=== PATIENT | female | born 1990 | race Caucasian/White ===

== ENCOUNTER 2023-08-31 17:19 | Emergency (ER) | payer BC, SELFPAY ==
[2023-08-31 17:23] VITALS: BP 130/83; PULSE 83; RESP 18; TEMP 36.2; O2SAT 99
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
[2023-08-31 18:40] VITALS: BMI 31.8
--- NOTE | 2023-08-31 18:40 | RAD_ITS ---
EXAM: XR LEFT KNEE COMPLETE, 4 OR MORE VIEWS CLINICAL INDICATION: Injury/Pain TECHNIQUE: Four or more views of the left knee. COMPARISON: No relevant prior studies available. FINDINGS: BONES/JOINTS: Unremarkable. No acute fracture. No subluxation. Normal alignment. Preservation of the joint space. No sclerotic or destructive changes observed. SOFT TISSUES: Unremarkable. No soft tissue swelling or gas. No radiopaque foreign body. RAD/Knee 4 or More Views IMPRESSION: Negative knee x-rays. Electronically Signed: Kalin Mcelroy MD at 19:46 EDT ,
--- NOTE | 2023-08-31 18:40 | RAD_ITS ---
EXAM: XR RIGHT KNEE COMPLETE, 4 OR MORE VIEWS CLINICAL INDICATION: Injury/Pain TECHNIQUE: Four or more views of the right knee. COMPARISON: No relevant prior studies available. FINDINGS: BONES/JOINTS: Unremarkable. No acute fracture. No subluxation. Normal alignment. Preservation of the joint space. No sclerotic or destructive changes observed. SOFT TISSUES: Unremarkable. No soft tissue swelling or gas. No radiopaque foreign body. RAD/Knee 4 or More Views IMPRESSION: Negative right knee x-rays. Electronically Signed: Kalin Mcelroy MD at 19:46 EDT ,
[2023-08-31 20:28] VITALS: BP 130/61; PULSE 78; RESP 16; TEMP 36.8; O2SAT 99
== END 2023-08-31 20:28 | disposition home or self-care (01) ==
PROVIDERS: Emergency Provider Emergency Medicine; PCP Family Medicine; Visit Provider Emergency Medicine
DX: S80.01XA Contusion of right knee, initial encounter (principal); S09.90XA Unspecified injury of head, initial encounter; Y92.410 Unspecified street and highway as the place of occurrence of the external cause; S80.02XA Contusion of left knee, initial encounter; V49.40XA Driver injured in collision with unspecified motor vehicles in traffic accident, initial encounter; S16.1XXA Strain of muscle, fascia and tendon at neck level, initial encounter; E06.3 Autoimmune thyroiditis; Z79.899 Other long term (current) drug therapy; Z90.49 Acquired absence of other specified parts of digestive tract
CPT/HCPCS: 73564; 99282

== ENCOUNTER 2024-09-20 17:10 | Outpatient (CLI) | payer BC, SELFPAY ==
[2024-09-20] VITALS (71 sets, daily range): BP systolic 127–139; BP diastolic 59–73; PULSE 88–104; RESP 14–16; TEMP 36.1–37; O2SAT 82–100; BMI 32.0
[2024-09-20] MEDS: Lactated Ringers 1,000 ML 999 ML IV (17:45)
[2024-09-20 17:57] LABS: Absolute Lymphocyte Count 1.91 X10^3/uL (0.83-4.51); Absolute Neutrophil Count 11.2 X10^3/uL (2.0-7.7); Basophil# 0.04 X10^3/uL; Basophil% 0.3 % (0-1); Eosinophil# 0.13 X10^3/uL; Eosinophils% 0.9 % (0-5); Hematocrit 36.2 % (37-47); Hemoglobin 11.9 g/dL (12.0-15.0); Lymphocyte # 1.91 X10^3/ul (0.83-4.51); Lymphocyte % 13.4 % (19-41); Mean Corp Hgb Conc 32.9 g/dL (32-36); Mean Corpuscular Hgb 31.9 pg (27.0-32.0); Mean Corpuscular Volume 97.1 fL (81-99); Mean Platelet Vol. 10.5 fl (6.2-12.0); Monocyte# 0.83 X10^3/uL; Monocyte% 5.8 % (0-10); NRBC Flagged by Analyzer 0 % (0-5); Neutrophil # 11.16 X10^3/uL (2.7-7.7); Neutrophil % 78.5 % (47-70); Platelet Count 299 K/mm3 (150-450); RBC Distribution Width CV 12.6 % (11.6-14.6); RBC Distribution Width SD 44.7 fl (35.1-43.9); Red Blood Count 3.73 M/mm3 (4.2-5.4); White Blood Count 14.2 K/mm3 (4.4-11.0)
[2024-09-20] MEDS: Betamethasone/Betamethasone 30 MG/5 ML Vial 12 MG IM (18:01)
[2024-09-20 18:12] LABS: International Normalized Ratio 0.9; Prothrombin Time (Protime)PT. 12.8 SECONDS (11.7-14.9)
[2024-09-20 18:13] LABS: Partial Thromboplast Time 25.7 Seconds (24.1-36.2)
[2024-09-20 18:14] LABS: Fibrinogen 544 mg/dl (203-444)
[2024-09-20] MEDS: Magnesium Sulfate 4gm/100mL 4 GM/100 ML IV.SOLN. IV (18:49)
--- NOTE | 2024-09-20 18:58 | OB.TRI.NOTE ---
HPI - General General Date of Admission: 09/20/24 Date of Service: 09/20/24 Chief Complaint: vaginal bleeding HPI Narrative KING HESTER, is a 34 F @ 23 6/7 weeks by 8 week US presents c/o bright red blood upon standing this evening. Some lower abdominal/low back tightening but didn't notice it being more than she has had the last few weeks. Denies trauma, intercourse, drug use or HTN. NO bleeding earlier in the . complicated to date by n/v and takes zofran and phenergan x 1 a day. 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 hx- denies tob/etoh/other substance use Maternal Data Information Final GASPER: [birth year] Gestational age: 23 6/7 PFSH PFSH Medical History Polycystic ovarian syndrome Eczema Hx of Pham thyroiditis Hay fever Home Medications ?Medication ?Instructions ?Recorded ?Last Taken ?Type cetirizine 10 mg capsule (Zyrtec) 10 mg PO DAILY PRN allergies 04/04/21 Unknown History levothyroxine 13 mcg capsule 13 mcg PO DAILY 04/04/21 Unknown History ondansetron HCl 4 mg tablet 4 mg PO 4X/DAY 09/20/24 Unknown History vit no.95-ferrous 1 tab PO DAILY 09/20/24 Unknown History fumarate 28 mg-folic acid 800 mcg tablet () promethazine 12.5 mg tablet 25 mg PO QHS 09/20/24 Unknown History Allergy/AdvReac Type Severity Reaction Status Date / Time amoxicillin Allergy Severe Hives Verified 09/20/24 17:55 tree nut (tree nuts) Allergy Intermediate Other Verified 09/20/24 17:55 latex Allergy Unknown unknown Verified 09/20/24 17:55 Penicillins Allergy Unknown unknown Verified 09/20/24 17:55 ethanolamine Allergy Anaphylaxis Verified 09/20/24 17:55 Family History Other Asthma Breast cancer Surgical History Hx of cholecystectomy Hx of appendectomy Social History Smoking Status: Never smoker ROS Constitutional Constitutional: Denies fatigue, fever(s) or malaise Eyes Eyes: Denies change in vision ENT HEENT: Denies dizziness or headache(s) Cardiovascular Cardiovascular: Denies chest pain, dyspnea or lightheadedness Respiratory/Chest Respiratory/Chest: Denies cough or dyspnea Gastrointestinal Gastrointestinal: Denies change in bowel habits Genitourinary Genitourinary: Denies burning urination or genital lesions Integumentary Integumentary: Denies rash Neurologic Neurologic: Denies confusion, dizziness, headache(s), numbness or weakness Physical Exam Narrative Verbal consent for sensitive exam, nursing present in the room for this. Brief transabdominal ultrasound was done. Grossly normal fluid. Posterior placenta. Lower uterine segment appears very thin. Active vertex fetus. Sterile speculum exam is done, small amount dark red blood in the vault. No active bright red bleeding, appears to be a clot at the os. Cervix does appear to be soft and approximately 2 cm. Gentle palpation of the cervix was then performed and on light exam feels to be approximately 2 cm 80% effaced but this was done very gingerly as I did not want to disrupt the clot at the os. Const alert and no apparent distress General Appearance: cooperative HEENT normocephalic Resp normal respiratory effort Cardio regular rate GI soft to palpation GI Narrative: gravid, nontender, appropriate for gestational age Extremity no calf tenderness General Extremity: edema Skin no wounds Rashes: No rashes noted Psych activity/motor behavior normal Assessment & Plan (1) Supervision of high risk in second trimester: (2) 23 weeks gestation of : (3) labor in second trimester: QUALIFIERS: labor delivery status: without delivery Qualified Code(s): O60.02 - labor without delivery, second trimester (4) Vaginal bleeding during , antepartum: PLAN: No evidence of abruption on exam or laboratory studies. (5) Advanced maternal age during in second trimester: PLAN: Response and alternatives to betamethasone, and magnesium prophylaxis were discussed with the patient and her family, and consent was obtained. PLAN: Plan Brief ultrasound confirms vertex. Response and alternatives to transport to [facility] perin[facility]ology and neonatology specialty availability were reviewed with the patient, her questions were answered to her satisfaction and she agrees to proceed with transport. Dr. Hitchcock accepts patient at [facility]. Neonatolgy there aware and in agreement w/ accepting transport.
[2024-09-20] MEDS: Magnesium Sulfate 20 GM/500 ML BAG IV (19:10)
--- NOTE | 2024-09-20 22:31 | NURSING ---
pt leaving hospital with [facility], magnesium sulfate 2 GM/hr at 50 mLs/hr continued to be administered as pt leaves.
== END 2024-09-20 22:30 | disposition short-term general hospital (02) ==
LOC: WPOUT 17:14 → WP 17:14
PROVIDERS: PCP Family Medicine; Visit Provider Obstetrics & Gynecology
DX: O46.92 Antepartum hemorrhage, unspecified, second trimester (principal); Z90.49 Acquired absence of other specified parts of digestive tract; Z3A.23 23 weeks gestation of pregnancy
CPT/HCPCS: 96365; 96366; 96361; 36415; 59025; 59050; 76815; 85025; 85384; 85610; 85730; 86850; 86900; 86901; 96372; 99221; G0378; J0702

== ENCOUNTER 2024-11-29 13:29 | Outpatient (CLI) | payer BC, MEDICAID, SELFPAY ==
[2024-11-29] VITALS (16 sets, daily range): PULSE 65–82; RESP 13; TEMP 36.6; O2SAT 92–98; BMI 30.6
--- OUTSIDE RECORDS SUMMARY | 2024-11-29 13:44 | XMS RPT_ITS | CCD ---
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 Information Provided to Patient: Diet Instructions Resume your pre-hospital diet Specific Concerns for Follow-up Post Discharge: Routine care Discharge Medications: Medication List CONTINUE taking these medications aspirin, enteric coated 81 mg EC tablet Commonly known as: ECOTRIN LOW STRENGTH Take 1 tablet by mouth once daily. folic acid 1 mg tablet TAKE 1 TABLET BY MOUTH EVERY DAY levothyroxine 50 mcg tablet Commonly known as: SYNTHROID ondansetron orally disintegrating 4 mg disintegrating tablet Commonly known as: ZOFRAN ODT Take 1 tablet by mouth every 6 hours as needed for nausea/vomiting. PO promethazine 25 mg tablet Commonly known as: PHENERGAN Take 1 tablet by mouth every 6 hours. ZyrTEC 10 mg tablet Generic drug: cetirizine ALLERGIES Allergen Reactions Amoxicillin Mental Status Change Latex, Natural Rubb* Rash Montelukast Unknown Penicillin Hives Penicillins Hives, Other: See Comments Mouth sores, mental changes Future Appointments: Follow Up Appointments Follow-Up Appointment Appointments for Next 60 Days Date Time Provider Location Dept Phone 11/16/2024 9:40 AM NATASHA SEGURA [phone] With: Provider When: In: Patient/Parents to call for appointment?: Yes Plan of care discussed with: Provider, RN, Patient. Final Diagnosis: vaginal bleeding in third trimester of Active Hospital Problems Diagnosis POA Vaginal bleeding during (HCC) Yes 30 weeks gestation of (HCC) Unknown Vaginal bleeding in , third trimester (HCC) Unknown Prematurity (HCC) Yes Resolved Hospital Problems No resolved problems to display. SIGNATURE: Yakelin Ventura DO DATE: November 12, 2024 TIME: 9:20 AM Normal [facility] NUTRITIONon 11-11-2024 NUTRITION HNO ID: [id number] Author: REGGIE DELONG DTR Service: Nutrition Therapy Author Type: Manager Of Change Type: Nutrition Filed: 11/11/2024 12:35 Note Text: NUTRITION THERAPY GLASS LINED TANK REPAIRER NOTE SERVICE DATE: 11/11/2024 SERVICE TIME: Start Time: 937 Visit Type: Length of Stay Patient consumes smaller meals and snacks. Reported weight loss with early . Plan of Care: Follow-Up: Tech Reassessment Nursing Admission Assessment Malnutrition Score: Nutrition Intake: Diet Orders (From admission, onward) Start Ordered 11/03/241744 DIET REGULAR START NOW 11/03/24 1741 Average intake over: Unable to determine Appetite: Good (Po intake 100% ans consumes snacks) Anthropometrics: Body mass index is 31.48 kg/m?. Usual Weight: 81.6 kg (180 lb) (pre- weight) Weight Change: (unable to determine) MNT Billing: $ Routine Care : 1 unit Time Spent (mins): 10 SIGNATURE: Reggie Delong DTR PATIENT NAME: Kathy Hester DATE: November 11, 2024 TIME: 12:34 PM Normal [facility] CASE MGT INIT Home 2024 CASE MGT INIT KAYLEY HNO ID: [id number] Author: LISA FAIRCHILD LSW Service: Social Work Author Type: Knife Cutter Type: Care Mgt Initial Assessment Filed: 11/09/2024 13:23 Note Text: SOCIAL WORK INITIAL ASSESSMENT SERVICE DATE: 11/09/2024 SERVICE TIME: 12:20 PM : 1990 Delivery Mode: Did not yet deliver. Weight: N/A Gestational Age: 31w0d Date Night Caregiver: Did not assess. MOTHER Name: Kathy Hester Age: 36 Marital Status: Father's Name: Did not disclose, Involved: Yes, Phone: Did not disclose MOTHER'S MEDICAL HISTORY Care: Yes, Patient states she has been in the hospital on three separate occasions due to bleeding. No other issues or concerns with care. Control Discussed: Encouraged patient to discuss with Provider. MENTAL HEALTH/SUBSTANCE ABUSE HISTORY Discussed Depression and Patient disclosed feeling PPD symptoms after delivery of daughter (age 8). States herself and several supports would be able to identify if she was feeling symptoms again. States utilized counseling, her support system, and with time PPD decreased. Was aware of multiple interventions to aid with PPD. Encouraged to reach out to Provider, if symptoms arise. LIVING SITUATION Home: Lives with Family Consisting of and daughter in the home. Denied any safety, transportation, or financial concerns at this time. Social Supports: Family Support, Uses the Following Community Resources: WIC and Medicaid. Patient was able to identify her parents, her sister, her , and his family are all supports. Her parents and sister live very close to her and are able to with child caregiver private home and emotional support. States they have also aided with baby supplies. Patient states she has all the baby supplies she needs. Plans to go to community baby shower in [place] to aid with more baby supplies. Requested resource for additional diapers and wipes. Denied needing any additional resources regarding this. Insurance/Community Resources Currently in Place: Parents notified to add baby to insurance within 30 days., Medicaid, WIC (Women, Infants AND Children), and Patient states her and her were not eligible for SNAP Benefits due to be over the financial qualifications. States she plans to reapply once is born. 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 Denied needing additional financial resources. Nursing Home Social Worker Arrangements: No additional Nursing Home Social Worker needed. Patient states her family can also aid with child caregiver private home, if needed. PLAN/REFERRALS/INFORMATI ON PROVIDED: Parking resources given Parent resources (NICU) Post- depression/anxiety education and literature given Prepared for Baby at Home Leander Styles resources reviewed and given Transportation: Medicaid Medical Transportation Social work intervention and support provided and continue to monitor while patient is in hospital. Will provide additional referrals resources and links as indicated at discharge. Diaper Weinstein Certificate question answered SW consulted due to Adjustment to Condition. Consult states Patient has some questions regarding Medicaid. SW met with Patient at bedside at 12:20 PM and completed assessment by 12:46 PM. Patient was cooperative, compliant, calm, and engaged during conversation. Completed assessment with SW. Patient asked how to set up Medicaid to cover after delivery. SW provided answer and discussed Medicaid Kitchen Bath Designer after delivery that can also aid. Patient asked questions regarding certificate and SW provided answer. SW referred to nurse after delivery who aid with certificates after delivery. Patient asked for Parking resources and SW provided several interventions to aid with parking. Patient discussed resources available if Infant is admitted to the NICUand SW provided answers. Patient also requested diaper and wipe resources. Patient denied any other concerns or questions. SW agreed to return with resource at a later time. SW returned at 1:02 PM to provide Diaper Bank near home. Social Work to remain available as needed. This worker's name and phone number given and resources given as needed. SW will no longer follow but can be consulted in the future. SIGNATURE: JOSE Wilcox PATIENT NAME: Kathy Hester DATE: November 09, 2024 TIME: 12:20 PM Normal [facility] NURSING PROGon 11-05-2024 NURSING PROG HNO ID: [id number] Author: CONCETTA GATES RN Service: Nursing Author Type: Registered Nurse Type: Nursing Progress Note Filed: 11/05/2024 21:22 Note Text: RN called to bedside because pt is complaining of new abdominal pain rating it a 6/10 and stating that she has passed a small clot. Peripad was left in bathroom with a small pea sized brown clot. Thayne applied to assess for contractions and heart tones obtained. Pt given 1000mg of tylenol. Dr. Hernandez and Dr. Auguste updated. Will discontinue toco in 20minutes if toco is quiet. Pt agreeable with this plan. Normal [facility] CBC panel Auto (Bld)on 11-03 Erythrocyte distribution width (RBC) [Ratio] 13.1 % Normal 11.5-15.0 [facility] Comment on above: Order Comment: Speci men Type: SWAB Ordering Facility: [facility] Address: [address] [place] [address] Performed By: #### B VAMP, CVTV #### [facility] CLIA [id number] [address] [place] [address] [place] Hematocrit (Bld) [Volume fraction] 36.4 % Normal 36.0-46.0 [facility] Comment on above: Order Comment: Speci men Type: SWAB Ordering Facility: [facility] Address: [address] [place] [address] Performed By: #### B VAMP, CVTV #### [facility] CLIA [id number] [address] [place] [address] [place] Hemoglobin (Bld) [Mass/Vol] 12.0 g/dL Normal 11.5-15.5 [facility] Comment on above: Order Comment: Speci men Type: SWAB Ordering Facility: [facility] Address: [address] [place] [address] Performed By: #### B VAMP, CVTV #### [facility] CLIA [id number] [address] [place] [address] [place] MCH (RBC) [Entitic mass] 31.4 pg Normal 26.0-34.0 [facility] Comment on above: Order Comment: Speci men Type: SWAB Ordering Facility: [facility] Address: [address] [place] [address] Performed By: #### B VAMP, CVTV #### [facility] CLIA [id number] [address] [place] [address] [place] MCHC (RBC) [Mass/Vol] 33.0 g/dL Normal 30.5-36.0 [facility] Comment on above: Order Comment: Speci men Type: SWAB Ordering Facility: [facility] Address: [address] [place] [address] Performed By: #### B VAMP, CVTV #### [facility] CLIA [id number] [address] [place] [address] [place] MCV (RBC) [Entitic vol] 95.3 fL Normal 80.0-100.0 [facility] Comment on above: Order Comment: Speci men Type: SWAB Ordering Facility: [facility] Address: [address] [place] [address] Performed By: #### B VAMP, CVTV #### [facility] CLIA [id number] [address] [place] [address] [place] Nucleated RBC (Bld) [#/Vol] 10*3/uL Normal <0.01 [facility] Comment on above: Order Comment: Speci men Type: SWAB Ordering Facility: [facility] Address: [address] [place] [address] Performed By: #### B VAMP, CVTV #### [facility] CLIA [id number] [address] [place] [address] [place] Platelet mean volume (Bld) [Entitic vol] 10.5 fL Normal 9.0-12.7 [facility] Comment on above: Order Comment: Speci men Type: SWAB Ordering Facility: [facility] Address: [address] [place] [address] Performed By: #### B VAMP, CVTV #### [facility] CLIA [id number] [address] [place] [address] [place] Platelets (Bld) [#/Vol] 258 10*3/uL Normal 150-400 [facility] Comment on above: Order Comment: Speci men Type: SWAB Ordering Facility: [facility] Address: [address] [place] [address] Performed By: #### B VAMP, CVTV #### [facility] CLIA [id number] [address] [place] [address] [place] RBC (Bld) [#/Vol] 3.82 10*6/uL Low 3.90-5.20 [facility] Comment on above: Order Comment: Speci men Type: SWAB Ordering Facility: [facility] Address: [address] [place] [address] Performed By: #### B VAMP, CVTV #### [facility] CLIA [id number] [address] [place] [address] [place] WBC (Bld) [#/Vol] 12.19 10*3/uL High 3.70-11.00 [facility] Comment on above: Order Comment: Speci men Type: SWAB Ordering Facility: [facility] Address: [address] [place] [address] Performed By: #### B VAMP, CVTV #### [facility] CLIA [id number] [address] [place] [address] OF [place] Benny 11-03-2024 NIMA Telephone (DEBBIEGYJosé LuisM) -------- KATHY HESTER ([id number]) 1990 F Date Time Provider Department 11/03/24 PRIYA WORKMAN During your visit today, we recorded the following information about you: Natasha Chandler RN 11/03/2024 2:16 PM Signed 30w1d Patient called the office stating that she began bleeding and passing large blood clots. Unable to describe how large. States that she called for a squad and hoping that they will take her to [place]. Patient wanted to let our office know. She is home with her , mother, and child. Did not attempt to ask further questions regarding her bleeding as patient was crying on the phone and the squad was on it's way. SAYDA Guan Karmon, MD 11/03/2024 4:12 PM Signed Noted Priya Workman MD Allergies As of Date: 11/03/2024 Noted Allergy Reaction AMOXICILLIN 09/17/2015 1 - Mental Status Change LATEX, NATURAL RUBBER 10/20/2015 2 - Rash MONTELUKAST 01/14/2022 16 - Unknown PENICILLIN 10/20/2015 4 - Hives PENICILLINS 08/04/2015 4 - Hives 14 - Other: See Comments Comments: Mouth sores, mental changes Date Reviewed: 11/03/2024 Reviewed by: Joann Marie RN - Fully Assessed Reason for Visit: OB Bleeding - Pt Called Squad [Other] Prescriptions as of 11/03/2024 - ondansetron orally disintegrating (ZOFRAN ODT) 4 mg disintegrating tablet Take 1 tablet by mouth every 6 hours as needed for nausea/vomiting. - cetirizine (ZYRTEC) 10 mg tablet Take 10 mg by mouth once daily. - promethazine (PHENERGAN) 25 mg tablet Take 1 tablet by mouth every 6 hours. - PNV no.95/ferrous fum/folic ac ( ORAL) Take by mouth. - folic acid 1 mg tablet TAKE 1 TABLET BY MOUTH EVERY DAY - aspirin, enteric coated (ECOTRIN LOW STRENGTH) 81 mg EC tablet Take 1 tablet by mouth once daily. - levothyroxine (SYNTHROID) 50 mcg tablet Take 50 mcg by mouth daily before breakfast. 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 Fibrinogen PPP-mCncon 2024 Fibrinogen Coag (PPP) [Mass/Vol] 565 mg/dL High 200-400 [facility] Comment on above: Order Comment: Speci men Type: SWAB Ordering Facility: [facility] Address: [address] [place] [address] Performed By: #### MEKA SINGH #### [facility] CLIA [id number] [address] [place] [address] [place] [address] [place] HISTORY PHYSICALon HISTORY PHYSICAL HNO ID: [id number] Author: MARIANA BURKS MD Service: Maternal Medicine Author Type: Resident Type: H&P Filed: 11/04/2024 12:18 Note Text: -------- Attestation signed by Mariana Burks MD at 11/04/2024 12:18 PM Attending Note I evaluated the patient and personally participated in the doe components. I agree with the resident's findings and plan as documented and have discussed the case and management of the patient's care with the resident. Signature: Dr. Mariana Burks MD Date: November 04, 2024 Time: 12:18 PM -------- OBSTETRICS HISTORY AND PHYSICAL SERVICE DATE: November 03, 2024 SERVICE TIME: 4:31 PM Subjective Patient's stated reason for arrival: bright red bleeding CHIEF COMPLAINT: Vaginal bleeding HISTORY OF THE PRESENT ILLNESS: The patient is a 34 year old female, , who is at 30w1d with an GASPER of 01/11/2025, by Ultrasound dating method. Patient presented to the OB ED complaining of increased vaginal bleeding since this morning. She had one episode of bright red blood this morning with nickel-sized clots. She is very concerned she is making further cervical change. She endorses back pain but no contractions. Good movement. Denies leaking of fluid. Denies headache, visual changes, RUQ pain, chest pain, shortness of breath, worsening edema, fevers, chills, nausea, vomiting. Of note, patient was admitted to Maternal Medicine service from 10/19 to 10/26 for threatened labor. Her SVE of 3/60/-3 remained unchanged during that admission. She received a course of rescue steroids (10/19-). HISTORY REVIEW PAST MEDICAL HISTORY Diagnosis Date Gallstones Pham's disease Symptomatic cholelithiasis 12/04/2015 UTI (urinary tract infection) PAST SURGICAL HISTORY Procedure Laterality Date APPENDECTOMY HX 6 yo CHOLECYSTECTOMY HX 12/12/2015 FAMILY HISTORY Problem Relation Age of Onset Breast Cancer Mother Left Mastectomy other (thyroid issues) Mother Stroke Father TIA Asthma Father Asthma Sister other (Endometriosis) Sister Breast Cancer Maternal Grandmother Macular Degen Maternal Grandfather Diabetes Paternal Grandmother Type 2 Heart disease Paternal Grandfather Dementia Paternal Grandfather Heart Attack Paternal Uncle Social History Tobacco Use Smoking status: Never Smokeless tobacco: Never Vaping Use Vaping status: Never Used Substance Use Topics Alcohol use: No Drug use: No Obstetric History T1 L1 SAB0 IAB0 Ectopic0 Multiple0 Live Births1 Name of Baby 1: BG KATHY HESTER Date: 05/07/16 GA: 40w2d Type: Vaginal, Spontaneous Apgar1: 9 Apgar5: 9 Living: Living Name of Baby 2: Not recorded Date: Not recorded GA: Not recorded Type: Not recorded Apgar1: Not recorded Apgar5: Not recorded Living: Not recorded ALLERGIES Allergen Reactions Amoxicillin Mental Status Change Latex, Natural Rubb* Rash Montelukast Unknown Penicillin Hives Penicillins Hives, Other: See Comments Mouth sores, mental changes Prior to Admission Medications Prescriptions Last Dose Informant Patient Reported? Taking? PNV no.95/ferrous fum/folic ac ( ORAL) Yes Yes Sig: Take by mouth. aspirin, enteric coated (ECOTRIN LOW STRENGTH) 81 mg EC tablet No No Sig: Take 1 tablet by mouth once daily. cetirizine (ZYRTEC) 10 mg tablet Yes Yes Sig: Take 10 mg by mouth once daily. folic acid 1 mg tablet No No Sig: TAKE 1 TABLET BY MOUTH EVERY DAY levothyroxine (SYNTHROID) 50 mcg tablet Yes Yes Sig: Take 50 mcg by mouth daily before breakfast. ondansetron orally disintegrating (ZOFRAN ODT) 4 mg disintegrating tablet No Yes Sig: Take 1 tablet by mouth every 6 hours as needed for nausea/vomiting. promethazine (PHENERGAN) 25 mg tablet No No Sig: Take 1 tablet by mouth every 6 hours. Facility-Administered Medications: None REVIEW OF SYSTEMS: The remainder of the review of systems is negative. Objective LAST VITALS: Pulse BP Resp O2 Sat Temp Pain 83 129/56 16 96 % 36.2 ?C (97.2 ?F) 3 HT/WT/BMI: Height Weight BMI 170.2 cm (5' 7) 91.2 kg (201 lb) 31.48 SENSITIVE EXAMINATION CONSENT: Participation of a fellow, resident, medical student, or advanced practice provider student in performing the sensitive examination was discussed with the patient or authorized sales representative. The patient or authorized sales representative has agreed to proceed with the sensitive examination. PHYSICAL EXAM: General: WD, WN, comfortable HEENT: NC/AT, sclera white, pupils equal Lungs: normal respiratory effort Heart: RR, S1, S2 Abdomen: soft, nontender, gravid Uterus: soft, NT Extremities: tr edema St Spec Exam: External genitalia normal, well-estrogenized vaginal epithelium is normal discharge present, no lesions noted on vulva, vagi (more content not included)... Normal [facility] TYPE + SCREEN PRENATALon ABO O Normal [facility] Comment on above: Order Comment: Speci men Type: BLOOD SPECIMENOrdering Facility: [facility] Address: [address] [place] [address] Performed By: #### T SPN ####[facility] BLOOD BANKIA [id number] [place] [address] [place] Rh Nom (Bld) Positive Normal [facility] Comment on above: Order Comment: Speci men Type: BLOOD SPECIMENOrdering Facility: [facility] Address: [address] [place] [address] Performed By: #### T SPN ####[facility] B[facility] BANKIA [id number] [address] STATES OF [facility] TYPE AND SCREEN EXPIRATION 11/06/2024 23:59 Normal [facility] Comment on above: Order Comment: Speci men Type: BLOOD SPECIMENOrdering Facility: [facility] Address: [address] [place] [address] Performed By: #### T SPN ####[facility] BLOOD BANKCLIA [id number] [address] [place] CBC W Auto Differential pane l (Bld)on 10-30-2024 Basophils (Bld) [#/Vol] 0.03 10*3/uL Normal <0.11 [facility] Comment on above: Order Comment: Speci men Type: BLOOD SPECIMENOrdering Facility: [facility] Address: [address] [place] [address] Performed By: #### 5 7021-8 ####[facility] LATANYAWNCLIA [id number] [place] [address] [place] Basophils/100 WBC (Bld) 0.2 % Normal [facility] Comment on above: Order Comment: Speci men Type: BLOOD SPECIMENOrdering Facility: [facility] Address: [address] [place] [address] Performed By: #### 5 7021-8 ####[facility]ITALWNCLIA [id number] [place] [address] [place] Differential cell count method Nom (Bld) Auto Normal [facility] Comment on above: Order Comment: Speci men Type: BLOOD SPECIMENOrdering Facility: [facility] Address: [address] [place] [address] Performed By: #### 5 7021-8 ####[facility] H[facility]ITALWVTLIA [id number] [place] [address] [place] Eosinophils (Bld) [#/Vol] 0.12 10*3/uL Normal <0.46 [facility] Comment on above: Order Comment: Speci men Type: BLOOD SPECIMENOrdering Facility: [facility] Address: [address] [place] [address] Performed By: #### 5 7021-8 ####[facility] MILLWNCLIA [id number] [place] [address] [place] Eosinophils/100 WBC (Bld) 0.9 % Normal [facility] Comment on above: Order Comment: Speci men Type: BLOOD SPECIMENOrdering Facility: [facility] Address: [address] [place] [address] Performed By: #### 5 7021-8 ####[facility] NASSAUTAYLERLIA [id number] [place] [address] [place] Erythrocyte distribution width (RBC) [Ratio] 12.9 % Normal 11.5-15.0 [facility] Comment on above: Order Comment: Speci men Type: BLOOD SPECIMENOrdering Facility: [facility] Address: [address] [place] [address] Performed By: #### 5 7021-8 ####[facility] CAMPUSJANETA [id number] [place] [address] [place] Hematocrit (Bld) [Volume fraction] 37.3 % Normal 36.0-46.0 [facility] Comment on above: Order Comment: Speci men Type: BLOOD SPECIMENOrdering Facility: [facility] Address: [address] [place] [address] Performed By: #### 5 7021-8 ####[facility] BEACHA [id number] [place] [address] [place] Hemoglobin (Bld) [Mass/Vol] 12.5 g/dL Normal 11.5-15.5 [facility] [facility] Comment on above: Order Comment: Speci men Type: BLOOD SPECIMENOrdering Facility: [facility] Address: [address] [place] [address] Performed By: #### 5 7021-8 ####[facility] CAMPUSLIA [id number] [place] [address] [place] Immature granulocytes (Bld) [#/Vol] 0.07 10*3/uL Normal <0.10 [facility] Comment on above: Order Comment: Speci men Type: BLOOD SPECIMENOrdering Facility: [facility] Address: [address] [place] [address] Performed By: #### 5 7021-8 ####[facility] CAMPUSLI [id number] [place] [address] [place] Immature granulocytes/100 WBC (Bld) 0.5 % Normal [facility] Comment on above: Order Comment: Speci men Type: BLOOD SPECIMENOrdering Facility: [facility] Address: [address] [place] [address] Performed By: #### 5 7021-8 ####[facility] NASSAUNCA [id number] [place] [address] [place] Lymphocytes (Bld) [#/Vol] 1.82 10*3/uL Normal 1.00-4.00 [facility] Comment on above: Order Comment: Speci men Type: BLOOD SPECIMENOrdering Facility: [facility] Address: [address] [place] [address] Performed By: #### 5 7021-8 ####[facility] [id number] [place] [address] [place] Lymphocytes/100 WBC (Bld) 13.7 % Normal [facility] Comment on above: Order Comment: Speci men Type: BLOOD SPECIMENOrdering Facility: [facility] Address: [address] [place] [address] Performed By: #### 5 7021-8 ####[facility] NASSAUNCLI [id number] [place] [address] [place] MCH (RBC) [Entitic mass] 31.8 pg Normal 26.0-34.0 [facility] Comment on above: Order Comment: Speci men Type: BLOOD SPECIMENOrdering Facility: [facility] Address: [address] [place] [address] Performed By: #### 5 7021-8 ####[facility]SAUNCTOOELE [facility] [id number] [place] [address] [place] MCHC (RBC) [Mass/Vol] 33.5 g/dL Normal 30.5-36.0 [facility] Comment on above: Order Comment: Speci men Type: BLOOD SPECIMENOrdering Facility: [facility] Address: [address] [place] [address] Performed By: #### 5 7021-8 ####[facility] LATANYAJosé LuisNCSIMON [id number] [place] [address] [place] MCV (RBC) [Entitic vol] 94.9 fL Normal 80.0-100.0 [facility] Comment on above: Order Comment: Speci men Type: BLOOD SPECIMENOrdering Facility: [facility] Address: [address] [place] [address] Performed By: #### 5 7021-8 ####[facility] NASSAUNCSyed [id number] [place] [address] [place] Monocytes (Bld) [#/Vol] 0.73 10*3/uL Normal <0.87 [facility] Comment on above: Order Comment: Speci men Type: BLOOD SPECIMENOrdering Facility: [facility] Address: [address] [place] [address] Performed By: #### 5 7021-8 ####[facility] CAMPUSLIA [id number] [place] [address] [place] Monocytes/100 WBC (Bld) 5.5 % Normal [facility] Comment on above: Order Comment: Speci men Type: BLOOD SPECIMENOrdering Facility: [facility] Address: [address] [place] [address] Performed By: #### 5 7021-8 ####[facility] NASSAUNCLIA [id number] [place] [address] [place] Neutrophils (Bld) [#/Vol] 10.48 10*3/uL High 1.45-7.50 [facility] Comment on above: Order Comment: Speci men Type: BLOOD SPECIMENOrdering Facility: [facility] Address: [address] [place] [address] Performed By: #### 5 7021-8 ####[facility] HOSPITALWNCLIA [id number] [place] [address] [place] Neutrophils/100 WBC (Bld) 79.2 % Normal [facility] Comment on above: Order Comment: Speci men Type: BLOOD SPECIMENOrdering Facility: [facility] Address: [address] [place] [address] Performed By: #### 5 7021-8 ####[facility] CAMPUSLIA [id number] [place] [address] [place] Nucleated RBC (Bld) [#/Vol] 10*3/uL Normal <0.01 [facility] Comment on above: Order Comment: Speci men Type: BLOOD SPECIMENOrdering Facility: [facility] Address: [address] [place] [address] Performed By: #### 5 7021-8 ####[facility] [id number] [place] [address] [place] Nucleated RBC/100 WBC (Bld) [Ratio] 0.0 /[address] [facility] Comment on above: Order Comment: Speci men Type: BLOOD SPECIMENOrdering Facility: [facility] Address: [address] [place] [address] Performed By: #### 5 7021-8 ####[facility] CAMPUSLIA [id number] [place] [address] [place] Platelet mean volume (Bld) [Entitic vol] 10.3 fL Normal 9.0-12.7 [facility] Comment on above: Order Comment: Speci men Type: BLOOD SPECIMENOrdering Facility: [facility] Address: [address] [place] [address] Performed By: #### 5 7021-8 ####[facility] NASSAUNCLI [id number] [place] [address] [place] Platelets (Bld) [#/Vol] 294 10*3/uL Normal 150-400 [facility] Comment on above: Order Comment: Speci men Type: BLOOD SPECIMENOrdering Facility: [facility] Address: [address] [place] [address] Performed By: #### 5 7021-8 ####[facility] NASSAUNCA [id number] [place] [address] [place] RBC (Bld) [#/Vol] 3.93 10*6/uL Normal 3.90-5.20 [facility] Comment on above: Order Comment: Speci men Type: BLOOD SPECIMENOrdering Facility: [facility] Address: [address] [place] [address] Performed By: #### 5 7021-8 ####[facility] [id number] [place] [address] [place] WBC (Bld) [#/Vol] 13.25 10*3/uL High 3.70-11.00 [facility] Comment on above: Order Comment: Speci men Type: BLOOD SPECIMENOrdering Facility: [facility] Address: [address] [place] [address] Performed By: #### 5 7021-8 ####[facility] [id number] [place] [address] [place] GESTATIONAL GLUCOSE SCREEN, 1-HOUR, 50 GRAM, NON-FASTINGon 10-30-2024 Glucose [Mass/Vol] 95 mg/dL Normal 74-134 [facility] Comment on above: Order Comment: Speci men Type: BLOOD SPECIMENOrdering Facility: [facility] Address: [address] [place] [address] Result Comment: [facility] Congress of Obstetricians and Gynecologists (Kristofer/Augie) guidelines state a gestational diabetes mellitus positive screen is made, in women not previously diagnosed with overt diabetes, when the 1 hr plasma glucose level is equal to or above 140 mg/dL. The [facility] Purchase Price Analyst and [facility] recommends a 135 mg/dL cutoff. Performed By: #### G LTGST ####[facility] [id number] [place] [address] [place] Reagin and Treponema pallidu m IgG and IgM [Interp]on 10-30-2024 T. pallidum IgG+IgM IA Ql (S) Non-Reactive Normal Nonreactive [facility] Comment on above: Order Comment: Speci men Type: BLOOD SPECIMEN [facility] Address: [address] [place] [address] Performed By: #### T SPN #### [facility] [place] [id number] [address] [place] [address] [place] Reagin+T pallidum IgG+IgM Se rPl-Impon 10-30-2024 Reagin and Treponema pallidum IgG and IgM [Interp] Cannot exclude recent Treponemal infection if specimen collected within 7-10 days after appearance of suspect lesions or 2-3 weeks after an exposure. Clinical correlation is required. Normal [facility] Comment on above: Order Comment: Cecily dc Type: BLOOD SPECIMEN [facility] Address: [address] [place] [address] Performed By: #### T SPN #### [facility] CLIA [id number] [address] [place] [address] [place] CNPNon 10-28-2024 CNPN Telephone (OBGYWM) -------- KATHY HESTER ([id number]) 1990 F Date Time Provider Department 10/28/24 PAMELLA CROWDER During your visit today, we recorded the following information about you: Kaelyn SpanglerKHANH 10/28/2024 3:13 PM Signed Ob patient is 29w2d called stating that she began to have pinkish spotting today that she noticed when using the restroom and then noticed the pinkish colored blood on pad. Patient is c/o lower back discomfort that started this morning. Denies cramping. No c/o contractions. Patient was admitted to [facility] from 10/21 to 10/26 for pre-term labor. Was 3cm when admitted. Discussed with Jesus Crowder and patient instructed to go to [facility] for evaluation. Allergies As of Date: 10/28/2024 Noted Allergy Reaction AMOXICILLIN 09/17/2015 1 - Mental Status Change LATEX, NATURAL RUBBER 10/20/2015 2 - Rash MONTELUKAST 01/14/2022 16 - Unknown PENICILLIN 10/20/2015 4 - Hives PENICILLINS 08/04/2015 4 - Hives 14 - Other: See Comments Comments: Mouth sores, mental changes Date Reviewed: 10/28/2024 Reviewed by: Barb [facility], SAYDA - Fully Assessed Reason for Visit: Care [86] Prescriptions as of 11/04/2024 - ondansetron orally disintegrating (ZOFRAN ODT) 4 mg disintegrating tablet Take 1 tablet by mouth every 6 hours as needed for nausea/vomiting. - cetirizine (ZYRTEC) 10 mg tablet Take 10 mg by mouth once daily. - promethazine (PHENERGAN) 25 mg tablet Take 1 tablet by mouth every 6 hours. - PNV no.95/ferrous fum/folic ac ( ORAL) Take by mouth. - folic acid 1 mg tablet TAKE 1 TABLET BY MOUTH EVERY DAY - aspirin, enteric coated (ECOTRIN LOW STRENGTH) 81 mg EC tablet Take 1 tablet by mouth once daily. - levothyroxine (SYNTHROID) 50 mcg tablet Take 50 mcg by mouth daily before breakfast. Facility-Administered Medications as of 11/04/2024 - levothyroxine 50 mcg tab(s) (SYNTHROID) - acetaminophen 1,000 mg tab(s) (TYLENOL) - sodium citrate-citric acid 500-334 mg/5 mL 30 mL oral liquid (BICITRA) - metoclopramide HCl 10 mg injection (REGLAN) - NaCl 0.9% iv flush bag - ondansetron (PF) 4 mg injection (ZOFRAN) - promethazine 25 mg tab(s) (PHENERGAN) - ceFAZolin iv piggyback 2 g in D5W (iso-osmotic) 100 mL (ANCEF) - azithromycin 500 mg in D5W 250 mL Vial-Bag (ZITHROMAX) Problem List As Of Date 10/28/2024 Noted Resolved UTI (urinary tract infection) [N39.0] 10/20/2015 12/06/2015 Normal IUP (intrauterine ) on *12/04/2015 05/08/2016 Symptomatic cholelithiasis [K80.20] 12/04/2015 07/31/2024 Premature labor after 22 weeks and before 37 we*03/25/2016 05/08/2016 False labor after 37 weeks of gestation without*04/17/2016 05/08/2016 Term [Z34.90] 05/06/2016 05/08/2016 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] 06/01/2024 Supervision of high-risk of elderly m*06/01/2024 Nausea and vomiting in (HCC) [O21.9] 06/01/2024 Threatened labor (HCC) [O47.00] 09/21/2024 Threatened labor, antepartum (HCC) [O47*09/21/2024 Prematurity (HCC) [P07.30] 09/21/2024 Penicillin allergy [Z88.0] 09/21/2024 Vaginal bleeding during (HCC) [O46.90]09/21/2024 28 weeks gestation of (HCC) [Z3A.28] 10/19/2024 Threatened labor, third trimester (HCC)*10/19/2024 29 weeks gestation of (HCC) [Z3A.29] 10/28/2024 Encounter Status:Closed by KAELYN SPANGLER on 11/04/24 [facility] CNDSon 10-26-2024 CNDS HNO ID: [id number] Author: MARIANA BURKS MD Service: Obstetrics Author Type: Resident Type: Discharge Summary Filed: 10/26/2024 10:18 Note Text: -------- Attestation signed by Mariana Burks MD at 10/26/2024 10:18 AM Attending Note I evaluated the patient and personally participated in the doe components. I agree with the resident's findings and plan as documented and have discussed the case and management of the patient's care with the resident. I have performed the hvdy-bc-odml and relevant discharge services for a total of < 30 minutes. Signature: Dr. Mariana Burks MD Date: October 26, 2024 Time: 10:18 AM -------- DISCHARGE NOTE SERVICE DATE: 10/26/2024 SERVICE TIME: 10:09 AM ADMISSION DATE: 10/19/2024 DISCHARGE DISPOSITION: Home with Self Care Ms. Pak is a 34 year old at 29w0d who was admitted on 10/19 for threatened labor and vaginal bleeding. Patient was admitted 09/20-09/21 for threatened labor. She had vaginal bleeding at that time and was 0.5 cm dilated. She completed a course of corticosteroids at the time () and was discharged home in stable condition. On this current admission, she received a course of rescue steroids (10/19-) and her was SVE remained stable from her admission SVE of 3/60/-3. She did not have any regular contractions. NICU was consulted. tracing remained appropriate for gestational age. She was stable for discharged on 10/26/2024. She will need her 1 hour GCT this week with her outpatient provider. DIET: Regular ACTIVITY AFTER DISCHARGE: Resume pre-hospital activity FOLLOW UP CARE REQUIRED: Routine 1 hour GCT with outpatient provider DISCHARGE MEDICATIONS: Medication List CONTINUE taking these medications aspirin, enteric coated 81 mg EC tablet Commonly known as: ECOTRIN LOW STRENGTH Take 1 tablet by mouth once daily. folic acid 1 mg tablet TAKE 1 TABLET BY MOUTH EVERY DAY levothyroxine 50 mcg tablet Commonly known as: SYNTHROID ondansetron orally disintegrating 4 mg disintegrating tablet Commonly known as: ZOFRAN ODT Take 1 tablet by mouth every 6 hours as needed for nausea/vomiting. ORAL promethazine 25 mg tablet Commonly known as: PHENERGAN Take 1 tablet by mouth every 6 hours. ZyrTEC 10 mg tablet Generic drug: cetirizine FINAL DIAGNOSIS: Active Hospital Problems Diagnosis POA Threatened labor, third trimester (HCC) Yes 28 weeks gestation of (HCC) Yes Penicillin allergy Yes Prematurity (HCC) Yes Pham's disease Yes Resolved Hospital Problems No resolved problems to display. SIGNATURE: Desmond Hughes DO PATIENT NAME: Kathy Hester DATE: October 26, 2024 TIME: 10:08 AM [facility] NURSING PROGon 10-21-2024 NURSING PROG HNO ID: [id number] Author: MELVIN ANDERSON RN Service: ? Author Type: Registered Nurse Type: Nursing Progress Note Filed: 10/21/2024 19:53 Note Text: Other: 1930: Called into patient's room for complaints of facial flushing according to patient's family Vital signs stable, no complaints of pain or feelings of shortness of breath. Patient has no complaints regarding feeling itchy or showing signs of hives etc. Resident notified, this RN continues to encourage rest and hydration at this time. 1950: Called into patient's room, patient reports that she passed a blood clot while urinating. Dime sized clot seen in the toilet. Normal [facility] NURSING PROG HNO ID: [id number] Author: YAKELIN OSUNA, SAYDA Service: Nursing Author Type: Registered Nurse Type: Nursing Progress Note Filed: 10/21/2024 06:36 Note Text: Other: Called into the patient's room, patient reports that she passed a blood clot while urinating. Quarter sized clot seen in the toilet. Normal [facility] CASE MANAGEMon 10-20-2024 CASE MANAGEM HNO ID: [id number] Author: LISA FAIRCHILD LSW Service: Social Work Author Type: Knife Cutter Type: Care Mgt Progress Note Filed: 10/20/2024 08:21 Note Text: CARE MANAGEMENT PROGRESS NOTE SERVICE DATE: 10/20/2024 SERVICE TIME: 7:35 AM LOS: 1 day SW consulted due to Adjustment to Condition. Small Kick Press Operator Nurse had put in the consult with no other details. Discussed with Day Shift Nurse who states reason for consult was due Patient having Medicaid. Small Kick Press Operator Nurse wanted to make sure she did not need any other resources. Day Shift Nurse had no concerns. Due to this SW will not discuss consult with Patient. SW will no longer follow but can be consulted at a later time. SIGNATURE: JOSE Wilcox PATIENT NAME: Kathy Hester DATE: October 20, 2024 TIME: 7:35 AM Normal [facility] Examination level ultrasound on 10-20-2024 [facility] Radiology Study observation (narrative) [facility] NURSING PROGon 10-20-2024 NURSING PROG HNO ID: [id number] Author: YAKELIN OSUNA RN Service: Nursing Author Type: Registered Nurse Type: Nursing Progress Note Filed: 10/20/2024 10:18 Note Text: Patient reporting increased abdominal and back pain with tightness, monitors placed and abdomen palpated. Resident notified Normal [facility] CBC W Auto Differential pane l (Bld)on 10-19-2024 Basophils (Bld) [#/Vol] 0.03 10*3/uL Normal <0.11 [facility] Comment on above: Order Comment: Speci men Type: BLOOD SPECIMENOrdering Facility: [facility] Address: [address] [place] [address] Performed By: #### 5 7021-8 ####[facility] LABORATORYCLIA [id number] [place] [address] [place] Basophils/100 WBC (Bld) 0.2 % Normal [facility] Comment on above: Order Comment: Speci men Type: BLOOD SPECIMENOrdering Facility: [facility] Address: [address] [place] [address] Performed By: #### 5 7021-8 ####[facility]ORATORYCLIA [id number] [address] Differential cell count method Nom (Bld) Auto Normal [facility] Comment on above: Order Comment: Speci men Type: BLOOD SPECIMENOrdering Facility: [facility] Address: [address] [place] [address] Performed By: #### 5 7021-8 ####[facility] LABORATORYCLIA [id number] [address] [place] Eosinophils (Bld) [#/Vol] 0.10 10*3/uL Normal <0.46 [facility] Comment on above: Order Comment: Speci men Type: BLOOD SPECIMENOrdering Facility: [facility] Address: [address] [place] [address] Performed By: #### 5 7021-8 ####[facility]ORATORYCLIA [id number] [address] Eosinophils/100 WBC (Bld) 0.6 % Normal [facility] Comment on above: Order Comment: Speci men Type: BLOOD SPECIMENOrdering Facility: [facility] Address: [address] [place] [address] Performed By: #### 5 7021-8 ####[facility]ORATORYCLIA [id number] [address] Erythrocyte distribution width (RBC) [Ratio] 12.5 % Normal 11.5-15.0 [facility] Comment on above: Order Comment: Speci men Type: BLOOD SPECIMENOrdering Facility: [facility] Address: [address] [place] [address] Performed By: #### 5 7021-8 ####[facility]ORATORYCLIA [id number] [address] Hematocrit (Bld) [Volume fraction] 38.5 % Normal 36.0-46.0 [facility] Comment on above: Order Comment: Speci men Type: BLOOD SPECIMENOrdering Facility: [facility] Address: [address] [place] [address] Performed By: #### 5 7021-8 ####[facility] LABORATORYCLIA [id number] [address] [place] Hemoglobin (Bld) [Mass/Vol] 12.8 g/dL Normal 11.5-15.5 [facility] Comment on above: Order Comment: Speci men Type: BLOOD SPECIMENOrdering Facility: [facility] Address: [address] [place] [address] Performed By: #### 5 7021-8 ####[facility]ATORYCLIA [id number] [address] [place] Immature granulocytes (Bld) [#/Vol] 0.15 10*3/uL High <0.10 [facility] Comment on above: Order Comment: Speci men Type: BLOOD SPECIMENOrdering Facility: [facility] Address: [address] [place] [address] Performed By: #### 5 7021-8 ####[facility]ATORYCLIA [id number] [address] [place] Immature granulocytes/100 WBC (Bld) 1.0 % Normal [facility] Comment on above: Order Comment: Speci men Type: BLOOD SPECIMENOrdering Facility: [facility] Address: [address] [place] [address] Performed By: #### 5 7021-8 ####[facility] LABORATORYCLIA [id number] [place] [address] [place] Lymphocytes (Bld) [#/Vol] 1.67 10*3/uL Normal 1.00-4.00 [facility] Comment on above: Order Comment: Speci men Type: BLOOD SPECIMENOrdering Facility: [facility] Address: [address] [place] [address] Performed By: #### 5 7021-8 ####[facility]ORATORYCLIA [id number] [address] [place] Lymphocytes/100 WBC (Bld) 10.7 % Normal [facility] Comment on above: Order Comment: Speci men Type: BLOOD SPECIMENOrdering Facility: [facility] Address: [address] [place] [address] Performed By: #### 5 7021-8 ####[facility]ORATORYCLIA [id number] [address] MCH (RBC) [Entitic mass] 32.0 pg Normal 26.0-34.0 [facility] Comment on above: Order Comment: Speci men Type: BLOOD SPECIMENOrdering Facility: [facility] Address: [address] [place] [address] Performed By: #### 5 7021-8 ####[facility]ATORYCLIA [id number] [address] MCHC (RBC) [Mass/Vol] 33.2 g/dL Normal 30.5-36.0 [facility] Comment on above: Order Comment: Speci men Type: BLOOD SPECIMENOrdering Facility: [facility] Address: [address] [place] [address] Performed By: #### 5 7021-8 ####[facility]ORATORYCLIA [id number] [address] MCV (RBC) [Entitic vol] 96.3 fL Normal 80.0-100.0 [facility] Comment on above: Order Comment: Speci men Type: BLOOD SPECIMENOrdering Facility: [facility] Address: [address] [place] [address] Performed By: #### 5 7021-8 ####[facility]ATORYCLIA [id number] [address] Monocytes (Bld) [#/Vol] 0.84 10*3/uL Normal <0.87 [facility] Comment on above: Order Comment: Speci men Type: BLOOD SPECIMENOrdering Facility: [facility] Address: [address] [place] [address] Performed By: #### 5 7021-8 ####[facility]ATORYCLIA [id number] [place] [address] [place] Monocytes/100 WBC (Bld) 5.4 % Normal [facility] Comment on above: Order Comment: Speci men Type: BLOOD SPECIMENOrdering Facility: [facility] Address: [address] [place] [address] Performed By: #### 5 7021-8 ####[facility]ORATORYCLIA [id number] [place] [address] [place] Neutrophils (Bld) [#/Vol] 12.88 10*3/uL High 1.45-7.50 [facility] Comment on above: Order Comment: Speci men Type: BLOOD SPECIMENOrdering Facility: [facility] Address: [address] [place] [address] Performed By: #### 5 7021-8 ####[facility]ORATORYCLIA [id number] [place] [address] [place] Neutrophils/100 WBC (Bld) 82.1 % Normal [facility] Comment on above: Order Comment: Speci men Type: BLOOD SPECIMENOrdering Facility: [facility] Address: [address] [place] [address] Performed By: #### 5 7021-8 ####[facility]ATORYCLIA [id number] [place] [address] [place] Nucleated RBC (Bld) [#/Vol] 10*3/uL Normal <0.01 [facility] Comment on above: Order Comment: Speci men Type: BLOOD SPECIMENOrdering Facility: [facility] Address: [address] [place] [address] Performed By: #### 5 7021-8 ####[facility]ORATORYCLIA [id number] [place] [address] [place] Nucleated RBC/100 WBC (Bld) [Ratio] 0.0 /100 WBC Normal [facility] Comment on above: Order Comment: Speci men Type: BLOOD SPECIMENOrdering Facility: [facility] Address: [address] [place] [address] Performed By: #### 5 7021-8 ####[facility]ORATORYCLIA [id number] [place] [address] [place] Platelet mean volume (Bld) [Entitic vol] 10.5 fL Normal 9.0-12.7 [facility] Comment on above: Order Comment: Speci men Type: BLOOD SPECIMENOrdering Facility: [facility] Address: [address] [place] [address] Performed By: #### 5 7021-8 ####[facility]ORYCLIA [id number] [place] [address] [place] Platelets (Bld) [#/Vol] 295 10*3/uL Normal 150-400 [facility] Comment on above: Order Comment: Speci men Type: BLOOD SPECIMENOrdering Facility: [facility] Address: [address] [place] [address] Performed By: #### 5 7021-8 ####[facility]ORATORYCLIA [id number] [address] [place] RBC (Bld) [#/Vol] 4.00 10*6/uL Normal 3.90-5.20 [facility] Comment on above: Order Comment: Speci men Type: BLOOD SPECIMENOrdering Facility: [facility] Address: [address] [place] [address] Performed By: #### 5 7021-8 ####[facility]ORYCLIA [id number] [place] [address] [place] WBC (Bld) [#/Vol] 15.67 10*3/uL High 3.70-11.00 [facility] Comment on above: Order Comment: Speci men Type: BLOOD SPECIMENOrdering Facility: [facility] Address: [address] [place] [address] Performed By: #### 5 7021-8 ####[facility]ORATORYCLIA [id number] [address] [place] CONSULTon 10-19-2024 CONSULT HNO ID: [id number] Author: CHRISTOS BHATT MD Service: Neonatology Author Type: Physician Type: Consults Filed: 10/19/2024 20:35 Note Text: NEONATOLOGY CONSULT SERVICE DATE: 10/19/2024 Admission Date: 10/19/2024 SERVICE TIME: 8 pm Date of : 1990 Age: [age] year old Sex: female Primary Care Physician: Ephraim Boyd DO Consulting Road Roller Operator Hot Mix: Christos Bhatt MD Subjective Consultation for this evaluation was requested by Dr. Hinson. Reason for consultation: labor Recommendations will be communicated back to the requesting physician by way of shared medical record or letter. Objective MATERNAL HISTORY: Mother is a 34 year old female, , who is at 28w0d with an GASPER of 01/11/2025, by Ultrasound dating method. LMP: Patient's last menstrual period was 03/25/2024 (exact date). Maternal Hospital Problems: ACTIVE PROBLEM LIST Pham's Disease Supervision of High-Risk of Elderly Multigravida (>= 35 Years Old At Time of Delivery) (Hcc) Nausea and Vomiting in (Hcc) Threatened Labor (Hcc) Threatened Labor, Antepartum (Hcc) Prematurity (Hcc) Penicillin Allergy 28 Weeks Gestation of (Hcc) Threatened Labor, Third Trimester (Hcc) Maternal Meds: No current facility-administered medications on file prior to encounter. Current Outpatient Medications on File Prior to Encounter Medication Sig cetirizine (ZYRTEC) 10 mg tablet Take 10 mg by mouth once daily. PNV no.95/ferrous fum/folic ac ( ORAL) Take by mouth. levothyroxine (SYNTHROID) 50 mcg tablet Take 50 mcg by mouth daily before breakfast. promethazine (PHENERGAN) 25 mg tablet Take 1 tablet by mouth every 6 hours. folic acid 1 mg tablet TAKE 1 TABLET BY MOUTH EVERY DAY aspirin, enteric coated (ECOTRIN LOW STRENGTH) 81 mg EC tablet Take 1 tablet by mouth once daily. Current Facility-Administered Medications Medication Dose Route Frequency acetaminophen 1,000 mg tab(s) (TYLENOL) 1,000 mg ORAL Pre-Op PRN sodium citrate-citric acid 500-334 mg/5 mL 30 mL oral liquid (BICITRA) 30 mL ORAL Pre-Op PRN metoclopramide HCl 10 mg injection (REGLAN) 10 mg INTRAVENOUS Pre-Op PRN betamethasone acetate-betamethasone sodium phosphate 12 mg injection (CELESTONE) 12 mg INTRAMUSCULAR q 24 HR calcium carbonate 1,000 mg chewable tab(s) (TUMS) 1,000 mg ORAL TID PRN docusate sodium 100 mg cap(s) (COLACE) 100 mg ORAL BID PRN [START ON 10/20/2024] vitamin with folic acid 1 mg 1 tablet 1 tablet ORAL DAILY ondansetron (PF) 4 mg injection (ZOFRAN) 4 mg INTRAVENOUS q 6 H PRN metoclopramide HCl 10 mg tab(s) (REGLAN) 10 mg ORAL q 6 H PRN Or metoclopramide HCl 10 mg injection (REGLAN) 10 mg INTRAVENOUS q 6 H PRN acetaminophen 1,000 mg tab(s) (TYLENOL) 1,000 mg ORAL q 6 H PRN ceFAZolin iv piggyback 2 g in D5W (iso-osmotic) 100 mL (ANCEF) 2 g INTRAVENOUS ONCE [START ON 10/20/2024] ceFAZolin iv piggyback 1 g in D5W (iso-osmotic) 50 mL (ANCEF) 1 g INTRAVENOUS q 8 HR azithromycin 500 mg in D5W 250 mL Vial-Bag (ZITHROMAX) 500 mg INTRAVENOUS Pre-Op PRN magnesium sulfate 6 g bolus from bag 6 g INTRAVENOUS ONCE magnesium sulfate 20 gram/500mL iv 2 g/hr INTRAVENOUS CONTINUOUS calcium gluconate 1 g injection 1 g INTRAVENOUS PRN [START ON 10/20/2024] levothyroxine 50 mcg tab(s) (SYNTHROID) 50 mcg ORAL DAILY (6 AM) complications: labor The following was discussed with mother and grandparent GENERAL: Neonatology presence and role at delivery: Yes Possible need for resuscitation: Yes DNR status: Discussed with patient/family No Need for admission to NICU: Yes Offered tour of NICU: No Discharge criteria: Yes Survival odds/morbidity AND mortality: Yes RESPIRATORY Risk of RDS/breathing problems: Yes Possible need for respiratory support: Yes CARDIOVASCULAR Discussed Hypotension, potential medical treatment: Yes Other (e.g. congenital heart disease): Yes NEUROLOGIC Risk of IVH/Neuro developmental delays: Yes Discussed need for evaluation by Applications Trainer for ROP: Yes Discussed risk for hearing deficit: Yes FEN Mother?s Preference: Breast: Yes. Benefits of breast milk: Yes Bottle: No Need for supplemental nutrition and/or IVFs: Yes INFECTION Risk factors for infection- congenital and nosocomial: Yes Need to start antibiotics: Yes HEME Possible need for blood transfusion: Yes. Verbal consent obtained: No ACCESS Possible need for UAC/UVC/PICC: Yes. Verbal consent obtained: No MISC. Name if Date Night Caregiver, if known: Unknown, please contact patient's primary care physician Possible need for transfer to outside hospital: No Possible need for subspecialty evaluation: No Additional discussion: N/A Impression/Recommendatio ns Assessment: A 34 year old female, , who is at 28w0d with an GASPER of 01/11/2025, by Ultrasound dating method She was admitted with premature labor Plan: NICU wolfgang (more content not included)... Normal [facility] ED Triage Noteon 10-19-2024 ED Triage Note HNO ID: [id number] Author: JOEL POLANCO APRN.CNP Service: Emergency Medicine Author Type: Nurse Practitioner Type: ED Triage Notes Filed: 10/19/2024 17:52 Note Text: ED TRIAGE PROVIDER NOTE Patient Name: Kathy Hester Service Date: 10/19/24 BRIEF HPI: This is a 34 year old female who presents to the ED with: Urge to urinate on herself had some vaginal bleeding earlier this morning some back pain no active cramping no upon visualization. Patient does arrive at 144 over 6628 weeks seen at [facility]. Patient escorted via wheelchair to OB triage. BRIEF EXAM: Awake and Alert Non labored breathing No focal neurological deficits INITIAL WORKUP AND DECISION MAKING: Orders Placed This Encounter No orders of the defined types were placed in this encounter. SIGNATURE: Joel Polanco APRN.REGULATORY AFFAIRS CONSULTANT Normal [facility] Fibrinogen PPP-mCncon 2024 Fibrinogen Coag (PPP) [Mass/Vol] 614 mg/dL High 200-400 [facility] Comment on above: Order Comment: Speci men Type: SWAB [facility] Address: [address] [place] [address] Performed By: #### B VAMP, CVTV #### [facility] CLIA [id number] [address] [place] [address] [place] [address] [place] HISTORY PHYSICALon HISTORY PHYSICAL HNO ID: [id number] Author: PHIL MIRANDA MD Service: Obstetrics Author Type: Resident Type: H&P Filed: 10/20/2024 09:06 Note Text: -------- Attestation signed by Phil Miranda MD at 10/20/2024 9:06 AM Attending Note I evaluated the patient and personally participated in the doe components. I agree with the resident's findings and plan as documented and have discussed the case and management of the patient's care with the resident. 34-year-old -0-0-1 at 28 weeks 0 days who presents with threatened labor. She reports contractions occurring intermittently. In addition, she experienced vaginal bleeding that was light. No clots noted. No abdominal pain. She was previously admitted on 09/20 - 09/21 for threatened labor at which time she was 0.5 cm dilated. She did receive a course of corticosteroids and was discharged to home. During this admission, her contractions have subsided. She did receive 12 hours of magnesium for neuroprotection which ended this morning. Rescue course of betamethasone was also initiated yesterday. This morning, she is asymptomatic for vaginal bleeding or contractions. growth was normal at 24 weeks. Fetus is currently vertex. Recommend NICU consult. Recommend growth scan sometime this week. Recommend continued inpatient admission secondary to advanced dilation at 28 weeks. Plan of care discussed with: Provider, RN, Patient Signature: Phil Miranda MD Date: October 20, 2024 Time: 9:01 AM -------- OBSTETRICS HISTORY AND PHYSICAL SERVICE DATE: October 19, 2024 SERVICE TIME: 10:43 PM Subjective Patient's stated reason for arrival: vaginal bleeding CHIEF COMPLAINT: Vaginal bleeding HISTORY OF THE PRESENT ILLNESS: The patient is a 34 year old female, , who is at 28w0d with an GASPER of 01/11/2025, by Ultrasound dating method. Patient is here for evaluation of vaginal bleeding and low back pain. Patient reports onset of heavy vaginal bleeding at 1700 today. She felt like she urinated on herself when she went to the bathroom, she noted that she had blood through her underwear on her pants. Denies clots. She has saturated 1 pad 50% upon arrival to the OB ED. She additionally reports intermittent low back pain and abdominal tightening. No other obstetric concerns at this time. Of note, patient was admitted 09/20-09/21 for threatened labor. She had vaginal bleeding at that time and was 0.5 cm dilated. She completed a course of ANCS and was discharged home in stable condition. Her growth ultrasound at that time (24w0d) showed EFW 44th% Good movement. Denies contractions, leaking of fluid. POST DELIVERY CONTRACEPTION: Discussed post-delivery contraception options. Patient received information about post-delivery contraception options. Patient does not desire post-delivery contraception. HISTORY REVIEW PAST MEDICAL HISTORY Diagnosis Date Gallstones Pham's disease Normal IUP (intrauterine ) on ultrasound (HCC) 12/04/2015 Symptomatic cholelithiasis 12/04/2015 UTI (urinary tract infection) PAST SURGICAL HISTORY Procedure Laterality Date APPENDECTOMY HX 6 yo CHOLECYSTECTOMY HX 12/12/2015 FAMILY HISTORY Problem Relation Age of Onset Breast Cancer Mother Left Mastectomy other (thyroid issues) Mother Stroke Father TIA Asthma Father Asthma Sister other (Endometriosis) Sister Breast Cancer Maternal Grandmother Macular Degen Maternal Grandfather Diabetes Paternal Grandmother Type 2 Heart disease Paternal Grandfather Dementia Paternal Grandfather Heart Attack Paternal Uncle Social History Tobacco Use Smoking status: Never Smokeless tobacco: Never Vaping Use Vaping status: Never Used Substance Use Topics Alcohol use: No Drug use: No Obstetric History T1 L1 SAB0 IAB0 Ectopic0 Multiple0 Live Births1 Name of Baby 1: BG KATHY HESTER Date: 05/07/16 GA: 40w2d Type: Vaginal, Spontaneous Apgar1: 9 Apgar5: 9 Living: Living Name of Baby 2: Not recorded Date: Not recorded GA: Not recorded Type: Not recorded Apgar1: Not recorded Apgar5: Not recorded Living: Not recorded ALLERGIES Allergen Reactions Amoxicillin Mental Status Change Latex, Natural Rubb* Rash Montelukast Unknown Penicillin Hives Penicillins Hives, Other: See Comments Mouth sores, mental changes Prior to Admission Medications Prescriptions Last Dose Informant Patient Reported? Taking? PNV no.95/ferrous fum/folic ac ( ORAL) 10/18/2024 Yes Yes Sig: Take by mouth. aspirin, enteric coated (ECOTRIN LOW STRENGTH) 81 mg EC tablet Unknown No No Sig: Take 1 tablet by mouth once daily. cetirizine (ZYRTEC) 10 mg tablet 10/19/2024 Yes Yes Sig: Take 10 mg by mouth once daily. folic acid 1 mg table (more content not included)... Normal [facility] PT panel Coag (PPP)on 2024 INR Coag (PPP) [Relative time] 0.9 {INR} Normal 0.9-1.3 [facility] Comment on above: Order Comment: Speci men Type: SWAB [facility]: [facility] Address: [address] [place] [address], [place] [address] Result Comment: Kelli min K Antagonist (VKA) Therapeutic Range: INR 2 to 3 (Target INR of 2.5) Note: For patients treated with VKA drugs, such as warfarin, the [place] [employer] 2012 Guideline recommends a therapeutic INR range of 2 to 3 (target INR of 2.5). This recommendation includes high-risk patients with antiphospholipid syndrome with previous arterial or venous thromboembolism, current-generation mechanical or bioprosthetic aortic heart valve replacement. Note: Patients with mechanical aortic valve replacement and additional risk factors for thromboembolic events (atrial fibrillation, previous thromboembolism, LV dysfunction, hypercoagulable conditions) or an older generation mechanical AVR (i.e., ball in-Cage) or any mechanical MVR should have a INR therapeutic range of 2.5 to 3.5 (target INR of 3). Trinity GH, et al. Chest 2012, 141:7S-47S Sharon RA, et al. [facility] 2017, 70: 252-289 Performed By: #### B VAMP, CVTV #### [facility] CLIA [id number] [address] [place] [address] [place] PT Coag (PPP) [Time] 10.3 s Normal 9.7-13.0 [facility] Comment on above: Order Comment: Speci men Type: SWAB [facility] Address: [address] [place] [address] Performed By: #### B VAMP, CVTV #### [facility] CLIA [id number] [address] [place] [address] [place] Reagin and Treponema pallidu m IgG and IgM [Interp]on 10-19-2024 T. pallidum IgG+IgM IA Ql (S) Non-Reactive Normal Nonreactive [facility] Comment on above: Order Comment: Speci men Type: BLOOD SPECIMEN [facility] Address: [address] [place] [address] Performed By: #### 3 016-3, 3024-7, 80626-8 #### [facility] CLIA [id number] [address] [place] [address] [place] Reagin+T pallidum IgG+IgM Se rPl-Impon 10-19-2024 Reagin and Treponema pallidum IgG and IgM [Interp] Cannot exclude recent Treponemal infection if specimen collected within 7-10 days after appearance of suspect lesions or 2-3 weeks after an exposure. Clinical correlation is required. Normal [facility] Comment on above: Order Comment: Speci men Type: BLOOD SPECIMEN [facility] Address: [address] [place] [address] Performed By: #### 3 016-3, 3024-7, 18254-7 #### [facility] CLIA [id number] [address] [place] [address] [place] T4 Free SerPl-mCncon 025 Free T4 [Mass/Vol] 0.9 ng/dL Normal 0.9-1.7 [facility] Comment on above: Order Comment: Speci vanda Type: BLOOD SPECIMEN [facility]: [facility] Address: [address] [place] [address] Performed By: #### 3 016-3, 3024-7, 10722-8 #### [facility] CLIA [id number] [address] [place] [address] [place] TSH SerPl-aCncon 10-19-2024 TSH Qn 2.120 m[IU]/L Normal 0.270-4.200 [facility] Comment on above: Order Comment: Cecily dc Type: BLOOD SPECIMEN [facility]: [facility] Address: [address] [place] [address] Result Comment: If t he patient is , TSH reference range varies by gestational period: First Trimester (weeks 9-12): 0.180-2.990 mIU/L Second Trimester: 0.110-3.980 mIU/L Third Trimester: 0.480-4.710 mIU/L Jeremiah Sheldon et al. A Practical Approach for the Verifications and Determination of Site- and Trimester-Specific Reference Intervals for Thyroid Function tests in . Thyroid, 2019:29:3:412-420. Jared Henson, et al. 2017 Guidelines of the [place] [employer] for the Diagnosis and Management of Thyroid Disease during and the . Thyroid, 2017:27:3:315-389. Performed By: #### 3 016-3, 3024-7, 73709-2 #### [facility] CLIA [id number] [address] [place] [address] [place] TYPE + SCREEN PRENATALon ABO O Normal [facility] Comment on above: Order Comment: Cecily dc Type: BLOOD SPECIMENOrdering Facility: [facility] Address: [address] [place] [address] Performed By: #### T SPN ####[facility] [id number] [place] [id number] [place] Rh Nom (Bld) Positive Normal [facility] Comment on above: Order Comment: Speci men Type: BLOOD SPECIMENOrdering Facility: [facility] Address: [address] [place] [address] Performed By: #### T SPN ####[facility]CLIA [id number] [address] OF [facility] TYPE AND SCREEN EXPIRATION 10/22/2024 23:59 Normal [facility] Comment on above: Order Comment: Speci men Type: BLOOD SPECIMENOrdering Facility: [facility] Address: [address] [place] [address] Performed By: #### T SPN ####[facility]ANKIA [id number] [address] aPTT PPPon 10-19-2024 aPTT Coag (PPP) [Time] 27.9 s Normal 23.0-32.4 [facility] Comment on above: Order Comment: Speci men Type: SWAB [facility] Address: [address] [place] [address] Performed By: #### B VAMP, CVTV #### [facility] CLIA [id number] [address] [place], [place] [address] CNPNon 09-30-2024 CNPN Telephone (OBGYWM) -------- KATHY HESTER ([id number]) 1990 F Date Time Provider Department 09/30/24 NATASHA SEGURA During your visit today, we recorded the following information about you: Natasha Chandler RN 09/30/2024 1:06 PM Signed Received breast pump RX from [employer]. To to sign. SAYDA Guan Lindsey, RN 10/01/2024 8:08 AM Signed Order signed and faxed. Sarah Orlando RN Allergies As of Date: 09/30/2024 Noted Allergy Reaction AMOXICILLIN 09/17/2015 1 - Mental Status Change LATEX, NATURAL RUBBER 10/20/2015 2 - Rash MONTELUKAST 01/14/2022 16 - Unknown PENICILLIN 10/20/2015 4 - Hives PENICILLINS 08/04/2015 4 - Hives 14 - Other: See Comments Comments: Mouth sores, mental changes Date Reviewed: 09/25/2024 Reviewed by: Natasha Segura MD - Fully Assessed Reason for Visit: Breast Pump [Other] Prescriptions as of 10/01/2024 - ondansetron orally disintegrating (ZOFRAN ODT) 4 mg disintegrating tablet Take 1 tablet by mouth every 6 hours as needed for nausea/vomiting. - cetirizine (ZYRTEC) 10 mg tablet Take 10 mg by mouth once daily. - promethazine (PHENERGAN) 25 mg tablet Take 1 tablet by mouth every 6 hours. - PNV no.95/ferrous fum/folic ac ( ORAL) Take by mouth. - folic acid 1 mg tablet TAKE 1 TABLET BY MOUTH EVERY DAY - aspirin, enteric coated (ECOTRIN LOW STRENGTH) 81 mg EC tablet Take 1 tablet by mouth once daily. - levothyroxine 150 mcg cap Take 150 mcg by mouth daily before breakfast. Problem List As Of Date 09/30/2024 Noted Resolved UTI (urinary tract infection) [N39.0] 10/20/2015 12/06/2015 Normal IUP (intrauterine ) on *12/04/2015 05/08/2016 Symptomatic cholelithiasis [K80.20] 12/04/2015 07/31/2024 Premature labor after 22 weeks and before 37 we*03/25/2016 05/08/2016 False labor after 37 weeks of gestation without*04/17/2016 05/08/2016 Term [Z34.90] 05/06/2016 05/08/2016 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] 06/01/2024 Supervision of high-risk of elderly m*06/01/2024 Nausea and vomiting in (HCC) [O21.9] 06/01/2024 Threatened labor (HCC) [O47.00] 09/21/2024 Threatened labor, antepartum (HCC) [O47*09/21/2024 Prematurity (HCC) [P07.30] 09/21/2024 Penicillin allergy [Z88.0] 09/21/2024 Vaginal bleeding during (HCC) [O46.90]09/21/2024 Encounter Status:Closed by SARAH ORLANDO on [facility]01/24 [facility] HNO ID: [id number] Author: MARIANA BURKS MD Service: Obstetrics Author Type: Resident Type: Discharge Summary Filed: 09/22/2024 10:29 Note Text: -------- Attestation signed by Mariana Burks MD at 09/22/2024 10:29 AM Attending Note I evaluated the patient and personally participated in the doe components. I agree with the resident's findings and plan as documented and have discussed the case and management of the patient's care with the resident. I have performed the [id number]-[id number] and relevant discharge services for a total of < 30 minutes. Signature: Dr. Mariana Burks MD Date: September 22, 2024 Time: 10:29 AM -------- DISCHARGE SUMMARY OBSTETRICS PATIENT NAME: Kathy Hester ADMISSION DATE: 09/20/2024 DISCHARGE DATE: 09/22/2024 Attending Physician: Saida Hitchcock MD Code Status: Full Code Treatment Team: Attending Provider: Saida Hitchcock MD Maternal Obstetric Provider: Jurgen Richmond Reason for Hospitalization: Intrauterine . Principal Problem: Threatened labor, antepartum (HCC) (POA: Yes) Active Problems: Pham's disease (POA: Yes) Supervision of high-risk of elderly multigravida (>= 35 years old at time of delivery) (HCC) (POA: Yes) Nausea and vomiting in (HCC) (POA: Yes) Threatened labor (HCC) (POA: Unknown) Prematurity (HCC) (POA: Unknown) Penicillin allergy (POA: Unknown) Vaginal bleeding during (HCC) (POA: Unknown) Resolved Problems: * No resolved hospital problems. * PROCEDURES/SURGERY DURING HOSPITALIZATION (if applicable) Hospital Course: 34 year old EGA:24w0d presenting for possible labor and vaginal bleeding was stated to be dilated on speculum exam and received a magnesium 6g bolus and betamethasone at an outside hospital. [facility].5 [facility] on digital exam, completed her steroid course, Magnesium was turned off due to low threshold for delivery. Also had passed one clot vaginally but this resolved after transfer. She was discharged to home on 09/22 with return precautions and close follow up with her OB.. Consulting Teams During Hospitalization: None Patient Condition @ Discharge: Good Discharge Disposition: Home/Self Care Information Provided to Patient: Diet Instructions Resume your pre-hospital diet Specific Concerns for Follow-up Post Discharge: Routine care and labor precautions Delivery Plan/Recommendations: per obstetric indications Discharge Medications: Medication List CONTINUE taking these medications aspirin, enteric coated 81 mg EC tablet Commonly known as: ECOTRIN LOW STRENGTH Take 1 tablet by mouth once daily. folic acid 1 mg tablet TAKE 1 TABLET BY MOUTH EVERY DAY levothyroxine 150 mcg Cap ondansetron orally disintegrating 4 mg disintegrating tablet Commonly known as: ZOFRAN ODT Take 1 tablet by mouth every 6 hours as needed for nausea/vomiting. ORAL promethazine 25 mg tablet Commonly known as: PHENERGAN Take 1 tablet by mouth every 6 hours. ZyrTEC 10 mg tablet Generic drug: cetirizine ALLERGIES Allergen Reactions Amoxicillin Mental Status Change Latex, Natural Rubb* Rash Montelukast Unknown Penicillin Hives Penicillins Hives, Other: See Comments Mouth sores, mental changes Future Appointments: Follow Up Appointments Follow-Up Appointment Appointments for Next 60 Days Date Time Provider Location Dept Phone 09/25/2024 1:30 PM NATASHA SEGURA [phone] With: Provider When: In: Patient/Parents to call for appointment?: Scheduled Plan of care discussed with: Provider, RN, Patient. Final Diagnosis: threatened labor Active Hospital Problems Diagnosis POA Threatened labor, antepartum (HCC) Yes Threatened labor (HCC) Unknown Prematurity (HCC) Unknown Penicillin allergy Unknown Vaginal bleeding during (HCC) Unknown Supervision of high-risk of elderly multigravida (>= 35 years old at time of delivery) (HCC) Yes Pham's disease Yes Nausea and vomiting in (HCC) Yes Resolved Hospital Problems No resolved problems to display. SIGNATURE: Ernestine Dover, DATE: September 22, 2024 TIME: 8:33 AM Normal [facility] BACTERIAL VAGINOSIS NAATon 0 09-21-2024 Lactobacillus crispatus+gasseri+ashely enii + Gardnerella vaginalis + Atopobium vaginae rRNA KATHERIN+probe Ql (Vag fld) Not detected Normal Not detected [facility] Comment on above: Order Comment: Speci men Type: SWAB Ordering Facility: [facility] Address: [address] [place] [address] Performed By: #### MEKA SINGH #### [facility] CLIA [id number] [address] [place] [address] [place] C. trachomatis+N. gonorrhoea e DNA KATHERIN+probe Ql (Unsp spec)on 09-21-2024 C. trachomatis rRNA KATHERIN+probe Ql (Unsp spec) Not detected Normal Not detected [facility] Comment on above: Order Comment: Speci men Type: SWAB Ordering Facility: [facility] Address: [address] [place] [address] Performed By: #### 3 6902-5 #### [facility] CLIA [id number] [address] [place] [address] [place] N. gonorrhoeae rRNA KATHERIN+probe Ql (Unsp spec) Not detected Normal Not detected [facility] Comment on above: Order Comment: Speci men Type: SWAB Ordering Facility: [facility] Address: [address] [place] [address] Performed By: #### 3 6902-5 #### [facility] CLIA [id number] [address] [place] DEBBIE/TRICHOMONAS NAATon 0 09-21-2024 C. glabrata RNA KATHERIN+probe Ql (Vag fld) Not detected Normal Not detected [facility] Comment on above: Order Comment: Speci men Type: SWAB Ordering Facility: [facility] Address: [address] [place] [address] Performed By: #### B VAMP, CVTV #### [facility] CLIA [id number] [address] [place] [address] [place] Debbie sp DNA KATHERIN+probe Ql (Vag fld) Not detected Normal Not detected [facility] Comment on above: Order Comment: Speci men Type: SWAB Ordering Facility: [facility] Address: [address] [place] [address] Result Comment: The Debbie species group target includes C. albicans, C. tropicalis, C. parapsilosis, and C. dubliniensis. Performed By: #### Mitch VAMP, CVTV #### [facility] CLIA [id number] [address] [place] [address] [place] T. vaginalis DNA KATHERIN+probe Ql (Unsp spec) Not detected Normal Not detected [facility] Comment on above: Order Comment: Speci men Type: SWAB Ordering Facility: [facility] Address: [address] [place] [address] Performed By: #### B VAMP, CVTV #### [facility] CLIA [id number] [address] [place] [address] [place] CBC W Auto Differential pane l (Bld)on 09-21-2024 Basophils (Bld) [#/Vol] 0.03 10*3/uL Normal <0.11 [facility] Comment on above: Order Comment: Speci men Type: BLOOD SPECIMEN Ordering Facility: [facility] Address: [address] [place] [address] Performed By: #### 5 7021-8 #### [facility] CLIA [id number] [address] Basophils/100 WBC (Bld) 0.2 % Normal [facility] Comment on above: Order Comment: Speci men Type: BLOOD SPECIMEN Ordering Facility: [facility] Address: [address] [place] [address] Performed By: #### 5 7021-8 #### [facility] CLIA [id number] [address] [place] Differential cell count method Nom (Bld) Auto Normal [facility] Comment on above: Order Comment: Speci men Type: BLOOD SPECIMEN Ordering Facility: [facility] Address: [address] [place] [address] Performed By: #### 5 7021-8 #### [facility] CLIA [id number] [address] [place] Eosinophils (Bld) [#/Vol] 10*3/uL Normal <0.46 [facility] Comment on above: Order Comment: Speci men Type: BLOOD SPECIMEN Ordering Facility: [facility] Address: [address] [place] [address] Performed By: #### 5 7021-8 #### [facility] CLIA [id number] [address] [place] Eosinophils/100 WBC (Bld) 0.1 % Normal [facility] Comment on above: Order Comment: Speci men Type: BLOOD SPECIMEN Ordering Facility: [facility] Address: [address] [place] [address] Performed By: #### 5 7021-8 #### [facility] CLIA [id number] [address] [place] Erythrocyte distribution width (RBC) [Ratio] 12.9 % Normal 11.5-15.0 [facility] Comment on above: Order Comment: Speci men Type: BLOOD SPECIMEN Ordering Facility: [facility] Address: [address] [place] [address] Performed By: #### 5 7021-8 #### [facility] CLIA [id number] [address] [place] Hematocrit (Bld) [Volume fraction] 38.3 % Normal 36.0-46.0 [facility] Comment on above: Order Comment: Speci men Type: BLOOD SPECIMEN Ordering Facility: [facility] Address: [address] [place] [address] Performed By: #### 5 7021-8 #### [facility] CLIA [id number] [address] [place] Hemoglobin (Bld) [Mass/Vol] 12.5 g/dL Normal 11.5-15.5 [facility] Comment on above: Order Comment: Speci men Type: BLOOD SPECIMEN Ordering Facility: [facility] Address: [address] [place] [address] Performed By: #### 5 7021-8 #### [facility] CLIA [id number] [address] [place] Immature granulocytes (Bld) [#/Vol] 0.21 10*3/uL High <0.10 [facility] Comment on above: Order Comment: Speci men Type: BLOOD SPECIMEN Ordering Facility: [facility] Address: [address] [place] [address] Performed By: #### 5 7021-8 #### [facility] CLIA [id number] [address] [place] Immature granulocytes/100 WBC (Bld) 1.2 % Normal [facility] Comment on above: Order Comment: Speci men Type: BLOOD SPECIMEN Ordering Facility: [facility] Address: [address] [place] [address] Performed By: #### 5 7021-8 #### [facility] CLIA [id number] [address] [place] [address] [place] Lymphocytes (Bld) [#/Vol] 1.06 10*3/uL Normal 1.00-4.00 [facility] Comment on above: Order Comment: Speci men Type: BLOOD SPECIMEN Ordering Facility: [facility] Address: [address] [place] [address] Performed By: #### 5 7021-8 #### [facility] CLIA [id number] [address] Lymphocytes/100 WBC (Bld) 6.0 % Normal [facility] Comment on above: Order Comment: Speci men Type: BLOOD SPECIMEN Ordering Facility: [facility] Address: [address] [place] [address] Performed By: #### 5 7021-8 #### [facility] CLIA [id number] [address] MCH (RBC) [Entitic mass] 32.1 pg Normal 26.0-34.0 [facility] Comment on above: Order Comment: Speci men Type: BLOOD SPECIMEN Ordering Facility: [facility] Address: [address] [place] [address] Performed By: #### 5 7021-8 #### [facility] CLIA [id number] [address] MCHC (RBC) [Mass/Vol] 32.6 g/dL Normal 30.5-36.0 [facility] Comment on above: Order Comment: Speci men Type: BLOOD SPECIMEN Ordering Facility: [facility] Address: [address] [place] [address] Performed By: #### 5 7021-8 #### [facility] CLIA [id number] [address] STATES [facility] MCV (RBC) [Entitic vol] 98.2 fL Normal 80.0-100.0 [facility] Comment on above: Order Comment: Speci men Type: BLOOD SPECIMEN Ordering Facility: [facility] Address: [address] [place] [address] Performed By: #### 5 7021-8 #### [facility] CLIA [id number] [address] [place] Monocytes (Bld) [#/Vol] 0.16 10*3/uL Normal <0.87 [facility] Comment on above: Order Comment: Speci men Type: BLOOD SPECIMEN Ordering Facility: [facility] Address: [address] [place] [address] Performed By: #### 5 7021-8 #### [facility] CLIA [id number] [address] [place] Monocytes/100 WBC (Bld) 0.9 % Normal [facility] Comment on above: Order Comment: Speci men Type: BLOOD SPECIMEN Ordering Facility: [facility] Address: [facility] [place] [address] Performed By: #### 5 7021-8 #### [facility] CLIA [id number] [address] [place] Neutrophils (Bld) [#/Vol] 16.14 10*3/uL High 1.45-7.50 [facility] Comment on above: Order Comment: Speci men Type: BLOOD SPECIMEN Ordering Facility: [facility] Address: [address] [place] [address] Performed By: #### 5 7021-8 #### [facility] CLIA [id number] [address] Neutrophils/100 WBC (Bld) 91.6 % Normal [facility] Comment on above: Order Comment: Speci men Type: BLOOD SPECIMEN Ordering Facility: [facility] Address: [address] [place] [address] Performed By: #### 5 7021-8 #### [facility] CLIA [id number] [address] [place] Nucleated RBC (Bld) [#/Vol] 10*3/uL Normal <0.01 [facility] Comment on above: Order Comment: Speci men Type: BLOOD SPECIMEN Ordering Facility: [facility] Address: [address] [place] [address] Performed By: #### 5 7021-8 #### [facility] CLIA [id number] [address] [place] Nucleated RBC/100 WBC (Bld) [Ratio] 0.0 /100 WBC Normal [facility] Comment on above: Order Comment: Speci men Type: BLOOD SPECIMEN Ordering Facility: [facility] Address: [address] [place] [address] Performed By: #### 5 7021-8 #### [facility] CLIA [id number] [address] [place] Platelet mean volume (Bld) [Entitic vol] 10.8 fL Normal 9.0-12.7 [facility] Comment on above: Order Comment: Speci men Type: BLOOD SPECIMEN Ordering Facility: [facility] Address: [address] [place] [address] Performed By: #### 5 7021-8 #### [facility] CLIA [id number] [address] [place] Platelets (Bld) [#/Vol] 326 10*3/uL Normal 150-400 [facility] Comment on above: Order Comment: Speci men Type: BLOOD SPECIMEN Ordering Facility: [facility] Address: [address] [place] [address] Performed By: #### 5 7021-8 #### [facility] CLIA [id number] [address] [place] RBC (Bld) [#/Vol] 3.90 10*6/uL Normal 3.90-5.20 [facility] Comment on above: Order Comment: Speci men Type: BLOOD SPECIMEN Ordering Facility: [facility] Address: [address] [place] [address] Performed By: #### 5 7021-8 #### [facility] CLIA [id number] [address] [place] WBC (Bld) [#/Vol] 17.61 10*3/uL High 3.70-11.00 [facility] Comment on above: Order Comment: Speci men Type: BLOOD SPECIMEN Ordering Facility: [facility] Address: [address] [place] [id number] Performed By: #### 5 7021-8 #### [facility] CLIA [id number] [address] Examination level ultrasound on 09-21-2024 [facility] Radiology Study observation (narrative) [facility] Fibrinogen PPP-mCncon 2024 Fibrinogen Coag (PPP) [Mass/Vol] 634 mg/dL High 200-400 [facility] Comment on above: Order Comment: Speci men Type: BLOOD SPECIMEN Ordering Facility: [facility] Address: [address] [place] [address] Performed By: #### 3 255-7 #### [facility] CLIA [id number] [address] [place] [address] Gp B Strep Vag Ql Culton S. agalactiae Org specific cx Ql (Vag fld) Positive for Group B Streptococcus by PCR. Unable to recover viable organism for susceptibility testing. Abnormal [facility] Comment on above: Performed By: #### 5 84-3, GBPCR ####[facility] [id number] [address] HISTORY PHYSICALon HISTORY PHYSICAL HNO ID: [id number] Author: MARIANA BURKS MD Service: Obstetrics Author Type: Physician Type: H&P Filed: 09/21/2024 09:11 Note Text: OBSTETRICS HISTORY AND PHYSICAL SERVICE DATE: September 21, 2024 SERVICE TIME: 1:21 AM Subjective Patient's stated reason for arrival: vaginal bleeding CHIEF COMPLAINT: possible threatened labor HISTORY OF THE PRESENT ILLNESS: The patient is a 34 year old female, , who is at 24w0d with an GASPER of 01/11/2025, by Ultrasound dating method. Patient is here after an episode of vaginal bleeding. She noted blood on her underwear when going to the bathroom and passed one small clot earlier today. She went to the ED at [place] and had a speculum exam performed where she was told she was 1-2cm. Magnesium bolus and betamethasone started. Patient has otherwise had no vaginal bleeding in , no other complications in . No gushes of fluid like her water broke, no contractions. She has chronic low back pain at her tailbone that is position-dependent, it does not come and go and does not feel like contractions. She has normal movement. Patient denies history of alcohol, tobacco, or drug use. Patient denies history of MRSA, HIV, HSV, Hep B or Hep C. She has a mild headache currently. POST DELIVERY CONTRACEPTION: Discussed post-delivery contraception options. Patient received written information about post-delivery contraception options. Patient desires permanent sterilization. HISTORY REVIEW PAST MEDICAL HISTORY Diagnosis Date Gallstones Pham's disease Normal IUP (intrauterine ) on ultrasound ([facility]) 12/04/2015 Symptomatic cholelithiasis 12/04/2015 UTI (urinary tract infection) PAST SURGICAL HISTORY Procedure Laterality Date APPENDECTOMY HX 6 yo CHOLECYSTECTOMY HX 12/12/2015 FAMILY HISTORY Problem Relation Age of Onset Breast Cancer Mother Left Mastectomy other (thyroid issues) Mother Stroke Father TIA Asthma Father Asthma Sister other (Endometriosis) Sister Breast Cancer Maternal Grandmother Macular Degen Maternal Grandfather Diabetes Paternal Grandmother Type 2 Heart disease Paternal Grandfather Dementia Paternal Grandfather Heart Attack Paternal Uncle Social History Tobacco Use Smoking status: Never Smokeless tobacco: Never Vaping Use Vaping status: Never Used Substance Use Topics Alcohol use: No Drug use: No Obstetric History T1 L1 SAB0 IAB0 Ectopic0 Multiple0 Live Births1 Name of Baby 1: BG KATHY HESTER Date: 05/07/16 GA: 40w2d Type: Vaginal, Spontaneous Apgar1: 9 Apgar5: 9 Living: Living Name of Baby 2: Not recorded Date: Not recorded GA: Not recorded Type: Not recorded Apgar1: Not recorded Apgar5: Not recorded Living: Not recorded Active Non-Hospital Problems Diagnosis Date Noted Nausea and vomiting in ([facility]) 06/01/2024 Overview Note: 06/12/24- N/V improved since starting Phenergan PO. Able to eat and drink. Sussy Landin APRN.[employer] Allergen Reactions Amoxicillin Mental Status Change Eggs [Egg] GI Upset Latex, Natural Rubb* Rash Montelukast Unknown Penicillin Hives Penicillins Hives, Other: See Comments Mouth sores, mental changes Prior to Admission Medications Prescriptions Last Dose Informant Patient Reported? Taking? PNV no.95/ferrous fum/folic ac ( ORAL) 09/19/2024 Yes Yes Sig: Take by mouth. aspirin, enteric coated (ECOTRIN LOW STRENGTH) 81 mg EC tablet No No Sig: Take 1 tablet by mouth once daily. cetirizine (ZYRTEC) 10 mg tablet 09/19/2024 Yes Yes Sig: Take 10 mg by mouth once daily. folic acid 1 mg tablet No No Sig: TAKE 1 TABLET BY MOUTH EVERY DAY levothyroxine 150 mcg cap 09/19/2024 Yes Yes Sig: Take 150 mcg by mouth daily before breakfast. ondansetron orally disintegrating (ZOFRAN ODT) 4 mg disintegrating tablet 09/19/2024 No Yes Sig: Take 1 tablet by mouth every 6 hours as needed for nausea/vomiting. promethazine (PHENERGAN) 25 mg tablet 09/19/2024 No Yes Sig: Take 1 tablet by mouth every 6 hours. Facility-Administered Medications: None REVIEW OF SYSTEMS: GENERAL: No weight loss, malaise, chills, or fevers RESPIRATORY: Negative for cough, dyspnea or shortness of breath CARDIOVASCULAR: Negative for chest pain or palpitations GI: Positive for nausea, Negative for vomiting, or diarrhea : No dysuria, frequency or incontinence CAFETERIA MANAGER: Negative for abnormal vaginal discharge Objective LAST VITALS: Pulse BP Resp O2 Sat Temp Pain 98 137/65 18 95 % 36.3 ?C (97.3 ?F) 0 HT/WT/BMI: Height Weight BMI 170.2 cm (5' 7) 92.5 kg (204 lb) 31.95 SENSITIVE EXAMINATION CONSENT: Participation of a fellow, resident, medical student, or advanced practice provider student in performing the sensitive examination was discussed with the patient or authorized sales representative. The patient or authorized sales representative has agreed to proceed with the sensit (more content not included)... Normal [facility] ROUTINE, GROUP B ST REPTOCOCCUS BY PCRon 09-21-2024 ROUTINE, GROUP B STREPTOCOCCUS BY PCR Detected Abnormal [facility] Comment on above: Performed By: #### 5 84-3, GBPCR ####[facility] [id number] [place] [address] [place] Reagin and Treponema pallidu m IgG and IgM [Interp]on 09-21-2024 T. pallidum IgG+IgM IA Ql (S) Non-Reactive Normal Nonreactive [facility] Comment on above: Order Comment: Speci men Type: SWAB Ordering Facility: [facility] Address: [address] [place] [address] Performed By: #### B VAMP, CVTV #### [facility] CLIA [id number] [address] [place] [address] [place] Reagin+T pallidum IgG+IgM Se rPl-Impon 09-21-2024 Reagin and Treponema pallidum IgG and IgM [Interp] Cannot exclude recent Treponemal infection if specimen collected within 7-10 days after appearance of suspect lesions or 2-3 weeks after an exposure. Clinical correlation is required. Normal [facility] Comment on above: Order Comment: Speci men Type: SWAB Ordering Facility: [facility] Address: [address] [place] [address] Performed By: #### B VAMP, CVTV #### [facility] CLIA [id number] [address] [place] [address] [place] TYPE + SCREEN PRENATALon ABO O Normal [facility] Comment on above: Order Comment: Speci men Type: BLOOD SPECIMENOrdering Facility: [facility] Address: [address] [place] [address] Performed By: #### T SPN ####[facility] [id number] [place] [address] [place] Rh Nom (Bld) Positive Normal [facility] Comment on above: Order Comment: Speci men Type: BLOOD SPECIMENOrdering Facility: [facility] Address: [address] [place] [address] Performed By: #### T SPN ####[facility] [id number] [place] [address] [place] TYPE AND SCREEN EXPIRATION 09/24/2024 23:59 Normal [facility] Comment on above: Order Comment: Speci men Type: BLOOD SPECIMENOrdering Facility: [facility] Address: [address] [place] [address] Performed By: #### T SPN ####[facility] [id number] [place] [address] [place] Absolute lymphocyte countOrd ered By: Ernestine Gomez on 09-20-2024 Lymphocytes Auto (Unsp spec) [#/Vol] 1.91 10*3/uL 0.83-4.51 [facility] Absolute neutrophil countOrd ered By: Ernestine Gomez on 09-20-2024 Neutrophils (Bld) [#/Vol] 11.2 10*3/uL High 2.0-7.7 [facility] Activated partial thrombopla stin time (aPTT) in platelet poor plasma by coagulation aOrdered By: Ernestine Gomez on 09-20-2024 aPTT Coag (PPP) [Time] 25.7 s 24.1-36.2 [facility] Automated lymphocyte count a s percentage of total leukocytesOrdered By: Ernestine Gomez on 09-20-2024 Lymphocytes/100 WBC Auto (Unsp spec) 13.4 % Low 19-41 [facility] Basophil percentageOrdered B y: Ernestine Gomez on 09-20-2024 Basophils/100 WBC (Bld) 0.3 % 0-1 [facility] CBC W/Diff, Automatedon 09-10 Absolute Lymph 1.91 X10 3/uL Normal 0.83-4.51 [facility] Comment on above: Performed By: #### L 300.4310, L300.4700, L300.3900, L100.0100 #### [facility] [address] [place], [place], [id number] Absolute Neut 11.2 X10 3/uL High 2.0-7.7 [facility] Comment on above: Performed By: #### L 300.4310, L300.4700, L300.3900, L100.0100 #### [facility] [address] [place], [address] Basophils/100 WBC (Bld) 0.3 % Normal 0-1 [facility] Comment on above: Performed By: #### L 300.4310, L300.4700, L300.3900, L100.0100 #### [facility] [address] [place], [address] Eosinophils/100 WBC (Bld) 0.9 % Normal 0-5 [facility] Comment on above: Performed By: #### L 300.4310, L300.4700, L300.3900, L100.0100 #### [facility] [address] [place], [address] Erythrocyte distribution width (RBC) [Ratio] 12.6 % Normal 11.6-14.6 [facility] Comment on above: Performed By: #### L 300.4310, L300.4700, L300.3900, L100.0100 #### [facility] [address] [place], [address] Hematocrit (Bld) [Volume fraction] 36.2 % Low 37-47 [facility] Comment on above: Performed By: #### L 300.4310, L300.4700, L300.3900, L100.0100 #### [facility] [address] [place], [address] Hemoglobin (Bld) [Mass/Vol] 11.9 g/dL Low 12.0-15.0 [facility] Comment on above: Performed By: #### L 300.4310, L300.4700, L300.3900, L100.0100 #### [facility] [address] [place], [address] IG% 1.100 High 0.0-0.9 [facility] Comment on above: Result Comment: IG% - Immature Granulocytes (promyelocytes, myelocytes and metamyelocytes) > 1% indicates that a LEFT SHIFT is Present. Performed By: #### L 300.4310, L300.4700, L300.3900, L100.0100 #### [facility] [address] [place], [address] Lymphocytes/100 WBC (Bld) 13.4 % Low 19-41 [facility] Comment on above: Performed By: #### L 300.4310, L300.4700, L300.3900, L100.0100 #### [facility] [address] [place], [address] MCH (RBC) [Entitic mass] 31.9 pg Normal 27.0-32.0 [facility] Comment on above: Performed By: #### L 300.4310, L300.4700, L300.3900, L100.0100 #### [facility] [address] [place], [address] MCHC (RBC) [Mass/Vol] 32.9 g/dL Normal 32-36 [facility] Comment on above: Performed By: #### L 300.4310, L300.4700, L300.3900, L100.0100 #### [facility] [address] [place], [address] MCV (RBC) [Entitic vol] 97.1 fL Normal 81-99 [facility] Comment on above: Performed By: #### L 300.4310, L300.4700, L300.3900, L100.0100 #### [facility] [address] [place], [address] Monocytes/100 WBC (Bld) 5.8 % Normal 0-10 [facility] Comment on above: Performed By: #### L 300.4310, L300.4700, L300.3900, L100.0100 #### [facility] [address] [place], [address] Neutrophils/100 WBC (Bld) 78.5 % High 47-70 [facility] Comment on above: Performed By: #### L 300.4310, L300.4700, L300.3900, L100.0100 #### [facility] [address] [place], [address] Nucleated RBC (Bld) [#/Vol] 0 10*3/uL Normal 0-5 [facility] Comment on above: Performed By: #### L 300.4310, L300.4700, L300.3900, L100.0100 #### [facility] [address] [place], [address] Platelet mean volume (Bld) [Entitic vol] 10.5 fL Normal 6.2-12.0 [facility] Comment on above: Performed By: #### L 300.4310, L300.4700, L300.3900, L100.0100 #### [facility] [address] [place], [address] Platelets (Bld) [#/Vol] 299 10*3/uL Normal 150-450 [facility] Comment on above: Performed By: #### L 300.4310, L300.4700, L300.3900, L100.0100 #### [facility] [address] [place], [address] RBC (Bld) [#/Vol] 3.73 10*6/uL Low 4.2-5.4 [facility] Comment on above: Performed By: #### L 300.4310, L300.4700, L300.3900, L100.0100 #### [facility] [address] [place], [address] RDW SD 44.7 fl High 35.1-43.9 [facility] Comment on above: Performed By: #### L 300.4310, L300.4700, L300.3900, L100.0100 #### [facility] [address] [place], [address] WBC (Bld) [#/Vol] 14.2 10*3/uL High 4.4-11.0 [facility] Comment on above: Performed By: #### L 300.4310, L300.4700, L300.3900, L100.0100 #### [facility] [address] [place], [address] Eosinophil percentageOrdered By: Ernestine Gomez on 09-20-2024 Eosinophils/100 WBC (Bld) 0.9 % 0-5 [facility] Erythrocyte distribution wid th ratioOrdered By: Ernestine Gomez on 09-20-2024 Erythrocyte distribution width (RBC) [Ratio] 12.6 % 11.6-14.6 [facility] Erythrocyte distribution wid th standard deviationOrdered By: Ernestine Gomez on 09-20-2024 Erythrocyte distribution width (RBC) [Ratio] 44.7 fl High 35.1-43.9 [facility] Fibrinogenon 09-20-2024 FIBRINOGEN 544 mg/dl High 203-444 [facility] Comment on above: Performed By: #### L 300.4310, L300.4700, L300.3900, L100.0100 #### [facility] [address] [place], [address] Hematocrit Auto (Bld) [Volum e fraction]Ordered By: Ernestine Gomez on 09-20-2024 Hematocrit (Bld) [Volume fraction] 36.2 % Low 37-47 [facility] Hemoglobin measurementOrdere d By: Ernestine Gomez on 09-20-2024 Hemoglobin (Bld) [Mass/Vol] 11.9 g/dL Low 12.0-15.0 [facility] Immature granulocytes/100 WB C Auto (Bld)Ordered By: Ernestine Gomez on 09-20-2024 Immature granulocytes/100 WBC (Bld) 1.100 % High 0.0-0.9 [facility] Comment on above: IG% - Immature Granu locytes (promyelocytes, myelocytes and metamyelocytes) > 1% indicates that a LEFT SHIFT is Present. International normalized rat io (INR) calculationOrdered By: Ernestine Gomez on 09-20-2024 INR Coag (Bld) [Relative time] 0.9 {INR} [facility] MCV (mean corpuscular volume ) determinationOrdered By: Ernestine Gomez on 09-20-2024 MCV (RBC) [Entitic vol] 97.1 fL 81-99 [facility] Mean corpuscular hemoglobin (MCH) determinationOrdered By: Ernestine Gomez on 09-20-2024 MCH (RBC) [Entitic mass] 31.9 pg 27.0-32.0 [facility] Mean corpuscular hemoglobin concentration (MCHC) determinationOrdered By: Ernestine Gomez on 09-20-2024 MCHC (RBC) [Mass/Vol] 32.9 g/dL 32-36 [facility] Mean platelet volume determi nationOrdered By: Ernestine Gomez on 09-20-2024 Platelet mean volume (Bld) [Entitic vol] 10.5 fL 6.2-12.0 [facility] Monocyte percentageOrdered B y: Ernestine Gomez on 09-20-2024 Monocytes/100 WBC (Bld) 5.8 % 0-10 [facility] Neutrophil percentageOrdered By: Ernestine Gomez on 09-20-2024 Neutrophils/100 WBC (Bld) 78.5 % High 47-70 [facility] Nucleated red blood cell per centageOrdered By: Ernestine Gomez on 09-20-2024 Nucleated RBC/100 WBC (Bld) [Ratio] 0 % 0-5 [facility] OB Triage Physician Noteon 0 09-20-2024 OB Triage Physician Note [facility] Medical Records Department [address] [place] [address] OB Triage Physician Note 09/20/24 1858 MR#: [id number] Acct: [id number] Name: KATHY HESTER Rep #: [id number] : 1990 34 From: Ernestine Gomez MD PCP: Dr. Ephraim Boyd, DO Status:REG CLI Y Location: [facility] [id number] HPI - General General Date of Admission: 09/20/24 Date of Service: 09/20/24 Chief Complaint: vaginal bleeding HPI Narrative KATHY HESTER, is a 34 F @ 23 6/7 weeks by 8 week US presents c/o bright red blood upon standing this evening. Some lower abdominal/low back tightening but didn't notice it being more than she has had the last few weeks. Denies trauma, intercourse, drug use or HTN. NO bleeding earlier in the . complicated to date by n/v and takes zofran and phenergan x 1 a day. 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 hx- denies tob/etoh/other substance use Maternal Data Information Final GASPER: 01/11/25 Gestational age: 23 6/7 PFSH PFSH Medical History Polycystic ovarian syndrome Eczema Hx of Pham thyroiditis Hay fever Home Medications ???Medication ???Instructions ???Recorded ???Last Taken ???Type cetirizine 10 mg capsule (Zyrtec) 10 mg PO DAILY PRN allergies 03/14 07/31 Unknown History levothyroxine 13 mcg capsule 13 mcg PO DAILY 04/04/21 Unknown H istory ondansetron HCl 4 mg tablet 4 mg PO 4X/DAY 09/20/24 Unknown Hi story vit no.95-ferrous 1 tab PO DAILY 09/20/24 Unknown Hi story fumarate 28 mg-folic acid 800 mcg tablet () promethazine 12.5 mg tablet 25 mg PO QHS 09/20/24 Unknown Hist ory Allergy/AdvReac Type Severity Reaction Status Date / Time amoxicillin Allergy Severe Hives Verified 09/20/24 17:55 tree nut (tree nuts) Allergy Intermediate Other Verified 09/20/24 17:55 latex Allergy Unknown unknown Verified 09/20/24 17:55 Penicillins Allergy Unknown unknown Verified 09/20/24 17:55 ethanolamine Allergy Anaphylaxis Verified 09/20/24 17:55 Family History Other Asthma Breast cancer Surgical History Hx of cholecystectomy Hx of appendectomy Social History Smoking Status: Never smoker ROS Constitutional Constitutional: Denies fatigue, fever(s) or malaise Eyes Eyes: Denies change in vision ENT HEENT: Denies dizziness or headache(s) Cardiovascular Cardiovascular: Denies chest pain, dyspnea or lightheadedness Respiratory/Chest Respiratory/Chest: Denies cough or dyspnea Gastrointestinal Gastrointestinal: Denies change in bowel habits Genitourinary Genitourinary: Denies burning urination or genital lesions Integumentary Integumentary: Denies rash Neurologic Neurologic: Denies confusion, dizziness, headache(s), numbness or weakness Physical Exam Narrative Verbal consent for sensitive exam, nursing present in the room for this. Brief transabdominal ultrasound was done. Grossly normal fluid. Posterior placenta. Lower uterine segment appears very thin. Active vertex fetus. Sterile speculum exam is done, small amount dark red blood in the vault. No active bright red bleeding, appears to be a clot at the os. Cervix does appear to be soft and approximately 2 cm. Gentle palpation of the cervix was then performed and on light exam feels to be approximately 2 cm 80% effaced but this was done very gingerly as I did not want to disrupt the clot at the os. Const alert and no apparent distress General Appearance: cooperative HEENT normocephalic Resp normal respiratory effort Cardio regular rate GI soft to palpation GI Narrative: gravid, nontender, appropriate for gestational age Extremity no calf tenderness General Extremity: edema Skin no wounds Rashes: No rashes noted Psych activity/motor behavior normal Assessment Plan (1) Supervision of high risk in second trimester: (2) 23 weeks gestation of : (3) labor in second trimester: QUALIFIERS: labor delivery status: without delivery Qualified Code(s): O60.02 - labor without delivery, second trimester (4) Vaginal bleeding during , antepartum: PLAN: No evidence of abruption on exam or laboratory studies. (5) Advanced maternal age during in second trimester: PLAN: Response and alternatives to betamethasone, and magnesium prophylaxis were discussed with the patient and her family, and consent was obtained. PLAN: Plan Brief ultrasound confirms vertex. Response and alternatives to transport to [facility]ology specialty availability were reviewed with the patient, her questions were answered to her (more content not included)... Normal [facility] Partial Thromboplast Timeon 09-20-2024 aPTT Coag (Bld) [Time] 25.7 s Normal 24.1-36.2 [facility] Comment on above: Performed By: #### L 300.4310, L300.4700, L300.3900, L100.0100 #### [facility] [address] [place], [address] Platelet countOrdered By: Berta Gomez on 09-20-2024 Platelets (Bld) [#/Vol] 299 10*3/uL 150-450 [facility] Prothrombin Time w/INRon INR Coag (PPP) [Relative time] 0.9 {INR} Normal [facility] Comment on above: Performed By: #### L 300.4310, L300.4700, L300.3900, L100.0100 #### [facility] [address] [place], [address] PT Coag (PPP) [Time] 12.8 s Normal 11.7-14.9 [facility] Comment on above: Performed By: #### L 300.4310, L300.4700, L300.3900, L100.0100 #### [facility] [address] [place], [address] INR Normal [facility] Comment on above: Result Comment: DUPL ICATE ORDER Performed By: #### L 300.3900 #### [facility] [address] [place], [address] PROTIME Normal 11.7-14.9 [facility] Comment on above: Result Comment: DUPL ICATE ORDER Performed By: #### L 300.3900 #### [facility] [address] [place], [address] Prothrombin timeOrdered By: Ernestine Gomez on 09-20-2024 PT Coag (PPP) [Time] 12.8 s 11.7-14.9 [facility] RBC Auto (Bld) [#/Vol]Ordere d By: Ernestine Gomez on 09-20-2024 RBC (Bld) [#/Vol] 3.73 10*6/uL Low 4.2-5.4 [facility] Type AND Screenon 09-20-2024 ABO and Rh group Nom (Bld) Blood group O Rh(D) positive Normal [facility] Comment on above: Order Comment: HVAG Performed By: #### B TS #### [facility] [address] [place], [address] White blood cell (WBC) count Ordered By: Ernestine Gomez on 09-20-2024 WBC (Bld) [#/Vol] 14.2 10*3/uL High 4.4-11.0 [facility] Examination level ultrasound on 08-31-2024 Indication Detailed anatomic survey Advanced maternal age Impression The patient is referred for a detailed anatomic survey. - Single, live, intrauterine . - biometry is consistent with the established gestational age. - No malformations were visualized on a complete detailed anatomic survey. - The amniotic fluid volume is normal amount. - The placenta is posterior, fundal. - The Transabdominal cervical length measures 33.8 mm with no evidence of funneling or other dynamic changes. - Not all structural malformations can be detected by ultrasound examination. Recommendations Additional follow-up as clinically indicated. Maternal Assessment Height 173 cm Height (ft) 5 ft Height (in) 8 in Physical Exam Initial weight (lb) 190 lb Initial BMI 28.89 kg/m Maternal assessment other: 2 Para 1 REMOTE READ Method Transabdominal ultrasound examination. View: Suboptimal view: limited by position Navarrete . Number of fetuses: 1 Dating LMP on: 03/25/2024 GA by LMP 22 w + 2 d GASPER by LMP: 12/30/2024 GA by prior assessment 20 w + 4 d GASPER by prior assessment: 01/11/2025 Ultrasound examination on: 08/28/2024 GA by U/S based upon: AC, BPD, Femur, HC GA by U/S 20 w + 5 d GASPER by U/S: 01/10/2025 Assigned: based on stated GASPER, selected on 08/28/2024 Assigned GA 20 w + 4 d Assigned GASPER: 01/11/2025 General Evaluation Cardiac activity present. FHR 148 bpm. movements: present. Presentation: breech Placenta: Placental site: posterior, fundal Umbilical cord: Cord vessels: 3 vessel cord Amniotic fluid: Amount of AF: normal amount. MVP 5.5 cm Growth Overview Exam date GA BPD (mm) HC (mm) AC (mm) FL (mm) HL (mm) EFW (g) 08/28/2024 20w 4d 48.2 50% 181.7 50% 156.6 52% 34.1 70% 32.6 64% 372 52% Biometry Standard BPD 48.2 mm 20w 4d 50% Hadlock OFD 65.1 mm 20w 4d 77% Nicolaides HC 181.7 mm 20w 4d 50% Ashwin Cerebellum tr 21.3 mm 20w 1d 54% Hill Nuchal fold 3.1 mm AC 156.6 mm 20w 6d 52% Hadlock Femur 34.1 mm 20w 6d 70% Ashwin Humerus 32.6 mm 21w 0d 64% Ashwin EFW 372 g 20w 4d 52% Hadlock EFW (lb) 0 lb EFW (oz) 13 oz EFW by: Hadlock (HC-AC-FL) Extended Swing Type Lathe Operator 7.1 mm CM 5.1 mm 50% Nicolaides Extremities / Bony Struc FL / HC 0.19 52% Hadlock Other Structures FHR 148 bpm Anatomy Cranium: normal Lateral ventricles: normal Choroid plexus: normal Midline falx: normal Cavum septi pellucidi: normal Cerebellum: normal Cisterna magna: normal Head / Neck Vermis: normal Neck: normal Nuchal fold: normal Lips: normal Profile: normal Nose: normal Face Maxilla: normal Mandible: normal Orbits: normal Lens: normal 4-chamber view: normal RVOT view: normal LVOT view: normal 3-vessel view: normal 2-[id number]-[id number] view: normal Heart / Thorax Situs: situs solitus (normal) Aortic arch view: normal SVC: normal IVC: normal Cardiac axis: normal Rt lung: normal Lt lung: normal Diaphragm: normal Cord insertion: normal Stomach: normal Kidneys: normal Bladder: normal Genitals: normal Abdomen Abdom. wall: normal Cervical spine: normal Thoracic spine: normal Lumbar spine: normal Sacral spine: normal Arms: normal Legs: normal Rt upper arm: normal Rt forearm: normal Rt hand: normal Rt fingers: normal Lt upper arm: normal Lt forearm: normal Lt hand: normal Lt fingers: normal Rt upper leg: normal Rt lower leg: normal Rt foot: normal Lt upper leg: normal Lt lower leg: normal Lt foot: normal sex: male Wants to know sex: yes Maternal Structures Uterus / Cervix Uterus: Visualized Cervix: Visualized Approach: Transabdominal Cervical length 33.8 mm Other: Patient declined transvaginal ultrasound for cervical length. Ovaries / Tubes / Adnexa Rt ovary: Visualized Lt ovary: Not visualized Performed By: Sarah Hilton RDMS, RVT Read By: Mariana Burks M.D. MATERNAL MEDICINE [facility] Examination level ultrasound on 08-28-2024 [facility] Tele[facility] (OBGYWM) -------- KATHY HESTER ([id number]) 1990 F Date Time Provider Department 08/03/24 PAMELLA CROWDER During your visit today, we recorded the following information about you: Kaelyn Spangler LPN 08/03/2024 9:54 AM Signed Ob patient is 17w0d and called stating that she is currently taking zofran 4 mg every 6 hours as needed and phenergan 25 mg every 6 hours as needed for nausea and purchased Zyrtec 10 mg for her allergies and wanting to make sure ok to take with other meds. Patient would like a response to her Mychart. Pamella Crowder APRN.CNM 08/03/2024 11:34 AM Signed Yes this is fine as long as she is not taking unisom or other antihistamine. Thank you, Pamella Crowder APRN.Sarah Dunne RN 08/03/2024 11:45 AM Signed YAMAP message sent to patient. Sarah Orlando RN Allergies As of Date: 08/03/2024 Noted Allergy Reaction AMOXICILLIN 09/17/2015 1 - Mental Status Change EGGS (EGG) 09/17/2015 8 - GI Upset LATEX, NATURAL RUBBER 10/20/2015 2 - Rash MONTELUKAST 01/14/2022 16 - Unknown PENICILLIN 10/20/2015 4 - Hives PENICILLINS 08/04/2015 4 - Hives 14 - Other: See Comments Comments: Mouth sores, mental changes Date Reviewed: 07/31/2024 Reviewed by: Natasha Segura MD - Fully Assessed Reason for Visit: Care [86] Cmt: Medication question Prescriptions as of 08/03/2024 - cetirizine (ZYRTEC) 10 mg tablet Take 10 mg by mouth once daily. - promethazine (PHENERGAN) 25 mg tablet Take 1 tablet by mouth every 6 hours. - ondansetron orally disintegrating (ZOFRAN ODT) 4 mg disintegrating tablet Take 1 tablet by mouth every 6 hours as needed for nausea/vomiting. - PNV no.95/ferrous fum/folic ac ( ORAL) Take by mouth. - folic acid 1 mg tablet TAKE 1 TABLET BY MOUTH EVERY DAY - docusate sodium (COLACE) 100 mg capsule Take 1 capsule by mouth two times a day. - aspirin, enteric coated (ECOTRIN LOW STRENGTH) 81 mg EC tablet Take 1 tablet by mouth once daily. - levothyroxine 150 mcg cap Take 150 mcg by mouth daily before breakfast. 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 MINERVA Stratton [place], [place] 07/20/2024 11:11 AM Signed See Emair message. Patient quit job so no longer needing [facility] paperwork, will dispose of paperwork. Rafael Mendoza MA Allergies As of Date: 07/07/2024 Noted Allergy Reaction AMOXICILLIN 09/17/2015 1 - Mental Status Change EGGS (EGG) 09/17/2015 8 - GI Upset LATEX, NATURAL RUBBER 10/20/2015 2 - Rash MONTELUKAST 01/14/2022 16 - Unknown PENICILLIN 10/20/2015 4 - Hives PENICILLINS 08/04/2015 4 - Hives 14 - Other: See Comments Comments: Mouth sores, mental changes Date Reviewed: 07/02/2024 Reviewed by: Ernestine Gomez MD - Fully Assessed Reason for Visit: [facility] Paperwork [[id number]] Prescriptions as of 07/20/2024 - PNV no.95/ferrous fum/folic ac ( ORAL) Take by mouth. - ondansetron orally disintegrating (ZOFRAN ODT) 4 mg disintegrating tablet Take 1 tablet by mouth every 6 hours as needed for nausea/vomiting. - promethazine (PHENERGAN) 25 mg tablet Take 1 tablet by mouth every 6 hours. - folic acid 1 mg tablet TAKE 1 TABLET BY MOUTH EVERY DAY - docusate sodium (COLACE) 100 mg capsule Take 1 capsule by mouth two times a day. - aspirin, enteric coated (ECOTRIN LOW STRENGTH) 81 mg EC tablet Take 1 tablet by mouth once daily. - levothyroxine 150 mcg cap Take 150 mcg by mouth daily before breakfast. 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 Examination level ultrasound on 07-02-2024 Indication First trimester anatomic survey Advanced maternal age Impression REMOTE READ The patient is referred for a first trimester anatomy scan including nuchal translucency measurement as clinically indicated. - Single, live, intrauterine . - [place] rump length measurement is consistent with the established gestational age. - No malformations visualized on a complete first trimester anatomic assessment. - The nuchal translucency measurement is 1.7 mm. - Not all structural malformations can be detected by ultrasound examination. Maternal Structures: Right Ovary: Size 28 mm x 19 mm x 16 mm Left Ovary: Size 29 mm x 24 mm x 18 mm Recommendations - A standard anatomic survey at 16 weeks can be offered and a detailed exam at 20 weeks is recommended for increased risk. Maternal Assessment Height 173 cm Height (ft) 5 ft Height (in) 8 in Physical Exam Initial weight (lb) 190 lb Initial BMI 28.89 kg/m Maternal assessment other: 2 Para 1 Method Transabdominal ultrasound examination Navarrete . Number of fetuses: 1 Dating LMP on: 03/25/2024 GA by LMP 14 w + 1 d GASPER by LMP: 12/30/2024 GA by prior assessment 12 w + 3 d GASPER by prior assessment: 01/11/2025 Ultrasound examination on: 07/02/2024 GA by U/S based upon: CRL GA by U/S 12 w + 4 d GASPER by U/S: 01/10/2025 Assigned: based on stated GASPER, selected on 07/02/2024 Assigned GA 12 w + 3 d Assigned GASPER: 01/11/2025 General Evaluation Cardiac activity present Placenta: posterior Cord vessels: 3 vessel cord Amniotic fluid: normal amount Biometry Standard FHR 160 bpm CRL 61.7 mm 12w 4d 52% Hadlock NT 1.70 mm First Trimester Anatomy Calvarium: normal Falx cerebri: normal Choroid plexus: normal Profile: normal Nasal bone: normal Retronasal triangle: normal Maxilla: normal Mandible: normal Nuchal translucency: Unremarkable Situs: normal Cardiac position: normal Cardiac axis: normal 4-chamber view: suboptimal 4-chamber view with color: suboptimal 2-drjnwm-jyadkdy view: suboptimal Abdominal cord insertion: normal Stomach: normal Kidneys: suboptimal Bladder: normal Color doppler of perivesical umbilical arteries: normal Vertebral alignment: normal Arms: normal Hands: normal Legs: normal Feet: normal Maternal Structures Uterus / Cervix Uterus: Visualized Uterus length 128 mm Uterus width 91 mm Uterus height 69 mm Uterus Vol 423.2 cm Ovaries / Tubes / Adnexa Rt ovary: Visualized Rt ovary D1 28 mm Rt ovary D2 19 mm Rt ovary D3 16 mm Rt ovary Vol 4.2 cm Lt ovary: Visualized Lt ovary D1 29 mm Lt ovary D2 24 mm Lt ovary D3 18 mm Lt ovary Vol 6.3 cm Performed By: Sarah Hilton RDMS, RVT Read By: Claire Valdez M.D. MATERNAL MEDICINE [facility] Radiology Study observation (narrative) [facility] Benny 06-16-2024 NIMA Telephone (OBGYWM) -------- KATHY HESTER ([id number]) 1990 F Date Time Provider Department 06/16/24 PAMELLA CROWDER During your visit today, we recorded the following information about you: Keli Trinh RN 06/16/2024 3:15 PM Signed 10w1d Calling c/o severe abdominal cramping that started today after bowel movement. Feels cramping is related to bowels, but is worried it's related too. Has been having BM everyday this week, but has been harder. Stool today was very hard. She constantly feels like she has to have BM and only minimal amount each time. She has been taking miralax and increasing fluids since she has been having constipation problems this . No bleeding. Pain is almost unbearable at times to where she feels like she may pass out. Pain comes in waves and ranges 5-10/10 on pain scale. She is very concerned about baby too. Would take about 30 minutes to get to office if needed. Please advise. SAYDA Sharif Jessica, APRN.CNM 06/16/2024 3:19 PM Signed I can see her at 3:45pm if she can come in. Likely just constipation but happy to see her. YI Evangelista Trisha, RN 06/16/2024 3:23 PM Signed Patient notified and scheduled. Keli Trinh RN Allergies As of Date: 06/16/2024 Noted Allergy Reaction AMOXICILLIN 09/17/2015 1 - Mental Status Change EGGS (EGG) 09/17/2015 8 - GI Upset LATEX, NATURAL RUBBER 10/20/2015 2 - Rash MONTELUKAST 01/14/2022 16 - Unknown PENICILLIN 10/20/2015 4 - Hives PENICILLINS 08/04/2015 4 - Hives 14 - Other: See Comments Comments: Mouth sores, mental changes Date Reviewed: 06/12/2024 Reviewed by: Rafael Mendoza MA - Fully Assessed Reason for Visit: OB Pain [Other] Prescriptions as of 06/16/2024 - promethazine (PHENERGAN) 25 mg tablet Take 1 tablet by mouth every 6 hours. - aspirin, enteric coated (ECOTRIN LOW STRENGTH) 81 mg EC tablet Take 1 tablet by mouth once daily. - ondansetron orally disintegrating (ZOFRAN ODT) 4 mg disintegrating tablet Take 1 tablet by mouth every 6 hours as needed for nausea/vomiting. - levothyroxine 150 mcg cap Take 150 mcg by mouth daily before breakfast. - folic acid 1 mg tablet Take 1 tablet by mouth once daily. - Multivitamin capsule Take 1 capsule by mouth once daily. 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 CBC W Auto Differential pane l (Bld)on 06-05-2024 Basophils (Bld) [#/Vol] 0.03 10*3/uL Normal <0.11 [facility] Comment on above: Order Comment: Speci men Type: BLOOD SPECIMENOrdering Facility: [facility] Address: [address] [place] [address] Performed By: #### 5 7021-8 ####[facility] [id number] [place] [address] [place] Basophils/100 WBC (Bld) 0.2 % Normal [facility] Comment on above: Order Comment: Speci men Type: BLOOD SPECIMENOrdering Facility: [facility] Address: [address] [place] [address] Performed By: #### 5 7021-8 ####[facility] LATANYAWNCLIA [id number] [place] [address] [place] Differential cell count method Nom (Bld) Auto Normal [facility] Comment on above: Order Comment: Speci men Type: BLOOD SPECIMENOrdering Facility: [facility] Address: [address] [place] [address] Performed By: #### 5 7021-8 ####[facility] NASSAUTAYLERA [id number] [place] [address] [place] Eosinophils (Bld) [#/Vol] 0.06 10*3/uL Normal <0.46 [facility] Comment on above: Order Comment: Speci men Type: BLOOD SPECIMENOrdering Facility: [facility] Address: [address] [place] [address] Performed By: #### 5 7021-8 ####[facility] NASSAUTAYLERA [id number] [place] [address] [place] Eosinophils/100 WBC (Bld) 0.5 % Normal [facility] Comment on above: Order Comment: Speci men Type: BLOOD SPECIMENOrdering Facility: [facility] Address: [address] [place] [address] Performed By: #### 5 7021-8 ####[facility] NASSAUANANDAA [id number] [place] [address] [place] Erythrocyte distribution width (RBC) [Ratio] 11.9 % Normal 11.5-15.0 [facility] Comment on above: Order Comment: Speci men Type: BLOOD SPECIMENOrdering Facility: [facility] Address: [address] [place] [address] Performed By: #### 5 7021-8 ####[facility] NASSAUNCLIA [id number] [place] [address] [place] Hematocrit (Bld) [Volume fraction] 41.4 % Normal 36.0-46.0 [facility] Comment on above: Order Comment: Speci men Type: BLOOD SPECIMENOrdering Facility: [facility] Address: [address] [place] [address] Performed By: #### 5 7021-8 ####[facility] [id number] [place] [address] [place] Hemoglobin (Bld) [Mass/Vol] 14.2 g/dL Normal 11.5-15.5 [facility] Comment on above: Order Comment: Speci men Type: BLOOD SPECIMENOrdering Facility: [facility] Address: [address] [place] [address] Performed By: #### 5 7021-8 ####[facility] [id number] [place] [address] [place] Immature granulocytes (Bld) [#/Vol] 0.05 10*3/uL Normal <0.10 [facility] Comment on above: Order Comment: Speci men Type: BLOOD SPECIMENOrdering Facility: [facility] Address: [address] [place] [address] Performed By: #### 5 7021-8 ####[facility] [id number] [place] [address] [place] Immature granulocytes/100 WBC (Bld) 0.4 % Normal [facility] Comment on above: Order Comment: Speci men Type: BLOOD SPECIMENOrdering Facility: [facility] Address: [address] [place] [address] Performed By: #### 5 7021-8 ####[facility] [id number] [place] [address] [place] Lymphocytes (Bld) [#/Vol] 2.04 10*3/uL Normal 1.00-4.00 [facility] Comment on above: Order Comment: Speci men Type: BLOOD SPECIMENOrdering Facility: [facility] Address: [address] [place] [address] Performed By: #### 5 7021-8 ####[facility] NASSAUDOM [id number] [address] [place] Lymphocytes/100 WBC (Bld) 15.6 % Normal [facility] Comment on above: Order Comment: Speci men Type: BLOOD SPECIMENOrdering Facility: [facility] Address: [address] [place] [address] Performed By: #### 5 7021-8 ####[facility] NASSAUANANDA [id number] [place] [address] [place] MCH (RBC) [Entitic mass] 31.4 pg Normal 26.0-34.0 [facility] Comment on above: Order Comment: Speci men Type: BLOOD SPECIMENOrdering Facility: [facility] Address: [address] [place] [address] Performed By: #### 5 7021-8 ####[facility] [id number] [place] [address] [place] MCHC (RBC) [Mass/Vol] 34.3 g/dL Normal 30.5-36.0 [facility] Comment on above: Order Comment: Speci men Type: BLOOD SPECIMENOrdering Facility: [facility] Address: [address] [place] [address] Performed By: #### 5 7021-8 ####[facility] NASSAUNCLIA [id number] [place] [address] [place] MCV (RBC) [Entitic vol] 91.6 fL Normal 80.0-100.0 [facility] Comment on above: Order Comment: Speci men Type: BLOOD SPECIMENOrdering Facility: [facility] Address: [address] [place] [address] Performed By: #### 5 7021-8 ####[facility] NASSAUTAYLERLIA [id number] [place] [address] [place] Monocytes (Bld) [#/Vol] 0.67 10*3/uL Normal <0.87 [facility] Comment on above: Order Comment: Speci men Type: BLOOD SPECIMENOrdering Facility: [facility] Address: [address] [place] [address] Performed By: #### 5 7021-8 ####[facility] NASSAUANANDAA [id number] [place] [address] [place] Monocytes/100 WBC (Bld) 5.1 % Normal [facility] Comment on above: Order Comment: Speci men Type: BLOOD SPECIMENOrdering Facility: [facility] Address: [address] [place] [address] Performed By: #### 5 7021-8 ####[facility] [id number] [place] [address] [place] Neutrophils (Bld) [#/Vol] 10.24 10*3/uL High 1.45-7.50 [facility] Comment on above: Order Comment: Speci men Type: BLOOD SPECIMENOrdering Facility: [facility] Address: [address] [place] [address] Performed By: #### 5 7021-8 ####[facility] CAMPUSLIA [id number] [place] [address] [place] Neutrophils/100 WBC (Bld) 78.2 % Normal [facility] Comment on above: Order Comment: Speci men Type: BLOOD SPECIMENOrdering Facility: [facility] Address: [address] [place] [address] Performed By: #### 5 7021-8 ####[facility] NASSAUNCLIA [id number] [place] [address] [place] Nucleated RBC (Bld) [#/Vol] 10*3/uL Normal <0.01 [facility] Comment on above: Order Comment: Speci men Type: BLOOD SPECIMENOrdering Facility: [facility] Address: [address] [place] [address] Performed By: #### 5 7021-8 ####[facility]UNCTOO[facility] [id number] [place] [address] [place] Nucleated RBC/100 WBC (Bld) [Ratio] 0.0 /[address] [facility] Comment on above: Order Comment: Speci men Type: BLOOD SPECIMENOrdering Facility: [facility] Address: [address] [place] [address] Performed By: #### 5 7021-8 ####[facility] [id number] [place] [address] [place] Platelet mean volume (Bld) [Entitic vol] 10.5 fL Normal 9.0-12.7 [facility] Comment on above: Order Comment: Speci men Type: BLOOD SPECIMENOrdering Facility: [facility] Address: [address] [place] [address] Performed By: #### 5 7021-8 ####[facility] [id number] [place] [address] [place] Platelets (Bld) [#/Vol] 315 10*3/uL Normal 150-400 [facility] Comment on above: Order Comment: Speci men Type: BLOOD SPECIMENOrdering Facility: [facility] Address: [address] [place] [address] Performed By: #### 5 7021-8 ####[facility] [id number] [place] [address] [place] RBC (Bld) [#/Vol] 4.52 10*6/uL Normal 3.90-5.20 [facility] Comment on above: Order Comment: Speci men Type: BLOOD SPECIMENOrdering Facility: [facility] Address: [facility] [place] [id number] Performed By: #### 5 7021-8 ####[facility] NASSAUNCLIA [id number] [address] [place] WBC (Bld) [#/Vol] 13.09 10*3/uL High 3.70-11.00 [facility] Comment on above: Order Comment: Speci men Type: BLOOD SPECIMENOrdering Facility: [facility] Address: [address] [place] [address] Performed By: #### 5 7021-8 ####[facility] NASSAUNCLIA [id number] [address] [place] Comprehensive metabolic 2000 panelOrdered By: Kaylie Brown on 06-05-2024 Albumin [Mass/Vol] 4.4 g/dL 3.9 - 4.9 g/dL [facility] ALP [Catalytic activity/Vol] 117 U/L 34 - 123 U/L [facility] ALT [Catalytic activity/Vol] 67 U/L High 7 - 38 U/L [facility] Anion gap [Moles/Vol] 10 mmol/L 8 - 15 mmol/L [facility] AST [Catalytic activity/Vol] 26 U/L 13 - 35 U/L [facility] Bilirubin [Mass/Vol] 0.4 mg/dL 0.2 - 1 .3 mg/dL [facility] Calcium [Mass/Vol] 10.7 mg/dL High 8.5 - 10. 2 mg/dL [facility] Chloride [Moles/Vol] 98 mmol/L 98 - 10 7 mmol/L [facility] CO2 [Moles/Vol] 27 mmol/L 22 - 30 mmol/L [facility] Creatinine [Mass/Vol] 0.59 mg/dL 0.58 - 0.96 mg/dL [facility] GFR/1.73 sq M.predicted among non-blacks MDRD (S/P/Bld) [Vol rate/Area] 121 mL/min/{1.73_m2} - PINF [facility] Comment on above: Estimated Glomerular Filtration Rate (eGFR) is calculated using the 2020 CKD-EPI creatinine equation. This equation utilizes serum creatinine, sex, and age as parameters. The creatinine assay has traceable calibration to isotope dilution-mass spectrometry. Refer to KDIGO guidelines for clinical interpretation. In patients with unstable renal function, e.g. those with acute kidney injury, the eGFR may not accurately reflect actual GFR. Glucose [Mass/Vol] 87 mg/dL 74 - 99 mg/dL [facility] Comment on above: The [place] Diabete s Association (ADA) provides guidance for cutoff values for fasting glucose and random glucose. The ADA defines fasting as no caloric intake for at least 8 hours. Fasting plasma glucose results between 100 to 125 mg/dL indicate increased risk for diabetes (prediabetes). Fasting plasma glucose results greater than or equal to 126 mg/dL meet the criteria for diagnosis of diabetes. In the absence of unequivocal hyperglycemia, results should be confirmed by repeat testing. In a patient with classic symptoms of hyperglycemia or hyperglycemic crisis, random plasma glucose results greater than or equal to 200 mg/dL meet the criteria for diagnosis of diabetes. Reference: Standards of Medical Care in Diabetes 2016, [place] Diabetes Association. Diabetes Care. 2016.39(Suppl 1). Interpretation and review of laboratory results Abnormal [facility] Potassium [Moles/Vol] 3.4 mmol/L Low 3.7 - 5.1 mmol/L [facility] Protein [Mass/Vol] 7.4 g/dL 6.3 - 8.0 g/dL [facility] Sodium [Moles/Vol] 135 mmol/L Low 136 - 144 mmol/L [facility] Urea nitrogen [Mass/Vol] 10 mg/dL 7 - 21 mg/dL [facility] Comprehensive metabolic 2000 panelon 06-05-2024 Albumin [Mass/Vol] 4.4 g/dL Normal 3.9-4.9 [facility] Comment on above: Order Comment: Speci men Type: BLOOD SPECIMENOrdering Facility: [facility] Address: [facility] [place] [id number] Performed By: #### 2 4323-8 ####[facility] PB [facility] HOSPITALSyed [id number] [place] [address] [place] ALP [Catalytic activity/Vol] 117 U/L Normal 34-123 [facility] Comment on above: Order Comment: Speci men Type: BLOOD SPECIMENOrdering Facility: [facility] Address: [address] [place] [address] Performed By: #### 2 4323-8 ####[facility] HOSPITALJosé LuisNCLIA [id number] [place] [address] [place] ALT [Catalytic activity/Vol] 67 U/L High 7-38 [facility] Comment on above: Order Comment: Speci men Type: BLOOD SPECIMENOrdering Facility: [facility] Address: [address] [place] [address] Performed By: #### 2 4323-8 ####[facility] NASSAUNCLIA [id number] [place] [address] [place] Anion gap [Moles/Vol] 10 mmol/L Normal 8-15 [facility] Comment on above: Order Comment: Speci men Type: BLOOD SPECIMENOrdering Facility: [facility] Address: [address] [place] [address] Performed By: #### 2 4323-8 ####[facility] NASSAUNCLIA [id number] [place] [address] [place] AST [Catalytic activity/Vol] 26 U/L Normal 13-35 [facility] Comment on above: Order Comment: Speci men Type: BLOOD SPECIMENOrdering Facility: [facility] Address: [address] [place] [address] Performed By: #### 2 4323-8 ####[facility] NASSAUNCLIA [id number] [place] [address] [place] Bilirubin [Mass/Vol] 0.4 mg/dL Normal 0.2-1.3 [facility] Comment on above: Order Comment: Speci men Type: BLOOD SPECIMENOrdering Facility: [facility] Address: [address] [place] [address] Performed By: #### 2 4323-8 ####[facility] MILLTOWNCLIA [id number] [place] [address] [place] Calcium [Mass/Vol] 10.7 mg/dL High 8.5-10.2 [facility] Comment on above: Order Comment: Speci men Type: BLOOD SPECIMENOrdering Facility: [facility] Address: [address] [place] [address] Performed By: #### 2 4323-8 ####[facility] MILLWNCLIA [id number] [place] [address] [place] Chloride [Moles/Vol] 98 mmol/L Normal 98-107 [facility] Comment on above: Order Comment: Speci men Type: BLOOD SPECIMENOrdering Facility: [facility] Address: [address] [place] [address] Performed By: #### 2 4323-8 ####[facility] CAMPUSLIA [id number] [place] [address] [place] CO2 [Moles/Vol] 27 mmol/L Normal 22-30 [facility] Comment on above: Order Comment: Speci men Type: BLOOD SPECIMENOrdering Facility: [facility] Address: [address] [place] [address] Performed By: #### 2 4323-8 ####[facility] NASSAUNCLIA [id number] [place] [address] [place] Creatinine [Mass/Vol] 0.59 mg/dL Normal 0.58-0.96 [facility] Comment on above: Order Comment: Speci men Type: BLOOD SPECIMENOrdering Facility: [facility] Address: [address] [place] [address] Performed By: #### 2 4323-8 ####[facility] NASSAUNCLIA [id number] [place] [address] [place] Creatinine and Glomerular filtration rate.predicted panel (S/P/Bld) 121 mL/min/1.73m??? Normal >=60 [facility] Comment on above: Order Comment: Cecily dc Type: BLOOD SPECIMENOrdering Facility: [facility] Address: [address] [place] [address] Result Comment: Bessy mated Glomerular Filtration Rate (eGFR) is calculated using the 2020 CKD-EPI creatinine equation. This equation utilizes serum creatinine, sex, and age as parameters. The creatinine assay has traceable calibration to isotope dilution-mass spectrometry. Refer to KDIGO guidelines for clinical interpretation. In patients with unstable renal function, e.g. those with acute kidney injury, the eGFR may not accurately reflect actual GFR. Performed By: #### 2 4323-8 ####[facility] BEACHSyed [id number] [place] [address] [place] Glucose [Mass/Vol] 87 mg/dL Normal 74-99 [facility] Comment on above: Order Comment: Cecily dc Type: BLOOD SPECIMENOrdering Facility: [facility] Address: [address] [place] [address] Result Comment: The [place] Diabetes Association (ADA) provides guidance for cutoff values for fasting glucose and random glucose. The ADA defines fasting as no caloric intake for at least 8 hours. Fasting plasma glucose results between 100 to 125 mg/dL indicate increased risk for diabetes (prediabetes). Fasting plasma glucose results greater than or equal to 126 mg/dL meet the criteria for diagnosis of diabetes. In the absence of unequivocal hyperglycemia, results should be confirmed by repeat testing. In a patient with classic symptoms of hyperglycemia or hyperglycemic crisis, random plasma glucose results greater than or equal to 200 mg/dL meet the criteria for diagnosis of diabetes. Reference: Standards of Medical Care in Diabetes 2016, [place] Diabetes Association. Diabetes Care. 2016.39(Suppl 1). Performed By: #### 2 4323-8 ####[facility] NASSAUNCJANET [id number] [place] [address] [place] Potassium [Moles/Vol] 3.4 mmol/L Low 3.7-5.1 [facility] Comment on above: Order Comment: Speci men Type: BLOOD SPECIMENOrdering Facility: [facility] Address: [address] [place] [address] Performed By: #### 2 4323-8 ####[facility] LATANYAWNCLIA [id number] [place] [address] [place] Protein [Mass/Vol] 7.4 g/dL Normal 6.3-8.0 [facility] Comment on above: Order Comment: Speci men Type: BLOOD SPECIMENOrdering Facility: [facility] Address: [address] [place] [address] Performed By: #### 2 4323-8 ####[facility] NASSAUNCLIA [id number] [place] [address] [place] Sodium [Moles/Vol] 135 mmol/L Low 136-144 [facility] Comment on above: Order Comment: Speci men Type: BLOOD SPECIMENOrdering Facility: [facility] Address: [address] [place] [address] Performed By: #### 2 4323-8 ####[facility] NASSAUNCA [id number] [place] [address] [place] Urea nitrogen [Mass/Vol] 10 mg/dL Normal 7-21 [facility] Comment on above: Order Comment: Speci men Type: BLOOD SPECIMENOrdering Facility: [facility] Address: [address] [place] [address] Performed By: #### 2 4323-8 ####[facility] NASSAUNCLIA [id number] [place] [address] [place] HBV surface Ag Ser Qlon 05-14 HBV surface Ag Ql (S) Negative Normal Negative [facility] Comment on above: Order Comment: Speci men Type: BLOOD SPECIMEN [facility] Address: [address] [place] [address] Performed By: #### T SPN #### [facility] CLIA [id number] [address] [place] [address] [place] HCV Ab Ser Qlon 06-05-2024 HCV Ab Ql (S) Negative Normal Negative [facility] Comment on above: Order Comment: Speci men Type: BLOOD SPECIMEN [facility] Address: [address] [place] [address] Result Comment: The result suggests no evidence of active infection with Hepatitis C virus. Should recent infection be suspected, repeat testing may be considered 4-6 weeks after this draw. Performed By: #### T SPN #### [facility] CLIA [id number] [address] [place] [address] [place] HIV 1+2 Ab IA Qlon HIV 1 and 2 Ab IA.rapid Nom (S/P/Bld) Normal [facility] Comment on above: Order Comment: Speci men Type: BLOOD SPECIMEN [facility] Address: [address] [place] [address] Result Comment: Test not indicated. Performed By: #### T SPN #### [facility] CLIA [id number] [address] [place] [address] [place] HIV 1+2 Ab+HIV1 p24 Ag IA Ql Non-Reactive Normal Nonreactive [facility] Comment on above: Order Comment: Speci men Type: BLOOD SPECIMEN [facility] Address: [address] [place] [address] Performed By: #### T SPN #### [facility] CLIA [id number] [address] [place] [address] [place] HIV immunoassay testing algorithm interpretation (S/P/Bld) [Interp] Normal [facility] Comment on above: Order Comment: Speci men Type: BLOOD SPECIMEN [facility] Address: [address] [place] [address] Result Comment: No e vidence of HIV-1 or HIV-2 infection. Should recent infection be suspected, repeat testing may be considered 2-3 weeks after this draw. [place] Rev. Code 3701.243(E): This information has been disclosed to you from confidential records protected from disclosure by state law. ???You shall make no further disclosure of this information without the specific, written, and informed release of the individual to whom it pertains or as otherwise permitted by state law. A general authorization for the release of medical or other information is not sufficient for the purpose of the release of HIV test results or diagnoses. Performed By: #### T SPN #### [facility] CLIA [id number] [address] [place] [address] [place] HbA1c (Bld)on 06-05-2024 Average glucose Estimated from glycated hemoglobin (Bld) [Mass/Vol] 77 mg/dL Normal [facility] Comment on above: Order Comment: Speci men Type: BLOOD SPECIMEN [facility] Address: [address] [place] [address] Result Comment: eAG: (Estimated average glucose) is a calculated value from HgbA1c and is sales representative of the average blood glucose level in the last 2-3 month period. Performed By: #### T SPN #### [facility] CLIA [id number] [address] [place] [address] HbA1c (Bld) [Mass fraction] 4.3 % Normal 4.3-5.6 [facility] Comment on above: Order Comment: Speci men Type: BLOOD SPECIMEN [facility]: [facility] Address: [address] [place] [address] Result Comment: [place] Diabetes Association guidelines indicate that patients with HgbA1c in the range 5.7-6.4% are at increased risk for development of diabetes, and intervention by lifestyle modification may be beneficial. HgbA1c greater or equal to 6.5% is considered diagnostic of diabetes. Performed By: #### T SPN #### [facility] CLIA [id number] [address] [place] [address] [place] RUBELLA IGG ANTIBODYon 06-05 RUBELLA IGG AB, QUAL Positive Normal Positive [facility] Comment on above: Order Comment: Speci men Type: BLOOD SPECIMENOrdering Facility: [facility] Address: [address] [place] [address] Result Comment: The result suggests recent or past exposure to Rubella virus or history of Rubella vaccination. Positive result may also be seen due to presence of passively-transferred antibodies. Please correlate with patient's history. Performed By: #### R UBIGG ####[facility] [id number] [place] [address] [place] Reagin and Treponema pallidu m IgG and IgM [Interp]on 06-05-2024 T. pallidum IgG+IgM IA Ql (S) Non-Reactive Normal Nonreactive [facility] Comment on above: Order Comment: Speci [facility] Type: BLOOD SPECIMEN [facility]ing Facility: [facility] Address: [address] [place] [address] Performed By: #### T SPN #### [facility] CLIA [id number] [address] [place] [address] [place] Reagin+T pallidum IgG+IgM Se rPl-Impon 06-05-2024 Reagin and Treponema pallidum IgG and IgM [Interp] Cannot exclude recent Treponemal infection if specimen collected within 7-10 days after appearance of suspect lesions or 2-3 weeks after an exposure. Clinical correlation is required. Normal [facility] Comment on above: Order Comment: Speci men Type: BLOOD SPECIMEN [facility]: [facility] Address: [address] [place] [address] Performed By: #### T SPN #### [facility] CLIA [id number] [address] [place] [address] [place] TSH SerPl-aCncon 06-05-2024 TSH Qn 0.647 m[IU]/L Normal 0.270-4.200 [facility] Comment on above: Order Comment: Speci men Type: BLOOD SPECIMENOrdering Facility: [facility] Address: [address] [place] [address] Result Comment: If t he patient is , TSH reference range varies by gestational period: First Trimester (weeks 9-12): 0.180-2.990 mIU/L Second Trimester: 0.110-3.980 mIU/L Third Trimester: 0.480-4.710 mIU/L Jeremiah Sheldon et al. A Practical Approach for the Verifications and Determination of Site- and Trimester-Specific Reference Intervals for Thyroid Function tests in . Thyroid, 2019:29:3:412-420. Jared Henson, et al. 2017 Guidelines of the [place] Thy[employer] for the Diagnosis and Management of Thyroid Disease during and the . Thyroid, 2017:27:3:315-389. Performed By: #### 3 016-3 ####[facility]IA [id number] [place] [address] [place] TYPE + SCREEN PRENATALon ABO O Normal [facility] Comment on above: Order Comment: Speci men Type: BLOOD SPECIMEN [facility] Address: [address] [place] [address] Performed By: #### T SPN #### [facility] CLIA [id number] [address] [place] [address] [place] Rh Nom (Bld) Positive Normal [facility] Comment on above: Order Comment: Speci men Type: BLOOD SPECIMEN [facility] Address: [address] [place] [address] Performed By: #### T SPN #### [facility] CLIA [id number] [address] [place] [address] [place] TYPE AND SCREEN EXPIRATION 06/08/2024 23:[address] [facility] Comment on above: Order Comment: Speci men Type: BLOOD SPECIMEN [facility] Address: [address] [place] [address] Performed By: #### T SPN #### [facility] CLIA [id number] [address] [place] [address] [facility] CNPMichelle 06-02-2024 CNPN Telephone (OBGYWM) -------- KATHY HESTER ([id number]) 1990 F Date Time Provider Department 06/02/24 PAMELLA CROWDER OBGYWM During your visit today, we recorded the following information about you: Kaelyn Spangler LPN 06/02/2024 10:48 AM Signed Ob patient is 8w1d and called stating that she is currently taking Zofran for Nausea and pepcid 40 mg daily at bedtime. Patient reports that she is still having issues with acid reflux - Multiple times a day vomits stomach acid and Is miserable Patient asking if there is anything else that she can take along with pepcid to help. Pamella Crowder APRN.CNM 06/02/2024 11:23 AM Signed I can add reglan. She can interchange zofran and reglan throughout the day. If no improvement by , please make appointment with provider on Saturday. Pamella Crowder APRN.Keli Spicer, SAYDA 06/02/2024 11:49 AM Signed Patient notified. Keli Trinh RN The following approved medication requests have been transmitted electronically. Requested Prescriptions Signed Prescriptions Disp Refills metoclopramide HCl (REGLAN) 10 mg tablet 90 tablet 0 Sig: Take 1 tablet by mouth three times a day as needed. Authorizing Provider: PAMELLA CROWDER Pharmacy Information Pharmacy Address Telephone [facility]/pharmacy #[id number] [address] [place] [address] Allergies As of Date: 06/02/2024 Noted Allergy Reaction AMOXICILLIN 09/17/2015 1 - Mental Status Change EGGS (EGG) 09/17/2015 8 - GI Upset LATEX, NATURAL RUBBER 10/20/2015 2 - Rash MONTELUKAST 01/14/2022 16 - Unknown PENICILLIN 10/20/2015 4 - Hives PENICILLINS 08/04/2015 4 - Hives 14 - Other: See Comments Comments: Mouth sores, mental changes Date Reviewed: 06/01/2024 Reviewed by: Patsy Salas LPN - Fully Assessed Reason for Visit: Care [86] Order(s):metoclopramide HCl (REGLAN) 10 mg tabletTake 1 tablet by mouth three times a day as needed.Disp: 90 tabletRfl: 0 Prescriptions as of 06/02/2024 - metoclopramide HCl (REGLAN) 10 mg tablet Take 1 tablet by mouth three times a day as needed. - aspirin, enteric coated (ECOTRIN LOW STRENGTH) 81 mg EC tablet Take 1 tablet by mouth once daily. - ondansetron orally disintegrating (ZOFRAN ODT) 4 mg disintegrating tablet Take 1 tablet by mouth every 6 hours as needed for nausea/vomiting. - levothyroxine 150 mcg cap Take 150 mcg by mouth daily before breakfast. - folic acid 1 mg tablet Take 1 tablet by mouth once daily. - famotidine (PEPCID) 40 mg tablet Take 1 tablet by mouth once daily. - Multivitamin capsule Take 1 capsule by mouth once daily. 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 Encounter Status:Closed by KELI TRINH on 06/02/[address] [facility] Bacteria Ur Culton Bacteria identified Cx Nom (U) ORGANISM ID: 1 50,000-<100,000 CFU/ml Normal urogenital luis a Normal [facility] Comment on above: Performed By: #### T SPN #### [facility] CLIA [id number] [address] [place] [address] [place] C. trachomatis+N. gonorrhoea e DNA KATHERIN+probe Ql (Unsp spec)on 06-01-2024 C. trachomatis rRNA KATHERIN+probe Ql (Unsp spec) Not detected Normal Not detected [facility] Comment on above: Order Comment: Speci men Type: SWABOrdering Facility: [facility] Address: [address] [place] [address] Performed By: #### 3 6902-5 ####[facility] LABIA [id number] [place] [address] [place] N. gonorrhoeae rRNA KATHERIN+probe Ql (Unsp spec) Not detected Normal Not detected [facility] Comment on above: Order Comment: Speci men Type: SWABOrdering Facility: [facility] Address: [address] [place] [address] Performed By: #### 3 6902-5 ####[facility] LABIA [id number] [place] [address] [place] HIGH RISK HUMAN PAPILLOMA ALEX (HPV), PCR FOR DETECTION AND GENOTYPINGon 06-01-2024 HPV 16 Ag Ql (Unsp spec) Not detected Normal Not detected [facility] Comment on above: Order Comment: Speci men Type: FLUID SPECIMENOrdering Facility: [facility] Address: [address] [place] [address] Performed By: #### H PVHRT ####[facility] [id number] [place] [address] [place] HPV 18 Ag Ql (Unsp spec) Not detected Normal Not detected [facility] Comment on above: Order Comment: Speci men Type: FLUID SPECIMENOrdering Facility: [facility] Address: [address] [place] [address] Performed By: #### H PVHRT ####[facility]CLIA [id number] [place] [address] [place] HPV 31+33+35+39+45+51+52+5 6+58+59+66+68 DNA KATHERIN+probe Ql (Cvx) Not detected Normal Not detected [facility] Comment on above: Order Comment: Speci men Type: FLUID SPECIMENOrdering Facility: [facility] Address: [address] [place] [address] Result Comment: High Risk HPV Other Type includes HPV types 31, 33, 35, 39, 45, 51, 52, 56, 58, 59, 66 and 68. Performed By: #### H PVHRT ####[facility] LABCLIA [id number] [place] [address] [place] PAP TESTon 06-01-2024 ADEQUACY Satisfactory for interpretation. Normal [facility] Comment on above: Order Comment: Speci men Type: FLUID SPECIMEN [facility] Address: [address] [place] [address] Performed By: #### L [id number] #### [facility] CLIA [id number] [address] [place] [address] [place] CASE REPORT Normal [facility] Comment on above: Order Comment: Speci men Type: FLUID SPECIMEN [facility] Address: [address] [place] [address] Result Comment: Gyne cologic Cytology Report Case: [id number] Authorizing Provider: Selam Cesar APRN.REGULATORY AFFAIRS CONSULTANT Collected: 06/01/2024 03:42 PM Ordering Location: OB/Gynecology Received: 06/01/2024 04:43 PM First Screen: Jairo, Junie, CT, ASCP Specimen: Pap Test, ThinPrep, Cervix Performed By: #### L [id number] #### [facility] CLIA [id number] [address] [place] [address] [place] CLINICAL HISTORY, CYTOLOGY, CAFETERIA MANAGER Routine Exam Normal [facility] Comment on above: Order Comment: Speci men Type: FLUID SPECIMEN [facility] Address: [address] [place] [address] Performed By: #### L [id number] #### [facility] CLIA [id number] [address] [place] [address] [place] FINAL PERFORMING LAB Normal [facility] Comment on above: Order Comment: Speci men Type: FLUID SPECIMEN [facility] Address: [address] [place] [address] Result Comment: Tech nical component, new car inspector screening performed at [facility], [address] [place], [place] [id number] CLIA# [id number] Diagnostic interpretation performed at [facility], [address] [place], [place] [id number] CLIA# [id number] Brand Protection Manager: Noel Maldonado M.D. Performed By: #### L [id number] #### [facility] CLIA [id number] [address] [place] [address] [place] INTERPRETATION, CYTOLOGY, CAFETERIA MANAGER Normal [facility] Comment on above: Order Comment: Speci men Type: FLUID SPECIMEN [facility] Address: [address] [place] [address] Result Comment: Nega tive for intraepithelial lesion or malignancy. Performed By: #### L [id number] #### [facility] CLIA [id number] [address] [place], [place] [id number] [place] LMP 03/25/[address] [facility] Comment on above: Order Comment: Speci men Type: FLUID SPECIMEN [facility] Address: [address] [place] [address] Performed By: #### L [id number] #### [facility] CLIA [id number] [address] [place] [address] [place] PAP DISCLAIMER COMMENT The Pap Smear is a screening test for cervical cancer. False negative results occur with all screening tests, emphasizing the need for rescreening at recommended intervals, and clinical correlation. Normal [facility] Comment on above: Order Comment: Speci men Type: FLUID SPECIMEN [facility] Address: [address] [place] [address] Performed By: #### L [id number] #### [facility] CLIA [id number] [address] [place] [address] [place] PAP LABORATORY SUPERVISOR COMMENT This specimen has be en analyzed by the ThinPrep Imaging System, an automated imaging and review system, which assists the laboratory in evaluating cells on ThinPrep Pap tests. Following automated imaging, selected miller from every slide are reviewed by a new car inspector. Normal [facility] Comment on above: Order Comment: Speci men Type: FLUID SPECIMEN [facility] Address: [address] [place] [address] Performed By: #### L [id number] #### [facility] CLIA [id number] [address] [place] [address] [place] POC TRAFFIC SIGNAL REPAIRER ULTRASOUNDon 06-01-19 Indication Confirmation of intrauterine . Confirmation of cardiac activity. Estimation of gestational age Impression cardiac activity is visualized, CRL indicates discrepancy from clinical dates, GASPER 01/11/25 based on today's ultrasound Recommendations Additional follow-up as clinically indicated. Method Transabdominal and transvaginal ultrasound examination. View: Adequate visualization Navarrete . Number of embryos: 1 Dating LMP on: 03/25/2024 GA by LMP 9 w + 5 d GASPER by LMP: 12/30/2024 Ultrasound examination on: 06/01/2024 GA by U/S based upon: CRL GA by U/S 8 w + 0 d GASPER by U/S: 01/11/2025 Assigned: based on the LMP, selected on 06/01/2024 Assigned GA 9 w + 5 d Assigned GASPER: 12/30/2024 Biometry Standard FHR 160 bpm CRL 16.2 mm 8w 0d <1% Hadlock Assessment Gestational sac: visualized Location: intrauterine Yolk sac: visualized Embryo: visualized CRL 16.2 mm 8w 0d <1% Hadlock Cardiac activity: present FHR 160 bpm General Evaluation Cardiac activity present. FHR 160 bpm. movements: present Performed By: Selam Cesar CNP Read By: Selam Cesar CNP MATERNAL MEDICINE [facility] Radiology Study observation (narrative) [facility] CNOVon 05-26-2024 CNOV Office Visit (OBGYWM ) -------- KATHY HESTER ([id number]) 1990 F Date Time Provider Department 05/26/24 2:45 PM PAMELLA CROWDER During your visit today, we recorded the following information about you: Blood pressure Weight Last Period 120/68 86.6 kg 03/28/24 Pamella Crowder APRN.CNM 05/26/2024 3:15 PM Signed Kathy Graham Rebeca Pak is a 33 year old female who presents for problem visit Nausea in early for 1 week(s). HPI: Kathy presents for nausea in early . Her NOB is scheduled with Selam Cesar 06/01/2023. She has been having to take Zofran every morning to help her get through the day. She found out that she was last Saturday around the same time the nausea started. LMP 03/25/24 with EGA 8w6d. This menses was different than normal and only lasted about 2 days and irregular for her. Nausea started about a little over a week ago. Emesis on and off throughout the day. PCP seen for N/V and thought she had GI illness. test completed and positive. Sent to get US and single IUP per patient with heart beat and GASPER: 12/30/24. PCP gave her 10 days worth of zofran and this was helpful. Emesis decreased at this time and doing better. Keeping water down at this time and small amounts of food. Not taking PNV due to nausea OB History T1 L1 SAB0 IAB0 Ectopic0 Multiple0 Live Births1 [employer] History LMP: 03/28/2024, Unknown Age at Menarche: 12 Age at First : Age at Menopause: [employer] History Comments: Sexual Activity: Never; No partner data on record Contraception: No contraception data on record Menstrual Tracking History Flowsheet Row Office Visit from 05/26/2024 in OB/Gynecology Period Cycle (Days) 5 Period Duration (Days) 5 Menstrual Flow Moderate PAST MEDICAL HISTORY Diagnosis Date Gallstones Normal IUP (intrauterine ) on ultrasound 12/04/2015 Symptomatic cholelithiasis 12/04/2015 UTI (urinary tract infection) PAST SURGICAL HISTORY Procedure Laterality Date APPENDECTOMY HX 6 yo CHOLECYSTECTOMY HX 12/12/2015 FAMILY HISTORY Problem Relation Age of Onset Breast Cancer Mother Thyroid Mother Stroke Father TIA Asthma Father Heart Paternal Grandfather Breast Cancer Maternal Grandmother Diabetes Paternal Grandmother Asthma Sister Social History Tobacco Use Smoking status: Never Smokeless tobacco: Never Substance Use Topics Alcohol use: No Drug use: No Current Outpatient Medications Medication Sig levothyroxine 150 mcg cap Take 150 mcg by mouth daily before breakfast. ondansetron orally disintegrating (ZOFRAN ODT) 4 mg disintegrating tablet Take 1 tablet by mouth every 6 hours as needed for Nausea/Vomiting. dicyclomine (BENTYL) 20 mg tablet Take 1 tablet by mouth four times daily. Multivitamin capsule Take 1 capsule by mouth once daily. No current facility-administered medications for this visit. Allergies As of Date: 05/26/2024 Allergen Noted Reaction AMOXICILLIN 09/17/2015 Mental Status Change EGGS [EGG] 09/17/2015 GI Upset LATEX, NATURAL RUBBER 10/20/2015 Rash PENICILLIN 10/20/2015 Hives Fully Assessed 05/26/2024 REVIEW OF SYSTEMS Abdomen: No bloating, early satiety, indigestion, or increased flatulence. No abdominal pain, nausea, vomiting, diarrhea, or constipation. Bladder: No dysuria, gross hematuria, urinary frequency, urinary urgency, or incontinence. Breast: No breast lumps, nipple d/c, overlying skin changes, redness or skin retraction. Expanded ROS: N/A Allergies and current medication updated:Yes SENSITIVE EXAM: Sensitive exam not performed. EXAM: LMP 03/28/2024 GENERAL: pleasant, female in no apparent distress HEENT: Normocephalic, atraumatic, mucus membranes moist, and no lesions NECK: Supple, full range of motion, and no adenopathy DERMATOLOGY: Normal and without lesions NEURO: alert and oriented x3,exam grossly non-focal EXTREMITIES: normal 05/19/24 Pelvic US Impression 1. Single live intrauterine with estimated gestational age of 7 weeks and 0 days. Estimated date of delivery is 07/30/2024. 2. 1.0 x 1.0 cm complex perigestational collection, possibly representing a subchorionic hemorrhage. LIMITATIONS: Overlying bowel gas. GESTATION: Endometrium measures 1.5 cm in thickness. Intrauterine gestational sac with mean sac diameter of 17.3 mm. pole and yolk sac identified. pole measures 58 mm in length. heart rate 136 bpm. 1.0 x 1.0 cm complex perigestational collection. PLACENTA/AMNIOTIC FLUID: Cannot be adequately evaluated due to the early gestational age. UTERUS/CERVIX: Uterus is anteverted and measures 11.9 x 5.0 x 5.7 cm. Cervix measures 5.3 cm in length and is closed. No myometrial lesion. OVARIES: Right ovary measures 1.4 x 1.3 x 1.3 cm. Normal internal vascularity. Left ovary is not visua (more content not included)... Normal [facility] Comprehensive metabolic 2000 panelon 05-26-2024 Albumin [Mass/Vol] 4.4 g/dL Normal 3.9-4.9 [facility] Comment on above: Order Comment: Speci men Type: BLOOD SPECIMENOrdering Facility: [facility] Address: [address] [place] [address] Performed By: #### 2 4323-8 ####[facility] [id number] [place] [address] [place] ALP [Catalytic activity/Vol] 100 U/L Normal 34-123 [facility] Comment on above: Order Comment: Speci men Type: BLOOD SPECIMENOrdering Facility: [facility] Address: [address] [place] [address] Performed By: #### 2 4323-8 ####[facility] PB [facility]CLIA [id number] [place] [address] [place] ALT [Catalytic activity/Vol] 51 U/L High 7-38 [facility] Comment on above: Order Comment: Speci men Type: BLOOD SPECIMENOrdering Facility: [facility] Address: [address] [place] [address] Performed By: #### 2 4323-8 ####[facility] PB MILLTOWNCLIA [id number] [place] [address] [place] Anion gap [Moles/Vol] 11 mmol/L Normal 8-15 [facility] Comment on above: Order Comment: Speci men Type: BLOOD SPECIMENOrdering Facility: [facility] Address: [address] [place] [address] Performed By: #### 2 4323-8 ####[facility] PB MILLTOWNCLIA [id number] [place] [address] [place] AST [Catalytic activity/Vol] 30 U/L Normal 13-35 [facility] Comment on above: Order Comment: Speci men Type: BLOOD SPECIMENOrdering Facility: [facility] Address: [address] [place] [address] Performed By: #### 2 4323-8 ####[facility] PB MILLTOWNCLIA [id number] [place] [address] [place] Bilirubin [Mass/Vol] 0.3 mg/dL Normal 0.2-1.3 [facility] Comment on above: Order Comment: Speci men Type: BLOOD SPECIMENOrdering Facility: [facility] Address: [address] [place] [address] Performed By: #### 2 4323-8 ####[facility]ENTERWVTLIA [id number] [place] [address] [place] Calcium [Mass/Vol] 9.8 mg/dL Normal 8.5-10.2 [facility] Comment on above: Order Comment: Speci men Type: BLOOD SPECIMENOrdering Facility: [facility] Address: [address] [place] [address] Performed By: #### 2 4323-8 ####[facility]ITALWVTLIA [id number] [place] [address] [place] Chloride [Moles/Vol] 99 mmol/L Normal 98-107 [facility] Comment on above: Order Comment: Speci men Type: BLOOD SPECIMENOrdering Facility: [facility] Address: [address] [place] [address] Performed By: #### 2 4323-8 ####[facility] CAMPUSLIA [id number] [place] [address] [place] CO2 [Moles/Vol] 27 mmol/L Normal 22-30 [facility] Comment on above: Order Comment: Speci men Type: BLOOD SPECIMENOrdering Facility: [facility] Address: [address] [place] [address] Performed By: #### 2 4323-8 ####[facility]ITALWNCLIA [id number] [place] [address] [place] Creatinine [Mass/Vol] 0.66 mg/dL Normal 0.58-0.96 [facility] Comment on above: Order Comment: Speci men Type: BLOOD SPECIMENOrdering Facility: [facility] Address: [address] [place] [address] Performed By: #### 2 4323-8 ####[facility] NASSAUNCLIA [id number] [place] [address] [place] Creatinine and Glomerular filtration rate.predicted panel (S/P/Bld) 117 mL/min/1.73m??? Normal >=60 [facility] Comment on above: Order Comment: Cecily dc Type: BLOOD SPECIMENOrdering Facility: [facility] Address: [address] [place] [address] Result Comment: Bessy mated Glomerular Filtration Rate (eGFR) is calculated using the 2020 CKD-EPI creatinine equation. This equation utilizes serum creatinine, sex, and age as parameters. The creatinine assay has traceable calibration to isotope dilution-mass spectrometry. Refer to KDIGO guidelines for clinical interpretation. In patients with unstable renal function, e.g. those with acute kidney injury, the eGFR may not accurately reflect actual GFR. Performed By: #### 2 4323-8 ####[facility] [id number] [place] [address] [place] Glucose [Mass/Vol] 82 mg/dL Normal 74-99 [facility] Comment on above: Order Comment: Cecily dc Type: BLOOD SPECIMENOrdering Facility: [facility] Address: [address] [place] [address] Result Comment: The [place] Diabetes Association (ADA) provides guidance for cutoff values for fasting glucose and random glucose. The ADA defines fasting as no caloric intake for at least 8 hours. Fasting plasma glucose results between 100 to 125 mg/dL indicate increased risk for diabetes (prediabetes). Fasting plasma glucose results greater than or equal to 126 mg/dL meet the criteria for diagnosis of diabetes. In the absence of unequivocal hyperglycemia, results should be confirmed by repeat testing. In a patient with classic symptoms of hyperglycemia or hyperglycemic crisis, random plasma glucose results greater than or equal to 200 mg/dL meet the criteria for diagnosis of diabetes. Reference: Standards of Medical Care in Diabetes 2016, [place] Diabetes Association. Diabetes Care. 2016.39(Suppl 1). Performed By: #### 2 4323-8 ####[facility] [id number] [place] [address] [place] Potassium [Moles/Vol] 4.3 mmol/L Normal 3.7-5.1 [facility] Comment on above: Order Comment: Speci men Type: BLOOD SPECIMENOrdering Facility: [facility] Address: [address] [place] [address] Performed By: #### 2 4323-8 ####[facility] [id number] [place] [address] [place] Protein [Mass/Vol] 7.5 g/dL Normal 6.3-8.0 [facility] Comment on above: Order Comment: Speci men Type: BLOOD SPECIMENOrdering Facility: [facility] Address: [address] [place] [address] Performed By: #### 2 4323-8 ####[facility] [id number] [place] [address] [place] Sodium [Moles/Vol] 137 mmol/L Normal 136-144 [facility] Comment on above: Order Comment: Speci men Type: BLOOD SPECIMENOrdering Facility: [facility] Address: [address] [place] [address] Performed By: #### 2 4323-8 ####[facility]SAUNCA [id number] [place] [address] [place] Urea nitrogen [Mass/Vol] 9 mg/dL Normal 7-21 [facility] Comment on above: Order Comment: Speci men Type: BLOOD SPECIMENOrdering Facility: [facility] Address: [address] [place] [address] Performed By: #### 2 4323-8 ####[facility] [id number] [place] [address] [place] TSH SerPl-aCncon 05-26-2024 TSH Qn 0.770 m[IU]/L Normal 0.270-4.200 [facility] Comment on above: Order Comment: Speci men Type: BLOOD SPECIMEN [facility]: [facility] Address: [address] [place] [address] Result Comment: If t he patient is , TSH reference range varies by gestational period: First Trimester (weeks 9-12): 0.180-2.990 mIU/L Second Trimester: 0.110-3.980 mIU/L Third Trimester: 0.480-4.710 mIU/L Jeremiah Sheldon et al. A Practical Approach for the Verifications and Determination of Site- and Trimester-Specific Reference Intervals for Thyroid Function tests in . Thyroid, 2019:29:3:412-420. Jared Henson, et al. 2017 Guidelines of the [place] Thyroid Association for the Diagnosis and Management of Thyroid Disease during and the . Thyroid, 2017:27:3:315-389. Performed By: #### T SPN #### [facility] CLIA [id number] [address] [place] [address] [place] US PELVIS TRANSVAGINALon US PELVIS TRANSVAGINAL Patient Name: KATHY HESTER : 1990 Exam Date/Time: 05/19/2024 10:50 Procedure: US PELVIS TRANSVAGINAL Ordering Provider: JOE ELIZABETH Reason For Exam: r11.2,r79.89,r10.84 EXAM: US , Transvaginal CLINICAL INDICATION: r11.2,r79.89,r10.84 TECHNIQUE: Real-time transvaginal obstetrical ultrasound of the maternal pelvis and a first trimester with image documentation. Transvaginal imaging was used for better evaluation of the fetus and adnexa. COMPARISON: No relevant prior studies available. FINDINGS: LIMITATIONS: Overlying bowel gas. GESTATION: Endometrium measures 1.5 cm in thickness. Intrauterine gestational sac with mean sac diameter of 17.3 mm. pole and yolk sac identified. pole measures 58 mm in length. heart rate 136 bpm. 1.0 x 1.0 cm complex perigestational collection. PLACENTA/AMNIOTIC FLUID: Cannot be adequately evaluated due to the early gestational age. UTERUS/CERVIX: Uterus is anteverted and measures 11.9 x 5.0 x 5.7 cm. Cervix measures 5.3 cm in length and is closed. No myometrial lesion. OVARIES: Right ovary measures 1.4 x 1.3 x 1.3 cm. Normal internal vascularity. Left ovary is not visualized, likely obscured by bowel gas. FREE FLUID: No significant free fluid. IMPRESSION: 1. Single live intrauterine with estimated gestational age of 7 weeks and 0 days. Estimated date of delivery is 07/30/2024. 2. 1.0 x 1.0 cm complex perigestational collection, possibly representing a subchorionic hemorrhage. Report Dictated on Electronically Signed By: Mich Ovalle MD Electronically Signed Date/Time: 05/19/2024 12:23 PM [facility] US Pelvis transvaginalon 1. Single live intrauterine with estimated gestational age of 7 weeks and 0 days. Estimated date of delivery is 07/30/2024. 2. 1.0 x 1.0 cm complex perigestational collection, possibly representing a subchorionic hemorrhage. Report Dictated on Electronically Signed By: Mich Ovalle MD Electronically Signed Date/Time: 05/19/2024 12:23 PM [facility] Name[facility] 1990 [id number] Exam Date/Time: 05/19/2024 10:50 Procedure: US PELVIS TRANSVAGINAL Ordering Provider: JOE ELIZABETH Reason For Exam: r11.2,r79.89,r10.84 EXAM: US , Transvaginal CLINICAL INDICATION: r11.2,r79.89,r10.84 TECHNIQUE: Real-time transvaginal obstetrical ultrasound of the maternal pelvis and a first trimester with image documentation. Transvaginal imaging was used for better evaluation of the fetus and adnexa. COMPARISON: No relevant prior studies available. FINDINGS: LIMITATIONS: Overlying bowel gas. GESTATION: Endometrium measures 1.5 cm in thickness. Intrauterine gestational sac with mean sac diameter of 17.3 mm. pole and yolk sac identified. pole measures 58 mm in length. heart rate 136 bpm. 1.0 x 1.0 cm complex perigestational collection. PLACENTA/AMNIOTIC FLUID: Cannot be adequately evaluated due to the early gestational age. UTERUS/CERVIX: Uterus is anteverted and measures 11.9 x 5.0 x 5.7 cm. Cervix measures 5.3 cm in length and is closed. No myometrial lesion. OVARIES: Right ovary measures 1.4 x 1.3 x 1.3 cm. Normal internal vascularity. Left ovary is not visualized, likely obscured by bowel gas. FREE FLUID: No significant free fluid. [facility] Tawnya Ovalle MD - 05/19/2024 Patient Name: KATHY HESTER : 1990 Exam Date/Time: 05/19/2024 10:50 Procedure: US PELVIS TRANSVAGINAL Ordering Provider: JOE ELIZABETH Reason For Exam: r11.2,r79.89,r10.84 EXAM: US , Transvaginal CLINICAL INDICATION: r11.2,r79.89,r10.84 TECHNIQUE: Real-time transvaginal obstetrical ultrasound of the maternal pelvis and a first trimester with image documentation. Transvaginal imaging was used for better evaluation of the fetus and adnexa. COMPARISON: No relevant prior studies available. FINDINGS: LIMITATIONS: Overlying bowel gas. GESTATION: Endometrium measures 1.5 cm in thickness. Intrauterine gestational sac with mean sac diameter of 17.3 mm. pole and yolk sac identified. pole measures 58 mm in length. heart rate 136 bpm. 1.0 x 1.0 cm complex perigestational collection. PLACENTA/AMNIOTIC FLUID: Cannot be adequately evaluated due to the early gestational age. UTERUS/CERVIX: Uterus is anteverted and measures 11.9 x 5.0 x 5.7 cm. Cervix measures 5.3 cm in length and is closed. No myometrial lesion. OVARIES: Right ovary measures 1.4 x 1.3 x 1.3 cm. Normal internal vascularity. Left ovary is not visualized, likely obscured by bowel gas. FREE FLUID: No significant free fluid. IMPRESSION: 1. Single live intrauterine with estimated gestational age of 7 weeks and 0 days. Estimated date of delivery is 07/30/2024. 2. 1.0 x 1.0 cm complex perigestational collection, possibly representing a subchorionic hemorrhage. Report Dictated on Electronically Signed By: Mich Ovalle MD Electronically Signed Date/Time: 05/19/2024 12:23 PM EST [facility] Radiology Study observation (narrative) [employer] US Pelvis transvaginalOrdere d By: Tawnya Ovalle on 05-19-2024 [employer] Work Phone: Office Visit Reporton 2023 Office Visit Report [facility] [address] [place] [address] OFFICE VISIT Date of Service: 01/20/24 MR#: [id number] Acct: [id number] Patient: KATHY HESTER Rep #: [id number] : 1990 Provider: LYNDA Kwan Age/Sex: 33/F Location: [facility] [place] Status: Signed Intake Vital Signs 08/31/23 17:23 01/20/24 10:15 Height 5 ft 7 in 5 ft 7 in Intake Visit Reasons: PRE EMP/DRUGSCREEN/[place] Chief Complaint: congested, cough, yellow mucus Allergies latex Allergy (Unknown, Verified 11/16/23 11:06) unknown Penicillins Allergy (Unknown, Verified 11/16/23 11:06) unknown ethanolamine Allergy (Verified 11/16/23 11:06) Anaphylaxis Office Procedures [facility] Billing Sheet Testing Drug Screen Collection Only: Yes 02/24/24 1106 Date Gautam HOWELL Cosigner Signature: Date (if applicable) CC: Normal [facility] Urgent Care Visit Reporton 0 11-16-2023 Urgent Care Visit Report [facility] [address] , [address] [place], [place] [id number] OFFICE VISIT Date of Service: 11/16/23 MR#: [id number] Acct: [id number] Name: KATHY HESTER Rep #: [id number] : 1990 Provider: JARROD Bowers Age/Sex: 33/F Location: [facility] [place] Status: Signed Intake Vital Signs 08/31/23 17:23 11/16/23 10:41 Height 5 ft 7 in BP 134/70 H Blood Pressure Location Lt brachial Position Sitting Respiration 16 Pulse 120 H Pulse Source NIBP Temp 98.7 F Temp Source Temporal Pulse Oximetry (%) 98 Oxygen Delivery Method room air Intake Visit Reasons: FEVER/COUGH/SINUS CONGESTION Chief Complaint: congested, cough, yellow mucus Mandrel Maker Required: No Is patient in pain?: No Allergies latex Allergy (Unknown, Verified 11/16/23 11:06) unknown Penicillins Allergy (Unknown, Verified 11/16/23 11:06) unknown ethanolamine Allergy (Verified 11/16/23 11:06) Anaphylaxis Medications ???Medication ???Instructions ???Recorded ???Confirmed ???Type cetirizine 10 mg capsule (Zyrtec) 10 mg PO DAILY PRN 04/04/21 08/16/23 History levothyroxine 13 mcg capsule 13 mcg PO DAILY 04/04/21 08/16/23 History Is last menstrual period known: No Post menopausal: No Patient : No Have you fallen in the past year?: No Nurse's Note: congested, cough, yellow mucus x 3 days. hx sinus infections and feels same. PFSH Medical History Polycystic ovarian syndrome Eczema Hx of Pham thyroiditis Hay fever Surgical History Hx of cholecystectomy Hx of appendectomy Family History Other Asthma Breast cancer Social History Smoking Status: Never smoker HPI HPI Chief Complaint: congested, cough, yellow mucus Details: KATHY HESTER, is a 33 F who presents to the office today for cough -sx started about 3 days ago -+ all year long seasonal allergies -sinus and chest congestion. Drainage down throat, wet cough non productive, yellow nasal drainage -fever 99.6 highest -no headache, sore throat or ear pain- -tried so far tylenol and ibuprofen, sudafed, vitamin c -no recent atbs -has PCOS- LMP 10/07 ended 10/13/2023- is trying to get -non smoker ROS Const Constitutional: Positive for other (ROS negative x6 except what was placed in HPI) Exam Const General: cooperative, comfortable and no acute distress Orientation: alert, awake and oriented x3 HENMT Head: normal to inspection and normocephalic Ears: hearing grossly normal bilaterally, external ears normal and TM's normal bilaterally Nose: external nose normal and other (+ congestion and rhinorrhea bilateral pale boggy turbinates ) Face and sinus: normal facial exam, sinuses nontender and face symmetric Mouth: oral mucosae normal, lip normal, tongue normal, oropharynx normal and moist mucous membranes Throat: posterior oropharynx normal, tonsils normal, uvula midline and postnasal drainage Neck Neck: normal visual inspection, full ROM and no lymphadenopathy Resp Effort Inspection: normal respiratory effort, able to speak in complete sentences and symmetric chest movement Auscultation: Bilateral: Clear to Auscultation, Left: Clear to Auscultation and Right: Clear to Auscultation Cardio Rate: regular rate Rhythm: regular rhythm Heart Sounds: S1 normal and S2 normal GI Auscultation: normal bowel sounds Palpation: soft Skin General: no rashes or lesions noted and turgor normal Neuro General: patient alert, patient awake and patient oriented x3 Cognition: normal cognition Speech: speech normal Psych Appearance: grossly normal Mental Status: mental status grossly normal Attitude: cooperative Thought Process: normal Thought Content: normal Coding Level of Care Code Off vis,est,level 3 Diagnoses Seasonal allergies J30.2 PND (post-nasal drip) R09.82 Assessment and Plan Assessment and Plan (1) Seasonal allergies: Status: Acute Plan: Warm tea with honey, increase fluids, saline nasal spray 2 squirts each nostril every 2 hours as needed, Flonase nasal spray 1 squirt once a day, cetirizine (Zyrtec) one daily, can add on Claritin once daily (take one in the morning and the other in the evening, cool mist humidifier, Tylenol and or ibuprofen as needed for fever or discomfort. Mucinex twice a day-drink with plenty of water. Vicks VapoRub. Try to avoid allergen triggers Please follow up with your Primary Care Physician for ongoing chronic problems. If symptoms change or worsen, please present to Emergency Room for further evaluation 1. See visit diagnoses, disposition, and orders. (more content not included)... Normal [facility] Laboratory - Microbiology an d Antimicrobial susceptibilityon 08-16-2023 SARS-CoV-2 (COVID-19) RNA KATHERIN+probe Ql (Unsp spec) Not detected [facility] No Panel Informationon 08-15 Influenza Types A,B Rapid (Clinic) Not detected [facility] CBC W Auto Differential pane l (Bld)Ordered By: Magnolia Barcenas on 03-17-2023 Basophils (Bld) [#/Vol] 0.0 10*3/uL 0.0 - 0.2 10*3/uL [facility] Sense of Skin Basophils/100 WBC (Bld) 0.2 % 0.0 - 2.0 % [facility] Eosinophils (Bld) [#/Vol] 0.0 10*3/uL 0.0 - 0.5 10*3/uL [facility] Eosinophils/100 WBC (Bld) 0.2 % Low 1.0 - 6.0 % [facility] Erythrocyte distribution width (RBC) [Ratio] 12.3 % 11.5 - 14.5 % [facility] Hematocrit (Bld) [Volume fraction] 44.4 % 35.0 - 47.0 % [facility] Hemoglobin (Bld) [Mass/Vol] 15.0 g/dL 11.7 - 16.0 g/dL [facility] Interpretation and review of laboratory results Abnormal [facility] Lymphocytes (Bld) [#/Vol] 0.5 10*3/uL Low 1.0 - 4.3 10*3/uL [facility] Lymphocytes/100 WBC (Bld) 6.0 % Low 20.0 - 40.0 % [facility] MCH (RBC) [Entitic mass] 31.4 pg 26.0 - 34.0 pg [facility] MCHC (RBC) [Mass/Vol] 33.9 % 32.0 - 36.0 % [facility] MCV (RBC) [Entitic vol] 92.6 fL 80.0 - 98.0 fL [facility] Monocytes (Bld) [#/Vol] 0.4 10*3/uL 0.0 - 0.8 10*3/uL [facility] Monocytes/100 WBC (Bld) 4.5 % 2.0 - 10.0 % [facility] Neutrophils (Bld) [#/Vol] 8.1 10*3/uL High 1.8 - 7.0 10*3/uL [facility] Neutrophils/100 WBC (Bld) 89.1 % High 40.0 - 80.0 % [facility] Nucleated RBC/100 WBC (Bld) [Ratio] 0.0 % [facility] Platelet mean volume (Bld) [Entitic vol] 9.5 fL 7.4 - 12.4 fL [facility] Platelets (Bld) [#/Vol] 241 10*3/uL 140 - 440 10*3/uL [facility] RBC (Bld) [#/Vol] 4.79 10*6/uL 3.8 - 5.20 10*6/uL [facility] WBC (Bld) [#/Vol] 9.1 10*3/uL 3.6 - 10.7 10*3/uL [facility] Comprehensive metabolic 1998 panelon 03-17-2023 Albumin [Mass/Vol] 4.4 g/dL 3.5 - 5.0 g/dL [facility] ALP [Catalytic activity/Vol] 113 U/L 38 - 126 U/L [facility] ALT [Catalytic activity/Vol] 57 U/L High 0 - 34 U/L [facility] Anion gap [Moles/Vol] 8 mmol/L 3 - 13 mmol/L [facility] AST [Catalytic activity/Vol] 39 U/L 15 - 46 U/L [facility] Bilirubin [Mass/Vol] 0.7 mg/dL 0.2 - 1 .3 mg/dL [facility] Calcium [Mass/Vol] 8.9 mg/dL 8.4 - 10. 4 mg/dL [facility] Chloride [Moles/Vol] 103 mmol/L 98 - 10 7 mmol/L [facility] CO2 [Moles/Vol] 26 mmol/L 22 - 30 mmol/L [facility] Creatinine [Mass/Vol] 0.72 mg/dL 0.52 - 1.04 mg/dL [facility] GFR/1.73 sq M.predicted MDRD (S/P/Bld) [Vol rate/Area] - PINF [facility] Comment on above: Calculation based on the Chronic Kidney Disease Epidemiology Collaboration (CKD-EPI) equation refit without adjustment for race Glucose [Mass/Vol] 114 mg/dL High 70 - 100 mg/dL [facility] Interpretation and review of laboratory results Abnormal [facility] Potassium [Moles/Vol] 3.7 mmol/L 3.5 - 5.1 mmol/L [facility] Protein [Mass/Vol] 7.9 g/dL 6.3 - 8.2 g/dL [facility] Sodium [Moles/Vol] 137 mmol/L 135 - 145 mmol/L [facility] Urea nitrogen [Mass/Vol] 10 mg/dL 7 - 17 mg/dL [facility] Respiratory pathogens DNA an d RNA panel KATHERIN+non-probe (Nph)on 03-17-2023 Adenovirus Not detected Not Detected [facility] B. pertussis DNA KATHERIN+probe Ql (Unsp spec) Not detected Not Detected [facility] Bordetella parapertussis Not detected Not Detected [facility] Chlamydia pneumoniae Not detected Not Detected [facility] Coronavirus 229E Not detected Not Detected [facility] Coronavirus HKU1 Not detected Not Detected [facility] Coronavirus NL63 Not detected Not Detected [facility] Coronavirus OC43 Not detected Not Detected [facility] FLUAV RNA KATHERIN+non-probe Ql (Nph) Not detected Not Detected [facility] FLUBV RNA KATHERIN+non-probe Ql (Nph) Not detected Not Detected [facility] Human Metapneumovirus Not detected Not Detected [facility] Human Rhinovirus/Enterovirus Not detected Not Detected [facility] Interpretation and review of laboratory results Normal [facility] Mycoplasma pneumoniae Not detected Not Detected [facility] Parainfluenza 1 Not detected Not Detected [facility] Parainfluenza 2 Not detected Not Detected [facility] Parainfluenza 3 Not detected Not Detected [facility] Parainfluenza 4 Not detected Not Detected [facility] Respiratory Syncytial Virus Not detected Not Detected [facility] SARS-CoV-2 (COVID-19) RNA KATHERIN+non-probe Ql (Nph) Not detected Not Detected [facility] Methodology: Multipl ex PCR [facility] Urinalysis complete panel (U )on 03-17-2023 Bacteria LM.HPF (Urine sed) [#/Area] Few Abnormal Negative /HPF [facility] Bilirubin Ql (U) Negative Negative mg/dL [facility] Clarity (U) Clear Clear [facility] Color (U) Yellow Lt. Yellow [facility] Epithelial cells.squamous LM.HPF (Urine sed) [#/Area] 6-10 Abnormal [facility] Glucose Ql (U) Normal Normal (<70) mg/dL [facility] Hemoglobin Ql (U) Negative Negative mg/dL [facility] Interpretation and review of laboratory results Abnormal [facility] Ketones (U) [Mass/Vol] Trace Abnormal Negat arnie mg/dL [facility] Leukocyte esterase Test strip Ql (U) Negative Negative Valerie/uL [facility] Mucus LM.HPF (Urine sed) [#/Area] Few Negative /LPF [facility] Nitrite Ql (U) Negative Negative [facility] pH (U) 6.0 [pH] 5.0 - 8.0 pH [facility] Protein (U) [Mass/Vol] 30 mg/dL Abnormal Negative [facility] RBC LM.HPF (Urine sed) [#/Area] 3-5 Abnormal [facility] Specific gravity (U) [Rel density] 1.035 High 1.005 - 1.030 [facility] Urobilinogen (U) [Mass/Vol] Normal Normal (0-1) mg/dL [facility] WBC LM.HPF (Urine sed) [#/Area] 0-2 [facility] Ambulatory Clinical Summaryo n 01-28-2023 Ambulatory Clinical Summary REBECAKATHY PAK :1990 [facility]:[id number] Registration Date:01/28/2023 Ambulatory Visit Instructions Your Care Team Attending Physician - RAUL ROWAN FACOG, CUHLA Primary Care Physician - EPHRAIM BOYD Procedures Performed Last pap-neg w/neg HPV (09/15/2019) Cholecystectomy (12/12/2015) Appendectomy Discharge Vitals No qualifying data available. What to do next Scheduled Follow-Up Appointments No results Medications What How Much When Instructions Unchanged cetirizine (ZyrTEC) Oral DAILY Unchanged levothyroxine (levothyroxine 50 mcg (0.05 mg) oral tablet) 90 EA, take 1 tablet by mouth once daily Unchanged multivitamin, (PNV ) Oral DAILY Allergies Eggs allergy diarrhea, nausea, GI upset amoxicillin penicillin Problems Ongoing - Any problem that you are currently receiving treatment for. Egg allergy Pham's disease Irregular periods PCOS (polycystic ovarian syndrome) Weight gain Common Emergency Awareness Tips IS IT A STROKE? Act FAST and Check for these signs: FACE Does the face look uneven? ARM Does one arm drift down? SPEECH Does their speech sound strange? TIME Call at any sign of stroke Heart Attack Signs Chest discomfort: Most heart attacks involve discomfort in the center of the chest and lasts more than a few minutes, or goes away and comes back. It can feel like uncomfortable pressure, squeezing, fullness or pain. Discomfort in upper body: Symptoms can include pain or discomfort in one or both arms, back, neck, jaw or stomach. Shortness of breath: With or without discomfort. Other signs: Breaking out in a cold sweat, nausea, or lightheaded. Remember, MINUTES DO MATTER. If you experience any of these heart attack warning signs, call to get immediate medical attention! Normal [facility] HCG QUANTon 01-28-2023 HCG, Quant <2.[address] [facility] Comment on above: Order Comment: Order ed on Fin# [id number] Result Comment: 0.2- 1 weeks 5 -50 mIU/ml 1 - 2 weeks 50-500 mIU/ml 2 - 3 weeks 100-5,000 mIU/ml 3 - 4 weeks 500-10,000 mIU/ml 4 - 5 weeks 1,000-50,000 mIU/ml 5 - 6 weeks 10,000-100,000 mIU/ml 6 - 8 weeks 15,000-200,000 mIU/ml 2 - 3 months 10,000-100,000 mIU/ml Performed By: #### 1 [id number] #### [facility] [address] [place] [address] [address] Grader Operator: Christiano Hernandez MD Phone [place] 01-28-2023 Phone g - From: Orin Corea To: Emanuel PALMAAretha; Sent: 01/28/2023 09:16:38 EDT Subject: APPT? BLOOD TEST? Actions: Message Caller Name: KATHY CASTELLANOS; Caller Number: H PATIENT CALLING IN WITH QUESTION ABOUT NOT FEELING WELL/ SYMPTOMS OF OR COULD BE PERIOD TIRED, NAUSEAUS, UTERAUS FEELS HEAVY, HEARTBURN, BLOATED, SHE SPOTTED IN DECEMBER 18-01/11/, HOME TEST NEGATIVE, MISCARRIED IN MAY, BEST CONTACT # [phone] THANK YOU, SB Called pt and she feels like she but her urine preg test keep coming back neg. She miscarriage in May is worried that it might happen again. She had normal periods up until December were she had spotting and it was only when she wiped. She has pcos. Having pt come in for HCG today to see what her levels are. Normal [facility] Phone Msgon 09-14-2022 Phone Msg - From: Ирина Rouse Sent: 09/14/2022 10:26:40 EDT Subject: irregular bleeding Actions: Message Caller Name: KATHY CASTELLANOS; Caller Number: H pt called in she is on cycle day 8 and thought she was about to stop her period and states she started back up with bright red bleeding not heavy but enough she has to wear a liner she has never had this happen before. I asked her if there was any chance of and she said she didn't think so, so i asked her to take a test and if she was still bleeding on Saturday to give us a call. she said she would. Normal [facility] DHEAon 06-10-2022 DHEA 4.843 ng/mL Normal 1.330-7.780 [facility] Comment on above: Order Comment: Order ed on Fin# [id number] Result Comment: INTERPRETIVE INFORMATION: Dehydroepiandrosterone, Females 18 years and older: Postmenopausal: 0.60-5.73 ng/mL REFERENCE INTERVAL: Dehydroepiandrosterone by TMS Access complete set of age- and/or gender-specific reference intervals for this test in the [employer] [facility] Test Directory ([employer]). This test was developed and its performance characteristics determined by [facility]. It has not been cleared or approved by the US Food and Drug Administration. This test was performed in a CLIA certified laboratory and is intended for clinical purposes. Performed By: [facility] [address] [place] [address] Brand Protection Manager: David Jacobson MD, PhD Performed By: #### 1 40572 ####[facility] [address] [place] [id number] Medical Director: Christiano Hernandez MD Phone Msgoemory 06-08-2022 Phone Msg - From: KATHY CASTELLANOS To: Patricia Mejia DO --- [facility] ENERGY INFRASTRUCTURE ENGINEER ([facility]) Sent: 06/07/2022 08:33 p.m. EST Subject: RE: Patricia Mejia DO --- [facility] ENERGY INFRASTRUCTURE ENGINEER: No subject Thank you for your message. It has been successfully sent to the appropriate care team. Thank you so much! I am going to call the fertility doctor that you recommended on Saturday. I will let you know when I have an appointment. From: PARTICIA ROSENTHAL To: KATHY CASTELLANOS Sent: 06/07/2022 17:10:58 EST ??? Kathy Good news your hormones are in the normal range. Your ovarian reserve (AMH) was normal at 2.82. Please let me know where I can send the results to. Good luck. ??? Results: Date Result Name Value Ref Range 06/04/2022 15:10 HGB A1C 4.7 % ??? 06/04/2022 15:10 TSH 1.00 uIU/ml (0.55 - 4.78) 06/04/2022 15:10 FSH 8.3 IU/L ??? 06/04/2022 15:10 PROLACTIN 10.0 ng/mL ??? 06/04/2022 15:10 WBC 8.4 x106/uL (4.20 - 5.40) \.br\06/04/2022 15:10 HGB 14.2 g/dL (12.0 - 16.0) \.br\06/04/2022 15:10 HCT 42.4 % (36.0 - 46.0) \.br\06/04/2022 15:10 MCV 93.5 fL (80.0 - 100.0) \.br\06/04/2022 15:10 MCH 31.3 pg (27.0 - 34.0) \.br\06/04/2022 15:10 MCHC 33.4 g/dL (32.0 - 37.0) \.br\06/04/2022 15:10 RDW 12.6 % (11.5 - 14.5) \.br\06/04/2022 15:10 Platelet 289 x103/uL (150 - 450) \.br\06/04/2022 15:10 MPV 9.4 fL (7.4 - 10.4) \.br\06/04/2022 15:10 Nucleated RBC 0 /100WBC ??? \.br\06/04/2022 15:10 Lymph % 30.8 % ??? \.br\06/04/2022 15:10 [place] % 5.4 % ??? \.br\06/04/2022 15:10 Neutrophil % 61.0 % ??? \.br\06/04/2022 15:10 Eosin % 2.1 % ??? \.br\06/04/2022 15:10 Basos % 0.7 % ??? \.br\06/04/2022 15:10 Lymph Count 2.59 x1000 (1.20 - 4.80) \.br\06/04/2022 15:10 [place] Count 0.46 x1000 (0.10 - 1.00) \.br\06/04/2022 15:10 Neutrophil Count (ANC) 5.13 x1000 (1.40 - 8.80) \.br\06/04/2022 15:10 Eos Count 0.18 x1000 (0.00 - 0.50) \.br\06/04/2022 15:10 Baso Count 0.06 x1000 (0.00 - 0.20) Normal [facility] Phone [place] 06-07-2022 Phone Msg - From: PATRICIA ROSENTHAL To: KATHY CASTELLANOS Sent: 06/07/2022 17:10:58 DANNY Chavez, Good news your hormones are in the normal range. Your ovarian reserve (AMH) was normal at 2.82. Please let me know where I can send the results to. Uziel winter. Results: Date Result Name Value Ref Range 06/04/2022 15:10 HGB A1C 4.7 % 06/04/2022 15:10 TSH 1.00 uIU/ml (0.55 - 4.78) 06/04/2022 15:10 FSH 8.3 IU/L 06/04/2022 15:10 PROLACTIN 10.0 ng/mL 06/04/2022 15:10 WBC 8.4 x106/uL (4.20 - 5.40) \.br\06/04/2022 15:10 HGB 14.2 g/dL (12.0 - 16.0) \.br\06/04/2022 15:10 HCT 42.4 % (36.0 - 46.0) \.br\06/04/2022 15:10 MCV 93.5 fL (80.0 - 100.0) \.br\06/04/2022 15:10 MCH 31.3 pg (27.0 - 34.0) \.br\06/04/2022 15:10 MCHC 33.4 g/dL (32.0 - 37.0) \.br\06/04/2022 15:10 RDW 12.6 % (11.5 - 14.5) \.br\06/04/2022 15:10 Platelet 289 x103/uL (150 - 450) \.br\06/04/2022 15:10 MPV 9.4 fL (7.4 - 10.4) \.br\06/04/2022 15:10 Nucleated RBC 0 /100WBC \.br\06/04/2022 15:10 Lymph % 30.8 % \.br\06/04/2022 15:10 [place] % 5.4 % \.br\06/04/2022 15:10 Neutrophil % 61.0 % \.br\06/04/2022 15:10 Eosin % 2.1 % \.br\06/04/2022 15:10 Basos % 0.7 % \.br\06/04/2022 15:10 Lymph Count 2.59 x1000 (1.20 - 4.80) \.br\06/04/2022 15:10 [place] Count 0.46 x1000 (0.10 - 1.00) \.br\06/04/2022 15:10 Neutrophil Count (ANC) 5.13 x1000 (1.40 - 8.80) \.br\06/04/2022 15:10 Eos Count 0.18 x1000 (0.00 - 0.50) \.br\06/04/2022 15:10 Baso Count 0.06 x1000 (0.00 - 0.20) Normal [facility] AUTO DIFFon 06-04-2022 Baso Count 0.06 x1000 Normal 0.00-0.20 [facility] Comment on above: Performed By: #### 1 88664, 235679, 829977, 1880026, 727094 #### [facility] [address] [place] [address] Road Grader Operator: Christiano Hernandez MD Basos % 0.7 % Normal [facility] Comment on above: Performed By: #### 1 56105, 399178, 080210, 4572427, 798535 #### [facility] [address] [place], [place] [id number] Road Grader Operator: Christiano Hernandez MD Eos Count 0.18 x1000 Normal 0.00-0.50 [facility] Comment on above: Performed By: #### 1 74219, 765089, 882396, 5317879, 124242 #### [facility] [address] [place], [place] [id number] ([phone]) Road Grader Operator: Christiano Hernandez MD Eosinophils/100 WBC (Bld) 2.1 % Normal [facility] Comment on above: Performed By: #### 1 59519, 846570, 530497, 1750000, 714390 #### [facility] [address] [place] [address] [address] Grader Operator: Christiano Hernandez MD Lymph Count 2.59 x1000 Normal 1.20-4.80 [facility] Comment on above: Performed By: #### 1 66610, 234760, 178515, 6458843, 713033 #### [facility] [address] [place] [address] [address] Grader Operator: Christiano Hernandez MD Lymphocytes/100 WBC (Bld) 30.8 % Normal [facility] Comment on above: Performed By: #### 1 17911, 317181, 052256, 9510021, 426937 #### [facility] [address] [place] [address] [address] Grader Operator: Christiano Hernandez MD [place] Count 0.46 x1000 Normal 0.10-1.00 [facility] Comment on above: Performed By: #### 1 36342, 483040, 128509, 5389520, 548055 #### [facility] [address] [place] [address] [address] [address] Grader Operator: Christiano Hernandez MD Monocytes/100 WBC (Bld) 5.4 % Normal [facility] Comment on above: Performed By: #### 1 87292, 445521, 117015, 6477522, 098408 #### [facility] [address] [place] [address] [address] Grader Operator: Christiano Hernandez MD Neutrophil Count (ANC) 5.13 x1000 Normal 1.40-8.80 [facility] Comment on above: Performed By: #### 1 29021, 972381, 424016, 4220379, 139055 #### [facility] [address] [place] [address] Road Grader Operator: Christiano Hernandez MD Neutrophils/100 WBC (Bld) 61.0 % Normal [facility] Comment on above: Performed By: #### 1 31058, 413591, 207518, 6714883, 058885 #### [facility] [address] [place] [address] Road Grader Operator: Christiano Hernandez MD Ambulatory Clinical Summaryo n 06-04-2022 Ambulatory Clinical Summary KATHY CASTELLANOS :1990 Visit Date:06/04/2022 Ambulatory Visit Instructions Your Care Team Attending Physician - PATRICIA ROSENTHAL Primary Care Physician - EPHRAIM BOYD Procedures Performed Last pap-neg w/neg HPV (09/15/2019) Cholecystectomy (12/12/2015) Appendectomy Discharge Vitals No qualifying data available. What to do next Scheduled Follow-Up Appointments No results Medications What How Much When Instructions Unchanged cetirizine (ZyrTEC) Oral DAILY Unchanged levothyroxine (levothyroxine 50 mcg (0.05 mg) oral tablet) 90 EA, take 1 tablet by mouth once daily Unchanged multivitamin, (PNV ) Oral DAILY Allergies Eggs allergy (diarrhea, nausea, GI upset) amoxicillin penicillin Problems Ongoing - Any problem that you are currently receiving treatment for. Egg allergy Pham's disease Irregular periods PCOS (polycystic ovarian syndrome) Weight gain Historical - Any problem that you are no longer receiving treatment for. Common Emergency Awareness Tips IS IT A STROKE? Act FAST and Check for these signs: FACE Does the face look uneven? ARM Does one arm drift down? SPEECH Does their speech sound strange? TIME Call at any sign of stroke Heart Attack Signs Chest discomfort: Most heart attacks involve discomfort in the center of the chest and lasts more than a few minutes, or goes away and comes back. It can feel like uncomfortable pressure, squeezing, fullness or pain. Discomfort in upper body: Symptoms can include pain or discomfort in one or both arms, back, neck, jaw or stomach. Shortness of breath: With or without discomfort. Other signs: Breaking out in a cold sweat, nausea, or lightheaded. Remember, MINUTES DO MATTER. If you experience any of these heart attack warning signs, call -- to get immediate medical attention! Normal [facility] FSHon 06-04-2022 FSH 8.3 IU/L Normal [facility] Comment on above: Order Comment: Order ed on Fin# [id number] Result Comment: Fema les: Normally menstruating Follicular Phase 2.5 ? 10.2 IU/L Mid-cycle Peak 3.4 ? 33.4 IU/L Luteal Phase 1.5 ? 9.1 IU/L <0.3 IU/L Post-Menopausal 23.0 ? 116.3 IU/L Males (13-70 years) 1.4 ? 18.1 IU/L Performed By: #### 1 56874, 693991, 416060, 5350723, 855713 ####[facility] [address] [place] [address] [id number] Medical Director: Christiano Hernandez MD HEMOon 06-04-2022 DIFF? No Normal [facility] Comment on above: Performed By: #### 1 58289, 831426, 182456, 4605043, 407800 #### [facility] [address] [place] [id number] Grader Operator: Christiano Hernandez MD Erythrocyte distribution width (RBC) [Ratio] 12.6 % Normal 11.5-14.5 [facility] Comment on above: Performed By: #### 1 99392, 734341, 552533, 3799691, 215625 #### [facility] [address] [place] [address] [address] Grader Operator: Christiano Hernandez MD Hematocrit (Bld) [Volume fraction] 42.4 % Normal 36.0-46.0 [facility] Comment on above: Performed By: #### 1 57532, 327226, 772841, 3864368, 358113 #### [facility] [address] [place] [address] Road Grader Operator: Christiano Hernandez MD Hemoglobin (Bld) [Mass/Vol] 14.2 g/dL Normal 12.0-16.0 [facility] Comment on above: Performed By: #### 1 30575, 112650, 758513, 1361826, 217497 #### [facility] [address] [place] [address] [address] Grader Operator: Christiano Hernandez MD Instr WBC 8.[address] [facility] Comment on above: Performed By: #### 1 69175, 607817, 459014, 6440033, 624824 #### [facility] [address] [place] [address] [address] Grader Operator: Christiano Hernandez MD MCH (RBC) [Entitic mass] 31.3 pg Normal 27.0-34.0 [facility] Comment on above: Performed By: #### 1 12510, 809090, 660853, 4128248, 342476 #### [facility] [address] [place] [address] [address] Grader Operator: Christiano Hernandez MD MCHC (RBC) [Mass/Vol] 33.4 g/dL Normal 32.0-37.0 [facility] Comment on above: Performed By: #### 1 14284, 631404, 343649, 7594187, 138821 #### [facility] [address] [place] [address] [address] Grader Operator: Christiano Hernandez MD MCV (RBC) [Entitic vol] 93.5 fL Normal 80.0-100.0 [facility] Comment on above: Performed By: #### 1 03335, 276647, 278245, 1355206, 578224 #### [facility] [address] [place] [address] [address] Grader Operator: Christiano Hernandez MD Nucleated RBC 0 /100WBC Normal [facility] Comment on above: Performed By: #### 1 02723, 873262, 665642, 8309328, 986966 #### [facility] [address] [place] [address] [address] Grader Operator: Christiano Hernandez MD Platelet 289 x10 Normal 150-450 [facility] Comment on above: Performed By: #### 1 27125, 914559, 780384, 8273912, 388465 #### [facility] [address] [place] [address] [address] [address] Grader Operator: Christiano Hernandez MD Platelet mean volume (Bld) [Entitic vol] 9.4 fL Normal 7.4-10.4 [facility] Comment on above: Performed By: #### 1 13835, 137039, 634530, 5983547, 727830 #### [facility] [address] [place] [address] [address] [address] Grader Operator: Christiano Hernandez MD RBC 4.53 x10 Normal 4.20-5.40 [facility] Comment on above: Result Comment: Note : RBC morphology is normal unless otherwise stated. Evaluation performed only if differential is requested. Performed By: #### 1 84488, 875436, 550147, 9739438, 734379 #### [facility] [address] [place] [address] [address] Grader Operator: Christiano Hernandez MD WBC 8.4 x10 Normal 4.5-11.0 [facility] Comment on above: Performed By: #### 1 55552, 758918, 258128, 4657458, 635623 #### [facility] [address] [place] [address] [address] [address] Grader Operator: Christiano Hernandez MD HGB A1Con 06-04-2022 HbA1c (Bld) [Mass fraction] 4.7 % Normal [facility] Comment on above: Order Comment: Order ed on Fin# [id number] Result Comment: Refe rence Range: Diabetic Greater than or equal to 6.5 % Prediabetic 5.7?6.4 % Normal Less than 5.7 % Performed By: #### 1 25567 ####[facility] [address] [place] [address] Medical Director: Christiano Hernandez MD PROLACTINon 06-04-2022 PROLACTIN 10.0 ng/mL Normal [facility] Comment on above: Order Comment: Order ed on Fin# [id number] Result Comment: Fema les: Non 2.8-29.2 ng/mL 9.7- greater than 200 ng/mL Postmenopausal 1.8-20.3 ng/mL Males 2.1-17.7 ng/mL - , , and the administration of oral contraceptives can increase prolactin concentrations Performed By: #### 1 44956, 173683, 912581, 2282407, 511493 #### [facility] [address] [place] [address] Road Grader Operator: Christiano Hernandez MD TSHon 06-04-2022 TSH Qn 1.00 m[IU]/L Normal 0.55-4.78 [facility] Comment on above: Order Comment: Order ed on Fin# [id number] Result Comment: - Do not use samples that contain fluorescein. Fluorescein levels > 0.24 ?g/mL may decrease results in this assay - Patients undergoing retinal fluorescein angiography can retain amounts of fluorescein in the body for up to 48?72 hours post-treatment. Such samples can produce falsely depressed values when tested with this assay, and should not be tested Performed By: #### 1 64741, 151516, 519523, 8840552, 329930 ####[facility] [address] [place] [address] Medical Director: Christiano Hernandez MD Phone Msgoemory 02-02-2022 Phone Msg - From: PATRICIA ROSENTHAL To: KATHY CASTELLANOS Sent: 02/02/2022 18:36:47 EDT Kathy, As we discussed in the phone call your fertility can improve with healthy diet and exercise. Your hormone levels from 2020 showed you tended toward PCOS- less carbs and more protein can help improve this. His semen analysis showed 1% morphology which is very low. This can be improved with Coenzyme Q10 200mg twice a day. If his counts do not improve we recommend seeing the fertility specialists Reproductive Gynecology and Infertility- [facility] [phone]. Take care and good luck. Normal [facility] COVID-19, Flu A/B, and RSV C omboon 01-14-2022 Influenza A by PCR Not detected SUMM A Influenza B by PCR Not detected SUMM A RSV PCR Not Detected. Expected Result: Not Detected _ Method: Real-time, RT-PCR This assay was developed by [employer] and distributed under an Emergency Use Authorization (EUA) granted by the FDA for the qualitative detection of nucleic acids from SARS-CoV-2, Influenza A, Influenza B, and Respiratory Syncytial Virus. Provider and patient fact sheets can be found at https://www.fda.gov/medi a/101644/download and https://www.fda.gov/medi a/246304/download. [facility] SARS-CoV-2 (COVID-19) RNA KATHERIN+probe Ql (Unsp spec) Not detected [facility] Test Performed by [facility], [address] [place] [address] [facility] Chest Portableon 01-15-20 CR Chest Portable Patient Name: KATHY HESTER Diagnostic Radiology ACCESSION EXAM DATE/TIME PROCEDURE ORDERING PROVIDER [id number] 01/14/2022 10:05 EDT CR Chest Portable LALY PENN AMY L CPT code 83803 Reason For Exam (CR Chest Portable) Cough Report CLINICAL INFORMATION: Cough and congestion. Portable view of the chest at 0955 hours is provided and compared with a previous study dated 10/20/2015. FINDINGS: The cardiac silhouette and mediastinum are within normal limits. The lungs are free of infiltrate or pleural effusion. The visualized bones and soft tissues are grossly unremarkable. IMPRESSION: 1. No evidence of an acute cardiopulmonary process. Report Dictated on Final Dictating Physician: MD CASTELLON JEFFREY Signed Date and Time: 01/14/2022 10:42 am Signed by: MD CASTELLON JEFFREY Transcribed Date and Time: 01/14/2022 10:43 Normal [facility] [facility] ED Provider Noteon ED Provider Note [facility] ED eMERGENCY dEPARTMENT eNCOUnter Pt Name: Kathy Hester Birthdate 1990 Date of evaluation: 01/14/2022 Provider: LYNDA MA CHIEF COMPLAINT Chief Complaint Patient presents with Cough URI HISTORY OF PRESENT ILLNESS (Location/Symptom, Timing/Onset,Context/Set ting, Quality, Duration, Modifying Factors, Severity) Note limiting factors. HPI Kathy Hester is a 31 y.o. female who presents to the emergency department complaining of cough and cold symptoms since . Patient states she developed sinus congestion on and since then has developed a headache and body aches as well as a persistent dry cough that kept her up all night. She states her chest feels heavy and she feels short of breath. She denies any known fever. She took her allergy medications with no relief. She has had 3 COVID vaccinations. Nursing Notes were reviewed. REVIEW OF SYSTEMS (2+ for4; 10+ for level 5) Review of Systems Constitutional: Negative for chills, diaphoresis and fever. HENT: Positive for rhinorrhea. Negative for congestion, ear pain, facial swelling and sore throat. Eyes: Negative for photophobia, pain and visual disturbance. Respiratory: Positive for cough and shortness of breath. Negative for chest tightness and wheezing. Cardiovascular: Negative for chest pain and leg swelling. Gastrointestinal: Negative for abdominal pain, constipation, diarrhea, nausea and vomiting. Genitourinary: Negative for difficulty urinating, dysuria, flank pain, frequency, hematuria and urgency. Musculoskeletal: Negative for arthralgias, back pain, myalgias and neck pain. Skin: Negative for rash. Neurological: Positive for headaches. Negative for dizziness. Psychiatric/Behavioral: Negative for suicidal ideas. PAST MEDICAL HISTORY Past Medical History: Diagnosis Date Allergic rhinitis SURGICALHISTORY Past Surgical History: Procedure Laterality Date APPENDECTOMY CURRENT MEDICATIONS Previous Medications No medications on file Latex, Pcn [penicillins], and Singulair [montelukast] FAMILY HISTORY No family history on file. SOCIAL HISTORY Social History Socioeconomic History Marital status: Tobacco Use Smoking status: Never Smokeless tobacco: Never Substance and Sexual Activity Alcohol use: No SCREENINGS Hallie Coma Scale Eye Opening: Spontaneous Best Verbal Response: Oriented Best Motor Response: Obeys commands Erin Coma Scale Score: 15 PHYSICAL EXAM (5+ for level 4, 8+ for level 5) ED Triage Vitals [01/14/22 0926] BP Temp Temp Source Heart Rate Resp SpO2 Height Weight 116/79 98.8 ?F (37.1 ?C) Temporal (!) 106 24 98 % -- -- Physical Exam Constitutional: General: She is not in acute distress. Appearance: Normal appearance. She is well-developed. She is not diaphoretic. HENT: Head: Normocephalic. Eyes: Conjunctiva/sclera: Conjunctivae normal. Cardiovascular: Rate and Rhythm: Normal rate and regular rhythm. Heart sounds: No murmur heard. No friction rub. No gallop. Pulmonary: Effort: Pulmonary effort is normal. Breath sounds: Normal breath sounds. No wheezing or rales. Comments: Patient has a very persistent dry cough. Musculoskeletal: General: Normal range of motion. Cervical back: Normal range of motion. Skin: General: Skin is warm and dry. Findings: No rash. Neurological: Mental Status: She is alert and oriented to person, place, and time. Psychiatric: Mood and Affect: Mood normal. Behavior: Behavior normal. DIAGNOSTIC RESULTS EKG (Per Emergency Physician): RADIOLOGY (Per EmergencyPhysician): Interpretation per the Radiologist below, if available at the time of this note: XR CHEST PORTABLE Result Date: 01/14/2022 Patient Name: KATHY HESTER Diagnostic Radiology ACCESSION EXAM DATE/TIME PROCEDURE ORDERING PROVIDER [id number] 01/14/2022 10:05 EDT CR Chest Portable LALY PENN AMY L CPT code 80263 Reason For Exam (CR Chest Portable) Cough Report CLINICAL INFORMATION: Cough andcongestion. Portable view of the chest at 0955 hours is provided and compared with a previous study dated 10/20/2015. FINDINGS: The cardiac silhouette and mediastinum are within normal limits. The lungs are free of infiltrate or pleural effusion. The visualized bones and soft tissues are grossly unremarkable. IMPRESSION: 1. No evidence of an acute cardiopulmonary process. Report Dictated on --- Final --- Dictating Physician: MD CASTELLON JEFFREY Signed Date and Time: 01/14/2022 10:42 am Signed by: MD CASTELLON JEFFREY Transcribed Date and Time: 01/14/2022 10:43 : Labs Reviewed COVID-19, FLU A/B, AND RSV COMBO Narrative: Test Performed by [facility], [address] [place], [place] [address] All other labs were within normal range or not returned as of this dictation. EMERGENCY DEPARTMENT COURSE a (more content not included)... Normal [facility] SARS-CoV-2, Flu A/B and RSVo n 01-14-2022 SARS-CoV-2 (COVID-19) RNA KATHERIN+probe Ql (Unsp spec) SARS-CoV-2 --> Status: F Not Detected. Flu A PCR --> Status: F Not Detected. Flu B PCR --> Status: F Not Detected. RSV PCR --> Status: F Not Detected. Expected Result: Not Detected _ Method: Real-time, RT-PCR This assay was developed by [employer] and distributed under an Emergency Use Authorization (EUA) granted by the FDA for the qualitative detection of nucleic acids from SARS-CoV-2, Influenza A, Influenza B, and Respiratory Syncytial Virus. Provider and patient fact sheets can be found at https://www.fda.gov/medi a/207618/download and https://www.fda.gov/medi a/049295/download. Expected Result: Not Detected _ Method: Real-time, RT-PCR This assay was developed by [employer] and distributed under an Emergency Use Authorization (EUA) granted by the FDA for the qualitative detection of nucleic acids from SARS-CoV-2, Influenza A, Influenza B, and Respiratory Syncytial Virus. Provider and patient fact sheets can be found at https://www.fda.gov/medi a/062038/download and https://www.fda.gov/medi a/426339/download. Normal [facility] Comment on above: Performed By: #### C VFLR #### [facility] [address] [place] [address] , [address] XR CHEST PORTABLEon 01-15-20 Patient Name: KATHY HESTER Diagnostic Radiology ACCESSION EXAM DATE/TIME PROCEDURE ORDERING PROVIDER [id number] 01/14/2022 10:05 EDT CR Chest Portable JANTAE, PA-C, SIS L CPT code 56190 Reason For Exam (CR Chest Portable) Cough Report CLINICAL INFORMATION: Cough and congestion. Portable view of the chest at 0955 hours is provided and compared with a previous study dated 10/20/2015. FINDINGS: The cardiac silhouette and mediastinum are within normal limits. The lungs are free of infiltrate or pleural effusion. The visualized bones and soft tissues are grossly unremarkable. IMPRESSION: 1. No evidence of an acute cardiopulmonary process. Report Dictated on --- Final --- Dictating Physician: MD CASTELLON JEFFREY Signed Date and Time: 01/14/2022 10:42 am Signed by: MD CASTELLON JEFFREY Transcribed Date and Time: 01/14/2022 10:43 [facility] Gokul Castellon MD - 01/14/2022 Patient Name: KATHY HESTER Diagnostic Radiology ACCESSION EXAM DATE/TIME PROCEDURE ORDERING PROVIDER [id number] 01/14/2022 10:05 EDT CR Chest Portable ISAMAR, PA-C, SIS L CPT code 80484 Reason For Exam (CR Chest Portable) Cough Report CLINICAL INFORMATION: Cough and congestion. Portable view of the chest at 0955 hours is provided and compared with a previous study dated 10/20/2015. FINDINGS: The cardiac silhouette and mediastinum are within normal limits. The lungs are free of infiltrate or pleural effusion. The visualized bones and soft tissues are grossly unremarkable. IMPRESSION: 1. No evidence of an acute cardiopulmonary process. Report Dictated on --- Final --- Dictating Physician: MD CASTELLON JEFFREY Signed Date and Time: 01/14/2022 10:42 am Signed by: MD CASTELLON JEFFREY Transcribed Date and Time: 01/14/2022 10:43 [facility] Work Phone: Radiology Study observation (narrative) [facility] Work Phone: XR CHEST PORTABLEOrdered By: Gokul Castellon on 01-14-2022 [facility] Work Phone: CBC and Differentialon 03-30 Abs Lym 0.82 K/uL Low 1.00-4.00 [facility] Comment on above: Performed By: #### C MP, LIPA, CBCDIF ####[facility] [address] [place] [address] Abs [place] 0.82 k/uL Normal <0.87 [facility] Comment on above: Performed By: #### C MP, LIPA, CBCDIF ####[facility] [address] [place] [address] Abs Neut 18.60 k/uL High 1.45-7.50 [facility] Comment on above: Performed By: #### C MP, LIPA, CBCDIF ####[facility] [address] [place] [address] Eosinophils 0.20 10*3/uL Normal <0.46 [facility] Comment on above: Performed By: #### C MP, LIPA, CBCDIF ####[facility] [address] [place] [address] Eosinophils/100 leukocytes 1 % Normal [facility] Comment on above: Performed By: #### C MP, LIPA, CBCDIF ####[facility] [address] [place] [address] Erythrocyte distribution width Auto Ratio (RBC) 12.5 % Normal 11.5-15.0 [facility] Comment on above: Performed By: #### C MP, LIPA, CBCDIF ####[facility] [address] [place] [address] Erythrocytes (RBC) 5.15 10*6/uL Normal 3.90-5.20 [facility] Comment on above: Performed By: #### C MP, LIPA, CBCDIF ####[facility] [address] [place] [address] Hematocrit (HCT) 48.3 % High 36.0-46.0 [facility] Comment on above: Performed By: #### C MP, LIPA, CBCDIF ####[facility] [address] [place] [address] Hemoglobin mass conc (Bld) 15.4 g/dL Normal 11.5-15.5 [facility] Comment on above: Performed By: #### C MP, LIPA, CBCDIF ####[place] [address] Lymphocytes/100 leukocytes 4 % Normal [facility] Comment on above: Performed By: #### C MP, LIPA, CBCDIF ####[place] [address] MCH 29.9 pG Normal 26.0-34.0 [facility] Comment on above: Performed By: #### C MP, LIPA, CBCDIF ####[facility] [address] [place] [address] MCHC mass conc (RBC) 31.9 g/dL Normal 30.5-36.0 [facility] Comment on above: Performed By: #### C MP, LIPA, CBCDIF ####[place] [address] MCV 93.8 fL Normal 80.0-100.0 [facility] Comment on above: Performed By: #### C MP, LIPA, CBCDIF ####[place] [address] Monocytes/100 leukocytes 4 % Normal [facility] Comment on above: Performed By: #### C MP, LIPA, CBCDIF ####[place] [address] Neutrophils/100 WBC Auto (Bld) 91 % Normal [facility] Comment on above: Performed By: #### C MP, LIPA, CBCDIF ####[place] [address] Platelet mean volume (PMV) 11.1 fL Normal 9.0-12.7 [facility] Comment on above: Performed By: #### C MP, LIPA, CBCDIF ####[facility] [address] [place] [address] Platelets Platelet estimate adequate Normal [facility] Comment on above: Performed By: #### C MP, LIPA, CBCDIF ####[facility] [address] [place] [address] Platelets 218 10*3/uL Normal 150-400 [facility] Comment on above: Performed By: #### C MP, LIPA, CBCDIF ####[facility] [address] [place] [address] Red Cell Morph SEE COMMENT Normal [facility] Comment on above: Result Comment: Unre markable Performed By: #### C MP, LIPA, CBCDIF ####[facility] [address] [place] [address] WBC (Leukocytes) 20.44 10*3/uL High 3.70-11.00 [facility] Comment on above: Performed By: #### C MP, LIPA, CBCDIF ####[facility] [address] [place] [address] Comp Metabolic Panelon 03-30 Alanine aminotransferase (ALT) 13 U/L Normal 0-45 [facility] Comment on above: Performed By: #### C MP, LIPA, CBCDIF ####[place] [address] Albumin 5.0 g/dL Normal 3.5-5.0 [facility] Comment on above: Performed By: #### C MP, LIPA, CBCDIF ####[facility] [address] [place] [address] Alkaline phosphatase (ALP) 117 U/L Normal 40-150 [facility] Comment on above: Performed By: #### C MP, LIPA, CBCDIF ####[facility] [address] [place] [address] Anion gap 14 mmol/L Normal 0-15 [facility] Comment on above: Performed By: #### C MP, LIPA, CBCDIF ####[facility] [address] [place] [address] Aspartate aminotransferase (AST) 17 U/L Normal 7-40 [facility] Comment on above: Performed By: #### C MP, LIPA, CBCDIF ####[facility] [address] [place] [address] Bilirubin (total) 0.7 mg/dL Normal 0.0-1.5 [facility] Comment on above: Performed By: #### C MP, LIPA, CBCDIF ####[facility] [address] [place] [address] Calcium 9.6 mg/dL Normal 8.5-10.5 [facility] Comment on above: Performed By: #### C MP, LIPA, CBCDIF ####[facility] [address] [place] [address] Chloride 99 mmol/L Normal 98-110 [facility] Comment on above: Performed By: #### C MP, LIPA, CBCDIF ####[facility] [address] [place] [address] CO2 27 mmol/L Normal 23-32 [facility] Comment on above: Performed By: #### C MP, LIPA, CBCDIF ####[facility] [address] [place] [address] Creatinine 0.64 mg/dL Low 0.70-1.40 [facility] Comment on above: Performed By: #### C MP, LIPA, CBCDIF ####[facility] [address] [place] [address] eGFR (non-black) mL/min/{1.73_m2} Normal [facility] Comment on above: Performed By: #### C MP, LIPA, CBCDIF ####[facility] [address] [place] [address] Result Comment: eGFR (Estimated GFR) Units of measure: mL/min/1.73 meters squaredeGFR is derived from the reexpressed MDRD Study equation using the following parameters: serum creatinine, age, gender and race. The creatinine assay has been calibrated to be traceable to IDMS.An eGFR <60 mL/min/1.73m2 for >3 months is consistent with chronic kidney disease. Refer to KDOQI guidelines for clinical interpretation.In patients with unstable renal function, e.g. those with acute kidney injury, the eGFR may not accurately reflect actual GFR. Glucose mass conc 130 mg/dL High 65-100 [facility] Comment on above: Performed By: #### C MP, LIPA, CBCDIF ####[facility] [address] [place] [address] Potassium molar conc 3.8 mmol/L Normal 3.5-5.0 [facility] Comment on above: Performed By: #### C MP, LIPA, CBCDIF ####[facility] [address] [place] [address] Protein 8.3 g/dL Normal 6.0-8.4 [facility] Comment on above: Performed By: #### C MP, LIPA, CBCDIF ####[facility] [address] [place] [address] Sodium 140 mmol/L Normal 132-148 [facility] Comment on above: Performed By: #### C MP, LIPA, CBCDIF ####[facility] [address] [place] [address] Urea nitrogen 13 mg/dL Normal 8-25 [facility] Comment on above: Performed By: #### C MP, LIPA, CBCDIF ####[facility] [address] [place] [address] ED NOTEon 03-30-2017 ED NOTE HNO ID: [id number] Author: Sofie (Rn) Benito RN Service: (none) Author Type: Registered Nurse Type: ED Notes Filed: 03/30/2017 1:05 AM Note Text: Urine specimen obtained and sent. [facility] ED NOTE HNO ID: [id number] Author: Sofie (Rn) Benito RN Service: (none) Author Type: Registered Nurse Type: ED Notes Filed: 03/30/2017 12:50 AM Note Text: LYNDA Coffman at to speak with patient. [facility] ED NOTE HNO ID: [id number]: Arias (Rn) KATERINE Carrascoervice: (none)Author Type: Registered NurseType: ED NotesFiled: 03/29/2017 11:53 PMNote Text:Pt reports sudden onset n/v/d at approximately 6pm tonight. Pt states shehas been unable to keep anything down since 1930 tonight. Pt [facility]. [facility] ED PROV NOTEon 03-30-2017 ED PROV NOTE HNO ID: [id number]: Meghna Mariee) Kash: (none)Author Type: Physician AssistantType: ED Provider NotesFiled: 03/30/2017 1:27 AMNote Text:ED Provider NotePatient Name: Kathy RuiznMRN: [id number] DATE: 03/29/17HistoryPatient presents with:Nausea AND VomitingDiarrheaHPI Comments: This is a 26 y/o female who is otherwise relativelyhealthy here with n/v/d that started around 6 pm this afternoon. Lastvomited approximately 5 minutes prior to arrival to ED. Has had somegeneralized abdominal cramping. Denies fevers, chills, dizziness, chestpain, dyspnea, hematemesis, urinary symptoms, vaginal bleeding ordischarge, melanotic stools, rectal bleeding or constipation. Priorabdominal surgeries include cholecystectomy. Patients daughterrecently had stomach bug.Patient is a 26 year old female presenting with vomiting.VomitingAssocia vivian symptoms: abdominal pain and diarrheaAssociated symptoms: no chills and no feverPAST MEDICAL HISTORYDiagnosis Date- Gallstones- Normal IUP (intrauterine ) on ultrasound 12/04/2015- Symptomatic cholelithiasis 12/04/2015- UTI (urinary tract infection)PAST SURGICAL HISTORYProcedure Laterality Date- APPENDECTOMY HX 6 yo- CHOLECYSTECTOMY HX 12/12/2015 HISTORYProblem Relation Age of Onset- Breast Cancer Mother- Thyroid Mother- Stroke Father TIA- Asthma Father- Heart Paternal Grandfather- Breast Cancer Maternal Grandmother- Diabetes Paternal Grandmother- Asthma SisterSocial HistorySocial History Main Topics- Smoking status: Never Smoker- Smokeless tobacco: Never Used- Alcohol use No- Drug use: No- Sexual activity: NoALLERGIESAllergen Reactions- Amoxicillin Mental Status Change- Eggs [Egg] GI Upset- Latex, Natural Rubb* Rash- Penicillin HivesReview of SystemsConstitutional: Negative for chills and fever.Respiratory: Negative for shortness of breath.Cardiovascular: Negative for chest pain.Gastrointestinal: Positive for abdominal pain, diarrhea, nausea andvomiting. Negative for anal bleeding, blood in stool and constipation.Genitourina ry: Negative for difficulty urinating, dysuria, frequency,hematuria, urgency, vaginal bleeding and vaginal discharge.Musculoskeleta l: Negative for back pain.Skin: Negative for rash.Neurological: Negative for dizziness, weakness and light-headedness.Hematol ogical: Does not bruise/bleed easily.Psychiatric/Behav ioral: Negative for confusion.Physical ExamBP 134/63 Pulse 97 Temp (Src) 98.4 (Oral) Resp 18 Ht 5' 8 (1.73m) Wt 155 lb (70.3kg) SpO2 99% BMI 23.57 kg/(m2).Physical ExamConstitutional: She appears well-developed and well-nourished. Nodistress.Non-toxic appearing.HENT:Head: Normocephalic and atraumatic.Mouth/Throat: Oropharynx is clear and moist.Eyes: Conjunctivae are normal. No scleral icterus.Neck: Neck supple.Cardiovascular: Regular rhythm.Marginally tachycardicPulmonary/Sharon st: Effort normal and breath sounds normal. No respiratorydistress. She has no wheezes. She has no rales.Abdominal: Soft. Bowel sounds are normal. She exhibits no distension andno mass. There is no tenderness. There is no rebound and no guarding.Musculoskeletal :LOPES x 4Neurological: She is alert.Awake and alert. Normal speech. Motor grossly intact.Skin: Skin is warm and dry.Psychiatric: She has a normal mood and affect. Her behavior is normal.Nursing note and vitals reviewed.Diagnostic TestingResults for orders placed or performed during the hospital encounter of03/29/17CBC + DIFFResult Value Ref Range WBC 20.44 (H) 3.70 - 11.00 k/uL RBC 5.15 3.90 - 5.20 m/uL Hemoglobin 15.4 11.5 - 15.5 g/dL Hematocrit 48.3 (H) 36.0 - 46.0 % MCV 93.8 80.0 - 100.0 fL MCH 29.9 26.0 - 34.0 pG MCHC 31.9 30.5 - 36.0 g/dL RDW-CV 12.5 11.5 - 15.0 % Platelet Count 218 150 - 400 k/uL MPV 11.1 9.0 - 12.7 fL Neut% 91 % Lymph% 4 % [place]% 4 % Eosin% 1 % Abs Neut (ANC) 18.60 (H) 1.45 - 7.50 k/uL Abs Lym 0.82 (L) 1.00 - 4.00 K/uL Abs [place] 0.82 <0.87 k/uL Abs Eosin 0.20 <0.46 K/uL Red Cell Morph SEE COMMENT Platelet Estimate Platelet estimate adequateCOMP METABOLIC PANELResult Value Ref Range Protein, Total 8.3 6.0 - 8.4 g/dL Albumin 5.0 3.5 - 5.0 g/dL Calcium 9.6 8.5 - 10.5 mg/dL Bilirubin, Total 0.7 0.0 - 1.5 mg/dL Alkaline Phosphatase 117 40 - 150 U/L AST 17 7 - 40 U/L Glucose 130 (H) 65 - 100 mg/dL BUN 13 8 - 25 mg/dL Creatinine 0.64 (L) 0.70 - 1.40 mg/dL Sodium 140 132 - 148 mmol/L Potassium 3.8 3.5 - 5.0 mmol/L Chloride 99 98 - 110 mmol/L CO2 27 23 - 32 mmol/L Anion Gap 14 0 - 15 mmol/L ALT 13 0 - 45 U/L eGFR- >60 eGFR-All Other Races >60 .LIPASE BLDResult Value Ref Range Lipase 28 12 - 70 U/LURINALYSISResult Value Ref Range Color Yellow Yellow Appearance (U) Clear Clear Glucose, Urine Negative Negative mg/dL Bilirubin, Urine Small (A) Negative Ketones, Urine 40 (A) Negative Specific Percival, Ur >1.029 (H) 1.001 - 1.029 Hemoglobin/Blood,Ur Negative Negative pH, Urine 5.5 5.0 - 8.0 Protein, Urine 30 (A) Negative mg/dL Urobilinogen 0.2 0.2 - 1.0 Nitrites Negative Negative Leukest Negative NegativeHCG QUAL URResult Value Ref Range HCG Qualitative, Urine Negative NegativeURINE MICROSCOPICResult Value Ref Range WBC, Urine 0-5 0 - 5 /HPF RBC, Urine 0-3 0 - 3 /HPF Cast SEE COMMENT 0 /LPF Bacteria Few (A) 0 /HPF Epithelial Cells SEE COMMENT /HPFProceduresMedical Decision Making / ED CourseED Course-hydrated with IVF's.-Medicated with zofran 4 mg IVOdessa is a 26 y/o female here with n/v/d x 4 hours. Upon arrival to EDpatient is marginally tachycardic, otherwise HD stable. Afebrile.Non-toxic appearing. Abdomen soft and and with palpation patient statessore all over however no localized pain. Routine labs obtained andnoteworthy for leukocytosis 20.44 with left shift 18.60. Repeat abdominalexam following IV hydration and antiemetics remained soft and non-tender,again patient states that she is sore all over from vomiting. Althoughthere is marked leukocytosis clinical exam is not c/w acute surgicalabdomen. No underlying source of bacterial infection identified at thistime. Tolerating PO without vomiting in ED. Again serial abdominal examsremained soft with no localize tenderness with patient reportingsoreness 2/2 to vomiting and therefore at this time no emergent imagingof abdomen/pelvis done. I suspect she likely has viral gastroenteritisbased on daughter recently being ill with similar symptoms and clinicalexam. Patient will be discharged home with close reevaluation in 2-3 days.I advised patient to return immediately to ED if her symptoms shouldworsen, she should develop fevers, vomiting blood, rectal bleeding orabdominal pain.Encounter Diagnosis ICD-10-CM1. Nausea vomiting and diarrhea R11.2 R19.72. Leukocytosis, unspecified type D72.829PlanThe Patient was DISCHARGED: Counseled patient and significant otherregarding lab results AND radiology results AND suspected diagnosis AND needfor follow-up. Discharged home with verbal and written instructions. Theywere instructed to return as needed for persistent or worsening symptomsor any new concerns.Given a prescription for the following medication(s): Zofran and bentylCondition at time of disposition: improved and stableSIGNATURE: Ant Gibson (Laly) Bcrids59/18/17 0127 Normal [facility] HCG Qual, Urineon 03-30-2017 HCG.beta subunit ( test) Ql (U) Negative Normal Negative [facility] Comment on above: Result Comment: Fals e positives and false negatives are rare but have been described. Clinical correlation of the findings is recommended. Performed By: #### U HCG, UA, UAMIC ####[facility] [address] [place] [address] Lipaseon 03-30-2017 Lipase 28 U/L Normal 12-70 [facility] Comment on above: Performed By: #### C MP, LIPA, CBCDIF ####[facility] [address] [place] [address] Urinalysison 03-30-2017 Bilirubin, Urine Small Critically abnormal Negative [facility] Comment on above: Result Comment: Sugg est correlation with clinical findings and serum bilirubin if clinically indicated. Performed By: #### U HCG, UA, UAMIC ####[facility] [address] [place] [address] Hemoglobin mass conc (Bld) Negative Normal Negative [facility] Comment on above: Performed By: #### U HCG, UA, UAMIC ####[place] [address] Leukest Negative Normal Negative [facility] Comment on above: Performed By: #### U HCG, UA, UAMIC ####[facility] [address] [place] [address] pH of blood 5.5 [pH] Normal 5.0-8.0 [facility] Comment on above: Performed By: #### U HCG, UA, UAMIC ####[place] [address] Protein, Urine 30 mg/dL Critically abnormal Negative [facility] Comment on above: Performed By: #### U HCG, UA, UAMIC ####[place] [address] Specific Percival, Ur >1.029 High 1.001-1.029 [facility] Comment on above: Performed By: #### U HCG, UA, UAMIC ####[facility] [address] [place] [address] Urine, clarity Clear Normal Clear [facility] Comment on above: Performed By: #### U HCG, UA, UAMIC ####[place] [address] Urine, color Yellow Normal Yellow [facility] Comment on above: Performed By: #### U HCG, UA, UAMIC ####[facility] [address] [place], [place] [id number] Urine, glucose presence Negative Normal Negative [facility] Comment on above: Performed By: #### U HCG, UA, UAMIC ####[facility] [address] [place] [address] Urine, ketones presence 40 Critically abnormal Negative [facility] Comment on above: Performed By: #### U HCG, UA, UAMIC ####[facility] [address] [place] [address] Urine, nitrite presence Negative Normal Negative [facility] Comment on above: Performed By: #### U HCG, UA, UAMIC ####[facility] [address] [place] [address] Urine, urobilinogen 0.2 Normal 0.2-1.0 [facility] Comment on above: Performed By: #### U HCG, UA, UAMIC ####[facility] [address] [place] [address] Urine Microscopic (FOR LAB U SE ONLY)on 03-30-2017 Cast SEE COMMENT Normal 0 [facility] Comment on above: Result Comment: 0 Performed By: #### U HCG, UA, UAMIC ####[facility] [address] [place] [address] Erythrocytes (RBC) 0-3 Normal 0-3 [facility] Comment on above: Performed By: #### U HCG, UA, UAMIC ####[facility] [address] [place] [address] Urine, bacteria in sediment Few Critically abnormal 0 [facility] Comment on above: Performed By: #### U HCG, UA, UAMIC ####[facility] [address] [place] [address] Urine, epithelial cells in sediment SEE COMMENT Normal [facility] Comment on above: Result Comment: 5-10 Squamous Epithelial Cells Performed By: #### U HCG, UA, UAMIC ####[facility] [id number] [place] [address] WBC (Leukocytes) 0-5 Normal 0-5 [facility] Comment on above: Performed By: #### U HCG, UA, UAMIC ####[facility] [id number] [place] [address] Vital Signs Date Time Vital Sign Value Performing Clinician Facility 11-16-2024 09:18-0400 Body mass index (BMI) [Ratio] 31.73 kg/m2 Natasha Segura MD Work Phone: [facility] 11-16-2024 09:18-0400 Body weight 91.9 kg Natasha Segura MD Work Phone: [facility] 11-16-2024 09:18-0400 Diastolic blood pressure 60 mm[Hg] Natasha Segura MD Work Phone: [facility] 11-16-2024 09:18-0400 Systolic blood pressure 102 mm[Hg] Natasha Segura MD Work Phone: [facility] 10-30-2024 10:52-0400 Body mass index (BMI) [Ratio] 31.58 kg/m2 Natasha Seugra MD Work Phone: [facility] 10-30-2024 10:52-0400 Body weight 91.44 kg Natasha Segura MD Work Phone: [facility] 10-30-2024 10:52-0400 Diastolic blood pressure 60 mm[Hg] Natasha Segura MD Work Phone: [facility] 10-30-2024 10:52-0400 Systolic blood pressure 100 mm[Hg] Natasha Segura MD Work Phone: [facility] 09-25-2024 13:29-0400 Body mass index (BMI) [Ratio] 30.7 kg/m2 Natasha Segura MD Work Phone: [facility] 09-25-2024 13:29-0400 Body weight 88.91 kg Natasha Segura MD Work Phone: [facility] 09-25-2024 13:29-0400 Diastolic blood pressure 60 mm[Hg] Natasha Segura MD Work Phone: [facility] 09-25-2024 13:29-0400 Systolic blood pressure 110 mm[Hg] Natasha Segura MD Work Phone: [facility] 09-20-2024 22:00-0400 Heart rate 103 /min Dr. Ephraim Boyd DO Work Phone: [facility] 09-20-2024 22:00-0400 SaO2% (BldA) [Mass fraction] 96 % Dr. Ephraim Boyd DO Work Phone: [facility] 09-20-2024 21:57-0400 Diastolic blood pressure 71 mm[Hg] Dr. Ephraim Boyd DO Work Phone: [facility] 09-20-2024 21:57-0400 Systolic blood pressure 135 mm[Hg] Dr. Ephraim Boyd DO Work Phone: [facility] 09-20-2024 21:54-0400 Body temperature 97 [degF] Dr. Ephraim Boyd DO Work Phone: [facility] 09-20-2024 21:54-0400 Respiratory rate 14 /min Dr. Ephraim Boyd DO Work Phone: [facility] 09-20-2024 17:58-0400 Body height 170.[address] Ephraim Boyd DO Work Phone: [facility] 09-20-2024 17:58-0400 Body mass index (BMI) [Ratio] 32 kg/m2 Dr. Ephraim Boyd DO Work Phone: [facility] 09-20-2024 17:58-0400 Body weight 92.[address] Ephraim Boyd DO Work Phone: [facility] 08-28-2024 15:17-0400 Body mass index (BMI) [Ratio] 28.59 kg/m2 Jurgen Richmond MD Work Phone: [facility] 08-28-2024 15:17-0400 Body weight 85.28 kg Jurgen Richmond MD Work Phone: [facility] 08-28-2024 15:17-0400 Diastolic blood pressure 70 mm[Hg] Jurgen Richmond MD Work Phone: [facility] 08-28-2024 15:17-0400 Systolic blood pressure 114 mm[Hg] Jurgen Richmond MD Work Phone: [facility] 07-31-2024 09:43-0400 Body mass index (BMI) [Ratio] 28.74 kg/m2 Natasha Segura MD Work Phone: [facility] 07-31-2024 09:43-0400 Body weight 85.73 kg Natasha Segura MD Work Phone: [facility] 07-31-2024 09:43-0400 Diastolic blood pressure 70 mm[Hg] Natasha Segura MD Work Phone: [facility] 07-31-2024 09:43-0400 Systolic blood pressure 114 mm[Hg] Natasha Segura MD Work Phone: [facility] 07-02-2024 13:18-0500 Body mass index (BMI) [Ratio] 29.19 kg/m2 Ernestine Gomez MD Work Phone: [facility] 07-02-2024 13:18-0500 Body weight 87.09 kg Ernestine Gomez MD Work Phone: [facility] 07-02-2024 13:18-0500 Diastolic blood pressure 72 mm[Hg] Ernestine Gomez MD Work Phone: [facility] 07-02-2024 13:18-0500 Systolic blood pressure 106 mm[Hg] Ernestine Gomez MD Work Phone: [facility] 06-26-2024 15:30-0500 Body mass index (BMI) [Ratio] 28.25 kg/m2 Natasha Segura MD Work Phone: [facility] 06-26-2024 15:30-0500 Body weight 84.28 kg Natasha Segura MD Work Phone: [facility] 06-26-2024 15:30-0500 Diastolic blood pressure 80 mm[Hg] Natasha Segura MD Work Phone: [facility] 06-26-2024 15:30-0500 Systolic blood pressure 120 mm[Hg] Natasha Segura MD Work Phone: [facility] 06-16-2024 15:51-0500 Body mass index (BMI) [Ratio] 28.43 kg/m2 Pamella Crowder RESIDENT ADVISOR.CNM Work Phone: [facility] 06-16-2024 15:51-0500 Body weight 84.82 kg Pamella Crowder RESIDENT ADVISOR.CNM Work Phone: [facility] 06-16-2024 15:51-0500 Diastolic blood pressure 86 mm[Hg] Pamella Crowder RESIDENT ADVISOR.CNM Work Phone: [facility] 06-16-2024 15:51-0500 Systolic blood pressure 130 mm[Hg] Pamella Crowder RESIDENT ADVISOR.CNM Work Phone: [facility] 06-12-2024 15:04-0500 Body mass index (BMI) [Ratio] 28.89 kg/m2 Sussy Deidrejuwan RESIDENT ADVISOR.CNM Work Phone: [facility] 06-12-2024 15:04-0500 Body weight 86.18 kg Sussy Diedrejuwan RESIDENT ADVISOR.CNM Work Phone: [facility] 06-12-2024 15:04-0500 Diastolic blood pressure 68 mm[Hg] Sussy Plotts RESIDENT ADVISOR.CNM Work Phone: [facility] 06-12-2024 15:04-0500 Systolic blood pressure 108 mm[Hg] Sussy Jiangts RESIDENT ADVISOR.CNM Work Phone: [facility] 06-05-2024 10:59-0500 Body mass index (BMI) [Ratio] 27.98 kg/m2 Jurgen Richmond MD Work Phone: [facility] 06-05-2024 10:59-0500 Body weight 83.46 kg Jurgen Richmond MD Work Phone: [facility] 06-05-2024 10:59-0500 Diastolic blood pressure 62 mm[Hg] Jurgen Richmond MD Work Phone: [facility] 06-05-2024 10:59-0500 Systolic blood pressure 100 mm[Hg] Jurgen Richmond MD Work Phone: [facility] 06-01-2024 14:40-0500 Body mass index (BMI) [Ratio] 28.55 kg/m2 Selma Arsenio RESIDENT ADVISOR.REGULATORY AFFAIRS CONSULTANT Work Phone: [facility] 06-01-2024 14:40-0500 Body weight 85.19 kg Selam Rasenio RESIDENT ADVISOR.REGULATORY AFFAIRS CONSULTANT Work Phone: [facility] 06-01-2024 14:40-0500 Diastolic blood pressure 68 mm[Hg] Selam Milmine RESIDENT ADVISOR.REGULATORY AFFAIRS CONSULTANT Work Phone: [facility] 06-01-2024 14:40-0500 Systolic blood pressure 116 mm[Hg] Selam Milmine RESIDENT ADVISOR.REGULATORY AFFAIRS CONSULTANT Work Phone: [facility] 08-31-2023 20:28-0400 Body temperature 98.2 [degF] LYNDA Elisa PA Work Phone: [facility] 08-31-2023 20:28-0400 Diastolic blood pressure 61 mm[Hg] LYNDA Elias PA Work Phone: [facility] 08-31-2023 20:28-0400 Heart rate 78 /min LYNDA Elias PA Work Phone: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 02-09-2021 influenza, injectabl e, quadrivalent, preservative free LYNDA HOWELL Work Phone: [facility] 02-09-2021 influenza, seasonal, injectable, preservative free Natasha Segura MD Work Phone: [facility] 02-09-2021 influenza virus vaccine, unspecified formulation Landy Fernandez MD Work Phone: [facility] 03-01-2016 tetanus toxoid, redu raheem diphtheria toxoid, and acellular pertussis vaccine, adsorbed Selam Cesar APRN.CNP Work Phone: [facility] Payers Date Payer Category Payer Medicaid [place]ICAID [place] [id number] 2024 Medicaid [id number] 2023 Self-pay [id number] 2021 Blue Cross Blue Shield BLUE ACCE SS PPO [id number] 2021 Blue Cross Blue Riannae ld Managed Care - O ANTHEM BLUE CROSS [id number] 2021 Unknown [id number] 2019 Unknown BCBS BCBS - [place] P PO [id number] 2019-Present [phone] [address] [place] [address] [id number] 2008 Unknown 1988 Unknown [id number] 159 1988 Unknown [id number] 159 1988 Unknown [id number] 159 1988 Unknown [id number] 159 1988 Unknown [id number] 159 1988 Unknown [id number] 159 1988 Unknown [id number] 159 1988 Unknown [id number] 159 Unknown [id number] 462 Unknown [id number] 462 Unknown [id number] 462 Social History Date Type Detail Facility Start: 08-04-2015 End: 05-26-2024 Tobacco smoking status NHIS Never smoked tobacco [facility] Phone: Start: 08-04-2015 End: 05-26-2024 Tobacco use and exposure Smokeless tobacco non-user [facility] Phone: Start: 08-04-2015 End: 11-16-2024 Alcohol intake Current non-drinker of alcohol (finding) [facility] Phone: Start: 1990 Sex Assigned At Not on file [facility] [employer] Phone: Start: 01-04-2022 End: 01-14-2022 Exposure to SARS-CoV-2 (event) Not sure [facility] Phone: Start: 03-17-2023 End: 05-26-2024 Gender identity Not on file [facility] [employer] Start: 03-17-2023 End: 05-26-2024 History of Social function [facility] [employer] Start: 08-31-2023 Tobacco smoking stat us MDIS Unknown if ever smoked [facility] Start: 1990 Sex Assigned At Female [facility] Start: 12-11-2021 Sex Female (finding) [facility] [employer] National Score (1-10 0), lower number is lower risk 52 [facility] Start: 04-20-2024 [facility] Start: 05-28-2024 Sexual orientation Heterosexual (cristiana vicente) [facility] Goals Date Patient Goal Desired Activity /State Personal health goal Functional Status Date Assessment Result Facility 11-12-2024 Are you deaf, or do you have serious difficulty hearing No 11/12/2024 10:32 AM Carlotta Dickinson, SAYDA No [facility] 11-12-2024 Are you blind, or do you have serious difficulty seeing, even when wearing glasses No 11/12/2024 10:32 AM Carlotta Dickinson RN No [facility] 11-12-2024 Do you have serious difficulty walking or climbing stairs No 11/12/2024 10:32 AM Carlotta Dickinson, SAYDA No [facility] 11-12-2024 Do you have difficul ty dressing or bathing No 11/12/2024 10:32 AM Carlotta Dickinson, SAYDA No [facility] 11-12-2024 Because of a physica l, mental, or emotional condition, do you have difficulty doing errands alone such as visiting a physician's office or shopping No 11/12/2024 10:32 AM Carlotta Dickinson RN No [facility] 10-28-2024 Are you deaf, or do you have serious difficulty hearing No 10/28/2024 6:14 PM Barb Walters, SAYDA No [facility] 10-28-2024 Are you blind, or do you have serious difficulty seeing, even when wearing glasses No 10/28/2024 6:14 PM Barb Walters, SAYDA No [facility] 10-28-2024 Do you have serious difficulty walking or climbing stairs No 10/28/2024 6:14 PM Barb Walters, SAYDA No [facility] 10-28-2024 Do you have difficul ty dressing or bathing No 10/28/2024 6:14 PM Barb Walters, SAYDA No [facility] 10-28-2024 Because of a physica l, mental, or emotional condition, do you have difficulty doing errands alone such as visiting a physician's office or shopping No 10/28/2024 6:14 PM Barb Walters, SAYDA No [facility] 09-22-2024 Are you deaf, or do you have serious difficulty hearing No 09/22/2024 10:11 AM Ileana Evans RN No [facility] 09-22-2024 Are you blind, or do you have serious difficulty seeing, even when wearing glasses No 09/22/2024 10:11 AM Ileana Evans RN No [facility] 09-22-2024 Do you have serious difficulty walking or climbing stairs No 09/22/2024 10:11 AM Ileana Evans RN No [facility] 09-22-2024 Do you have difficul ty dressing or bathing No 09/22/2024 10:11 AM Ileana Evans RN No [facility] 09-22-2024 Because of a physica l, mental, or emotional condition, do you have difficulty doing errands alone such as visiting a physician's office or shopping No 09/22/2024 10:11 AM Ileana Evans RN No [facility] 05-08-2016 Are you deaf, or do you have serious difficulty hearing No 05/08/2016 2:18 PM Amber Driver RN No [facility] 05-08-2016 Are you blind, or do you have serious difficulty seeing, even when wearing glasses No 05/08/2016 2:18 PM Amber Driver, SAYDA No [facility] 05-08-2016 Do you have serious difficulty walking or climbing stairs No 05/08/2016 2:18 PM Amber Driver RN No [facility] 05-08-2016 Do you have difficul ty dressing or bathing No 05/08/2016 2:18 PM Amber Driver RN No [facility] 05-08-2016 Because of a physica l, mental, or emotional condition, do you have difficulty doing errands alone such as visiting a physician's office or shopping No 05/08/2016 2:18 PM Amber Driver RN No [facility] Mental Status Date Assessment Result Facility 11-12-2024 Because of a physica l, mental, or emotional condition, do you have serious difficulty concentrating, remembering, or making decisions No 11/12/2024 10:32 AM Carlotta Dickinson, SAYDA No [facility] 10-28-2024 Because of a physica l, mental, or emotional condition, do you have serious difficulty concentrating, remembering, or making decisions No 10/28/2024 6:14 PM Barb Walters, SAYDA No [facility] 09-22-2024 Because of a physica l, mental, or emotional condition, do you have serious difficulty concentrating, remembering, or making decisions No 09/22/2024 10:11 AM Ileana Evans, SAYDA No [facility] 05-08-2016 Because of a physica l, mental, or emotional condition, do you have serious difficulty concentrating, remembering, or making decisions No 05/08/2016 2:18 PM Amber Driver RN No [facility] Clinical Notes 12-23-2022 to 11-16-2024 Quick Notes - Natasha Segura MD - 11/16/2024 9:32 AM EDTPrenatal Quick Notes - Natasha Segura MD - 11/16/2024 9:32 AM EDTPatient InstructionsPatient InstructionsPatient Instructions Note Date & Type Note Facility 11-16-2024 Progress note Formatting of t his note might be different from the original. S: Kathy Hester is a 34 year old female who presents at 01/11/2025, by Ultrasound for a routine visit. Denies headache, visual changes, chest pain, shortness of breath, leakage of fluid, or dysuria. Feeling well, no complaints. Good movement, No contractions O: See flow sheet Gen: No apparent distress Abd: Gravid, nontender Admitted for a week at [facility] for bleeding. Source unknown. Cervix not changed. Brown discharge now Getting TrAB done. ASSESSMENT/PLAN: 1. 32 weeks gestation of ([facility]) - ICD9: V22.2, ICD10: Z3A.32 (primary diagnosis) 2. AMA (advanced maternal age) multigravida 35+, second trimester ([facility]) - ICD9: 659.63, ICD10: O09.522 3. Supervision of high risk in second trimester ([facility]) - ICD9: V23.9, ICD10: O09.92 Natasha Segura MD [facility] 11-16-2024 Miscellaneous Notes S: Kathy Hester is a 34 year old female who presents at 01/11/2025, by Ultrasound for a routine visit. Denies headache, visual changes, chest pain, shortness of breath, leakage of fluid, or dysuria. Feeling well, no complaints. Good movement, No contractions O: See flow sheet Gen: No apparent distress Abd: Gravid, nontender Admitted for a week at [facility] for bleeding. Source unknown. Cervix not changed. Brown discharge now Getting TrAB done. ASSESSMENT/PLAN: 1. 32 weeks gestation of ([facility]) - ICD9: V22.2, ICD10: Z3A.32 (primary diagnosis) 2. AMA (advanced maternal age) multigravida 35+, second trimester ([facility]) - ICD9: 659.63, ICD10: O09.522 3. Supervision of high risk in second trimester ([facility]) - ICD9: V23.9, ICD10: O09.92 Natasha Segura MD documented in this encounter [facility] 11-16-2024 Instructions Aretha Gorman MA - 11/16/2024 9:12 AM EDT SEQUENTIAL SCREENINGS The [facility] offers sequential screenings for women who are interested in screenings for chromosomal abnormalities and certain defects during a . The sequential screen combines ultrasound and blood tests to determine the risk of chromosomal abnormalities, including Down's Syndrome (Trisomy 21) and Trisomy 18, as well as open neural tube defects including spina bifida. Ultrasound examination is performed between 11 weeks and 13 weeks gestational age. Blood tests are drawn after the ultrasound and again later in the between 15 and 21 weeks gestational age. Please let your physician know if you are interested in this testing. It will require an appointment with our plastic eye technician. This is not an ultrasound performed by a physician in our office during a routine visit. SIGNS AND SYMPTOMS OF LABOR 1. Contractions every 10 minutes or more often 2. Clear, pink, or brownish fluid (water) leaking from vagina 3. Feeling that baby is pushing down, pressure 4. Low, dull backache 5. Cramps that feel like a period 6. Cramps with or without diarrhea If you notice any of the above symptoms, contact our office at [phone] and ask to speak with a nurse. After hours, you can call doctors registry at [phone] OR call [facility] at [phone] and ask to have the doctor amortization clerk paged. If you consider this an emergency, dial 9-1-8 or go to your nearest emergency department. NEED HELP? Are you dealing with a violent or abusive relationship? Are you a victim of rape or sexual assult? Call [facility] ([place]) 24 hour Crisis Hotline: 884.872.6787 or 217-932-9502. MANUAL Your Guide to a Healthy manual is now on-line. Visit [email or web address] to download your free copy documented in this encounter [facility] 11-12-2024 Note HNO ID: [id number] Author: CARLOTTA BELTRAN RN Service: Obstetrics Author Type: Registered Nurse Type: Procedures Filed: 11/12/2024 10:09 Note Text: Attestation signed by Janis Gomez MD at 11/12/2024 2:41 PM Inpatient NST: Impression: Reactive NST Janis Gomez MD OBSTETRICS NST SUMMARY SERVICE DATE: November 12, 2024 The patient is a 34 year old female, , who is at 31w3d with an GASPER of 01/11/2025, by Ultrasound dating method. NST OBJECTIVE FINDINGS PER NURSE: Start Time: 08 (11/12/24 0800 : Carlotta Beltran RN) Complete Time: 08 (11/12/24 08 : Carlotta Beltran RN) Indications: Other: Comment (inpatient, vag bleed) (11/12/24 08 : Carlotta Beltran RN) Patient Reason For: NST Explanation: Procedure Explained, Monitor Explained, Verbalizes Understanding (11/12/24 08 : Carlotta Beltran RN) Acoustic Stimulator: Interventions: MONITORING/ASSESSMENT: Baseline: 135 bpm (11/12/24 08 : Carlotta Beltran RN) Variability: Moderate (6-25 bpm) (11/12/24 08 : Carlotta Beltran RN) Accelerations: Present (11/12/24 08 : Cralotta Beltran RN) Decelerations: Decelerations: None (11/12/24 08 : Carlotta Beltran RN) Contractions: Not present (11/12/24799 : Carlotta Beltran RN) Frequency: Above information forwarded to yolette (11/12/24799 : Carlotta Beltran RN) for final review and interpretation. SIGNATURE: Carlotta Beltran RN PATIENT NAME: Kathy Hester DATE: November 12, 2024 TIME: 10:09 AM [facility] 11-12-2024 Note HNO ID: [id number] Author: YAKELIN VENTURA DO Service: Maternal Medicine Author Type: Resident Type: Progress Notes Filed: 11/12/2024 09:42 Note Text: Attestation signed by Janis Gomez MD at 11/12/2024 2:41 PM Attending Note I evaluated the patient and personally participated in the doe components. I agree with the resident's findings and plan as documented and have discussed the case and management of the patient's care with the resident. Plan of care discussed with: Provider, RN, Patient. In summary, this is a 34 year old at 31w3d admitted for vaginal bleeding. No bleeding overnight, notes intermittent contractions. Denies any leakage of fluid, contractions, vaginal bleeding and +FM. Discharge to home in stable condition, follow up scheduled with her primary OB, 11/16/24. Return precautions of bleeding, contractions every 10mins and leakage of fluid discussed with patient. She verbalized understanding and agrees with plan of care. Signature: Janis Gomez MD Date: November 12, 2024 Time: 2:38 PM MATERNAL MEDICINE ANTEPARTUM PROGRESS NOTE SERVICE DATE: 11/12/2024 SERVICE TIME: 9:42 AM 34 year old EGA:31w3d admitted for vaginal bleeding. Plan of care discussed with: Provider, RN, Patient. Assessment AND Plan Vaginal bleeding in , third trimester (HCC) - SSE on admission 11/03 with 10 cc of dark, red organized blood clot in posterior vaginal vault; no active bleeding from cervical os - SVE unchanged from last admission at /-3 - Admission hgb and fibrinogen stable, low concern for DIC at this time - Patient reports intermittent pink discharge with wiping, no bleeding or spotting PLAN: - anticipate discharge today, 11/12 - Monitor pad counts - Hold on repeat labs unless reporting more bleeding - Given reassuring and maternal status, anticipate discharge 11/12 Prematurity (HCC) - Vertex - tracing reactive without contractions - S/p BMZ course 09/20-09/21; s/p rescue course on 10/19-10/20 - NST daily - HOLD magnesium for neuroprotection and Ancef for GBS prophylaxis given low concern for imminent delivery at this time Subjective : No current vaginal bleeding, No current leaking of fluid, No contractions, Good movement, No shortness of breath or chest pain, and No calf tenderness Objective : LAST VITALS: Pulse BP Resp O2 Sat Temp Pain 84 124/79 16 97 % 36.6 ?C (97.8 ?F) 3 PHYSICAL EXAM: Deferred MONITORING/ASSESSMENT: Daily NST pending LABS Diagnostic tests reviewed for today's visit: Most recent labs and imaging results. SIGNATURE: Yakelin Ventura DO PATIENT NAME: Kathy Hester DATE: 11/12/2024 TIME: 9:42 AM [facility] 11-11-2024 Note HNO ID: [id number] Author: DANIEL BULLOCK RN Service: Nursing Author Type: Registered Nurse Type: Procedures Filed: 11/11/2024 08:53 Note Text: Attestation signed by Janis Gomez MD at 11/11/2024 1:16 PM Inpatient NST: Impression: Reactive NST Janis Gomez MD OBSTETRICS NST SUMMARY SERVICE DATE: November 11, 2024 The patient is a 34 year old female, , who is at 31w2d with an GASPER of 01/11/2025, by Ultrasound dating method. NST OBJECTIVE FINDINGS PER NURSE: Start Time: 807 Complete Time: 837 (11/11/24837 : Daniel Bullock, SAYDA) Indications: Vaginal Bleeding Patient Reason For: Monitor Baby NST Explanation: Acoustic Stimulator: No (11/11/24837 : Daniel Bullock RN) Interventions: Other (See Comment) (none) (11/11/24837 : Daniel Bullock RN) MONITORING/ASSESSMENT: Baseline: 125 bpm (11/11/24837 : Daniel Bullock RN) Variability: Moderate (6-25 bpm) (11/11/24837 : Daniel Bullock RN) Accelerations: Present (11/11/24837 : Daniel Bullock RN) Decelerations: Decelerations: None (11/11/24837 : Daniel Bullock RN) Contractions: Not present (11/11/24837 : Daniel Bullock RN) Frequency: Above information forwarded to Dr. Osorio (11/11/24837 : Daniel Bullock RN) for final review and interpretation. SIGNATURE: Daniel Bullock RN PATIENT NAME: Kathy Hester DATE: November 11, 2024 TIME: 8:52 AM [facility] 11-11-2024 Note HNO ID: [id number] Author: YAKELIN VENTURA DO Service: Maternal Medicine Author Type: Resident Type: Progress Notes Filed: 11/11/2024 10:04 Note Text: Attestation signed by Janis Gomez MD at 11/11/2024 1:16 PM Attending Note I evaluated the patient and personally participated in the doe components. I agree with the resident's findings and plan as documented and have discussed the case and management of the patient's care with the resident. Plan of care discussed with: Provider, RN, Patient. In summary, this is a 34 year old at 31w2d admitted for vaginal bleeding Denies any leakage of fluid, contractions, vaginal bleeding and +FM. No bleeding for one week, plan for discharge this tomorrow if continues to have no further bleeding. Signature: Janis Gomez MD Date: November 11, 2024 Time: 1:15 PM MATERNAL MEDICINE ANTEPARTUM PROGRESS NOTE SERVICE DATE: 11/11/2024 SERVICE TIME: 10:03 AM 34 year old EGA:31w2d admitted for vaginal bleeding. Plan of care discussed with: Provider, RN, Patient. Assessment AND Plan Vaginal bleeding in , third trimester (HCC) - SSE on admission 11/03 with 10 cc of dark, red organized blood clot in posterior vaginal vault; no active bleeding from cervical os - SVE unchanged from last admission at 3/-3 - Admission hgb and fibrinogen stable, low concern for DIC at this time - Patient reports intermittent pink discharge with wiping, no bleeding or spotting PLAN: - Monitor pad counts - Hold on repeat labs unless reporting more bleeding - Given reassuring and maternal status, anticipate discharge 11/12 Prematurity (HCC) - Vertex - tracing reactive without contractions - S/p BMZ course 09/20-09/21; s/p rescue course on 10/19-10/20 - NST daily - HOLD magnesium for neuroprotection and Ancef for GBS prophylaxis given low concern for imminent delivery at this time Subjective : No current vaginal bleeding, No current leaking of fluid, No contractions, Good movement, No shortness of breath or chest pain, and No calf tenderness Objective : LAST VITALS: Pulse BP Resp O2 Sat Temp Pain 84 124/79 16 97 % 36.6 ?C (97.8 ?F) 3 PHYSICAL EXAM: Deferred MONITORING/ASSESSMENT: Daily NST pending LABS Diagnostic tests reviewed for today's visit: Most recent labs and imaging results. SIGNATURE: Yakelin Ventura DO PATIENT NAME: Kathy Hester DATE: 11/11/2024 TIME: 5:35 AM [facility] 11-10-2024 Note HNO ID: [id number] Author: ANA HERRERA MD Service: Obstetrics Author Type: Physician Type: Procedures Filed: 11/10/2024 14:01 Note Text: Attestation signed by Janis Gomez MD at 11/10/2024 2:56 PM Inpatient NST: Impression: Reactive NST Janis Gomez MD OBSTETRICS NST SUMMARY SERVICE DATE: November 10, 2024 The patient is a 34 year old female, , who is at 31w1d with an GASPER of 01/11/2025, by Ultrasound dating method. NST OBJECTIVE FINDINGS PER NURSE: Start Time: 06 (11/10/24713 : Su Delatorre, SAYDA) Complete Time: 06 (11/10/24713 : Su Delatorre, SAYDA) Indications: Other: Comment (vag bleed) (11/10/24713 : Su Delatorre, SAYDA) Patient Reason For: to monitor the baby (11/10/24713 : Su Delatorre, SAYDA) NST Explanation: Procedure Explained, Monitor Explained, Verbalizes Understanding (11/10/24713 : Su Delatorre, SAYDA) Acoustic Stimulator: No (11/10/24713 : Su Delatorre, SAYDA) Interventions: Other (See Comment) (none) (11/10/24713 : Su Delatorre RN) MONITORING/ASSESSMENT: Baseline: 120 bpm (11/10/24656 : Su Delatorre RN) Variability: Moderate (6-25 bpm) (11/10/24656 : Su Delatorre RN) Accelerations: Present (11/10/24656 : Su Delatorre RN) Decelerations: Decelerations: None (11/10/24656 : Su Delatorre RN) Contractions: Not present (11/10/24656 : Su Delatorre RN) Frequency: Above information forwarded to Dr. Herrera (11/10/24713 : Su Delatorre RN) for final review and interpretation. SIGNATURE: Su Delatorre RN PATIENT NAME: Kathy Hester DATE: November 10, 2024 TIME: 7:20 AM PROVIDER INTERPRETATION: Reactive SIGNATURE: Ana Herrera MD DATE: November 10, 2024 TIME: 2:01 PM [facility] 11-10-2024 Note HNO ID: [id number] Author: ROSY RUSH MD Service: Maternal Medicine Author Type: Resident Type: Progress Notes Filed: 11/10/2024 10:59 Note Text: Attestation signed by Janis Gomez MD at 11/10/2024 2:56 PM Attending Note I evaluated the patient and personally participated in the doe components. I agree with the resident's findings and plan as documented and have discussed the case and management of the patient's care with the resident. Plan of care discussed with: Provider, RN, Patient. In summary, this is a 34 year old at 31w1d admitted for vaginal bleeding Denies any leakage of fluid, contractions, vaginal bleeding and +FM. No bleeding for one week, plan for discharge this week if continues to have no further bleeding. Plan for continued inpatient management. Signature: Janis Gomez MD Date: November 10, 2024 Time: 2:53 PM OBSTETRICS ANTEPARTUM PROGRESS NOTE SERVICE DATE: 11/10/2024 SERVICE TIME: 4:13 AM 34 year old EGA:31w1d admitted for vaginal bleeding. Plan of care discussed with: Provider, RN, Patient. Assessment AND Plan Vaginal bleeding in , third trimester (HCC) - SSE on admission 11/03 with 10 cc of dark, red organized blood clot in posterior vaginal vault; no active bleeding from cervical os - SVE unchanged from last admission at /-3 - Admission hgb and fibrinogen stable, low concern for DIC at this time - Patient reports intermittent pink discharge with wiping, no bleeding or spotting PLAN: - Monitor pad counts - Hold on repeat labs unless reporting more bleeding - Given reassuring and maternal status, anticipate discharge 11/12 Prematurity ([facility]) - Vertex - tracing reactive without contractions - S/p BMZ course 09/20-09/21; s/p rescue course on 10/19-10/20 - NST daily - HOLD magnesium for neuroprotection and Ancef for GBS prophylaxis given low concern for imminent delivery at this time Subjective : No current vaginal bleeding, No current leaking of fluid, No contractions, Good movement, No shortness of breath or chest pain, and No calf tenderness Objective : LAST VITALS: Pulse BP Resp O2 Sat Temp Pain 84 124/79 16 97 % 36.6 ?C (97.8 ?F) 3 PHYSICAL EXAM: Deferred MONITORING/ASSESSMENT: NST overnight category I - see documentation LABS Diagnostic tests reviewed for today's visit: Most recent labs and imaging results. SIGNATURE: Rosy Rush MD PATIENT NAME: Kathy Hester DATE: November 10, 2024 TIME: 4:13 AM [facility] 11-09-2024 Note HNO ID: [id number] Author: AURY LÓPEZ MD Service: Obstetrics Author Type: Resident Type: Progress Notes Filed: 11/09/2024 23:26 Note Text: Pt was feeling intermittent tightening in her back. Placed on the monitor for 20 min. [id number]/moderate/+accels/no decelerations. Contraction x1. Aury López MD OBGYN PGY-4 Pager #[phone] November 09, 2024 11:25 PM [facility] 11-09-2024 Note HNO ID: [id number] Author: JOE OSORIO MD Service: Maternal Medicine Author Type: Resident Type: Progress Notes Filed: 11/09/2024 16:26 Note Text: Attestation signed by Joe Osorio MD at 11/09/2024 4:26 PM Attending Attestation I evaluated the patient and personally participated in the doe components. I agree with the resident's findings and plan as documented and have discussed the case and management of the patient's care with the resident. I have reviewed and edited the above note to reflect our collaborative assessment and recommendations. 34yo at 31w0d admitted with vaginal bleeding. No new vaginal bleeding overnight. Maternal and status reassuring. Discussed possible discharge this week. Joe Osorio MD November 09, 2024 4:25 PM OBSTETRICS ANTEPARTUM PROGRESS NOTE SERVICE DATE: 11/09/2024 SERVICE TIME: 10:17 AM 34 year old EGA:31w0d admitted 5/11 and 10/19 with threatened labor, now admitted 11/03 for unexplained vaginal bleeding in 3rd trimester. Plan of care discussed with: Provider, RN, Patient. Assessment AND Plan Vaginal bleeding in , third trimester (HCC) - SSE on admission 11/03 with 10 cc of dark, red organized blood clot in posterior vaginal vault; no active bleeding from cervical os - SVE unchanged from last admission at /-3 - Admission hgb and fibrinogen stable, low concern for DIC at this time - Patient reports pink discharge with wiping, no bleeding or spotting PLAN: - Monitor pad counts - Hold on repeat labs unless reporting more bleeding - Given reassuring and maternal status, anticipate discharge 11/12 Prematurity ([facility]) - Vertex - tracing reactive without contractions - S/p BMZ course 09/20-09/21; s/p rescue course on 10/19-10/20 - NST daily - HOLD magnesium for neuroprotection and Ancef for GBS prophylaxis given low concern for imminent delivery at this time Subjective : No current vaginal bleeding, No current leaking of fluid, No contractions, Good movement, No shortness of breath or chest pain, and No calf tenderness Objective : LAST VITALS: Pulse BP Resp O2 Sat Temp Pain 93 101/70 17 97 % 36.4 ?C (97.5 ?F) 0 PHYSICAL EXAM: General: WD, WN, NAD, comfortable Heart: RR Lungs: normal pulmonary exam Abdomen: soft, nontender, gravid MONITORING/ASSESSMENT: testing reassuring - see additional documentation LABS Diagnostic tests reviewed for today's visit: Most recent labs and imaging results. SIGNATURE: Desmond Hughes DO PATIENT NAME: Kathy Hester DATE: November 09, 2024 TIME: 10:17 AM [facility] 11-09-2024 Note HNO ID: [id number] Author: ERASTO PERAZA DO Service: Nursing Author Type: Physician Type: Procedures Filed: 11/09/2024 06:17 Note Text: OBSTETRICS NST SUMMARY SERVICE DATE: November 09, 2024 The patient is a 34 year old female, , who is at 31w0d with an GASPER of 01/11/2025, by Ultrasound dating method. NST OBJECTIVE FINDINGS PER NURSE: Start Time: 528 (11/09/24 0550 : Dulce Mcgowan RN) Complete Time: 549 (11/09/24 0550 : Dulce Mcgowan RN) Indications: Other: Comment (vag bleed) (11/09/24 0550 : Dulce Mcgowan, SAYDA) Patient Reason For: monitor baby (11/09/24 0550 : Ducle Mcgowan, SAYDA) NST Explanation: Procedure Explained, Monitor Explained, Verbalizes Understanding (11/09/24 0550 : Dulce Mcgowan RN) Acoustic Stimulator: No (11/09/24 0550 : Dulce Mcgowan RN) Interventions: MONITORING/ASSESSMENT: Baseline: 130 bpm (11/09/24 0550 : Dulce Mcgowan RN) Variability: Moderate (6-25 bpm) (11/09/24 0550 : Dulce Mcgowan RN) Accelerations: Present (11/09/24 0550 : Dulce Mcgowan RN) Decelerations: Decelerations: None (11/09/24 0550 : Dulce Mcgowan, SAYDA) Contractions: Not present (11/09/24 0550 : Dulce Mcgowan RN) Frequency: Above information forwarded to Vin (11/09/24 0550 : Dulce Mcgowan RN) for final review and interpretation. PROVIDER INTERPRETATION: Reactive SIGNATURE: Erasto Peraza DO DATE: November 09, 2024 TIME: 6:17 AM SIGNATURE: Dulce Mcgowan RN PATIENT NAME: Kathy Hester DATE: November 09, 2024 TIME: 5:52 AM [facility] 11-08-2024 Note HNO ID: [id number] Author: MIGUEL CACERES MD Service: Maternal Medicine Author Type: Resident Type: Progress Notes Filed: 11/08/2024 16:50 Note Text: Attestation signed by Miguel Caceres MD at 11/08/2024 4:50 PM Attending Note I evaluated the patient and personally participated in the doe components. I agree with the resident's findings and plan as documented and have discussed the case and management of the patient's care with the resident. Admitted for bleeding - 3rd time. Today had some brown spotting. Denies cramping. Otherwise stable. BP 127/64 Pulse 84 Temp 36.4 ?C (97.5 ?F) (Temporal) Resp 17 Ht 170.2 cm (5' 7) Wt 91.2 kg (201 lb) LMP 03/25/2024 (Exact Date) SpO2 97% BMI 31.48 kg/m? Ms. Kathy Hester would like to stay inpatient 34w and then would like to be transferred to [place] for further inpatient stay until delivery. Signature: Miguel Caceres MD Date: 11/08/2024 Time: 4:47 PM MATERNAL MEDICINE ANTEPARTUM PROGRESS NOTE SERVICE DATE: 11/08/2024 SERVICE TIME: 1:05 PM 34 year old EGA:30w6d admitted 09/20 and 10/19 with threatened labor, now admitted 11/03 for unexplained vaginal bleeding in 3rd trimester. Plan of care discussed with: Provider, RN, Patient. Assessment AND Plan Vaginal bleeding in , third trimester (HCC) - SSE on admission 11/03 with 10 cc of dark, red organized blood clot in posterior vaginal vault; no active bleeding from cervical os - SVE unchanged from last admission at /-3 - Admission hgb and fibrinogen stable, low concern for DIC at this time - Patient reports persistent dark,brown bleeding with small clots and rare contractions - Given likely small, chronic placental abruption with third hospital admission, continue to observe inpatient until 34 weeks per patient request - Monitor pad counts - Hold on repeat labs unless reporting more bleeding Prematurity (HCC) - Vertex - tracing reactive without contractions - S/p BMZ course 09/20-09/21; s/p rescue course on 10/19-10/20 - NST daily - HOLD magnesium for neuroprotection and Ancef for GBS prophylaxis given low concern for imminent delivery at this time Subjective : Reports continued scant, brown spotting. No current leaking of fluid, No contractions, Good movement, No shortness of breath or chest pain, and No calf tenderness Objective : LAST VITALS: Pulse BP Resp O2 Sat Temp Pain 84 127/64 17 97 % 36.4 ?C (97.5 ?F) 0 PHYSICAL EXAM: General: WD, WN, NAD, comfortable Heart: RR Lungs: normal pulmonary exam Abdomen: soft, nontender, gravid MONITORING/ASSESSMENT: testing reassuring - see additional documentation LABS Diagnostic tests reviewed for today's visit: Most recent labs and imaging results. SIGNATURE: Desmond Hughes DO PATIENT NAME: Kathy Hester DATE: November 08, 2024 TIME: 1:05 PM [facility] 11-08-2024 Note HNO ID: [id number] Author: YAKELIN OSUNA RN Service: Nursing Author Type: Registered Nurse Type: Procedures Filed: 11/08/2024 10:45 Note Text: Attestation signed by Sonia Sousa MD at 11/08/2024 11:24 AM PROVIDER INTERPRETATION: Reactive SIGNATURE: Sonia Suosa MD DATE: November 08, 2024 TIME: 11:24 AM OBSTETRICS NST SUMMARY SERVICE DATE: November 08, 2024 The patient is a 34 year old female, , who is at 30w6d with an GASPER of 01/11/2025, by Ultrasound dating method. NST OBJECTIVE FINDINGS PER NURSE: Start Time: 09 (11/08/24 1030 : Yakelin Osuna RN) Complete Time: 1030 (11/08/24 1030 : Yakelin Osuna RN) Indications: Other: Comment (vaginal bleedng) (11/08/24 1030 : Yakelin Osuna, SAYDA) Patient Reason For: monitor (11/08/24 1030 : Yakelin Osuna RN) NST Explanation: Procedure Explained, Verbalizes Understanding, Monitor Explained (11/08/24 1030 : Yakelin Osuna RN) Acoustic Stimulator: No (11/08/24 1030 : Yakelin Osuna RN) Interventions: Other (See Comment) (none) (11/08/24 1030 : Yakelin Osuna RN) MONITORING/ASSESSMENT: Baseline: 130 bpm (11/08/24 1030 : Yakelin Osuna RN) Variability: Moderate (6-25 bpm) (11/08/24 1030 : Yakelin Osuna RN) Accelerations: Present (11/08/24 1030 : Yakeiln Osuna RN) Decelerations: Decelerations: None (11/08/24 1030 : Yakelin Osuna RN) Contractions: Not present (11/08/24 1030 : Yakelin Osuna RN) Frequency: Above information forwarded to Dr. Sousa (11/08/24 1030 : Yakelin Osuna RN) for final review and interpretation. SIGNATURE: Yakelin Osuna RN PATIENT NAME: Kathy Hester DATE: November 08, 2024 TIME: 10:45 AM [facility] 11-07-2024 Note HNO ID: [id number] Author: MIGUEL CACERES MD Service: Maternal Medicine Author Type: Resident Type: Progress Notes Filed: 11/07/2024 14:18 Note Text: Attestation signed by Miguel Caceres MD at 11/07/2024 2:18 PM Attending Note I evaluated the patient and personally participated in the doe components. I agree with the resident's findings and plan as documented and have discussed the case and management of the patient's care with the resident. Admitted for multiple bouts of bleeding. Stable overnight. Had some reddish brown spotting. No other physical complaints. Will continue to monitor as planned BP 125/61 Pulse 93 Temp 36.4 ?C (97.5 ?F) Resp 16 Ht 170.2 cm (5' 7) Wt 91.2 kg (201 lb) LMP 03/25/2024 (Exact Date) SpO2 93% BMI 31.48 kg/m? Signature: Miguel Caceres MD Date: 11/07/2024 Time: 2:17 PM OBSTETRICS ANTEPARTUM PROGRESS NOTE SERVICE DATE: 11/07/2024 SERVICE TIME: 1:15 PM 34 year old EGA:30w5d admitted 09/20 and 10/19 with threatened labor, now admitted 11/03 for unexplained vaginal bleeding in 3rd trimester. Plan of care discussed with: Provider, RN, Patient. Assessment AND Plan Vaginal bleeding in , third trimester (HCC) - SSE on admission 11/03 with 10 cc of dark, red organized blood clot in posterior vaginal vault; no active bleeding from cervical os - SVE unchanged from last admission at /-3 - Admission hgb and fibrinogen stable, low concern for DIC at this time - Patient reports persistent dark,brown bleeding with small clots and rare contractions - Given likely small, chronic placental abruption with third hospital admission, continue to observe inpatient for at least one week without bleeding vs until delivery - Monitor pad counts - Hold on repeat labs unless reporting more bleeding Prematurity (HCC) - Vertex - tracing reactive without contractions - S/p BMZ course 09/20-09/21; s/p rescue course on 10/19-10/20 - NST daily - HOLD magnesium for neuroprotection and Ancef for GBS prophylaxis given low concern for imminent delivery at this time Subjective : Kathy is resting in bed comfortably today. She states that she has only noticed a small amount of red-brown spotting while wiping this morning. No bright red active bleeding. Discussed for significant period of time plan of care for continued inpatient admission. Patient would feel very uncomfortable being discharged home prior to 34 weeks. Discussed plan to continue conversation with managing team on Saturday. No current leaking of fluid, No contractions, Good movement, No shortness of breath or chest pain, and No calf tenderness Objective : LAST VITALS: Pulse BP Resp O2 Sat Temp Pain 93 125/61 16 93 % 36.4 ?C (97.5 ?F) 0 PHYSICAL EXAM: General: WD, WN, NAD, comfortable Heart: RR Lungs: normal pulmonary exam Abdomen: soft, nontender, gravid MONITORING/ASSESSMENT: testing reassuring - see additional documentation LABS Diagnostic tests reviewed for today's visit: Most recent labs and imaging results. SIGNATURE: Marie Pete MD PATIENT NAME: Kathy Hester DATE: November 07, 2024 TIME: 10:31 AM [facility] 11-07-2024 Note HNO ID: [id number] Author: MAX CÁRDENAS MD Service: Nursing Author Type: Registered Nurse Type: Procedures Filed: 11/07/2024 18:12 Note Text: Attestation signed by Max Cárdenas MD at 11/07/2024 6:12 PM Attending Note I evaluated the NST. Reactive, category 1. Signature: Max Cárdenas MD Date: 11/07/24 Time: 6:12 PM OBSTETRICS NST SUMMARY SERVICE DATE: November 07, 2024 The patient is a 34 year old female, , who is at 30w5d with an GASPER of 01/11/2025, by Ultrasound dating method. NST OBJECTIVE FINDINGS PER NURSE: Start Time: 918 (11/07/24938 : Ileana Alas RN) Complete Time: 938 (11/07/24938 : Ileana Alas RN) Indications: Other: Comment (vb) (11/07/24938 : Ileana Alas RN) Patient Reason For: NST Explanation: Procedure Explained, Monitor Explained, Verbalizes Understanding (11/07/24938 : Ileana Alas RN) Acoustic Stimulator: Interventions: MONITORING/ASSESSMENT: Baseline: 130 bpm (11/07/24938 : Ileana Alas RN) Variability: Moderate (6-25 bpm) (11/07/24938 : Ileana Alas RN) Accelerations: Present (11/07/24938 : Ileana Alas RN) Decelerations: Decelerations: None (11/07/24938 : Ileana Alas RN) Contractions: Not present (11/07/24938 : Ileana Alas RN) Frequency: Above information forwarded to wil (11/07/24938 : Ileana Alas RN) for final review and interpretation. SIGNATURE: Ileana Alas RN PATIENT NAME: Kathy Hester DATE: November 07, 2024 TIME: 9:55 AM [facility] 11-06-2024 Note HNO ID: [id number] Author: MARIANA BURKS MD Service: Maternal Medicine Author Type: Physician Type: Progress Notes Filed: 11/06/2024 09:42 Note Text: OBSTETRICS ANTEPARTUM PROGRESS NOTE SERVICE DATE: 11/06/2024 SERVICE TIME: 9:39 AM 34 year old EGA:30w4d admitted 09/20 and 10/19 with threatened labor, now admitted 11/03 for unexplained vaginal bleeding in 3rd trimester Assessment AND Plan Vaginal bleeding in , third trimester (HCC) - Reactive NST without contractions - SSE on admission with 10 cc of dark, red organized blood clot in posterior vaginal vault; no active bleeding from cervical os - SVE unchanged from last admission at /-3 - Admission hgb and fibrinogen stable, low concern for DIC at this time - reports persistent dark,brown bleeding with small clots and rare contractions Plan: - Given likely small, chronic placental abruption with third hospital admission, continue to observe inpatient for at least a few weeks and possibly until delivery - Monitor pad counts - Hold on repeat labs unless reporting more bleeding Prematurity (HCC) - Vertex - tracing reactive without contractions - S/p BMZ course 09/20-09/21; s/p rescue course on 10/19-10/20 - NST daily - HOLD magnesium for neuroprotection and Ancef for GBS prophylaxis given low concern for imminent delivery at this time 30 weeks gestation of (HCC) Subjective : No current leaking of fluid, Good movement, No shortness of breath or chest pain, No calf tenderness, and having some old brown blood and a few small clots on the toilet paper in the past day. One painful contraction. Objective : LAST VITALS: BP 117/64 Pulse 88 Temp 36.1 ?C (97 ?F) (Temporal) Resp 17 Ht 170.2 cm (5' 7) Wt 91.2 kg (201 lb) LMP 03/25/2024 (Exact Date) SpO2 98% BMI 31.48 kg/m? Patient Vitals for the past 24 hrs: BP 11/06/24 0740 117/64 11/05/24 2109 123/58 11/05/24 1430 122/63 PHYSICAL EXAM: HEAD AND NECK: Neck supple. CHEST: Normal inspiratory effort ABDOMEN: Soft without tenderness, guarding, or organomegaly. Gravid. EXTREMITIES: Non-tender, non-erythematous, symmetrical SKIN: No rashes or suspicious skin lesions noted. MONITORING/ASSESSMENT: testing reassuring - see additional documentation LABS Diagnostic tests reviewed for today's visit: Most recent labs and imaging results. SIGNATURE: Dr. Mariana Burks MD PATIENT NAME: Kathy Hester DATE: November 06, 2024 TIME: 9:42 AM PAGER/CONTACT #: [phone] [facility] [facility] 11[facility]2024 Note HNO ID: [id number] Author: MARIANA BURKS MD Service: Maternal Medicine Author Type: Registered Nurse Type: Procedures Filed: 11/06/2024 09:24 Note Text: Attestation signed by Mariana Burks MD at 11/06/2024 9:24 AM Attending Note I have personally reviewed the Non-Stress Test and agree with the documented interpretation. Reactive NST. Signature: Dr. Mariana Burks MD Date: 11/06/2024 Time: 9:24 AM OBSTETRICS NST SUMMARY SERVICE DATE: November 06, 2024 The patient is a 34 year old female, , who is at 30w4d with an GASPER of 01/11/2025, by Ultrasound dating method. NST OBJECTIVE FINDINGS PER NURSE: Start Time: 823 (11/06/2449 : Saida Carter, RN) Complete Time: 848 (11/06/2449 : [place], Saida M, RN) Indications: Other: Comment (vag bleed) (11/06/24 0849 : Saida Carter, RN) Patient Reason For: monitor baby (11/06/24 0849 : Saida Carter, RN) NST Explanation: Procedure Explained, Monitor Explained, Verbalizes Understanding (11/06/24 0849 : Saida Carter, RN) Acoustic Stimulator: Interventions: MONITORING/ASSESSMENT: Baseline: 135 bpm (ok per dr burks to d/c monitoring) (11/06/24 0849 : Saida Carter, RN) Variability: Moderate (6-25 bpm) (11/06/24 0849 : Saida Carter, RN) Accelerations: Present (11/06/2449 : Saida Carter, RN) Decelerations: Decelerations: None (11/06/2449 : Saida Carter, SAYDA) Contractions: Not present (11/06/2449 : Saida Carter, SAYDA) Frequency: Above information forwarded to Dr. Burks (11/06/2449 : Saida Carter, RN) for final review and interpretation. SIGNATURE: Saida Carter RN PATIENT NAME: Kathy Hester DATE: November 06, 2024 TIME: 8:56 AM [facility] 11-05-2024 Note HNO ID: [id number] Author: MARIANA BURKS MD Service: Nursing Author Type: Registered Nurse Type: Procedures Filed: 11/05/2024 10:07 Note Text: Attestation signed by Mariana Burks MD at 11/05/2024 10:07 AM Attending Note I have personally reviewed the Non-Stress Test and agree with the documented interpretation. Reactive NST. Signature: Dr. Mariana Burks MD Date: 11/05/2024 Time: 10:07 AM OBSTETRICS NST SUMMARY SERVICE DATE: November 05, 2024 The patient is a 34 year old female, , who is at 30w3d with an GASPER of 01/11/2025, by Ultrasound dating method. NST OBJECTIVE FINDINGS PER NURSE: Start Time: 917 (11/05/24937 : Yakelin Osuna RN) Complete Time: 937 Indications: Other: Comment (VB) (11/05/24937 : Yakelin Osuna, SAYDA) Patient Reason For: monitor NST Explanation: Procedure Explained, Monitor Explained, Verbalizes Understanding (11/05/24937 : Yakelin Osuna RN) Acoustic Stimulator: No (11/05/24937 : Yakelin Osuna RN) Interventions: (none) (11/05/24937 : Yakelin Osuna RN) MONITORING/ASSESSMENT: Baseline: 130 bpm (11/05/24937 : Yakelin Osuna RN) Variability: Moderate (6-25 bpm) (11/05/24937 : Yakelin Osuna, SAYDA) Accelerations: Present (11/05/24937 : Yakelin Osuna RN) Decelerations: Decelerations: None (11/05/24937 : Yakelin Osuna, SAYDA) Contractions: Not present (11/05/24937 : Yakelin Osuna, SAYDA) Frequency: Above information forwarded to Dr. Burks (11/05/24937 : Yakelin Osuna RN) for final review and interpretation. SIGNATURE: Yakelin Osuna RN PATIENT NAME: Kathy Hester DATE: November 05, 2024 TIME: 10:00 AM [facility] 11-05-2024 Note HNO ID: [id number] Author: MARIANA BURKS MD Service: Maternal Medicine Author Type: Resident Type: Progress Notes Filed: 11/05/2024 10:23 Note Text: Attestation signed by Mariana Burks MD at 11/05/2024 10:23 AM Attending Note I evaluated the patient and personally participated in the doe components. I agree with the resident's findings and plan as documented and have discussed the case and management of the patient's care with the resident. Discussed half-way plan with patient today. Given third admission for bleeding/abruption/ labor and distance from hospital, will plan for likely admission until delivery vs at least a week of monitoring with no bleeding before discussing discharge home. Signature: Dr. Mariana Burks MD Date: November 05, 2024 Time: 10:22 AM OBSTETRICS ANTEPARTUM PROGRESS NOTE SERVICE DATE: 11/05/2024 SERVICE TIME: 5:59 AM 34 year old EGA:30w3d admitted 09/20 and 10/19 with threatened labor, now admitted 11/03 for unexplained vaginal bleeding in 3rd trimester Assessment AND Plan Vaginal bleeding in , third trimester (HCC) - Reactive NST without contractions - SSE with 10 cc of dark, red organized blood clot in posterior vaginal vault; no active bleeding from cervical os - SVE unchanged from last admission at 3/-3 - Admission hgb and fibrinogen stable, low concern for DIC at this time - reports persistent dark, brown bleeding but decrease in amount from yesterday and no contractions Plan: - Given likely small, chronic placental abruption in setting of stable clinical status and reassuring tracing, continue to observe for atleast 48-72 hours - Monitor pad counts - Hold on repeat labs unless reporting more bleeding Prematurity (HCC) - Vertex - tracing reactive without contractions - S/p BMZ course 09/20-09/21; s/p rescue course on 10/19-10/20 - NST daily - HOLD magnesium for neuroprotection and Ancef for GBS prophylaxis given low concern for imminent delivery at this time 30 weeks gestation of (HCC) Subjective : No current vaginal bleeding, No current leaking of fluid, No contractions, Good movement, No shortness of breath or chest pain, and No calf tenderness Objective : LAST VITALS: Pulse BP Resp O2 Sat Temp Pain 81 112/56 16 96 % 36.8 ?C (98.2 ?F) 0 PHYSICAL EXAM: HEAD AND NECK: Neck supple. CHEST: Normal inspiratory effort HEART: Regular rate and rhythm. ABDOMEN: Soft without tenderness, guarding, or organomegaly. Gravid. EXTREMITIES: Non-tender, non-erythematous, symmetrical SKIN: No rashes or suspicious skin lesions noted. MONITORING/ASSESSMENT: testing reassuring - see additional documentation LABS Diagnostic tests reviewed for today's visit: Most recent labs and imaging results. SIGNATURE: Desmond Hughes DO PATIENT NAME: Kathy Hester DATE: November 05, 2024 TIME: 5:59 AM [facility] 11-04-2024 Note HNO ID: [id number] Author: MARIANA BURKS MD Service: Nursing Author Type: Registered Nurse Type: Procedures Filed: 11/04/2024 10:12 Note Text: Attestation signed by Mariana Burks MD at 11/04/2024 10:12 AM Attending Note I have personally reviewed the Non-Stress Test and agree with the documented interpretation. Reactive NST. Signature: Dr. Mariana Burks MD Date: 11/04/2024 Time: 10:12 AM OBSTETRICS NST SUMMARY SERVICE DATE: November 04, 2024 The patient is a 34 year old female, , who is at 30w2d with an GASPER of 01/11/2025, by Ultrasound dating method. NST OBJECTIVE FINDINGS PER NURSE: Start Time: 935 (11/04/24 09 : Sis Morgan RN) Complete Time: 1002 (11/04/24 : Sis Morgan, SAYDA) Indications: Other: Comment (vaginal bleeding) (11/04/24 : Sis Morgan, RN) Patient Reason For: wellbeing (11/04/24 : Sis Morgan, RN) NST Explanation: Procedure Explained, Monitor Explained, Verbalizes Understanding (11/04/24 : Sis Morgan, RN) Acoustic Stimulator: Interventions: MONITORING/ASSESSMENT: Baseline: 135 bpm (11/04/24 : Sis Morgan, RN) Variability: Moderate (6-25 bpm) (11/04/24 : Sis Morgan, RN) Accelerations: Present (11/04/24 : Sis Morgan, RN) Decelerations: Decelerations: None (11/04/24 : iSs Morgan, RN) Contractions: Not present (11/04/24 : Sis Morgan, RN) Frequency: Above information forwarded to July (11/04/24 : Sis Morgan, RN) for final review and interpretation. SIGNATURE: Sis Morgan RN PATIENT NAME: Kathy Hester DATE: November 04, 2024 TIME: 10:04 AM [facility] 11-04-2024 Note HNO ID: [id number] Author: MARIANA BURKS MD Service: Maternal Medicine Author Type: Resident Type: Progress Notes Filed: 11/04/2024 12:21 Note Text: Attestation signed by Mariana Burks MD at 11/04/2024 12:21 PM Attending Note I evaluated the patient and personally participated in the doe components. I agree with the resident's findings and plan as documented and have discussed the case and management of the patient's care with the resident. This is the patient's third admission. She was admitted at 24 weeks with PTL and vaginal bleeding and again at 29 weeks for PTL and had old brown blood but not active bleeding during that admission. She is now admitted with vaginal bleeding but not PTL. She likely has a small placental abruption causing her continued intermittent bleeding. She lives >30 minutes from the hospital. Will plan to monitor inpatient for at least 48-72 hours with no bleeding and consider d/c home vs continued admission depending on her clinical course and symptoms. Abruption is difficult to predict and can worsen acutely causing both maternal and harm. If bleeding continues, will consider admission until delivery. Signature: Dr. Mariana Burks MD Date: November 04, 2024 Time: 12:18 PM OBSTETRICS ANTEPARTUM PROGRESS NOTE SERVICE DATE: 11/04/2024 SERVICE TIME: 6:21 AM 34 year old EGA:30w2d admitted 09/20 and 10/19 with threatened labor, now admitted 11/03 for unexplained vaginal bleeding in 3rd trimester Assessment AND Plan Vaginal bleeding in , third trimester (HCC) - Reactive NST without contractions - SSE with 10 cc of dark, red organized blood clot in posterior vaginal vault; no active bleeding from cervical os - SVE unchanged from last admission at 3/-3 - Admission hgb and fibrinogen stable, low concern for DIC at this time - reports persistent dark, brown bleeding but decrease in amount from yesterday and no contractions Plan: - Give stable clinical status and reassuring tracing, anticipate discharge today - Monitor pad counts - Hold on repeat labs unless reporting more bleeding Prematurity (HCC) - Vertex - tracing reactive without contractions - S/p BMZ course 09/20-09/21; s/p rescue course on 10/19-10/20 - NST daily - HOLD magnesium for neuroprotection and Ancef for GBS prophylaxis given low concern for imminent delivery at this time Subjective : Reporting less bleeding than on presentation, now spotting. No current leaking of fluid, No contractions, Good movement, No shortness of breath or chest pain, and No calf tenderness Objective : LAST VITALS: Pulse BP Resp O2 Sat Temp Pain 69 113/53 16 97 % 36.5 ?C (97.7 ?F) 0 PHYSICAL EXAM: HEAD AND NECK: Neck supple. CHEST: Normal inspiratory effort HEART: Regular rate and rhythm. ABDOMEN: Soft without tenderness, guarding, or organomegaly. Gravid. EXTREMITIES: Non-tender, non-erythematous, symmetrical SKIN: No rashes or suspicious skin lesions noted. MONITORING/ASSESSMENT: testing reassuring - see additional documentation LABS Diagnostic tests reviewed for today's visit: Most recent labs and imaging results. SIGNATURE: Desmond Hughes DO PATIENT NAME: Kathy Hester DATE: November 04, 2024 TIME: 6:20 AM ADDENDUM After discussion with patient during morning rounds, patient requesting to stay for 48-72 hours for continued observation. Desmond Hughes DO 9:54 AM [facility] 11-03-2024 Telephone encounter Note Noted Priya Workman MD [facility] Work Phone: 11-03-2024 Miscellaneous Notes Noted Priya Workman MD 30w1d Patient called the office stating that she began bleeding and passing large blood clots. Unable to describe how large. States that she called for a squad and hoping that they will take her to [place]. Patient wanted to let our office know. She is home with her , mother, and child. Did not attempt to ask further questions regarding her bleeding as patient was crying on the phone and the squad was on it's way. Natasha Chandler, RN documented in this encounter [facility] 11-03-2024 Note HNO ID: [id number] Author: ANA HERRERA MD Service: Obstetrics Author Type: Resident Type: Progress Notes Filed: 11/04/2024 15:41 Note Text: Attestation signed by Ana Herrera MD at 11/04/2024 3:41 PM OB ED Attending Note Attending Note Delayed entry - I personally saw/examined the patient on 11/03/24. I evaluated the patient and personally participated in the doe components. I agree with the resident's findings and plan as documented and have discussed the case and management of the patient's care with the resident. Signature: Ana Herrera MD Date: 11/04/2024 Time: 3:40 PM OBSTETRICS OB ED PROGRESS NOTE SERVICE DATE: November 03, 2024 SERVICE TIME: 3:26 PM Subjective Patient's stated reason for arrival: bright red bleeding CHIEF COMPLAINT: vaginal bleeding HISTORY OF THE PRESENT ILLNESS: The patient is a 34 year old female, , who is at 30w1d with an GASPER of 01/11/2025, by Ultrasound dating method. Patient is here complaining of increased vaginal bleeding since this morning. She had one episode of bright red blood this morning. She had nickel-sized clots.She is very concerned she is making further cervical change. She endorses back pain but no contractions. Good movement. Denies leaking of fluid. Denies headache, visual changes, RUQ pain, chest pain, shortness of breath, worsening edema, fevers, chills, nausea, vomiting. Of note, patient was admitted to Maternal Medicine service from 10/19 to 10/26 for threatened labor. Her SVE of 360/-3 remained unchanged during that admission. She received a course of rescue steroids (10/19-). PAST MEDICAL HISTORY Diagnosis Date Gallstones Pham's disease Symptomatic cholelithiasis 12/04/2015 UTI (urinary tract infection) PAST SURGICAL HISTORY Procedure Laterality Date APPENDECTOMY HX 6 yo CHOLECYSTECTOMY HX 12/12/2015 FAMILY HISTORY Problem Relation Age of Onset Breast Cancer Mother Left Mastectomy other (thyroid issues) Mother Stroke Father TIA Asthma Father Asthma Sister other (Endometriosis) Sister Breast Cancer Maternal Grandmother Macular Degen Maternal Grandfather Diabetes Paternal Grandmother Type 2 Heart disease Paternal Grandfather Dementia Paternal Grandfather Heart Attack Paternal Uncle OB History Gravida2 Para1 Term1 Preterm0 AB0 Living1 SAB0 IAB0 Ectopic0 Multiple0 Live Births1 REVIEW OF SYSTEMS: The remainder of the review of systems is negative. Objective LAST VITALS: Pulse: 83 BP: 129/56 Resp: 16 Temp: 36.2 ?C (97.2 ?F) SpO2: 96 % Height: 170.2 cm (5' 7) Weight: 91.2 kg (201 lb) BMI: 31.48 SENSITIVE EXAMINATION CONSENT: Participation of a fellow, resident, medical student, or advanced practice provider student in performing the sensitive examination was discussed with the patient or authorized sales representative. The patient or authorized sales representative has agreed to proceed with the sensitive examination. PHYSICAL EXAM: HEAD AND NECK: Neck supple. CHEST: Normal inspiratory effort HEART: Regular rate and rhythm. ABDOMEN: Soft without tenderness, guarding, or organomegaly. Gravid. EXTREMITIES: Non-tender, non-erythematous, symmetrical SKIN: No rashes or suspicious skin lesions noted. PELVIC EXAM: External genitalia normal, well-estrogenized vaginal epithelium is normal discharge present, no lesions noted on vulva, vagina, or cervix. 10 cc dark, red clot in posterior vaginal vault CERVICAL EXAM: Dilation: 3 (11/03/24 1525 : Desmond Hughes, DO) Station: -3 (11/03/24 1525 : Desmond Hughes, DO) Effacement (%): 60 (11/03/24 1525 : Desmond Hughes, DO) MONITORING/ASSESSMENT: Baseline: 120 bpm Variability:Moderate Accelerations:Present Decelerations:None Contractions: None (one contraction @ 1521 on tracing occurring during SVE) Frequency:None Interpretation: Reactive LABS Diagnostic tests reviewed for today's visit: Most recent labs and imaging results. 34 year old EGA:30w1d. Vaginal bleeding in third trimester Assessment AND Plan Vaginal bleeding in , third trimester (HCC) - increased vaginal bleeding with low back pain that started this morning - recent admission 10/19-10/26 for vaginal bleeding - SVE at that time /-3 - Vitals within normal limits - Reactive NST without contractions - SSE with 10 cc of dark, red organized blood clot in posterior vaginal vault; no active bleeding from cervical os - SVE unchanged at 60/-3 Plan: - Due to a change in her bleeding since last admission, admit to [facility] service for continued observation for vaginal bleeding - ANCS not indicated; last rescue course steroids on (10/19-10/20) - HOLD on magnesium for neuroprotection and Ancef for GBS prophylaxis (more content not included)... [facility] 11-03-2024 Telephone encounter Note 30w1d Patient called the office stating that she began bleeding and passing large blood clots. Unable to describe how large. States that she called for a squad and hoping that they will take her to [place]. Patient wanted to let our office know. She is home with her , mother, and child. Did not attempt to ask further questions regarding her bleeding as patient was crying on the phone and the squad was on it's way. Natasha Chandler, RN [facility] 10-30-2024 Progress note Formatting of t his note might be different from the original. S: Kathy Hester is a 34 year old female who presents at 01/11/2025, by Ultrasound for a routine visit. Denies headache, visual changes, chest pain, shortness of breath, vaginal bleeding, leakage of fluid, or dysuria. Feeling well, no complaints. Good movement, No contractions O: See flow sheet Gen: No apparent distress Abd: Gravid, nontender Has been to L&D in [place] 3 times. Last check was 3 cm. Has received BMZ and magnesium. Is on pelvic rest Wants a tubal Declined LARC Already had TDAP 10/22/24 ASSESSMENT/PLAN: 1. 29 weeks gestation of ([facility]) - ICD9: V22.2, ICD10: Z3A.29 (primary diagnosis) 2. AMA (advanced maternal age) multigravida 35+, second trimester ([facility]) - ICD9: 659.63, ICD10: O09.522 3. Supervision of high risk in second trimester ([facility]) - ICD9: V23.9, ICD10: O09.92 4. 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 Denies headache, visual changes, chest pain, shortness of breath, vaginal bleeding, leakage of fluid, or dysuria. Feeling well, no complaints. Good movement, No contractions O: See flow sheet Gen: No apparent distress Abd: Gravid, nontender Has been to L&D in [place] 3 times. Last check was 3 cm. Has received BMZ and magnesium. Is on pelvic rest Wants a tubal Declined LARC Already had TDAP 10/22/24 ASSESSMENT/PLAN: 1. 29 weeks gestation of (HCC) - ICD9: V22.2, ICD10: Z3A.29 (primary diagnosis) 2. AMA (advanced maternal age) multigravida 35+, second trimester (HCC) - ICD9: 659.63, ICD10: O09.522 3. Supervision of high risk in second trimester ([facility]) - ICD9: V23.9, ICD10: O09.92 4. 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 The sequential screen combines ultrasound and blood tests to determine the risk of chromosomal abnormalities, including Down's Syndrome (Trisomy 21) and Trisomy 18, as well as open neural tube defects including spina bifida. Ultrasound examination is performed between 11 weeks and 13 weeks gestational age. Blood tests are drawn after the ultrasound and again later in the between 15 and 21 weeks gestational age. Please let your physician know if you are interested in this testing. It will require an appointment with our plastic eye technician. This is not an ultrasound performed by a physician in our office during a routine visit. SIGNS AND SYMPTOMS OF LABOR 1. Contractions every 10 minutes or more often 2. Clear, pink, or brownish fluid (water) leaking from vagina 3. Feeling that baby is pushing down, pressure 4. Low, dull backache 5. Cramps that feel like a period 6. Cramps with or without diarrhea If you notice any of the above symptoms, contact our office at [phone] and ask to speak with a nurse. After hours, you can call doctors registry at [phone] OR call [facility] at [phone] and ask to have the doctor amortization clerk paged. If you consider this an emergency, dial 9-1-1 or go to your nearest emergency department. NEED HELP? Are you dealing with a violent or abusive relationship? Are you a victim of rape or sexual assult? Call [facility] 24 hour Crisis Hotline: 494.525.4216 or 473-885-4510. MANUAL Your Guide to a Healthy manual is now on-line. Visit [email or web address] to download your free copy documented in this encounter [facility] 10-28-2024 Note HNO ID: [id number] Author: MAX CÁRDENAS MD Service: Nursing Author Type: Registered Nurse Type: Procedures Filed: 10/30/2024 11:49 Note Text: Attestation signed by Max Cárdenas MD at 10/30/2024 11:49 AM Attending Note I evaluated the NST. Reactive, category 1. Signature: Max Cárdenas MD Date: 10/30/24 Time: 11:49 AM OBSTETRICS NST SUMMARY SERVICE DATE: October 28, 2024 The patient is a 34 year old female, , who is at 29w2d with an GASPER of 01/11/2025, by Ultrasound dating method. NST OBJECTIVE FINDINGS PER NURSE: Start Time: 1630 (10/28/24 1800 : Barb Anthony, RN) Complete Time: 1800 (10/28/24 1800 : Barb Anthony RN) Indications: Other: Comment (spotting) (10/28/24 1800 : Barb Anthony RN) Patient Reason For: monitor baby (10/28/24 1800 : Barb Anthony RN) NST Explanation: Procedure Explained (10/28/24 1800 : Barb Anthony RN) Acoustic Stimulator: No (10/28/24 1800 : Barb Anthony RN) Interventions: MONITORING/ASSESSMENT: Baseline: 140 bpm (10/28/24 1800 : Barb Anthony RN) Variability: Moderate (6-25 bpm) (10/28/24 1800 : Barb Anthony RN) Accelerations: Present (10/28/24 1800 : Barb Anthony RN) Decelerations: Decelerations: None (10/28/24 1800 : Barb Anthony RN) Contractions: Not present (10/28/24 1800 : Barb Anthony RN) Frequency: Above information forwarded to Dr Cárdenas (10/28/24 1800 : Barb Anthony RN) for final review and interpretation. SIGNATURE: Barb Anthony RN PATIENT NAME: Kathy Hester DATE: October 28, 2024 TIME: 6:06 PM [facility] 10-28-2024 Note HNO ID: [id number] Author: MAX CÁRDENAS MD Service: Obstetrics Author Type: Resident Type: Progress Notes Filed: 10/30/2024 11:50 Note Text: Attestation signed by Max Cárdenas MD at 10/30/2024 11:50 AM Attending Note I evaluated the patient and personally participated in the doe components. I agree with the resident's findings and plan as documented and have discussed the case and management of the patient's care with the resident. Plan of care discussed with: Provider, RN, Patient. Signature: Max Cárdenas MD Date: October 30, 2024 Time: 11:50 AM OBSTETRICS OB ED PROGRESS NOTE SERVICE DATE: October 28, 2024 SERVICE TIME: 6:01 PM Subjective Patient's stated reason for arrival: pink spotting CHIEF COMPLAINT: Vaginal bleeding HISTORY OF THE PRESENT ILLNESS: The patient is a 34 year old female, , who is at 29w2d with an GASPER of 01/11/2025, by Ultrasound dating method. Patient is here complaining of vaginal bleeding. Patient was admitted to the [facility] service from 10/19 to 10/26 for threatened labor. She initially presented with vaginal bleeding and was found to be 3 cm dilated. She received a full course of corticosteroids and was discharged home after not making further cervical change. The patient presented to the OB ED today for 2 episodes of pink spotting. She noticed the first episode after using the bathroom and wiping and later in the day, she noticed pink spotting on her pad. She became worried for further cervical change, so she came in for evaluation. She has not been having contractions or cramping and endorses good movement. Does note some round ligament pain that she is treating at home with Tylenol and a belly band. Otherwise has been feeling well, denies fever, chills, nausea, vomiting, chest pain, shortness of breath, headache, vision changes, right upper quadrant pain. Good movement. Denies contractions, leaking of fluid. PAST MEDICAL HISTORY Diagnosis Date Gallstones Pham's disease Symptomatic cholelithiasis 12/04/2015 UTI (urinary tract infection) PAST SURGICAL HISTORY Procedure Laterality Date APPENDECTOMY HX 6 yo CHOLECYSTECTOMY HX 12/12/2015 FAMILY HISTORY Problem Relation Age of Onset Breast Cancer Mother Left Mastectomy other (thyroid issues) Mother Stroke Father TIA Asthma Father Asthma Sister other (Endometriosis) Sister Breast Cancer Maternal Grandmother Macular Degen Maternal Grandfather Diabetes Paternal Grandmother Type 2 Heart disease Paternal Grandfather Dementia Paternal Grandfather Heart Attack Paternal Uncle OB History Gravida2 Para1 Term1 Preterm0 AB0 Living1 SAB0 IAB0 Ectopic0 Multiple0 Live Births1 REVIEW OF SYSTEMS: The remainder of the review of systems is negative. Objective LAST VITALS: Pulse: 84 BP: 120/74 Resp: 18 Temp: 36.4 ?C (97.5 ?F) SpO2: 95 % Height: 170.2 cm (5' 7) Weight: 91.4 kg (201 lb 8 oz) BMI: 31.56 SENSITIVE EXAMINATION CONSENT: Participation of a fellow, resident, medical student, or advanced practice provider student in performing the sensitive examination was discussed with the patient or authorized sales representative. The patient or authorized sales representative has agreed to proceed with the sensitive examination. PHYSICAL EXAM: General: WD, WN, NAD, comfortable Heart: RR Lungs: normal respiratory effort Abdomen: soft, nontender, gravid Uterus: soft, NT SSE: Normal appearing external genitalia and vaginal mucosa; dark brown discharge in the posterior vaginal vault, no bright red blood, no active bleeding from the cervical os CERVICAL EXAM: Dilation: 3 (10/28/248 : Yakelin Ventura DO) Station: -3 (10/28/241747 : Yakelin Ventura, ) Effacement (%): 60 (10/28/241747 : Yakelin Ventura DO) MONITORING/ASSESSMENT: Baseline: 135 bpm Variability: moderate Accelerations: present Decelerations: none Tocometer: no contractions NST reactive LABS Diagnostic tests reviewed for today's visit: Most recent labs and imaging results. 34 year old EGA:29w2d here for evaluation of vaginal bleeding in the setting of recent admission for tPTL s/p full course of ANCS Assessment AND Plan Vaginal bleeding during (HCC) - 2 episodes of pink spotting on her pad today, started after urinating, known to be 3cm dilated with previous bleeding - discharged on 10/26 after admission for tPTL, received full course of ACNS - reports round ligament pain, no contractions or cramping - treat with 1g tylenol - vitals WNL - NST reactive - no contractions on toco - SVE remains 3/-3 - discussed with patient that she is not progressing at this time; provided reassurance and emotional suppor (more content not included)... [facility] 10-28-2024 Telephone encounter Note Ob patient is 29w2d called stating that she began to have pinkish spotting today that she noticed when using the restroom and then noticed the pinkish colored blood on pad. Patient is c/o lower back discomfort that started this morning. Denies cramping. No c/o contractions. Patient was admitted to [facility] from 10/21 to 10/26 for pre-term labor. Was 3cm when admitted. Discussed with Jesus Crowder and patient instructed [facility]. [facility] 10-28-2024 Miscellaneous Notes Ob patient is 29w2d called stating that she began to have pinkish spotting today that she noticed when using the restroom and then noticed the pinkish colored blood on pad. Patient is c/o lower back discomfort that started this morning. Denies cramping. No c/o contractions. Patient was admitted to [facility] from 10/21 to 10/26 for pre-term labor. Was 3cm when admitted. Discussed with Jesus Crowder and patient instructed to go to [facility] for evaluation. documented in this encounter [facility] 10-26-2024 Note HNO ID: [id number] Author: MARIANA BURKS MD Service: Maternal Medicine Author Type: Registered Nurse Type: Procedures Filed: 10/26/2024 09:11 Note Text: Attestation signed by Mariana Burks MD at 10/26/2024 9:11 AM Attending Note I have personally reviewed the Non-Stress Test and agree with the documented interpretation. Reactive NST. Signature: Dr. Mariana Burks MD Date: 10/26/2024 Time: 9:11 AM OBSTETRICS NST SUMMARY SERVICE DATE: October 26, 2024 The patient is a 34 year old female, , who is at 29w0d with an GASPER of 01/11/2025, by Ultrasound dating method. NST OBJECTIVE FINDINGS PER NURSE: Start Time: 08 (10/26/24 08Blaine : Carlotta Beltran RN) Complete Time: 08 (10/26/24 08Blaine : Carlotta Beltarn RN) Indications: Labor (10/26/24 08Blaine : Carlotta Beltran RN) Patient Reason For: NST Explanation: Procedure Explained, Monitor Explained, Verbalizes Understanding (10/26/24 08Blaine : Carlotta Beltran RN) Acoustic Stimulator: Interventions: MONITORING/ASSESSMENT: Baseline: 140 bpm (10/26/24 Jared : Carlotta Beltran RN) Variability: Moderate (6-25 bpm) (10/26/24 08Blaine : Carlotta Beltran RN) Accelerations: Present (10/26/24 08Blaine : Carlotta Beltran RN) Decelerations: Decelerations: None (10/26/24 Jared : Carlotta Beltran RN) Contractions: Not present (10/26/24 08Blaine : Carlotta Beltran RN) Frequency: Above information forwarded to Angie (10/26/24 Jared : Carlotta Beltran RN) for final review and interpretation. SIGNATURE: Carlotta Beltran RN PATIENT NAME: Kathy Hester DATE: October 26, 2024 TIME: 8:59 AM [facility] 10-26-2024 Note HNO ID: [id number] Author: MARIANA BURKS MD Service: Maternal Medicine Author Type: Resident Type: Progress Notes Filed: 10/26/2024 09:53 Note Text: Attestation signed by Mariana Burks MD at 10/26/2024 9:53 AM Attending Note I evaluated the patient and personally participated in the doe components. I agree with the resident's findings and plan as documented and have discussed the case and management of the patient's care with the resident. I have performed the [id number] and relevant discharge services for a total of < 30 minutes. Stable with no evidence of active PTL, no active bleeding. Will plan for discharge home today with strict return precautions. Signature: Dr. Mariana Burks MD Date: October 26, 2024 Time: 9:53 AM OBSTETRICS ANTEPARTUM PROGRESS NOTE SERVICE DATE: 10/26/2024 SERVICE TIME: 6:00 AM 34 year old EGA:28w6d admitted for threatened labor and vaginal bleeding. Plan of care discussed with: Provider, RN, Patient. Assessment AND Plan Threatened labor, third trimester (HCC) - increased vaginal bleeding with low back pain and abdominal tightening that started at 1700 10/19 - now have subsided - recent admission 09/20-09/21 for vaginal bleeding, s/p course of BMZ, no explanation for bleeding, SVE at that time 0.5/30/-3 - vitals WNL - NST appropriate for gestational age - admission SSE with 4-6cc's bright red blood mixed with mucous, small amount of active bleeding from external os - SVE stable at 3/60/-3 Plan: - Continue inpatient admission to [facility] service / to advanced dilation at 28 weeks, remains stable at this time - NICU consult - s/p rescue BMZ x 2 10/19-10/20 - s/p mag x 12 hours - s/p Ancef for GBS prophylaxis - re-escalate PCN, mag if concern for imminent delivery - epidural on request - NST daily - Regular diet - 10/20: Growth US 28w1d 1232 g 49%, AC 38%, 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 Prematurity (HCC) - vertex - reassuring FHT for GA - s/p BMZ course 09/20-09/21; s/p rescue course 10/19-10/20 - NST daily - s/p magnesium for neuroprotection - NICU consult Penicillin allergy - ancef for GBS prophylaxis, previously tolerated 28 weeks gestation of (HCC) - s/p tdap - 1 hr GCT scheduled for 10/28 Subjective : Continues to have vaginal spotting, dark brown, no increase in quantity than last week. Denies contractions. No current leaking of fluid. Good movement, No shortness of breath or chest pain, and No calf tenderness Objective : LAST VITALS: Pulse BP Resp O2 Sat Temp Pain 93 94/58 (Pt resting right lateral, BNP taken on left arm) 18 95 % 36.9 ?C (98.4 ?F) 0 PHYSICAL EXAM: General: well-appearing, AANDO Heart: regular rate Lungs: non-labored breathing on room air Abdomen: soft, gravid Extremities: symmetrical, no edema, warmth, or overlying skin changes MONITORING/ASSESSMENT: testing reassuring - see additional documentation LABS Diagnostic tests reviewed for today's visit: Most recent labs and imaging results. SIGNATURE: Desmond Hughes DO PATIENT NAME: Kathy Hester DATE: October 26, 2024 TIME: 6:00 AM [facility] 10-25-2024 Note HNO ID: [id number] Author: BRANDI ROÍS DO Service: Obstetrics Author Type: Resident Type: Progress Notes Filed: 10/25/2024 15:54 Note Text: FHRT reviewed: 140s / moderate / accels present / two variable decels over 3 hours of monitoring Appropriate for gestational age No contractions on toco. Patient reports vaginal spotting on peripad. There is a 2 mm speck of dark brown blood present on peripad. Will continue to monitor. Reassurance provided. Dr. Elba medrano. Brandi Ríos DO [facility] 10-25-2024 Note HNO ID: [id number] Author: DEONDRE ARREOLA MD Service: Nursing Author Type: Registered Nurse Type: Procedures Filed: 10/25/2024 13:35 Note Text: Attestation signed by Deondre Arreola MD at 10/25/2024 1:35 PM NST reviewed Interpretation: NST is reactive without decelerations. No regular uterine activity on tocometer. Impression: Reassuring surveillance Deondre Arreola MD OBSTETRICS NST SUMMARY SERVICE DATE: October 25, 2024 The patient is a 34 year old female, , who is at 28w6d with an GASPER of 01/11/2025, by Ultrasound dating method. NST OBJECTIVE FINDINGS PER NURSE: Start Time: 957 (10/25/24 1018 : Erica Leonardo RN) Complete Time: 1018 (10/25/24 1018 : Erica Leonardo, SAYDA) Indications: Labor () (10/25/24 1018 : Erica Leonardo, SAYDA) Patient Reason For: monitor baby (10/25/24 1018 : Eirca Leonardo, SAYDA) NST Explanation: Procedure Explained, Monitor Explained, Verbalizes Understanding (10/25/24 1018 : Erica Leonardo RN) Acoustic Stimulator: Interventions: (n/a) (10/25/24 1018 : Erica Leonardo RN) MONITORING/ASSESSMENT: Baseline: 135 bpm (10/25/24 1018 : Erica Leonardo RN) Variability: Moderate (6-25 bpm) (10/25/24 1018 : Erica Leonardo RN) Accelerations: Present (10/25/24 1018 : Erica Leonardo RN) Decelerations: Decelerations: None (10/25/24 1018 : Erica Leonardo RN) Contractions: Not present (10/25/24 1018 : Erica Leonardo RN) Frequency: Above information forwarded to Dr Arreola (10/25/24 1018 : Erica Leonardo RN) for final review and interpretation. SIGNATURE: Erica Leonardo RN PATIENT NAME: Kathy Hester DATE: October 25, 2024 TIME: 12:00 PM [facility] 10-25-2024 Note HNO ID: [id number] Author: DEONDRE ARREOLA MD Service: Maternal Medicine Author Type: Resident Type: Progress Notes Filed: 10/25/2024 13:41 Note Text: Attestation signed by Deondre Arreola MD at 10/25/2024 1:41 PM M Attending Addendum: I have seen, evaluated and counseled the above patient with Dr. Ríos and the antepartum team. I reviewed the documentation and agree with the clinical assessment and medical decision making as noted above with the following addendum/modifications: At time of evaluation this afternoon, she reports recent onset of abdominal tightening. Comfortable overall but unsure if she is hector. Denies LOF, VB, or constant abdominal pain. Reports normal FM. ROS otherwise negative. BP 133/80 Pulse 91 Temp 36.8 ?C (98.2 ?F) (Oral) Resp 16 Ht 170.2 cm (5' 7) Wt 88.9 kg (196 lb) LMP 03/25/2024 (Exact Date) SpO2 97% BMI 30.70 kg/m? Systolic (24hrs), Av , Min:123 , Max:136 Diastolic (24hrs), Av, Min:60, Max:80 Mucous membranes moist, sclerae anicteric. Abdomen soft, non-distended, uterus/abdomen non-tender, no rebound. Extremities non-tender, trace edema. NST reactive and tocometer without regular uterine contractions. Impression: Navarrete gestation at 28w6d Threatened PTL and advanced cervical dilation - stable Hypothyroidism - euthyroid on replacement Plan: and maternal status overall stable. Given her reported symptoms this afternoon, plan to place back on EFM/tocometer to assess if she is hector and may reassess SVE as clinically indicated. Continue inpatient maternal/ surveillance given her threatened PTL and advanced cervical dilation. Discussed possibility of transfer back to [facility] and resumption of magnesium for neuroprotection with cervical change/evidence of progressive PTL. Euthyroid by recent TFTs - continue current dose of synthroid, serial TFT evaluation. Encouraged ambulation, SCDs in bed. /maternal indications for delivery were reviewed. The plan of care was reviewed and discussed with the patient and the provider/nursing teams. All questions answered. Ms. Hester expressed understanding and agreement with the plan of care. Deondre Arreola MD OBSTETRICS ANTEPARTUM PROGRESS NOTE SERVICE DATE: 10/25/2024 SERVICE TIME: 7:56 AM 34 year old EGA:28w6d admitted for threatened labor and vaginal bleeding. Plan of care discussed with: Provider, RN, Patient. Assessment AND Plan Threatened labor, third trimester (HCC) - increased vaginal bleeding with low back pain and abdominal tightening that started at 1700 10/19 - now have subsided - recent admission 09/20-09/21 for vaginal bleeding, s/p course of BMZ, no explanation for bleeding, SVE at that time 0.10/09/-3 - vitals WNL - NST appropriate for gestational age - admission SSE with 4-6cc's bright red blood mixed with mucous, small amount of active bleeding from external os - SVE stable at /-3 Plan: - Continue inpatient admission to [facility] service 06/14 to advanced dilation at 28 weeks, remains stable at this time - NICU consult - s/p rescue BMZ x 2 10/19-10/20 - s/p mag x 12 hours - s/p Ancef for GBS prophylaxis - re-escalate PCN, mag if concern for imminent delivery - epidural on request - NST daily - Regular diet - 10/20: Growth US 28w1d 1232 g 49%, AC 38%, 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 She has no concerns. Denies additional episodes of vaginal bleeding. No contractions or abdominal pain. Does feel she is urinating more frequently but feels this is related to the position. Good movement. Objective : LAST VITALS: Pulse BP Resp O2 Sat Temp Pain 85 123/60 16 96 % 36.8 ?C (98.2 ?F) 0 PHYSICAL EXAM: General: well-appearing, AANDO Heart: regular rate Lungs: non-labored breathing on room air Abdomen: soft, gravid Extremities: symmetrical, no edema, warmth, or overlying skin changes MONITORING/ASSESSMENT: testing reassuring - see additional documentation LABS Diagnostic tests reviewed for today's visit: No new labs SIGNATURE: Brandi Ríos DO PATIENT NAME: Kathy Hester DATE: October 25, 2024 TIME: 7:56 AM [facility] 10-24-2024 Note HNO ID: [id number] Author: DEONDRE ARREOLA MD Service: Nursing Author Type: Registered Nurse Type: Procedures Filed: 10/24/2024 13:08 Note Text: Attestation signed by Deondre Arreola MD at 10/24/2024 1:08 PM NST reviewed Interpretation: NST is reactive without decelerations. No regular uterine activity on tocometer. Impression: Reassuring surveillance Deondre Arreola MD OBSTETRICS NST SUMMARY SERVICE DATE: October 24, 2024 The patient is a 34 year old female, , who is at 28w5d with an GASPER of 01/11/2025, by Ultrasound dating method. NST OBJECTIVE FINDINGS PER NURSE: Start Time: 815 (10/24/24835 : Erica Leonardo, RN) Complete Time: 835 (10/24/24835 : Erica Leonardo, RN) Indications: Labor () (10/24/24835 : Erica Leonardo, RN) Patient Reason For: monitor baby (10/24/24835 : Erica Leonardo, RN) NST Explanation: Procedure Explained, Monitor Explained, Verbalizes Understanding (10/24/24835 : Erica Leonardo, SAYDA) Acoustic Stimulator: Interventions: (n/a) (10/24/24835 : Ercia Leonardo RN) MONITORING/ASSESSMENT: Baseline: 135 bpm (10/24/24835 : Erica Leonardo RN) Variability: Moderate (6-25 bpm) (10/24/24 : Erica Leonardo RN) Accelerations: Present (10/24/24835 : Erica Leonardo RN) Decelerations: Decelerations: None (10/24/24 : Erica Leonardo RN) Contractions: Not present (10/24/24 : Erica Leonardo RN) Frequency: Above information forwarded to Dr Arreola (10/24/24835 : Erica Leonardo RN) for final review and interpretation. SIGNATURE: Erica Leonardo RN PATIENT NAME: Kathy Hester DATE: October 24, 2024 TIME: 11:01 AM [facility] 10-24-2024 Note HNO ID: [id number] Author: DEONDRE ARREOLA MD Service: Maternal Medicine Author Type: Resident Type: Progress Notes Filed: 10/24/2024 13:17 Note Text: Attestation signed by Deondre Arreola MD at 10/24/2024 1:17 PM MFM Attending Addendum: I have seen, evaluated and counseled the above patient with Dr. Hughes and the antepartum team. I reviewed the documentation and agree with the clinical assessment and medical decision making as noted above with the following addendum/modifications: Patient feeling well today, no symptoms or concerns. Reports normal FM and denies LOF, VB, contractions, or abdominal pain. ROS otherwise negative. BP 119/68 Pulse 95 Temp 36.9 ?C (98.4 ?F) (Oral) Resp 16 Ht 170.2 cm (5' 7) Wt 88.9 kg (196 lb) LMP 03/25/2024 (Exact Date) SpO2 96% BMI 30.70 kg/m? Systolic (24hrs), Av , Min:119 , Max:126 Diastolic (24hrs), Av, Min:68, Max:72 Mucous membranes moist, sclerae anicteric. Abdomen soft, non-distended, uterus/abdomen non-tender, no rebound. Extremities non-tender, trace edema. NST reactive and tocometer without regular uterine contractions. Impression: Nav[place]rete gestation at 28w5d Threatened PTL and advanced cervical dilation - stable Hypothyroidism - euthyroid Plan: and maternal status stable/reassuring without e/o progressive PTL, PPROM, or Pre-E. Given her advanced cervical dilation at the current gestational age, we reviewed the plan for a period of inpatient maternal/ surveillance. Patient recently completed a rescue course of ANCS. An overview of outcomes at 28-32 weeks gestation was provided and the gestational age related risks of prematurity were reviewed. She has met with Neonatology and did not have additional prematurity related questions today. TFTs added on to admission labs; continue synthroid with dose adjustment as indicated. GTT planned for ~1 week following steroid course. Encouraged ambulation, SCDs in bed. /maternal indications for delivery were reviewed. The plan of care was reviewed and discussed with the patient and the provider/nursing teams. All questions answered. Ms. Hester expressed understanding and agreement with the plan of care. Deondre Arreola MD OBSTETRICS ANTEPARTUM PROGRESS NOTE SERVICE DATE: 10/24/2024 SERVICE TIME: 7:44 AM 34 year old EGA:28w5d admitted for admitted to [facility] service for threatened . Assessment AND Plan Threatened labor, third trimester (HCC) - increased vaginal bleeding with low back pain and abdominal tightening that started at 1700 10/19 - now have subsided - recent admission 09/20-09/21 for vaginal bleeding, s/p course of BMZ, no explanation for bleeding, SVE at that time 0.10/09/-3 - vitals WNL - NST appropriate for gestational age - admission SSE with 4-6cc's bright red blood mixed with mucous, small amount of active bleeding from external os - SVE stable at /-3 Plan: - Continue inpatient admission to [facility] service / to advanced dilation at 28 weeks - NICU consult - s/p rescue BMZ x 2 10/19-10/20 - s/p mag x 12 hours - s/p Ancef for GBS prophylaxis - re-escalate PCN, mag if concern for imminent delivery - epidural on request - NST daily - Regular diet - 10/20: Growth US 28w1d 1232 g 49%, AC 38%, 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 Prematurity (HCC) - vertex - reassuring FHT for GA - s/p BMZ course 09/20-09/21; s/p rescue course 10/19-10/20 - NST daily - s/p magnesium for neuroprotection - NICU consult Penicillin allergy - ancef for GBS prophylaxis, previously tolerated 28 weeks gestation of (HCC) - tdap today - 1 hr GCT scheduled for next week Subjective : No current vaginal bleeding, No current leaking of fluid, No contractions, Good movement, No shortness of breath or chest pain, and No calf tenderness Objective : LAST VITALS: Pulse BP Resp O2 Sat Temp Pain 89 126/72 14 97 % 36.5 ?C (97.7 ?F) 0 PHYSICAL EXAM: General: WD, WN, tearful HEENT: NC/AT, sclera white Lungs: normal respiratory effort Heart: RR Abdomen: soft, nontender, gravid Uterus: soft, NT Extremities: no edema MONITORING/ASSESSMENT: testing reassuring - see additional documentation LABS Diagnostic tests reviewed for today's visit: Most recent labs and imaging results. SIGNATURE: Desmond Hughes DO PATIENT NAME: Kathy Hester DATE: October 24, 2024 TIME: 7:44 AM [facility] 10-23-2024 Note HNO ID: [id number] Author: PHIL MIRANDA MD Service: Maternal Medicine Author Type: Registered Nurse Type: Procedures Filed: 10/23/2024 09:16 Note Text: Attestation signed by Phil Miranda MD at 10/23/2024 9:16 AM PROVIDER INTERPRETATION: Reactive SIGNATURE: Phil Miranda MD DATE: October 23, 2024 TIME: 9:16 AM OBSTETRICS NST SUMMARY SERVICE DATE: October 23, 2024 The patient is a 34 year old female, , who is at 28w4d with an GASPER of 01/11/2025, by Ultrasound dating method. NST OBJECTIVE FINDINGS PER NURSE: Start Time: 823 (10/23/24 0836 : Carlotta Beltran RN) Complete Time: 854 (10/23/2436 : Carlotta Beltran, SAYDA) Indications: Labor (10/23/24 0836 : Carlotta Beltran, SAYDA) Patient Reason For: NST Explanation: Procedure Explained, Monitor Explained, Verbalizes Understanding (10/23/2436 : Carlotta Beltran, SAYDA) Acoustic Stimulator: Interventions: MONITORING/ASSESSMENT: Baseline: 140 bpm (10/23/24 0836 : Carlotta Beltran RN) Variability: Moderate (6-25 bpm) (10/23/24 0836 : Carlotta Beltran RN) Accelerations: Present (10/23/24 0836 : Carlotta Beltran RN) Decelerations: Decelerations: (!) Variable (10/23/24 0836 : Carlotta Beltran RN) Decel Frequency: Intermittent (10/23/24 0836 : Carlotta Beltran RN) Contractions: Not present (10/23/24 0836 : Carlotta Beltran RN) Frequency: Above information forwarded to Ruth (10/23/24 0836 : Carlotta Beltran RN) for final review and interpretation. SIGNATURE: Carlotta Beltran RN PATIENT NAME: Kathy Hester DATE: October 23, 2024 TIME: 9:10 AM [facility] 10-23-2024 Note HNO ID: [id number] Author: PHIL MIRANDA MD Service: Maternal Medicine Author Type: Resident Type: Progress Notes Filed: 10/23/2024 09:35 Note Text: Attestation signed by Phil Miranda MD at 10/23/2024 9:35 AM Attending Note I evaluated the patient and personally participated in the doe components. I agree with the resident's findings and plan as documented and have discussed the case and management of the patient's care with the resident. 34-year-old -0-0-1 at 28 weeks 4 days who presents with threatened labor. She reports contractions occurring intermittently. In addition, she experienced vaginal bleeding that was light. No clots noted. No abdominal pain. She was previously admitted on for threatened labor at which time she was 0.5 cm dilated. She did receive a course of corticosteroids and was discharged to home. During this admission, her contractions have subsided. S/p magnesium for neuroprotection 10/20. Rescue course of betamethasone 10/20-. S/p NICU consult. growth scan 10/20/24 with EFW at 49%ile, vertex. Currently, reports some brownish discharge, but no bright red bleeding. Recommend continued inpatient admission secondary to advanced dilation at 28 weeks. Plan of care discussed with: Provider, RN, Patient Signature: Phil Miranda MD Date: October 23, 2024 Time: 9:35 AM OBSTETRICS ANTEPARTUM PROGRESS NOTE SERVICE DATE: 10/23/2024 SERVICE TIME: 6:12 AM 34 year old EGA:28w4d admitted for admitted to [facility] service for threatened . Assessment AND Plan Threatened labor, third trimester (HCC) - increased vaginal bleeding with low back pain and abdominal tightening that started at 1700 10/19 - now have subsided - recent admission 09/20-09/21 for vaginal bleeding, s/p course of BMZ, no explanation for bleeding, SVE at that time 0.530/-3 - vitals WNL - NST appropriate for gestational age - admission SSE with 4-6cc's bright red blood mixed with mucous, small amount of active bleeding from external os - SVE stable at 360/-3 Plan: - Continue inpatient admission to [facility] service 06/14 to advanced dilation at 28 weeks - NICU consult - s/p rescue BMZ x 2 10/19-10/20 - s/p mag x 12 hours - s/p Ancef for GBS prophylaxis - re-escalate PCN, mag if concern for imminent delivery - epidural on request - NST daily - Regular diet - 10/20: Growth US 28w1d 1232 g 49%, AC 38%, 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 No current leaking of fluid, No contractions, Good movement, No shortness of breath or chest pain, and No calf tenderness Objective : LAST VITALS: Pulse BP Resp O2 Sat Temp Pain 80 122/55 16 98 % 36.4 ?C (97.5 ?F) 0 PHYSICAL EXAM: General: WD, WN, tearful HEENT: NC/AT, sclera white Lungs: normal respiratory effort Heart: RR Abdomen: soft, nontender, gravid Uterus: soft, NT Extremities: no edema MONITORING/ASSESSMENT: testing reassuring - see additional documentation LABS Diagnostic tests reviewed for today's visit: Most recent labs and imaging results. SIGNATURE: Desmond Hughes DO PATIENT NAME: Kathy Hester DATE: October 23, 2024 TIME: 6:12 AM [facility] 10-22-2024 Note HNO ID: [id number] Author: PHIL MIRANDA MD Service: Maternal Medicine Author Type: Registered Nurse Type: Procedures Filed: 10/22/2024 10:15 Note Text: Attestation signed by Phil Miranda MD at 10/22/2024 10:15 AM PROVIDER INTERPRETATION: Reactive SIGNATURE: Phil Miranda MD DATE: October 22, 2024 TIME: 10:15 AM OBSTETRICS NST SUMMARY SERVICE DATE: October 22, 2024 The patient is a 34 year old female, , who is at 28w3d with an GASPER of 01/11/2025, by Ultrasound dating method. NST OBJECTIVE FINDINGS PER NURSE: Start Time: 0800 (10/22/24 08 : Carlotta Beltran RN) Complete Time: 08 (10/22/24 08 : Carlotta Beltran RN) Indications: Labor (10/22/24799 : Carlotta Beltran RN) Patient Reason For: NST Explanation: Procedure Explained, Monitor Explained, Verbalizes Understanding (10/22/24 08 : Carlotta Beltran RN) Acoustic Stimulator: Interventions: MONITORING/ASSESSMENT: Baseline: 135 bpm (10/22/24799 : Carlotta Beltran RN) Variability: Moderate (6-25 bpm) (10/22/24799 : Carlotta Beltran RN) Accelerations: Present (10/22/24799 : Carlotta Beltran RN) Decelerations: Decelerations: None (10/22/24799 : Carlotta Beltran RN) Contractions: Not present (10/22/24799 : Carlotta Beltran RN) Frequency: Above information forwarded to Ruth (10/22/24799 : Carlotta Beltran RN) for final review and interpretation. SIGNATURE: Carlotta Beltran RN PATIENT NAME: Kathy Hester DATE: October 22, 2024 TIME: 9:20 AM [facility] 10-22-2024 Note HNO ID: [id number] Author: PHIL MIRANDA MD Service: Maternal Medicine Author Type: Resident Type: Progress Notes Filed: 10/22/2024 10:02 Note Text: Attestation signed by Phil Miranda MD at 10/22/2024 10:02 AM Attending Note I evaluated the patient and personally participated in the doe components. I agree with the resident's findings and plan as documented and have discussed the case and management of the patient's care with the resident. 34-year-old -0-0-1 at 28 weeks 3 days who presents with threatened labor. She reports contractions occurring intermittently. In addition, she experienced vaginal bleeding that was light. No clots noted. No abdominal pain. She was previously admitted on for threatened labor at which time she was 0.5 cm dilated. She did receive a course of corticosteroids and was discharged to home. During this admission, her contractions have subsided. S/p magnesium for neuroprotection 10/20. Rescue course of betamethasone 10/20-. S/p NICU consult. growth scan 10/20/24 with EFW at 49%ile, vertex. Currently, reports some brownish discharge, but no bright red bleeding. Recommend continued inpatient admission secondary to advanced dilation at 28 weeks. Plan of care discussed with: Provider, RN, Patient Signature: Phil Miranda MD Date: October 22, 2024 Time: 10:02 AM [facility]IC[facility] ANTEPARTUM PROGRESS NOTE SERVICE DATE: 10/22/2024 SERVICE TIME: 5:03 AM 34 year old EGA:28w2d admitted for admitted to [facility] service for threatened labor. Assessment AND Plan Threatened labor, third trimester (HCC) - increased vaginal bleeding with low back pain and abdominal tightening that started at 1700 10/19 - now have subsided - recent admission 09/20-09/21 for vaginal bleeding, s/p course of BMZ, no explanation for bleeding, SVE at that time 0.5/30/-3 - vitals WNL - NST appropriate for gestational age - admission SSE with 4-6cc's bright red blood mixed with mucous, small amount of active bleeding from external os - SVE stable at 360/-3 Plan: - Continue inpatient admission to [facility] service 06/14 to advanced dilation at 28 weeks - NICU consult - s/p rescue BMZ x 2 10/19-10/20 - s/p mag x 12 hours - s/p Ancef for GBS prophylaxis - re-escalate PCN, mag if concern for imminent delivery - epidural on request - NST daily - Regular diet - 10/20: Growth US 28w1d 1232 g 49%, AC 38%, 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 No current leaking of fluid, No contractions, Good movement, No shortness of breath or chest pain, and No calf tenderness Objective : LAST VITALS: Pulse BP Resp O2 Sat Temp Pain 84 115/60 16 95 % 36.7 ?C (98.1 ?F) 0 PHYSICAL EXAM: General: WD, WN, tearful HEENT: NC/AT, sclera white Lungs: normal respiratory effort Heart: RR Abdomen: soft, nontender, gravid Uterus: soft, NT Extremities: no edema MONITORING/ASSESSMENT: testing reassuring - see additional documentation LABS Diagnostic tests reviewed for today's visit: Most recent labs and imaging results. SIGNATURE: Desmond Hughes DO PATIENT NAME: Kathy Hester DATE: October 22, 2024 TIME: 5:04 AM [facility] 10-21-2024 Note HNO ID: [id number] Author: NATASHA ALFONSO MD Service: Nursing Author Type: Registered Nurse Type: Procedures Filed: 11/18/2024 12:30 Note Text: Attestation signed by Natasha Alfonso MD at 11/18/2024 12:30 PM OBSTETRICS MONITORING ASSESSMENT On 10/21/24, I interpreted the following NST: NST Interpretation: Reactive (10/21/24547 : Natasha Alfonso MD) FHR Category: Disposition: Continue Current Management (10/21/24547 : Natasha Alfonso MD) PROVIDER INTERPRETATION: Reactive SIGNATURE: Natasha Alfonso MD PATIENT NAME: Kathy Hester DATE: November 18, 2024 TIME: 12:29 PM OBSTETRICS NST SUMMARY SERVICE DATE: October 21, 2024 The patient is a 34 year old female, , who is at 28w2d with an GASPER of 01/11/2025, by Ultrasound dating method. NST OBJECTIVE FINDINGS PER NURSE: Start Time: 050 (10/21/24547 : Yakelin Osuna, SAYDA) Complete Time: 547 (10/21/24547 : Yakelin Osuna, SAYDA) Indications: Labor (10/21/24547 : Yakelin Osuna, SAYDA) Patient Reason For: NST Explanation: Procedure Explained, Monitor Explained, Verbalizes Understanding (10/21/24547 : Yakelin Osuna, SAYDA) Acoustic Stimulator: No (10/21/24547 : Yakelin Osuna, SAYDA) Interventions: (none) (10/21/24547 : Yakelin Osuna, SAYDA) MONITORING/ASSESSMENT: Baseline: 125 bpm (10/21/24547 : Yakelin Osuna, SAYDA) Variability: Moderate (6-25 bpm) (10/21/24547 : Yakelin Osuna, SAYDA) Accelerations: Present (10/21/24547 : Yakelin Osuna, SAYDA) Decelerations: Decelerations: None (10/21/24547 : Yakelin OsunaSAYDA) Contractions: Irregular (10/21/24 0548 : Yakelin Osuna, RN) Frequency: x3 (10/21/24 0548 : Yakelin Osuna, SAYDA) Above information forwarded to Dr. Alfonso (10/21/2448 : Yakelin Osuna, SAYDA) for final review and interpretation. SIGNATURE: Yakelin Osuna RN PATIENT NAME: Kathy Hester DATE: October 21, 2024 TIME: 9:09 AM [facility] 10-21-2024 Note HNO ID: [id number] Author: PHIL MIRANDA MD Service: Maternal Medicine Author Type: Resident Type: Progress Notes Filed: 10/21/2024 09:55 Note Text: Attestation signed by Phil Miranda MD at 10/21/2024 9:55 AM Attending Note I evaluated the patient and personally participated in the doe components. I agree with the resident's findings and plan as documented and have discussed the case and management of the patient's care with the resident. 34-year-old -0-0-1 at 28 weeks 2 days who presents with threatened labor. She reports contractions occurring intermittently. In addition, she experienced vaginal bleeding that was light. No clots noted. No abdominal pain. She was previously admitted on for threatened labor at which time she was 0.5 cm dilated. She did receive a course of corticosteroids and was discharged to home. During this admission, her contractions have subsided. S/p magnesium for neuroprotection 10/20. Rescue course of betamethasone 10/20-. S/p NICU consult. growth scan 10/20/24 with EFW at 49%ile, vertex. Currently, reports some brownish discharge, but no bright red bleeding. Recommend continued inpatient admission secondary to advanced dilation at 28 weeks. Plan of care discussed with: Provider, RN, Patient Signature: Phil Miranda MD Date: October 21, 2024 Time: 9:50 AM [facility]ERNAL [facility]ICINE ANTEPARTUM PROGRESS NOTE SERVICE DATE: 10/21/2024 SERVICE TIME: 5:22 AM 34 year old EGA:28w2d admitted for admitted to [facility] service for threatened labor. Assessment AND Plan Threatened labor, third trimester (HCC) - increased vaginal bleeding with low back pain and abdominal tightening that started at 1700 10/19 - recent admission 09/20-09/21 for vaginal bleeding, s/p course of BMZ, no explanation for bleeding, SVE at that time 0.530/-3 - vitals WNL - category 1, reactive NST - admission SSE with 4-6cc's bright red blood mixed with mucous, small amount of active bleeding from external os - SVE stable at 360/-3 Plan: - Continue inpatient admission to [facility] service 06/14 to advanced dilation at 28 weeks - NICU consult - s/p rescue BMZ x 2 10/19-10/20 - s/p mag x 12 hours - s/p Ancef for GBS prophylaxis - re-escalate PCN, mag if concern for imminent delivery - epidural on request - admission CEFM reassuring, now NST daily - Regular diet - 10/20: Growth US 28w1d 1232 g 49%, AC 38%, 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 No current leaking of fluid, No contractions, Good movement, No shortness of breath or chest pain, and No calf tenderness Objective : LAST VITALS: Pulse BP Resp O2 Sat Temp Pain 93 124/69 18 98 % 36.8 ?C (98.2 ?F) 0 PHYSICAL EXAM: General: WD, WN, tearful HEENT: NC/AT, sclera white Lungs: normal respiratory effort Heart: RR Abdomen: soft, nontender, gravid Uterus: soft, NT Extremities: no edema MONITORING/ASSESSMENT: testing reassuring - see additional documentation LABS Diagnostic tests reviewed for today's visit: Most recent labs and imaging results. SIGNATURE: Desmond Hughes DO PATIENT NAME: Kathy Hester DATE: October 21, 2024 TIME: 5:22 AM [facility] 10-20-2024 Note Indication Evaluation of growth. Advanced maternal age Inpatient with vaginal bleeding and PTL Impression - Single, live, intrauterine . - presentation is cephalic. - The biometry is consistent with the assigned gestational dating. - The EFW is 1232 g, at the 49%. AC is at the 38%. - Amniotic fluid volume is normal amount with an MVP of 5.7 cm and CYDNEY of 16.2 cm. - The placenta is posterior. - No malformations visualized on a limited survey as detailed below. Recommendations Additional follow-up as clinically indicated. Maternal Assessment Height 173 cm Height (ft) 5 ft Height (in) 8 in Physical Exam Initial weight (lb) 190 lb Initial BMI 28.89 kg/m Method Transabdominal ultrasound examination. View: Adequate visualization Navarrete . Number of fetuses: 1 Dating LMP on: 03/25/2024 GA by LMP 29 w + 6 d GASPER by LMP: 12/30/2024 GA by prior assessment 28 w + 1 d GSAPER by prior assessment: 01/11/2025 Ultrasound examination on: 10/20/2024 GA by U/S based upon: AC, BPD, Femur, HC GA by U/S 28 w + 4 d GASPER by U/S: 01/08/2025 Assigned: based on stated GASPER, selected on 08/28/2024 Assigned GA 28 w + 1 d Assigned GASPER: 01/11/2025 General Evaluation Cardiac activity present. FHR 132 bpm. movements: present. Presentation: cephalic Placenta: Placental site: posterior Umbilical cord: Cord vessels: 3 vessel cord. Insertion site: normal insertion Amniotic fluid: Amount of AF: normal amount. MVP 5.7 cm. CYDNEY 16.2 cm. Q1 5.7 cm, Q2 4.2 cm, Q3 2.4 cm, Q4 3.9 cm Growth Overview Exam date GA BPD (mm) HC (mm) AC (mm) FL (mm) HL (mm) EFW (g) 08/28/2024 20w 4d 48.2 50% 181.7 50% 156.6 52% 34.1 70% 32.6 64% 372 52% 09/21/2024 24w 0d 58.7 44% 212.5 29% 192 39% 44 79% 658 44% 10/20/2024 28w 1d 71.9 62% 267.3 61% 236.9 38% 54.7 83% 1232 49% Biometry Standard BPD 71.9 mm 28w 6d 62% Hadlock OFD 93.9 mm 27w 5d 52% Nicolaides HC 267.3 mm 28w 4d 61% Ashwin AC 236.9 mm 28w 0d 38% Hadlock Femur 54.7 mm 29w 0d 83% Ashwin EFW 1,232 g 28w 1d 49% Hadlock EFW (lb) 2 lb EFW (oz) 11 oz EFW by: Hadlock ([id number]) Extended Swing Type Lathe Operator 5.6 mm Extremities / Bony Struc FL / HC 0.20 Other Structures FHR 132 bpm Anatomy Cranium: normal Lateral ventricles: normal Cavum septi pellucidi: normal Cerebellum: normal Cisterna magna: normal 4-chamber view: normal RVOT view: normal LVOT view: normal 3-vessel view: normal Heart / Thorax Situs: situs solitus (normal) Diaphragm: normal Stomach: normal Kidneys: normal Bladder: normal sex: male Wants to know sex: yes Performed By: Sadia Schwartz RDMS Read By: Phil Miranda M.D. [facility] 10-20-2024 Note HNO ID: [id number] Author: PHIL MIRANDA MD Service: Nursing Author Type: Registered Nurse Type: Procedures Filed: 10/20/2024 09:44 Note Text: Attestation signed by Phil Miranda MD at 10/20/2024 9:44 AM PROVIDER INTERPRETATION: Appropriate for gestational age SIGNATURE: Phil Miranda MD DATE: October 20, 2024 TIME: 9:44 AM OBSTETRICS NST SUMMARY SERVICE DATE: October 20, 2024 The patient is a 34 year old female, , who is at 28w1d with an GASPER of 01/11/2025, by Ultrasound dating method. NST OBJECTIVE FINDINGS PER NURSE: Start Time: 811 (10/20/24841 : Yakelin Osuna RN) Complete Time: 841 (10/20/24841 : Yakelin Osuna, SAYDA) Indications: Labor (10/20/24841 : Yakelin Osuna, SAYDA) Patient Reason For: NST Explanation: Monitor Explained, Verbalizes Understanding, Procedure Explained (10/20/24841 : Yakelin Osuna, SAYDA) Acoustic Stimulator: No (10/20/24841 : Yakelin Osuna, SAYDA) Interventions: (none) (10/20/24841 : Yakelin Osuna, SAYDA) MONITORING/ASSESSMENT: Baseline: 125 bpm (10/20/24841 : Yakelin Osuna RN) Variability: Moderate (6-25 bpm) (10/20/24841 : Yakelin Osuna, SAYDA) Accelerations: Present (10/20/24841 : Yakelin Osuna RN) Decelerations: Decelerations: None (10/20/24841 : Yakelin Osuna RN) Decel Frequency: Intermittent (10/20/24 0700 : Yakelin Osuna RN) Contractions: Not present (10/20/24 0842 : Yakelin Osuna RN) Frequency: x1 (10/20/24 0800 : Yakelin Osuna RN) Above information forwarded to Dr. Miranda (10/20/24 08 : Yakelin Osuna RN) for final review and interpretation. SIGNATURE: Yakelin Osuna RN PATIENT NAME: Kathy Hester DATE: October 20, 2024 TIME: 9:31 AM [facility] 10-20-2024 Note HNO ID: [id number] Author: PHIL MIRANDA MD Service: Maternal Medicine Author Type: Resident Type: Progress Notes Filed: 10/20/2024 09:17 Note Text: Attestation signed by Phil Miranda MD at 10/20/2024 9:17 AM Attending Note I evaluated the patient and personally participated in the doe components. I agree with the resident's findings and plan as documented and have discussed the case and management of the patient's care with the resident. 34-year-old -0-0-1 at 28 weeks 1 days who presents with threatened labor. She reports contractions occurring intermittently. In addition, she experienced vaginal bleeding that was light. No clots noted. No abdominal pain. She was previously admitted on 09/20 - 09/21 for threatened labor at which time she was 0.5 cm dilated. She did receive a course of corticosteroids and was discharged to home. During this admission, her contractions have subsided. She did receive 12 hours of magnesium for neuroprotection which ended this morning. Rescue course of betamethasone was also initiated yesterday. This morning, she is asymptomatic for vaginal bleeding or contractions. growth was normal at 24 weeks. Fetus is currently vertex. Recommend NICU consult. Recommend growth scan sometime this week. Recommend continued inpatient admission secondary to advanced dilation at 28 weeks. Plan of care discussed with: Provider, RN, Patient Signature: Phil Miranda MD Date: October 20, 2024 Time: 9:17 AM OBSTETRICS ANTEPARTUM PROGRESS NOTE SERVICE DATE: 10/20/2024 SERVICE TIME: 5:33 AM 34 year old EGA:28w1d admitted for admitted to [facility] service for threatened labor. Assessment AND Plan Threatened labor, third trimester (HCC) - increased vaginal bleeding with low back pain and abdominal tightening that started at 1700 10/19 - recent admission 09/20-09/21 for vaginal bleeding, s/p course of BMZ, no explanation for bleeding, SVE at that time 0.10/09/-3 - vitals WNL - category 1, reactive NST - admission SSE with 4-6cc's bright red blood mixed with mucous, small amount of active bleeding from external os - SVE now /-3 Plan: - admitted to [facility] service for threatened labor - 2nd dose rescue BMZ @ 10/20 -12 hours magnesium ending today this morning 10/20 at 0800 - hold on tocolysis - Ancef for GBS prophylaxis - epidural on request - CEFM > de-escalate to NST daily after d/c mag - clear liquids - plan for repeat growth US today 10/20 Pham's disease - 50mcg synthroid daily Prematurity (HCC) - vertex - reassuring FHT for GA - s/p BMZ course 09/20-09/21; rescue course initiated 10/19 @ 1999 - CEFM - magnesium for neuroprotection - NICU consult Penicillin allergy - ancef for GBS prophylaxis, previously tolerated Subjective : No current vaginal bleeding, No current leaking of fluid, No contractions, Good movement, No shortness of breath or chest pain, and No calf tenderness Objective : LAST VITALS: Pulse BP Resp O2 Sat Temp Pain 94 121/60 18 100 % 36.8 ?C (98.2 ?F) 3 PHYSICAL EXAM: PHYSICAL EXAM: General: WD, WN, tearful HEENT: NC/AT, sclera white Lungs: normal respiratory effort Heart: RR Abdomen: soft, nontender, gravid Uterus: soft, NT Extremities: no edema MONITORING/ASSESSMENT: testing reassuring - see additional documentation LABS Diagnostic tests reviewed for today's visit: Most recent labs and imaging results. SIGNATURE: Desmond Hughes DO PATIENT NAME: Kathy Hester DATE: October 20, 2024 TIME: 5:32 AM [facility] 10-19-2024 Note HNO ID: [id number] Author: ANA HERRERA MD Service: Obstetrics Author Type: Registered Nurse Type: Procedures Filed: 11/04/2024 15:39 Note Text: Attestation signed by Ana Herrera MD at 11/04/2024 3:39 PM OB ED Attending Note Attending Note Delayed entry - I personally saw/examined the patient on 11/03/24. I evaluated the patient and personally participated in the doe components. I agree with the resident's findings and plan as documented and have discussed the case and management of the patient's care with the resident. Signature: Ana Herrera MD Date: 11/04/2024 Time: 3:38 PM OBSTETRICS NST SUMMARY SERVICE DATE: October 19, 2024 The patient is a 34 year old female, , who is at 28w0d with an GASPER of 01/11/2025, by Ultrasound dating method. NST OBJECTIVE FINDINGS PER NURSE: Start Time: 1823 (10/19/241843 : Shayy Sanchez RN) Complete Time: 1843 (10/19/241843 : Shayy Sanchez RN) Indications: Other: Comment, Labor (CONCEPCION) (10/19/241843 : Shayy Sanchez RN) Patient Reason For: NST Explanation: Acoustic Stimulator: No (10/19/241843 : Shayy Sanchez RN) Interventions: Other (See Comment) (None) (10/19/241843 : Shayy Sanchez RN) MONITORING/ASSESSMENT: Baseline: 140 bpm (10/19/241899 : Shayy Sanchez RN) Variability: Moderate (6-25 bpm) (10/19/241899 : Shayy Sanchez RN) Accelerations: Present (10/19/241899 : Shayy Sanchez RN) Decelerations: Decelerations: None (10/19/241899 : Shayy Sanchez RN) Contractions: Irregular (10/19/241899 : Shayy Sanchez RN) Frequency: x1 (10/19/241899 : Shayy Sanchez RN) Above information forwarded to Dr. Herrera (10/19/241843 : Shayy Sanchez RN) for final review and interpretation. SIGNATURE: Shayy Sanchez RN PATIENT NAME: Kathy Hester DATE: October 19, 2024 TIME: 7:37 PM [facility] 09-25-2024 Progress note Formatting of t his note might be different from the original. S: Kathy Hester is a 34 year old female who presents at 01/11/2025, by Ultrasound for a routine visit. Denies headache, visual changes, chest pain, shortness of breath, vaginal bleeding, leakage of fluid, or dysuria. Feeling well, no complaints. O: See flow sheet Gen: No apparent distress Abd: Gravid, nontender Had some bleeding last weekend. Now just brown spotting. No contractions GCT next visit ASSESSMENT/PLAN: 1. AMA (advanced maternal age) multigravida 35+, second trimester ([facility]) - ICD9: 659.63, ICD10: O09.522 (primary diagnosis) 2. Supervision of high risk in second trimester ([facility]) - ICD9: V23.9, ICD10: O09.92 3. 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 24 weeks gestation of ([facility]) - ICD9: V22.2, ICD10: Z3A.24 5. Screening for diabetes mellitus - ICD9: V77.1, ICD10: Z13.1 - GESTATIONAL GLUCOSE SCREEN, 1-HOUR, 50 GRAM, NON-FASTING 6. Encounter for supervision of other normal in third trimester ([facility]) - ICD9: V22.1, ICD10: Z34.83 - SYPHILIS TREPONEMAL W/REFLEX - ANEMIA REFLEX PANEL Natasha Segura MD [facility] 09-25-2024 Miscellaneous Notes S: Kathy Hester is a 34 year old female who presents at 01/11/2025, by Ultrasound for a routine visit. Denies headache, visual changes, chest pain, shortness of breath, vaginal bleeding, leakage of fluid, or dysuria. Feeling well, no complaints. O: See flow sheet Gen: No apparent distress Abd: Gravid, nontender Had some bleeding last weekend. Now just brown spotting. No contractions GCT next visit ASSESSMENT/PLAN: 1. AMA (advanced maternal age) multigravida 35+, second trimester ([facility]) - ICD9: 659.63, ICD10: O09.522 (primary diagnosis) 2. Supervision of high risk in second trimester ([facility] [facility]) - ICD9: V23.9, ICD10: O09.92 3. 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 24 weeks gestation of ([facility]) - ICD9: V22.2, ICD10: Z3A.24 5. Screening for diabetes mellitus - ICD9: V77.1, ICD10: Z13.1 - GESTATIONAL GLUCOSE SCREEN, 1-HOUR, 50 GRAM, NON-FASTING 6. Encounter for supervision of other normal in third trimester (HCC) - ICD9: V22.1, ICD10: Z34.83 - SYPHILIS TREPONEMAL W/REFLEX - ANEMIA REFLEX PANEL Natasha Segura MD documented in this encounter [facility] 09-25-2024 Instructions Joy Heart MA - 09/25/2024 1:26 PM EDT SEQUENTIAL SCREENINGS The [facility] offers sequential screenings for women who are interested in screenings for chromosomal abnormalities and certain defects during a . The sequential screen combines ultrasound and blood tests to determine the risk of chromosomal abnormalities, including Down's Syndrome (Trisomy 21) and Trisomy 18, as well as open neural tube defects including spina bifida. Ultrasound examination is performed between 11 weeks and 13 weeks gestational age. Blood tests are drawn after the ultrasound and again later in the between 15 and 21 weeks gestational age. Please let your physician know if you are interested in this testing. It will require an appointment with our plastic eye technician. This is not an ultrasound performed by a physician in our office during a routine visit. SIGNS AND SYMPTOMS OF LABOR 1. Contractions every 10 minutes or more often 2. Clear, pink, or brownish fluid (water) leaking from vagina 3. Feeling that baby is pushing down, pressure 4. Low, dull backache 5. Cramps that feel like a period 6. Cramps with or without diarrhea If you notice any of the above symptoms, contact our office at [phone] and ask to speak with a nurse. After hours, you can call doctors registry at [phone] OR call [facility] at [phone] and ask to have the doctor amortization clerk paged. If you consider this an emergency, dial or go to your nearest emergency department. NEED HELP? Are you dealing with a violent or abusive relationship? Are you a victim of rape or sexual assult? Call [facility] ([place]) 24 hour Crisis Hotline: 142.162.3671 or 916-409-5507. MANUAL Your Guide to a Healthy manual is now on-line. Visit [email or web address] to download your free copy documented in this encounter [facility] 09-22-2024 Note HNO ID: [id number] Author: SAIDA HITCHCOCK MD Service: Obstetrics Author Type: Physician Type: Progress Notes Filed: 09/29/2024 11:15 Note Text: Documentation Query Please clarify the diagnosis associated with clinical indicators outlined. {Please select the appropriate option:[id number]:: Group B Streptococcus prophylaxis only, This document will become part of the patient's medical record. [facility] 09-22-2024 Note HNO ID: [id number] Author: MARIANA BURKS MD Service: Maternal Medicine Author Type: Registered Nurse Type: Procedures Filed: 09/22/2024 10:27 Note Text: Attestation signed by Mariana Burks MD at 09/22/2024 10:27 AM Attending Note I have personally reviewed the Non-Stress Test and agree with the documented interpretation. Reactive NST. Signature: Dr. Mariana Burks MD Date: 09/22/2024 Time: 10:27 AM OBSTETRICS NST SUMMARY SERVICE DATE: September 22, 2024 The patient is a 34 year old female, , who is at 24w1d with an GASPER of 01/11/2025, by Ultrasound dating method. NST OBJECTIVE FINDINGS PER NURSE: Start Time: 929 (09/22/24 0950 : Ileana Allen RN) Complete Time: 949 (09/22/2450 : Ileana Allen RN) Indications: () (09/22/2450 : Ileana Allen RN) Patient Reason For: monitor baby (09/22/2450 : Ileana Allen RN) NST Explanation: Procedure Explained, Monitor Explained, Verbalizes Understanding (09/22/24 0950 : Ileana Allen RN) Acoustic Stimulator: Interventions: MONITORING/ASSESSMENT: Baseline: 135 bpm (09/22/2450 : Ileana Allen RN) Variability: Moderate (6-25 bpm) (09/22/2450 : Ileana Allen RN) Accelerations: Present (09/22/2450 : Ileana Allen RN) Decelerations: Decelerations: None (09/22/2450 : Ileana Allen RN) Decel Frequency: Intermittent (09/22/24919 : Ileana Allen RN) Contractions: Not present (09/22/2450 : Ileana Allen RN) Frequency: Above information forwarded to July (09/22/2450 : Ileana Allen RN) for final review and interpretation. SIGNATURE: Ileana Allen RN PATIENT NAME: Kathy Hester DATE: September 22, 2024 TIME: 10:11 AM [facility] 09-22-2024 Note HNO ID: [id number] Author: MARIANA BURKS MD Service: Obstetrics Author Type: Resident Type: Progress Notes Filed: 09/22/2024 10:30 Note Text: Attestation signed by Mariana Burks MD at 09/22/2024 10:30 AM Attending Note I evaluated the patient and personally participated in the doe components. I agree with the resident's findings and plan as documented and have discussed the case and management of the patient's care with the resident. I have performed the [id number] and relevant discharge services for a total of < 30 minutes. No longer bleeding, having some dark discharge consistent with old blood. No pain or contractions. Reassuring NST. OK for d/c home today. Return precautions reviewed. Signature: Dr. Mariana Burks MD Date: September 22, 2024 Time: 10:29 AM OBSTETRICS ANTEPARTUM PROGRESS NOTE SERVICE DATE: 09/22/2024 SERVICE TIME: 6:32 AM 34 year old EGA:24w1d admitted for threatened labor and vaginal bleeding . Plan of care discussed with: Provider, RN, Patient. Assessment AND Plan Threatened labor, antepartum (HCC) Assessment: - Patient stated to be 1-2cm dilated on speculum exam - Transferred to [facility] for care, 0.5cm on digital exam - s/p Magnesium, Ancef - s/p Betamethasone x2 (09/21-09/22) - Reactive NST without contractions on tocometer - Vaginal bleeding slowed to brown mucus discharge then turned bright red again - overnight just dark brown/black specks - GBS pending - Swabs for GC/CT, yeast, trichomonas, BV negative - Anticipate D/C today Prematurity (HCC) Assessment: - Threatened labor at 24w0d gestation - MFM primary, PPG for delivery - Transverse lie on bedside admission ultrasound - GBS pending - s/p NICU c/s - Growth US 09/21: 24w0d 1lbs 7oz 44%, AC 39%, Placenta posterior, normal-appearing. CYDNEY 16.5cm. Vaginal bleeding during (HCC) - one episode of passing clot without provoking factors - continued brown clots and bright red blood 8cc in vaginal vault on repeat speculum exam - placenta posterior and fundal on anatomy ultrasound and bedside ultrasound - RESOLVED as of AM 09/22 Pham's disease - managed on levothyroxine 50 mcg daily Supervision of high-risk of elderly multigravida (>= 35 years old at time of delivery) ([facility]) - normal anatomy ultrasound Nausea and vomiting in ([facility]) - home regimen of compazine - manage with iv zofran, reglan, compazine prn in patient Penicillin allergy - reports hives, out of body feeling with penicillin as child - allergy to amoxicillin - consider ancef for intrapartum GBS prophylaxis if indicated versus clindamycin Subjective : No current vaginal bleeding, No current leaking of fluid, No contractions, Good movement, No shortness of breath or chest pain, and No calf tenderness Objective : LAST VITALS: Pulse BP Resp O2 Sat Temp Pain 75 113/58 18 95 % 36.4 ?C (97.5 ?F) 1 PHYSICAL EXAM: General: WD, WN, NAD, comfortable Heart: RR, S1, S2, no manjit, rub, or murmur appreciated Lungs: normal pulmonary exam and clear to auscultation Abdomen: soft, nontender, gravid uterus Extremities: no edema MONITORING/ASSESSMENT: AM NST pending LABS Diagnostic tests reviewed for today's visit: Most recent labs and imaging results. SIGNATURE: Marisabel Jeong MD PATIENT NAME: Kathy Hester DATE: September 22, 2024 TIME: 6:32 AM [facility] 09-21-2024 Note HNO ID: [id number] Author: MAX CÁRDENAS MD Service: Nursing Author Type: Registered Nurse Type: Procedures Filed: 09/21/2024 23:57 Note Text: Attestation signed by Max Cárdenas MD at 09/21/2024 11:57 PM Attending Note I evaluated the NST. Reactive, appropriate for gestational age. Signature: Max Cárdenas MD Date: 09/21/24 Time: 11:57 PM OBSTETRICS NST SUMMARY SERVICE DATE: September 21, 2024 The patient is a 34 year old female, , who is at 24w0d with an GASPER of 01/11/2025, by Ultrasound dating method. NST OBJECTIVE FINDINGS PER NURSE: Start Time: 2034 (09/21/242099 : Sade Serrano RN) Complete Time: 2054 (09/21/242099 : Sade Serrano RN) Indications: Labor (09/21/242099 : Sade Serrano RN) Patient Reason For: monitor baby (09/21/242099 : Sade Serrano RN) NST Explanation: Procedure Explained, Monitor Explained, Verbalizes Understanding (09/21/242099 : Sade Serrano RN) Acoustic Stimulator: No (09/21/242099 : Sade Serrano RN) Interventions: MONITORING/ASSESSMENT: Baseline: 135 bpm (09/21/242055 : Sade Serrano RN) Variability: Moderate (6-25 bpm) (09/21/242055 : Sade Serrano RN) Accelerations: Present (09/21/242055 : Sade Serrano RN) Decelerations: Decelerations: None (09/21/242055 : Sade Serrano RN) Contractions: Not present (09/21/242055 : Sade Serrano RN) Frequency: Above information forwarded to Dr Cárdenas (09/21/242099 : Sade Serrano RN) for final review and interpretation. SIGNATURE: Sade Serrano RN PATIENT NAME: Kathy Hester DATE: September 21, 2024 TIME: 9:06 PM [facility] 09-21-2024 Note Indication Evaluation of growth. Advanced maternal age Inpatient with vaginal bleeding. Impression - Single, live, intrauterine . - presentation is cephalic. - The biometry is consistent with the assigned gestational dating. - The EFW is 658 g, at the 44%. AC is at the 39%. - Amniotic fluid volume is normal amount with an MVP of 4.3 cm and CYDNEY of 16.5 cm. - The placenta is posterior and normal-appearing. - No malformations visualized on a limited survey as detailed below. Recommendations Follow-up will depend on inpatient course. Maternal Assessment Height 173 cm Height (ft) 5 ft Height (in) 8 in Physical Exam Initial weight (lb) 190 lb Initial BMI 28.89 kg/m Method Transabdominal ultrasound examination. View: Suboptimal view: limited by position Navarrete . Number of fetuses: 1 Dating LMP on: 03/25/2024 GA by LMP 25 w + 5 d GASPER by LMP: 12/30/2024 GA by prior assessment 24 w + 0 d GASPER by prior assessment: 01/11/2025 Ultrasound examination on: 09/21/2024 GA by U/S based upon: AC, BPD, Femur, HC GA by U/S 24 w + 0 d GASPER by U/S: 01/11/2025 Assigned: based on stated GASPER, selected on 08/28/2024 Assigned GA 24 w + 0 d Assigned GASPER: 01/11/2025 General Evaluation Cardiac activity present. FHR 140 bpm. movements: present. Presentation: cephalic Placenta: Placental site: posterior Umbilical cord: Cord vessels: 3 vessel cord. Insertion site: normal insertion Amniotic fluid: Amount of AF: normal amount. MVP 4.3 cm. CYDNEY 16.5 cm. Q1 4.3 cm, Q2 4.2 cm, Q3 4.3 cm, Q4 3.8 cm Growth Overview Exam date GA BPD (mm) HC (mm) AC (mm) FL (mm) HL (mm) EFW (g) 08/28/2024 20w 4d 48.2 50% 181.7 50% 156.6 52% 34.1 70% 32.6 64% 372 52% 09/21/2024 24w 0d 58.7 44% 212.5 29% 192 39% 44 79% 658 44% Biometry Standard BPD 58.7 mm 24w 0d 44% Hadlock OFD 74.9 mm 23w 0d 27% Nicolaides HC 212.5 mm 23w 2d 29% Ashwin AC 192.0 mm 23w 6d 39% Hadlock Femur 44.0 mm 24w 5d 79% Ashwin EFW 658 g 23w 6d 44% Hadlock EFW (lb) 1 lb EFW (oz) 7 oz EFW by: Hadlock ([id number]) Extended Swing Type Lathe Operator 5.4 mm Extremities / Bony Struc FL / HC 0.21 Other Structures FHR 140 bpm Anatomy Lateral ventricles: normal Cavum septi pellucidi: suboptimally visualized Cerebellum: suboptimally visualized Cisterna magna: suboptimally visualized Lips: suboptimally visualized Profile: normal Nose: suboptimally visualized 4-chamber view: normal RVOT view: suboptimally visualized LVOT view: normal 3-vessel view: normal Heart / Thorax Situs: situs solitus (normal) Diaphragm: normal Stomach: normal Kidneys: normal Bladder: normal sex: male Wants to know sex: yes Performed By: Arlyn Wyatt RDMS Read By: Mariana Burks M.D. [facility] 09-21-2024 Note HNO ID: [id number] Author: MARIANA BURKS MD Service: Nursing Author Type: Registered Nurse Type: Procedures Filed: 09/21/2024 10:02 Note Text: Attestation signed by Mariana Burks MD at 09/21/2024 10:02 AM Attending Note I have personally reviewed the Non-Stress Test and agree with the documented interpretation. AGA NST. Signature: Dr. Mariana Burks MD Date: 09/21/2024 Time: 10:02 AM OBSTETRICS NST SUMMARY SERVICE DATE: September 21, 2024 The patient is a 34 year old female, , who is at 24w0d with an GASPER of 01/11/2025, by Ultrasound dating method. NST OBJECTIVE FINDINGS PER NURSE: Start Time: 07 (09/21/24 08 : Alee Guzman RN) Complete Time: 729 (09/21/24 08 : Alee Guzman RN) Indications: Labor (09/21/24 08 : Alee Guzman RN) Patient Reason For: Monitor Baby (09/21/24799 : Alee Guzman RN) NST Explanation: Verbalizes Understanding (09/21/24799 : Alee Guzman RN) Acoustic Stimulator: No (09/21/24799 : Alee Guzman RN) Interventions: MONITORING/ASSESSMENT: Baseline: 135 bpm (09/21/2430 : Alee Guzman RN) Variability: Moderate (6-25 bpm) (09/21/24829 : Alee Guzman RN) Accelerations: Absent (09/21/24799 : Alee Guzman RN) Decelerations: Decelerations: None (09/21/24799 : Alee Guzman RN) Contractions: Not present (09/21/24829 : Alee Guzman RN) Frequency: x3 (09/21/24799 : Alee Guzman RN) Above information forwarded to Dr. Burks (09/21/24799 : Alee Guzman RN) for final review and interpretation. SIGNATURE: Alee Guzman RN PATIENT NAME: Kathy Hester DATE: September 21, 2024 TIME: 9:53 AM [facility] 09-20-2024 History and physi paola note Note Date/Time September 20, 2024 7:24p m [facility] Medical Records Department [address] [place] [id number] OB Triage Physician Note 09/20/24 3930 MR#: [id number] Acct: [id number] Name: KATHY HESTER Rep #:[id number] : 1990 34 From: Ernestine Gomez MD PCP: Dr. Ephraim Boyd, DO Status:RE G CLI Y Location: [place] [address] HPI - General General Date of Admission: 09/20/24 Date of Service: 09/20/24 Chief Complaint: vaginal bleeding HPI Narrative KATHY HESTER, is a 34 F @ 23 6/7 weeks by 8 week US presents c/o bright red blood upon standing this evening. Some lower abdominal/low back tightening but didn't notice it being more than she has had the last few weeks. Denies trauma, intercourse, drug use or HTN. NO bleeding earlier in the . complicated to date by n/v and takes zofran and phenergan x 1 a day. 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 hx- denies tob/etoh/other substance use Maternal Data Information Final GASPER: 01/11/25 Gestational age: 23 6/7 PFSH PFSH Medical History Polycystic ovarian syndrome Eczema Hx of Pham thyroiditis Hay fever Home Medications ?Medication ?Instructions ?Recorded ?Last Taken ?Type cetirizine 10 mg capsule (Zyrtec) 10 mg PO DAILY PRN a llergies 04/04/21 Unknown History levothyroxine 13 mcg capsule 13 mcg PO DAILY 04/04/21 Unknown History ondansetron HCl 4 mg tablet 4 mg PO 4X/DAY 09/20/24 Un known History vit no.95-ferrous 1 tab PO DAILY 09/20/24 Unk nown History fumarate 28 mg-folic acid 800 mcg tablet () promethazine 12.5 mg tablet 25 mg PO QHS 09/20/24 Unkn own History Allergy/AdvReac Type Severity Reaction Status Date / Time amoxicillin Allergy Severe Hives Verified 09/20/24 17:55 tree nut (tree nuts) Allergy Intermediate Other Verified 09/20/24 17:55 latex Allergy Unknown unknown Verified 09/20/24 17:55 Penicillins Allergy Unknown unknown Verified 09/20/24 17:55 ethanolamine Allergy Anaphylaxis Verified 09/20/24 17:55 Family History Other Asthma Breast cancer Surgical History Hx of cholecystectomy Hx of appendectomy Social History Smoking Status: Never smoker ROS Constitutional Constitutional: Denies fatigue, fever(s) or malaise Eyes Eyes: Denies change in vision ENT HEENT: Denies dizziness or headache(s) Cardiovascular Cardiovascular: Denies chest pain, dyspnea or lightheadedness Respiratory/Chest Respiratory/Chest: Denies cough or dyspnea Gastrointestinal Gastrointestinal: Denies change in bowel habits Genitourinary Genitourinary: Denies burning urination or genital lesions Integumentary Integumentary: Denies rash Neurologic Neurologic: Denies confusion, dizziness, headache(s), numbness or weakness Physical Exam Narrative Verbal consent for sensitive exam, nursing present in the room for this. Brief transabdominal ultrasound was done. Grossly normal fluid. Posterior placenta. Lower uterine segment appears very thin. Active vertex fetus. Sterile speculum exam is done, small amount dark red blood in the vault. No active bright red bleeding, appears to be a clot at the os. Cervix does appear to be soft and approximately 2 cm. Gentle palpation of the cervix was then performed and on light exam feels to be approximately 2 cm 80% effaced but this was done very gingerly as I did not want to disrupt the clot at the os. Const alert and no apparent distress General Appearance: cooperative HEENT normocephalic Resp normal respiratory effort Cardio regular rate GI soft to palpation GI Narrative: gravid, nontender, appropriate for gestational age Extremity no calf tenderness General Extremity: edema Skin no wounds Rashes: No rashes noted Psych activity/motor behavior normal Assessment & Plan (1) Supervision of high risk in second trimester: (2) 23 weeks gestation of : (3) labor in second trimester: QUALIFIERS: labor delivery status: without delivery Qualified Code(s): O60.02 - labor without delivery, second trimester (4) Vaginal bleeding during , antepartum: PLAN: No evidence of abruption on exam or laboratory studies. (5) Advanced maternal age during in second trimester: PLAN: Response and alternatives to betamethasone, and magnesium prophylaxis werediscussed with the patient and her family, and consent was obtained. PLAN: Plan Brief ultrasound confirms vertex. Response and alternatives to transport to tertiary care center for perinatology and neonatology specialty availability were reviewed with the patient, her questions were answered to her satisfaction and she agrees to proceed with transport. Dr. Hitchcock accepts patient at [facility]. Neonatolgy there aware and inagreement w/ accepting transport. 09/20/241911 <Electronically signed by Ernestine day MD> Date _ Ernestine Gomez MD Cosigner Signature (if applicable): Date CC: Dr. Ephraim Boyd DO; Dr. Ernestine Gomez MD ~ Signed ADDENDUM by Dr. Ernestine Gomez MD on 09/20/24 at 1924 Addendum NST- Baseline 140 BPM variability -moderate accels- 10x10 decelerations-none reactive-no but appropriate for gestational age tocos- no ctxs noted on monitor but patient feels tightening 09/20/241923 <Electronically signed by Ernestine day MD> Date _ Ernestine Gomez MD cc: Dr. Ephraim Boyd DO; Dr. Ernestine Gomez MD ~* Signed [facility] Work Phone: 1(417) 698-362405-11-2025 History and physical note [facility] Medical Records Department [address] [place] [address] OB Triage Physician Note 09/20/24 8669 MR#: [id number] Acct: [id number] Name: KATHY HESTER Rep #:[id number] : 1990 34 From: Ernestine Gomez MD PCP: Dr. Ephraim Boyd, DO Status:RE G CLI Y Location: [facility]0 HPI - General General Date of Admission: 09/20/24 Date of Service: 09/20/24 Chief Complaint: vaginal bleeding HPI Narrative KATHY HESTER, is a 34 F @ 23 6/7 weeks by 8 week US presents c/o bright red blood upon standing this evening. Some lower abdominal/low back tightening but didn't notice it being more than she has had the last few weeks. Denies trauma, intercourse, drug use or HTN. NO bleeding earlier in the . complicated to date by n/v and takes zofran and phenergan x 1 a day. 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 hx- denies tob/etoh/other substance use Maternal Data Information Final GASPER: 01/11/25 Gestational age: 23 6/7 PFSH PFSH Medical History Polycystic ovarian syndrome Eczema Hx of Pham thyroiditis Hay fever Home Medications ?Medication ?Instructions ?Recorded ?Last Taken ?Type cetirizine 10 mg capsule (Zyrtec) 10 mg PO DAILY PRN a llergies 04/04/21 Unknown History levothyroxine 13 mcg capsule 13 mcg PO DAILY 04/04/21 Unknown History ondansetron HCl 4 mg tablet 4 mg PO 4X/DAY 09/20/24 Un known History vit no.95-ferrous 1 tab PO DAILY 09/20/24 Unk nown History fumarate 28 mg-folic acid 800 mcg tablet () promethazine 12.5 mg tablet 25 mg PO QHS 09/20/24 Unkn own History Allergy/AdvReac Type Severity Reaction Status Date / Time amoxicillin Allergy Severe Hives Verified 09/20/24 17:55 tree nut (tree nuts) Allergy Intermediate Other Verified 09/20/24 17:55 latex Allergy Unknown unknown Verified 09/20/24 17:55 Penicillins Allergy Unknown unknown Verified 09/20/24 17:55 ethanolamine Allergy Anaphylaxis Verified 09/20/24 17:55 Family History Other Asthma Breast cancer Surgical History Hx of cholecystectomy Hx of appendectomy Social History Smoking Status: Never smoker ROS Constitutional Constitutional: Denies fatigue, fever(s) or malaise Eyes Eyes: Denies change in vision ENT HEENT: Denies dizziness or headache(s) Cardiovascular Cardiovascular: Denies chest pain, dyspnea or lightheadedness Respiratory/Chest Respiratory/Chest: Denies cough or dyspnea Gastrointestinal Gastrointestinal: Denies change in bowel habits Genitourinary Genitourinary: Denies burning urination or genital lesions Integumentary Integumentary: Denies rash Neurologic Neurologic: Denies confusion, dizziness, headache(s), numbness or weakness Physical Exam Narrative Verbal consent for sensitive exam, nursing present in the room for this. Brief transabdominal ultrasound was done. Grossly normal fluid. Posterior placenta. Lower uterine segment appears very thin. Active vertex fetus. Sterile speculum exam is done, small amount dark red blood in the vault. No active bright red bleeding, appears to be a clot at the os. Cervix does appear to be soft and approximately 2 cm. Gentle palpation of the cervix was then performed and on light exam feels to be approximately 2 cm 80% effaced but this was done very gingerly as I did not want to disrupt the clot at the os. Const alert and no apparent distress General Appearance: cooperative HEENT normocephalic Resp normal respiratory effort Cardio regular rate GI soft to palpation GI Narrative: gravid, nontender, appropriate for gestational age Extremity no calf tenderness General Extremity: edema Skin no wounds Rashes: No rashes noted Psych activity/motor behavior normal Assessment & Plan (1) Supervision of high risk in second trimester: (2) 23 weeks gestation of : (3) labor in second trimester: QUALIFIERS: labor delivery status: without delivery Qualified Code(s): O60.02 - labor without delivery, second trimester (4) Vaginal bleeding during , antepartum: PLAN: No evidence of abruption on exam or laboratory studies. (5) Advanced maternal age during in second trimester: PLAN: Response and alternatives to betamethasone, and magnesium prophylaxis werediscussed with the patient and her family, and consent was obtained. PLAN: Plan Brief ultrasound confirms vertex. Response and alternatives to transport to tertiary care center for perinatology and neonatology specialty availability were reviewed with the patient, her questions were answered to her satisfaction and she agrees to proceed with transport. Dr. Hitchcock accepts patient at [facility]. Neonatolgy there aware and inagreement w/ accepting transport. 09/20/24 1912 ll > Date _ Ernestine Gomez MD Cosigner Signature (if applicable): Date CC: Dr. Ephraim Boyd DO; Dr. Ernestine Gomez MD ~ Signed ADDENDUM by Dr. Ernestine Gomez MD on 09/20/24 at 1924 Addendum NST- Baseline 140 BPM variability -moderate accels- 10x10 decelerations-none reactive-no but appropriate for gestational age tocos- no ctxs noted on monitor but patient feels tightening 09/20/24 1924 ll > Date _ Ernestine Gomez MD cc: Dr. Ephraim Boyd DO; Dr. Ernestine Gomez MD ~* Signed [facility]05-11-2025 Evaluation note* Diagnosis Onset Date Resolution Status Admit Date 23 weeks gestation of acut e September 20, 2024 5:10pm Advanced maternal age during in second trimester acute Ma y 2024 5:10pm labor in second trimester [place] September 20, 2024 5:10pm Supervision of high risk pre gnancy in second trimester acute September 20 5:10pm Vaginal bleeding during preg domitila, antepartum acute September 20, 2024 5 :10pm [facility] Work Phone: 1(447) 370-380604-21-2025 Progress note* Result Encounter Note - Ernestine Gomez MD - 08/31/2024 12:17 PM EDT Anatomy ultrasound reviewed. No abnormalities identified. Follow up as clinically indicated. Pleaseplace copy in ob chart. Ernestine Gomez MD [facility] Work Phone: 1(887) 763-524504-21-2025 Miscellaneous Notes* Result Encounter Note - Ernestine Gomez MD - 08/31/2024 12:17 PM EDT Anatomy ultrasound reviewed. No abnormalities identified. Follow up as clinically indicated. Pleaseplace copy in ob chart. Ernestine Gomez MD documented in this encounterThe [facility]04-18-2025 Progress note* Quick Notes - Jurgen Richmond MD - 08/28/2024 3:34 PM EDT SW- Taking Zofran and Phenergan, and N/V controlled. No pain, vb, lof. +FM. Some heartburn PE: Gen- NAD, well appearing See flowsheet A/p 20 wk gestation - Anatomy US today and final report pending - Discussed heartburn in - Discussed upcoming expectations and questions answered - RTO 4 wks Jurgen Richmond DO [facility] Work Phone: 1(279) 324-659604-18-2025 Miscellaneous Notes* Quick Notes - Jurgen Richmond MD - 08/28/2024 3:34 PM EDT SW- Taking Zofran and Phenergan, and N/V controlled. No pain, vb, lof. +FM. Some heartburn PE: Gen- NAD, well appearing See flowsheet A/p 20 wk gestation - Anatomy US today and final report pending - Discussed heartburn in - Discussed upcoming expectations and questions answered - RTO 4 wks Jurgen Richmond DO documented in this encounterThe [facility] Hospital04-18-2025 Instructions* Patient Instructions* Rafael Mendoza MA - 08/28/2024 3:15 PM EDT SEQUENTIAL SCREENINGS The [facility] offers sequential screenings for women who are interested in screenings for chromosomal abnormalities and certain defects during a . The sequential screen combinesultrasound and blood tests to determine the risk of chromosomal abnormalities, including Down's Syndrome (Trisomy 21) and Trisomy 18, as well as open neural tube defects including spina bifida. Ultrasound examination is performed between 11 weeks and 13 weeks gestational age. Blood tests are drawn after the ultrasound and again later in the between 15 and 21 weeks gestational age. Please let your physician know if you are interested in this testing. It will require an appointment withour plastic eye technician. This is not an ultrasound performed by a physician in our office during a routine visit. SIGNS AND SYMPTOMS OF LABOR 1. Contractions every 10 minutes or more often 2. Clear, pink, or brownish fluid (water) leaking from vagina 3. Feeling that baby is pushing down, pressure 4. Low, dull backache 5. Cramps that feel like a period 6. Cramps with or without diarrhea If you notice any of the above symptoms, contact our office at [phone] and ask to speak with anurse. After hours, you can call doctors registry at [phone] OR call [facility] at [phone] ask to have the doctor amortization clerk paged. If you consider this an emergency, dial 9-1-3 or go to your nearest emergency department. NEED HELP? Are you dealing with a violent or abusive relationship? Are you a victim of rape or sexual assult? Call [facility] ([facility] 24 hour Crisis Hotline: 307.958.2189 or 910-466-1926. MANUAL Your Guide to a Healthy manual is now on-line. Visit [email or web address] to download your free copy documented in this encounterThe [facility] Hospital03-24-2025 Telephone encounter Note * Telephone Encounter - Sarah Orlando RN - 08/03/2024 11:44 AM EDT [employer] message sent to patient. Sarah Orlando RN [facility]03-24-2025 Miscellaneous Notes* Telephone Encounter - Sarah Orlando RN - 08/03/2024 11:44 AM EDT MyChart message sent to patient. Sarah Orlando RN * Telephone Encounter - Pamella Crowder APRN.CNM - 08/03/2024 11:33 AM EDT Yes this is fine as long as she is not taking unisom or other antihistamine. Thank you, Pamella Crowder APRN.CNM * Telephone Encounter - Kaelyn Spangler LPN - 08/03/2024 9:50 AM EDT Ob patient is 17w0d and called stating that she is currently taking zofran 4 mg every 6 hours as needed and phenergan 25 mg every 6 hours as needed for nausea and purchased Zyrtec 10 mg for her allergies and wanting to make sure ok to take with other meds. Patient would like a response to her Mychart. documented in this encounterThe [facility] Hospital03-24-2025 Telephone encounter Note * Telephone Encounter - Pamella Crowder APRN.CNM - 08/03/2024 11:33 AM EDT Yes this is fine as long as she is not taking unisom or other antihistamine. Thank you, Pamella Crowder APRN.CNM [facility]03-24-2025 Telephone encounter Note* Telephone Encounter - Kaelyn Spangler LPN - 08/03/2024 9:50 AM EDT Ob patient is 17w0d and called stating that she is currently taking zofran 4 mg every 6 hours as needed and phenergan 25 mg every 6 hours as needed for nausea and purchased Zyrtec 10 mg for her allergies and wanting to make sure ok to take with other meds. Patient would like a response to her Mychart. [facility]03-21-2025 Progress note* Quick Notes - Natasha Segura MD - 07/31/2024 10:03 AM EDT S: Kathy Hester is a 33 year old female who presents at 01/11/2025, by Ultrasound for a routine visit. Denies headache, visual changes, chest pain, shortness of breath, vaginal bleeding, leakage of fluid, or dysuria. Feeling well, no complaints. Nausea and vomiting daily. Was ok and managing with one zofran and one phenergan a day. Since running out of phenergan has not been able to tolerate food. 3 lb weight loss since last visit O: See flow sheet Gen: No apparent distress Abd: Gravid, nontender Anatomy schedule next visit ASSESSMENT/PLAN: 1. AMA (advanced maternal age) multigravida 35+, second trimester - ICD9: 659.63, ICD10: O09.522 (primary diagnosis) 2. 16 weeks gestation of - ICD9: V22.2, ICD10: Z3A.16 3. Nausea and vomiting in - ICD9: 643.90, ICD10: O21.9 - PROMETHAZINE 25 MG TABLET 4. 8 weeks gestation of - ICD9: V22.2, ICD10: Z3A.08 - PROMETHAZINE 25 MG TABLET Natasha Segura MD [facility]03-21-2025 Miscellaneous Notes* Quick Notes - Natasha Seugra MD - 07/31/2024 10:03 AM EDT S: Kathy Hester is a 33 year old female who presents at 01/11/2025, by Ultrasound for a routine visit. Denies headache, visual changes, chest pain, shortness of breath, vaginal bleeding, leakage of fluid, or dysuria. Feeling well, no complaints. Nausea and vomiting daily. Was ok and managing with one zofran and one phenergan a day. Since running out of phenergan has not been able to tolerate food. 3 lb weight loss since last visit O: See flow sheet Gen: No apparent distress Abd: Gravid, nontender Anatomy schedule next visit ASSESSMENT/PLAN: 1. AMA (advanced maternal age) multigravida 35+, second trimester - ICD9: 659.63, ICD10: O09.522 (primary diagnosis) 2. 16 weeks gestation of - ICD9: V22.2, ICD10: Z3A.16 3. Nausea and vomiting in - ICD9: 643.90, ICD10: O21.9 - PROMETHAZINE 25 MG TABLET 4. 8 weeks gestation of - ICD9: V22.2, ICD10: Z3A.08 - PROMETHAZINE 25 MG TABLET Natasha Segura MD documented in this encounterThe [facility] Hospital03-21-2025 Instructions* Patient Instructions* Joy Heart MA - 07/31/2024 9:40 AM EDT SEQUENTIAL SCREENINGS The [facility] offers sequential screenings for women who are interested in screenings for chromosomal abnormalities and certain defects during a . The sequential screen combinesultrasound and blood tests to determine the risk of chromosomal abnormalities, including Down's Syndrome (Trisomy 21) and Trisomy 18, as well as open neural tube defects including spina bifida. Ultrasound examination is performed between 11 weeks and 13 weeks gestational age. Blood tests are drawn after the ultrasound and again later in the between 15 and 21 weeks gestational age. Please let your physician know if you are interested in this testing. It will require an appointment withour plastic eye technician. This is not an ultrasound performed by a physician in our office during a routine visit. SIGNS AND SYMPTOMS OF LABOR 1. Contractions every 10 minutes or more often 2. Clear, pink, or brownish fluid (water) leaking from vagina 3. Feeling that baby is pushing down, pressure 4. Low, dull backache 5. Cramps that feel like a period 6. Cramps with or without diarrhea If you notice any of the above symptoms, contact our office at [phone] and ask to speak with anurse. After hours, you can call doctors registry at [phone] OR call [facility] at [phone] ask to have the doctor amortization clerk paged. If you consider this an emergency, dial 91-3 or go to your nearest emergency department. NEED HELP? Are you dealing with a violent or abusive relationship? Are you a victim of rape or sexual assult? Call [facility] ([place]) 24 hour Crisis Hotline: 732.716.5363 or 793-903-0230. MANUAL Your Guide to a Healthy manual is now on-line. Visit [email or web address] to download your free copy documented in this encounterThe [facility] Hospital03-12-2025 Telephone encounter Note * Telephone Encounter - Natasha Chandler RN - 07/22/2024 10:13 AM EDT Patient notified. Offered her a sooner visit to discuss. Patient has 5 days worth of Phenergan. If she runs out she will switch to her Zofran. Natasha Chandler RN [facility]03-12-2025 Miscellaneous Notes* Telephone Encounter - Natasha Chandler RN - 07/22/2024 10:13 AM EDT Patient notified. Offered her a sooner visit to discuss. Patient has 5 days worth of Phenergan. If she runs out she will switch to her Zofran. Natasha Chandler RN * Telephone Encounter - Sussy Landin APRN.CNM - 07/22/2024 9:08 AM EDT Patient does not need to use Phenergan if not having nausea with vomiting. We can discuss maybe useof another medication for nausea. Sussy Landin APRN.CNM * Telephone Encounter - Sarah Orlando RN - 07/22/2024 8:30 AM EDT Patient 15w2d calling requesting a refill on her Phenergan Rx. Patient states she is not vomiting, but continues to have all day long nausea with dry heaving. Patient has upcoming appointment on 07/31. Sarah Orlando RN documented in this encounterThe [facility] Hospital03-12-2025 Telephone encounter Note * Telephone Encounter - Sussy Landin APRN.CNM - 07/22/2024 9:08 AM EDT Patient does not need to use Phenergan if not having nausea with vomiting. We can discuss maybe useof another medication for nausea. Sussy Landin APRN.CNM [facility]03-12-2025 Telephone encounter Note* Telephone Encounter - Sraah Orlando RN - 07/22/2024 8:30 AM EDT Patient 15w2d calling requesting a refill on her Phenergan Rx. Patient states she is not vomiting, but continues to have all day long nausea with dry heaving. Patient has upcoming appointment on 07/31. Sarah Orlando RN [facility]03-10-2025 Telephone encounter Note* Telephone Encounter - Rafael Mendoza MA - 07/20/2024 11:10 AM EDT See [employer] message. Patient quit job so no longer needing FMLA paperwork, will dispose of paperwork. Rafael Mendoza MA [facility]03-10-2025 Miscellaneous Notes* Telephone Encounter - Rafael Mendoza MA - 07/20/2024 11:10 AM EDT See [employer] message. Patient quit job so no longer needing FMLA paperwork, will dispose of paperwork. Rafael Mendoza MA * Telephone Encounter - Rafael Mendoza MA - 07/07/2024 1:26 PM EST Received FMLA paperwork. Rafael Mendoza MA documented in this encounterThe [facility] Hospital02-25-2025 Telephone encounter Note * Telephone Encounter - Rafael Mendoza MA - 07/07/2024 1:26 PM EST Received FMLA paperwork. Rafael Mendoza MA [facility]02-20-2025 Progress note* Quick Notes - Ernestine Gomez MD - 07/02/2024 1:56 PM EST RR- VB No. LOF No. CTXS No. Movement: n/a. Other c/o: nausea controlled w/ zofran Medication list reviewed. SENSITIVE EXAM: Sensitive exam not performed. Physical Exam See Flow Sheet Gen: no accute distress, well appearing A/P 12w3d Estimated Date of Delivery: 01/11/25 n/v of - controlled w/ phenergan and PNV ama- anatomy scan ordered, had firs trimester US declines aneuploidy screening asa prophylaxis ordered f/u in 4 weeks or prn Ernestine Gomez M.D. [facility]02-20-2025 Miscellaneous Notes* Quick Notes - Ernestine Gomez MD - 07/02/2024 1:56 PM EST RR- VB No. LOF No. CTXS No. Movement: n/a. Other c/o: nausea controlled w/ zofran Medication list reviewed. SENSITIVE EXAM: Sensitive exam not performed. Physical Exam See Flow Sheet Gen: no accute distress, well appearing A/P 12w3d Estimated Date of Delivery: 01/11/25 n/v of - controlled w/ phenergan and PNV ama- anatomy scan ordered, had firs trimester US declines aneuploidy screening asa prophylaxis ordered f/u in 4 weeks or prn Ernestine Gomez M.D. documented in this encounterThe [facility] Hospital02-20-2025 Instructions* Patient Instructions* Anjelica Gore MA - 07/02/2024 1:13 PM EST SEQUENTIAL SCREENINGS The [facility] offers sequential screenings for women who are interested in screenings for chromosomal abnormalities and certain defects during a . The sequential screen combinesultrasound and blood tests to determine the risk of chromosomal abnormalities, including Down's Syndrome (Trisomy 21) and Trisomy 18, as well as open neural tube defects including spina bifida. Ultrasound examination is performed between 11 weeks and 13 weeks gestational age. Blood tests are drawn after the ultrasound and again later in the between 15 and 21 weeks gestational age. Please let your physician know if you are interested in this testing. It will require an appointment withour plastic eye technician. This is not an ultrasound performed by a physician in our office during a routine visit. SIGNS AND SYMPTOMS OF LABOR 1. Contractions every 10 minutes or more often 2. Clear, pink, or brownish fluid (water) leaking from vagina 3. Feeling that baby is pushing down, pressure 4. Low, dull backache 5. Cramps that feel like a period 6. Cramps with or without diarrhea If you notice any of the above symptoms, contact our office at [phone] and ask to speak with anurse. After hours, you can call doctors registry at [phone] OR call [facility] at [phone] ask to have the doctor amortization clerk paged. If you consider this an emergency, dial 76 or go to your nearest emergency department. NEED HELP? Are you dealing with a violent or abusive relationship? Are you a victim of rape or sexual assult? Call [facility] ([place]) 24 hour Crisis Hotline: 896.381.2742 or 771-264-9679. MANUAL Your Guide to a Healthy manual is now on-line. Visit [email or web address] to download your free copy documented in this encounterThe [facility] Hospital02-14-2025 Progress note* Quick Notes - Natasha Segura MD - 06/26/2024 5:46 PM EST S: Kathy Hester is a 33 year old female who presents at 01/11/2025, by Ultrasound for a routine visit. Denies headache, visual changes, chest pain, shortness of breath, vaginal bleeding, leakage of fluid, or dysuria. O: See flow sheet Gen: No apparent distress N/V tolerable with phenergan and zofran Having trouble with employer and getting time to snack and rest. Wants to take a leave of absence from work. Discussed FMLA would only get her 12 weeks. She needs to talk with HR about a half-way option ASSESSMENT/PLAN: 1. 11 weeks gestation of - ICD9: V22.2, ICD10: Z3A.11 Continue with phenergan and zofran prn Natasha Segura MD [facility]02-14-2025 Miscellaneous Notes* Quick Notes - Natasha Segura MD - 06/26/2024 5:46 PM EST S: Kathy Hester is a 33 year old female who presents at 01/11/2025, by Ultrasound for a routine visit. Denies headache, visual changes, chest pain, shortness of breath, vaginal bleeding, leakage of fluid, or dysuria. O: See flow sheet Gen: No apparent distress N/V tolerable with phenergan and zofran Having trouble with employer and getting time to snack and rest. Wants to take a leave of absence from work. Discussed FMLA would only get her 12 weeks. She needs to talk with HR about a half-way option ASSESSMENT/PLAN: 1. 11 weeks gestation of - ICD9: V22.2, ICD10: Z3A.11 Continue with phenergan and zofran prn Natasha Segura MD documented in this encounterThe [facility]02-14-2025 Instructions* Patient Instructions* Aretha Gorman MA - 06/26/2024 3:26 PM EST SEQUENTIAL SCREENINGS The [facility] offers sequential screenings for women who are interested in screenings for chromosomal abnormalities and certain defects during a . The sequential screen combinesultrasound and blood tests to determine the risk of chromosomal abnormalities, including Down's Syndrome (Trisomy 21) and Trisomy 18, as well as open neural tube defects including spina bifida. Ultrasound examination is performed between 11 weeks and 13 weeks gestational age. Blood tests are drawn after the ultrasound and again later in the between 15 and 21 weeks gestational age. Please let your physician know if you are interested in this testing. It will require an appointment withour plastic eye technician. This is not an ultrasound performed by a physician in our office during a routine visit. SIGNS AND SYMPTOMS OF LABOR 1. Contractions every 10 minutes or more often 2. Clear, pink, or brownish fluid (water) leaking from vagina 3. Feeling that baby is pushing down, pressure 4. Low, dull backache 5. Cramps that feel like a period 6. Cramps with or without diarrhea If you notice any of the above symptoms, contact our office at [phone] and ask to speak with anurse. After hours, you can call doctors registry at [phone] OR call [facility] at [phone] ask to have the doctor amortization clerk paged. If you consider this an emergency, dial 9-1-9 or go to your nearest emergency department. NEED HELP? Are you dealing with a violent or abusive relationship? Are you a victim of rape or sexual assult? Call [facility] ([place]) 24 hour Crisis Hotline: 323.953.2309 or 607-002-8172. MANUAL Your Guide to a Healthy manual is now on-line. Visit [email or web address] to download your free copy documented in this encounterThe [facility] Hospital02-12-2025 Telephone encounter Note * Telephone Encounter - Keli Trinh RN - 06/24/2024 1:52 PM EST 11w2d Patient called in requesting refill. Requested Prescriptions Pending Prescriptions Disp Refills promethazine (PHENERGAN) 25 mg tablet 30 tablet 1 Sig: Take 1 tablet by mouth every 6 hours. Keli Trinh RN [facility]02-12-2025 Miscellaneous Notes* Telephone Encounter - Keli Trinh RN - 06/24/2024 1:52 PM EST 11w2d Patient called in requesting refill. Requested Prescriptions Pending Prescriptions Disp Refills promethazine (PHENERGAN) 25 mg tablet 30 tablet 1 Sig: Take 1 tablet by mouth every 6 hours. Keli Trinh RN documented in this encounterThe [facility] Hospital02-05-2025 Miscellaneous Notes* Telephone Encounter - Keli Trinh RN - 06/17/2024 12:32 PM EST Pharmacy requesting 90 day supply. 10w2d Requested Prescriptions Pending Prescriptions Disp Refills folic acid 1 mg tablet [Pharmacy Med Name: FOLIC ACID 1 MG TABLET] 90 tablet 1 Sig: TAKE 1 TABLET BY MOUTH EVERY DAY Keli Trinh RN documented in this encounterThe [facility] Hospital02-05-2025 Telephone encounter Note * Telephone Encounter - Keli Trinh RN - 06/17/2024 12:32 PM EST Pharmacy requesting 90 day supply. 10w2d Requested Prescriptions Pending Prescriptions Disp Refills folic acid 1 mg tablet [Pharmacy Med Name: FOLIC ACID 1 MG TABLET] 90 tablet 1 Sig: TAKE 1 TABLET BY MOUTH EVERY DAY Keli Trinh RN [facility]02-04-2025 Progress note* Quick Notes - Pamella Crowdre APRN.CNM - 06/16/2024 4:19 PM EST [place]LE[place]-S: Kathy Hester is a 33 year old female who presents at 10w1d with GASPER:01/11/2025, by Ultrasound for a problem visit. Denies headache, visual changes, chest pain, shortness of breath, vaginal bleeding, leakage of fluid, or dysuria. Presents with constipation and discomfort. Difficult goingto the bathroom and causing mid and LL abdominal quadrant pain. Tearful upon arrival O: See flow sheet Gen: No apparent distress Abd: nontender ASSESSMENT/PLAN: 1. Supervision of high risk in first trimester 2. Nausea and vomiting in 3. 10 weeks gestation of 4. Constipation, unspecified constipation type -Reviewed Dulcolax for immediate relief -Use Miralax daily for the next week -Start Colace stool softener -Reduce Zofran use if possible PTL precautions reviewed and when to call RTO as scheduled Pamella Crowder APRN.CNM [facility]02-04-2025 Miscellaneous Notes* Quick Notes - Pamella Crowder APRN.CNM - 06/16/2024 4:19 PM EST LARRYS: Kathy Hester is a 33 year old female who presents at 10w1d with GASPER:01/11/2025, by Ultrasound for a problem visit. Denies headache, visual changes, chest pain, shortness of breath, vaginal bleeding, leakage of fluid, or dysuria. Presents with constipation and discomfort. Difficult goingto the bathroom and causing mid and LL abdominal quadrant pain. Tearful upon arrival O: See flow sheet Gen: No apparent distress Abd: nontender ASSESSMENT/PLAN: 1. Supervision of high risk in first trimester 2. Nausea and vomiting in 3. 10 weeks gestation of 4. Constipation, unspecified constipation type -Reviewed Dulcolax for immediate relief -Use Miralax daily for the next week -Start Colace stool softener -Reduce Zofran use if possible PTL precautions reviewed and when to call RTO as scheduled Pamella Crowder APRN.CNM documented in this encounterThe [facility] Hospital02-04-2025 Instructions* Patient Instructions* Pamella Crowder APRN.CNM - 06/16/2024 3:51 PM EST Recommended using Benefiber once having daily BM, along with daily probiotic. 4 grams (2 teaspoons) added to 4 to 8 ounces of liquid or soft food 3 times daily. Recommended starting Miralax daily to induce bowel movemnt Miralax generally will help produce bowel movement in 1-3 days Fill to top of white section in cap which is marked to indicate the correct dose (17 g) Stir and dissolve in any 8 ounces of non-carbonated beverage (cold, hot or room temperature) then drink If diarrhea occurs, reduce usage to every other day Instructed to use Dulcolax as rescue med, only as needed, if Miralax does not produce BM in 3 days Lemon glycerin suppositories or duculax suppositories SIGNS AND SYMPTOMS OF LABOR 1. Contractions every 10 minutes or more often 2. Clear, pink, or brownish fluid (water) leaking from vagina 3. Feeling that baby is pushing down, pressure 4. Low, dull backache 5. Cramps that feel like a period 6. Cramps with or without diarrhea If you notice any of the above symptoms, contact our office at [phone] and ask to speak with anurse. After hours, you can call doctors registry at [phone] OR call [facility] at [phone] ask to have the doctor amortization clerk paged. If you consider this an emergency, dial 9--4 or go to your nearest emergency department. NEED HELP? Are you dealing with a violent or abusive relationship? Are you a victim of rape or sexual assult? Call [facility] ([place]) 24 hour Crisis Hotline: 653.628.5066 or 285-666-3071. MANUAL Your Guide to a Healthy manual is now on-line. Visit [email or web address] to download your free copy documented in this encounterThe [facility]02-04-2025 Telephone encounter Note * Telephone Encounter - Keli Trinh RN - 06/16/2024 3:22 PM EST Patient notified and scheduled. Keli Trinh RN [facility]02-04-2025 Miscellaneous Notes* Telephone Encounter - Keli Trinh RN - 06/16/2024 3:22 PM EST Patient notified and scheduled. Keli Trinh RN * Telephone Encounter - Pamella Crowder APRN.CNM - 06/16/2024 3:19 PM EST I can see her at 3:45pm if she can come in. Likely just constipation but happy to see her. Pamella Crowder APRN.CNM * Telephone Encounter - Keli Trinh RN - 06/16/2024 3:11 PM EST 10w1d Calling c/o severe abdominal cramping that started today after bowel movement. Feels cramping is related to bowels, but is worried it's related too. Has been having BM everyday this week, but has been harder. Stool today was very hard. She constantly feels like she has to have BM and onlyminimal amount each time. She has been taking miralax and increasing fluids since she has been havin g constipation problems this . No bleeding. Pain is almost unbearable at times to where she feels like she may pass out. Pain comes in waves and ranges 5-10/10 on pain scale. She is very concerned about baby too. Would take about 30 minutes to get to office if needed. Please advise. Keli Trinh RN [facility] Telephone encounter Note * Telephone Encounter - Pamella Crowder APRN.CNM - 06/16/2024 3:19 PM EST I can see her at 3:45pm if she can come in. Likely just constipation but happy to see her. Pamella Crowder APRN.CNM [facility]02-04[facility] Telephone encounter Note* Telephone Encounter - Keli Trinh RN - 06/16/2024 3:11 PM EST 10w1d Calling c/o severe abdominal cramping that started today after bowel movement. Feels cramping is related to bowels, but is worried it's related too. Has been having BM everyday this week, but has been harder. Stool today was very hard. She constantly feels like she has to have BM and onlyminimal amount each time. She has been taking miralax and increasing fluids since she has been havin g constipation problems this . No bleeding. Pain is almost unbearable at times to where she feels like she may pass out. Pain comes in waves and ranges 5-10/10 on pain scale. She is very concerned about baby too. Would take about 30 minutes to get to office if needed. Please advise. Keli Trinh RN [facility]01-31-2025 Progress note* Quick Notes - Sussy Landin APRN.CNM - 06/12/2024 3:15 PM EST S: Kathy Hester is a 33 year old female who presents for a follow up visit for N/V. Since last week and starting phenergan has only had 1 episode of emesis which was yesterday. Feeling better. Still nauseated but this has also improved. Able to eat and drink. Constipation since taking Zofran. Denies headache, visual changes, chest pain, shortness of breath, vaginal bleeding, leakage of fluid, or dysuria. . O: See flow sheet Gen: No apparent distress Abd: Gravid, nontender ASSESSMENT/PLAN: 1. Nausea and vomiting in 2. 9 weeks gestation of 3. Supervision of high risk in first trimester - N/V improved - Continue Phenergan PO - Continue Zofran PO - Patient to call if unable to keep any food or liquid down in 24 hours - RTO 4 weeks for BERRY Landin APRN.CNM [facility]01-31-2025 Miscellaneous Notes* Quick Notes - Sussy Landin APRN.CNM - 06/12/2024 3:15 PM EST S: Kathy Hester is a 33 year old female who presents for a follow up visit for N/V. Since last week and starting phenergan has only had 1 episode of emesis which was yesterday. Feeling better. Still nauseated but this has also improved. Able to eat and drink. Constipation since taking Zofran. Denies headache, visual changes, chest pain, shortness of breath, vaginal bleeding, leakage of fluid, or dysuria. . O: See flow sheet Gen: No apparent distress Abd: Gravid, nontender ASSESSMENT/PLAN: 1. Nausea and vomiting in 2. 9 weeks gestation of 3. Supervision of high risk in first trimester - N/V improved - Continue Phenergan PO - Continue Zofran PO - Patient to call if unable to keep any food or liquid down in 24 hours - RTO 4 weeks for BERRY Landin APRN.CNM documented in this encounterThe [facility] Instructions* Patient Instructions* Rafael Mendoza MA - 06/12/2024 3:00 PM EST SEQUENTIAL SCREENINGS The [facility] offers sequential screenings for women who are interested in screenings for chromosomal abnormalities and certain defects during a . The sequential screen combinesultrasound and blood tests to determine the risk of chromosomal abnormalities, including Down's Syndrome (Trisomy 21) and Trisomy 18, as well as open neural tube defects including spina bifida. Ultrasound examination is performed between 11 weeks and 13 weeks gestational age. Blood tests are drawn after the ultrasound and again later in the between 15 and 21 weeks gestational age. Please let your physician know if you are interested in this testing. It will require an appointment withour plastic eye technician. This is not an ultrasound performed by a physician in our office during a routine visit. SIGNS AND SYMPTOMS OF LABOR 1. Contractions every 10 minutes or more often 2. Clear, pink, or brownish fluid (water) leaking from vagina 3. Feeling that baby is pushing down, pressure 4. Low, dull backache 5. Cramps that feel like a period 6. Cramps with or without diarrhea If you notice any of the above symptoms, contact our office at [phone] and ask to speak with anurse. After hours, you can call doctors registry at [phone] OR call [facility] at [phone] ask to have the doctor amortization clerk paged. If you consider this an emergency, dial [phone] or go to your nearest emergency department. NEED HELP? Are you dealing with a violent or abusive relationship? Are you a victim of rape or sexual assult? Call [facility] ([place]) 24 hour Crisis Hotline: 203.281.8252 or 270-822-5878. MANUAL Your Guide to a Healthy manual is now on-line. Visit [email or web address] to download your free copy documented in this encounterThe [facility]01-[facility] Progress note* Quick Notes - Jurgen Richmond MD - 06/05/2024 11:08 AM EST SW- Visit for follow up on N/V. Had severe nausea and vomiting with first , and significant weight loss. She reports no medication was helping with the N/V, and she was in and out of the hospital for IVF hydration with her first . She is currently alternating taking Zofran and Reglan scheduled. She does not think the medication is doing much to help. Having emesis 2-4 times a day. Only keeping down small sips of water down. Has urinated twice today. Keeping down food if she can eat, but she does not have an appetite. Today she had eggs with cheese, and toast. She is staying with her mom for help right now. No pain or bleeding. PE: Gen- NAD, well appearing Abd- Soft, NT Bedside TAUS- +FHT See flowsheet A/p 8 wk gestation - Stop Reglan and start Phenergan. Discussed alternating Phenergan and Zofran REJI. She is currentlydrinking water and tolerating it in the room, and ate breakfast this morning without emesis. Recommend elva as needed and discussed dietary changes. Recommend coming in for IVF hydration if cannot tolerate PO for 24 hours or more. Follow up next week Jurgen Richmond DO [facility]01-24-20[facility] Miscellaneous Notes* Quick Notes - Jurgen Richmond MD - 06/05/2024 11:08 AM EST SW- Visit for follow up on N/V. Had severe nausea and vomiting with first , and significant weight loss. She reports no medication was helping with the N/V, and she was in and out of the hospital for IVF hydration with her first . She is currently alternating taking Zofran and Reglan scheduled. She does not think the medication is doing much to help. Having emesis 2-4 times a day. Only keeping down small sips of water down. Has urinated twice today. Keeping down food if she can eat, but she does not have an appetite. Today she had eggs with cheese, and toast. She is staying with her mom for help right now. No pain or bleeding. PE: Gen- NAD, well appearing Abd- Soft, NT Bedside TAUS- +FHT See flowsheet A/p 8 wk gestation - Stop Reglan and start Phenergan. Discussed alternating Phenergan and Zofran REJI. She is currentlydrinking water and tolerating it in the room, and ate breakfast this morning without emesis. Recommend elva as needed and discussed dietary changes. Recommend coming in for IVF hydration if cannot tolerate PO for 24 hours or more. Follow up next week Jurgen Richmond DO documented in this encounterThe [facility]01-24-[facility]25 Instructions* Patient Instructions* Kaelyn Spangler LPN - 06/05/2024 10:54 AM EST SEQUENTIAL SCREENINGS The [facility] offers sequential screenings for women who are interested in screenings for chromosomal abnormalities and certain defects during a . The sequential screen combinesultrasound and blood tests to determine the risk of chromosomal abnormalities, including Down's Syndrome (Trisomy 21) and Trisomy 18, as well as open neural tube defects including spina bifida. Ultrasound examination is performed between 11 weeks and 13 weeks gestational age. Blood tests are drawn after the ultrasound and again later in the between 15 and 21 weeks gestational age. Please let your physician know if you are interested in this testing. It will require an appointment withour plastic eye technician. This is not an ultrasound performed by a physician in our office during a routine visit. SIGNS AND SYMPTOMS OF LABOR 1. Contractions every 10 minutes or more often 2. Clear, pink, or brownish fluid (water) leaking from vagina 3. Feeling that baby is pushing down, pressure 4. Low, dull backache 5. Cramps that feel like a period 6. Cramps with or without diarrhea If you notice any of the above symptoms, contact our office at [phone] and ask to speak with anurse. After hours, you can call doctors registry at [phone] OR call [facility] at [phone] ask to have the doctor amortization clerk paged. If you consider this an emergency, dial [phone] or go to your nearest emergency department. NEED HELP? Are you dealing with a violent or abusive relationship? Are you a victim of rape or sexual assult? Call [facility] ([place]) 24 hour Crisis Hotline: 708.357.2473 or 784-918-0774. MANUAL Your Guide to a Healthy manual is now on-line. Visit [email or web address] to download your free copy documented in this encounterThe [facility]01-[facility] Telephone encounter Note * Telephone Encounter - Keli Trinh RN - 06/02/2024 11:49 AM EST Patient notified. Keli Trinh RN The following approved medication requests have been transmitted electronically. Requested Prescriptions Signed Prescriptions Disp Refills metoclopramide HCl (REGLAN) 10 mg tablet 90 tablet 0 Sig: Take 1 tablet by mouth three times a day as needed. Authorizing Provider: PAMELLA CROWDER Pharmacy Information Pharmacy Address Telephone [facility]/pharmacy #[id number] [address] [place] [address] [facility]01[facility] Miscellaneous Notes* Telephone Encounter - Keli Trinh RN - 06/02/2024 11:49 AM EST Patient notified. Keli Trinh RN The following approved medication requests have been transmitted electronically. Requested Prescriptions Signed Prescriptions Disp Refills metoclopramide HCl (REGLAN) 10 mg tablet 90 tablet 0 Sig: Take 1 tablet by mouth three times a day as needed. Authorizing Provider: PAMELLA CROWDER Pharmacy Information Pharmacy Address Telephone [facility]/pharmacy #[id number] [address] [id number] * Telephone Encounter - Pamella Crowder APRN.CNM - 06/02/2024 11:22 AM EST I can add reglan. She can interchange zofran and reglan throughout the day. If no improvement by , please make appointment with provider on Saturday. Pamella Crowder APRN.CNM * Telephone Encounter - Kaelyn Spangler LPN - 06/02/2024 10:39 AM EST Ob patient is 8w1d and called stating that she is currently taking Zofran for Nausea and pepcid 40 mg daily at bedtime. Patient reports that she is still having issues with acid reflux - Multiple times a day vomits stomach acid and Is miserable Patient asking if there is anything else that she can take along with pepcid to help. documented in this encounterThe [facility]01-[facility] Telephone encounter Note * Telephone Encounter - Pamella Crowder APRN.CNM - 06/02/2024 11:22 AM EST I can add reglan. She can interchange zofran and reglan throughout the day. If no improvement by , please make appointment with provider on Saturday. Pamella Crowder, RESIDENT ADVISOR.CNM [facility]01-21-2025 Telephone encounter Note* Telephone Encounter - Kaelyn Spangler LPN - 06/02/2024 10:39 AM EST Ob patient is 8w1d and called stating that she is currently taking Zofran for Nausea and pepcid 40 mg daily at bedtime. Patient reports that she is still having issues with acid reflux - Multiple times a day vomits stomach acid and Is miserable Patient asking if there is anything else that she can take along with pepcid to help. [facility]01-16-2025 NoteHNO ID: [id number] Author: SELAM CESAR APRN.REGULATORY AFFAIRS CONSULTANT Service: ? Author Type: Nurse Practitioner Type: Progress Notes Filed: 06/01/2024 16:44 Note Text: INITIAL OB ASSESSMENT HPI: Kathy is a 33 year old White here to establish Obstetrical Care. Patient's last menstrual period was 03/25/2024 (exact date). from OB Dating Form. was unplanned but accepted Complaints: (!) Severe nausea/vomiting-Was seen in office on 05/26/24 for 14lb weight loss in 5 days. States has improved since office visit. OB History T1 L1 SAB0 IAB0 Ectopic0 Multiple0 Live Births1 Previous history: Prior : No History of 4th degree laceration: Perineal Laceration, 3rd or 4th degree No History of shoulder dystocia: Shoulder Dystocia No History of Hypertensive disorders including pre-eclampsia or gestational hypertension: Gestational Hypertension No Preeclampsia No History of gestational diabetes: Diabetes in No Patient's Risk Screening for delivery: Have you had a prior navarrete between 20w and 36w6d? No How many pregnancies have you had before? 1 Did you have a previous baby with a GBS Infection? No Please select all that apply for any prior : N/A MEDICAL/PSYCHOSOCIAL HISTORY: Severe bleeding with delivery No History question Answer Diagnosis Date Comment Thyroid Disease No Thyroid disease 05/04/2016 Gestational Hypertension No Preeclampsia No Diabetes in No ABO/RH(D) Date Value Ref Range Status 05/06/2016 O POSITIVE Final BMI 28.55 kg/(m2) Last Pap: History of abnormal pap: Abnormal Pap No Prior treatment for cervical dysplasia: N/A. Last HPV: History of STDs: N/A Partner History of STDs: None Did you have a partner with Herpes? No Tobacco use: No E-Cigarette/Vaping Use: No Caffeine use: No Drug use: No Alcohol use: No Multivitamin with Folic acid: Yes Would refuse blood transfusion if medically necessary: No Social Needs: How often does this describe you? I don't have enough money to pay my bills: Never Within the past 12 months, have you worried that your food would run out before you had money to buy more? Never In the past 12 months, has lack of reliable transportation kept you from going to medical appointments or work, or from getting things needed for daily living? Never In the past 12 months, have you had any concerns about having a place to live, or about the condition or quality of your housing? Never Would you like more information on any of the following (please check all that apply)? Not interested Social History: Do you have any history of depression, anxiety, PTSD, or other mood problems? No Do you have a history of abuse or trauma that may impact your experience? 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 OB Depression and Anxiety Screening- This Encounter (since 05/31/2024) None Genetic Screening: Partner present: Yes Patient verbalized knowledge of partner family health history: No Do you or your partner have any personal or family history of defects not previously discussed: No Do you have history of a complicated by anomaly, genetic condition, or demise: No Preeclampsia Risk Screening: Screening for prevention of preeclampsia: High risk factors: None Moderate risk ractors: Age 35 years or older OB Risk Screening: Completed, no positive findings documented. Marital Status: Partner: Name: Anmol Hester Age: 37 Occupation: [employer] Director Gender: Male PAST MEDICAL HISTORY Diagnosis Date Gallstones Normal IUP (intrauterine ) on ultrasound 12/04/2015 Symptomatic cholelithiasis 12/04/2015 UTI (urinary tract infection) PAST SURGICAL HISTORY Procedure Laterality Date APPENDECTOMY HX 6 yo CHOLECYSTECTOMY HX 12/12/2015 Current Outpatient Medications Medication Sig Dispense Refill levothyroxine 150 mcg cap Take 150 mcg by mouth daily before breakfast. ondansetron (ZOFRAN) 4 mg tablet Take 1 tablet by mouth every 8 hours as needed for nausea/vomiting. 30 tablet 2 folic acid 1 mg tablet Take 1 tablet by mouth once daily. 30 tablet 2 famotidine (PEPCID) 40 mg tablet Take 1 tablet by mouth once daily. 30 tablet 2 Multivitamin capsule Take 1 capsule by mouth once daily. ondansetron orally disintegrating (ZOFRAN ODT) 4 mg disintegrating tablet Take 1 tablet by mouth every 6 hours as needed for Nausea/Vomiting. (Patient not taking: Reported on 05/28/2024) 15 tablet 0 No current facility-administered medications for this visit. Allergies As of Date: 06/01/2024 Allergen Noted Reaction AMOXICILLIN 09/17/2015 Mental Status Change EGGS [EGG] 09/17/2015 GI Upset LATEX, NATURAL RUBBER 10/20/2015 Rash MONTELUKAST 01/14/2022 Unknown PEN (more content not included)...[facility]01-16-2025 History of Present illness Narrative* Selam Cesar APRN.REGULATORY AFFAIRS CONSULTANT - 05/28/2024 1:47 PM EST INITIAL OB ASSESSMENT HPI: Kathy is a 33 year old White here to establish Obstetrical Care. Patient's last menstrualperiod was 03/25/2024 (exact date). from OB Dating Form. was unplanned but accepted Complaints: (!) Severe nausea/vomiting-Was seen in office on 05/26/24 for 14lb weight loss in 5 days. States has improved since office visit. OB History T1 L1 SAB0 IAB0 Ectopic0 Multiple0 Live Births1 Previous history: Prior : No History of 4th degree laceration: Perineal Laceration, 3rd or 4th degree No History of shoulder dystocia: Shoulder Dystocia No History of Hypertensive disorders including pre-eclampsia or gestational hypertension: Gestational Hypertension No Preeclampsia No History of gestational diabetes: Diabetes in No Patient's Risk Screening for delivery: Have you had a prior navarrete between 20w and 36w6d? No How many pregnancies have you had before? 1 Did you have a previous baby with a GBS Infection? No Please select all that apply for any prior : N/A MEDICAL/PSYCHOSOCIAL HISTORY: Severe bleeding with delivery No History question Answer Diagnosis Date Comment Thyroid Disease No Thyroid disease 05/04/2016 Gestational Hypertension No Preeclampsia No Diabetes in No ABO/RH(D) Date Value Ref Range Status 05/06/2016 O POSITIVE Final BMI 28.55 kg/(m^2) Last Pap: History of abnormal pap: Abnormal Pap No Prior treatment for cervical dysplasia: N/A. Last HPV: History of STDs: N/A Partner History of STDs: None Did you have a partner with Herpes? No Tobacco use: No E-Cigarette/Vaping Use: No Caffeine use: No Drug use: No Alcohol use: No Multivitamin with Folic acid: Yes Would refuse blood transfusion if medically necessary: No Social Needs: How often does this describe you? I don't have enough money to pay my bills: Never Within the past 12 months, have you worried that your food would run out before you had money to buy more? Never In the past 12 months, has lack of reliable transportation kept you from going to medical appointments or work, or from getting things needed for daily living? Never In the past 12 months, have you had any concerns about having a place to live, or about the condition or quality of your housing? Never Would you like more information on any of the following (please check all that apply)? Not interested Social History: Do you have any history of depression, anxiety, PTSD, or other mood problems? No Do you have a history of abuse or trauma that may impact your experience? 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 OB Depression and Anxiety Screening- This Encounter (since 05/31/2024) None Genetic Screening: Partner present: Yes Patient verbalized knowledge of partner family health history: No Do you or your partner have any personal or family history of defects not previously discussed: No Do you have history of a complicated by anomaly, genetic condition, or demise: No Preeclampsia Risk Screening: Screening for prevention of preeclampsia: High risk factors: None Moderate risk ractors: Age 35 years or older OB Risk Screening: Completed, no positive findings documented. Marital Status: Partner: Name: Anmol Hester Age: 37 Occupation: [employer] Therapy Director Gender: Male PAST MEDICAL HISTORY Diagnosis Date Gallstones Normal IUP (intrauterine ) on ultrasound 12/04/2015 Symptomatic cholelithiasis 12/04/2015 UTI (urinary tract infection) PAST SURGICAL HISTORY Procedure Laterality Date APPENDECTOMY HX 6 yo CHOLECYSTECTOMY HX 12/12/2015 Current Outpatient Medications Medication Sig Dispense Refill levothyroxine 150 mcg cap Take 150 mcg by mouth daily before breakfast. ondansetron (ZOFRAN) 4 mg tablet Take 1 tablet by mouth every 8 hours as needed for nausea/vomiting. 30 tablet 2 folic acid 1 mg tablet Take 1 tablet by mouth once daily. 30 tablet 2 famotidine (PEPCID) 40 mg tablet Take 1 tablet by mouth once daily. 30 tablet 2 Multivitamin capsule Take 1 capsule by mouth once daily. ondansetron orally disintegrating (ZOFRAN ODT) 4 mg disintegrating tablet Take 1 tablet by mouth every 6 hours as needed for Nausea/Vomiting. (Patient not taking: Reported on 05/28/2024) 15 tablet 0 No current facility-administered medications for this visit. Allergies As of Date: 06/01/2024 Allergen Noted Reaction AMOXICILLIN 09/17/2015 Mental Status Change EGGS [EGG] 09/17/2015 GI Upset LATEX, NATURAL RUBBER 10/20/2015 Rash MONTELUKAST 01/14/2022 Unknown PENICILLIN 10/20/2015 Hives PENICILLINS 08/04/2015 Hives and Other: See Comments Fully Assessed 06/01/2024 Does patient have penicillin allergy: YES REVIEW OF SYSTEMS: GENERAL: Negative for: Fever or Chills HEENT: Negative for: Headache, Impaired Vision, Ringing in Ears, Nosebleeds NECK: Negative for: Swelling, Pain, Stiffness RESPIRATORY: Negative for: Cough, Shortness of breath, Wheezing GASTROINTESTINAL: Positive for: Nausea and Vomiting MUSCULOSKELETAL: Negative for: Muscle or joint pain, stiffness, Joint swelling NEUROLOGIC/PSYCHIATRIC: Negative for: Weakness, Paralysis, Numbness, Tingling, Tremor, Anxiety, Depression, Memory loss SKIN: Negative for: Rash, Itching GENITOURINARY: Negative for: vaginal itching, vaginal discharge, hematuria or dysuria SENSITIVE EXAM: The sensitive examination was discussed with the Patient or Patient's Authorized Kitchen Bath Designer. As applicable, any other physician, advance practice provider, medical student, or other health professional student that will be observing or involved in the sensitive examination for educational or training purposes was discussed with the Patient or Authorized Kitchen Bath Designer. The Patient or Authorized Kitchen Bath Designer has agreed to proceed with the sensitive examination. (Sensitive examination includes inspection and/or palpation of the breasts, pelvis, prostate and anorectal regions). PHYSICAL EXAM: BP 116/68 Wt 187 lb 12.8 oz (85.2kg) LMP 03/25/2024 GENERAL: pleasant in no apparent distress DERMATOLOGY: Normal, without lesions, non-icteric, and non-hirsute NECK: Supple, full range of motion, no adenopathy, and thyroid normal CHEST: Normal inspiratory effort BREAST: soft, non-tender, symmetric, no dominant mass, normal nipple-areolar complex, no lymphadenopathy, and no nipple discharge ABDOMEN: soft, non-tender, and no masses NEURO: alert and oriented x3,exam grossly non-focal PELVIS: External genitalia normal without lesions. Perineal body intact. No vaginal or cervical lesions. Scant bleeding with exam. Cervix closed. No adnexal masses or tenderness. Clinical Pelvimetry: Pelvimetry clinically assessed as adequate Limited OB ultrasound exam: single intrauterine , positive cardiac activity, and POCUS performed. +cardiac activity, CRL Not consistent with LMP. GASPER now 01/11/25 Selam Cesar APRN.REGULATORY AFFAIRS CONSULTANT ASSESSMENT: 33 year old at 8d0 wks gestational age PLAN: 1) Patient oriented to practice. Patient given new OB orientation folder. Discussed nutrition, folic acid supplementation, dietary guidelines, exercise, smoking, alcohol, caffeine, and drug use. Discussed gestational weight gain guidelines. Discussed routine OB labs including STD/HIV. Discussed how to access Your guide to a health and the Medical Imaging Tech. Reviewed midwifery and splunk consultant services that are available. 2) Screening: Hemoglobin A1C: ordered Baby Aspirin: The patient has been counseled about the potential benefits of low dose aspirin in and our recommendation that this be offered to all patients, regardless of whether they meet the high risk criteria specified above. She Accepts Aneuploidy Screening: Discussed aneuploidy screening, nuchal translucency/first trimester early anatomy ultrasound and NIPT. The risks/benefits and limitations of NIPT/aneuploidy screening were reviewed including the potential for false negative and false positive results. The availability of genetic counseling was reviewed. Information on aneuploidy screening was provided. The patient chooses toproceed with First trimester early anatomy ultrasound (12-13w6d) Myriad Carrier Screening: Discussed myriad carrier screening. We discussed the availability of professional-society guided carrier screening and reviewed the conditions screened and limitations of screening. The availability of genetic counseling was reviewed. Information on carrier screening was provided. The patient Declines 3) Patient offered option of Virtual Visits. Patient prefers in person visits. 4) Thyroid Disease: TSH ordered AMA: Aneuploidy screening reviewed Follow up in 4 weeks or sooner jimenez. Selam Cesar APRN.DOMINIC [facility] Instructions* Patient Instructions* Patsy Salas LPN - 05/28/2024 1:47 PM EST Please select the following link to access the [facility] Your Guide to a Healthy . [email or web address] Please select the following link to access the [facility] Your Guide to a Healthy . [email or web address] documented in this encounterThe [facility] NoteHNO ID: [id number] Author: PAMELLA CROWDER APRN.CNM Service: ? Author Type: Skills Auditor Type: Progress Notes Filed: 05/26/2024 15:15 Note Text: Kathy Hester is a 33 year old female who presents for problem visit Nausea in early for 1 week(s). HPI: Kathy presents for nausea in early . Her NOB is scheduled with Selam Cesar 06/01/2023. She has been having to take Zofran every morning to help her get through the day. She found out that she was last Saturday around the same time the nausea started. LMP 03/25/24 with EGA 8w6d. This menses was different than normal and only lasted about 2 days and irregular for her. Nausea started about a little over a week ago. Emesis on and off throughout the day. PCP seen for N/V and thought she had GI illness. test completed and positive. Sent to get US and single IUP per patient with heart beat and GASPER: 12/30/24. PCP gave her 10 days worth of zofran and this was helpful. Emesis decreased at this time and doing better. Keeping water down at this time and small amounts of food. Not taking PNV due to nausea OB History T1 L1 SAB0 IAB0 Ectopic0 Multiple0 Live Births1 [employer] History LMP: 03/28/2024, Unknown Age at Menarche: 12 Age at First : Age at Menopause: [employer] History Comments: Sexual Activity: Never; No partner data on record Contraception: No contraception data on record Menstrual Tracking History Flowsheet Row Office Visit from 05/26/2024 in OB/Gynecology Period Cycle (Days) 5 Period Duration (Days) 5 Menstrual Flow Moderate PAST MEDICAL HISTORY Diagnosis Date Gallstones Normal IUP (intrauterine ) on ultrasound 12/04/2015 Symptomatic cholelithiasis 12/04/2015 UTI (urinary tract infection) PAST SURGICAL HISTORY Procedure Laterality Date APPENDECTOMY HX 6 yo CHOLECYSTECTOMY HX 12/12/2015 FAMILY HISTORY Problem Relation Age of Onset Breast Cancer Mother Thyroid Mother Stroke Father TIA Asthma Father Heart Paternal Grandfather Breast Cancer Maternal Grandmother Diabetes Paternal Grandmother Asthma Sister Social History Tobacco Use Smoking status: Never Smokeless tobacco: Never Substance Use Topics Alcohol use: No Drug use: No Current Outpatient Medications Medication Sig levothyroxine 150 mcg cap Take 150 mcg by mouth daily before breakfast. ondansetron orally disintegrating (ZOFRAN ODT) 4 mg disintegrating tablet Take 1 tablet by mouth every 6 hours as needed for Nausea/Vomiting. dicyclomine (BENTYL) 20 mg tablet Take 1 tablet by mouth four times daily. Multivitamin capsule Take 1 capsule by mouth once daily. No current facility-administered medications for this visit. Allergies As of Date: 05/26/2024 Allergen Noted Reaction AMOXICILLIN 09/17/2015 Mental Status Change EGGS [EGG] 09/17/2015 GI Upset LATEX, NATURAL RUBBER 10/20/2015 Rash PENICILLIN 10/20/2015 Hives Fully Assessed 05/26/2024 REVIEW OF SYSTEMS Abdomen: No bloating, early satiety, indigestion, or increased flatulence. No abdominal pain, nausea, vomiting, diarrhea, or constipation. Bladder: No dysuria, gross hematuria, urinary frequency, urinary urgency, or incontinence. Breast: No breast lumps, nipple d/c, overlying skin changes, redness or skin retraction. Expanded ROS: N/A Allergies and current medication updated:Yes SENSITIVE EXAM: Sensitive exam not performed. EXAM: LMP 03/28/2024 GENERAL: pleasant, female in no apparent distress HEENT: Normocephalic, atraumatic, mucus membranes moist, and no lesions NECK: Supple, full range of motion, and no adenopathy DERMATOLOGY: Normal and without lesions NEURO: alert and oriented x3,exam grossly non-focal EXTREMITIES: normal 05/19/24 Pelvic US Impression 1. Single live intrauterine with estimated gestational age of 7 weeks and 0 days. Estimated date of delivery is 07/30/2024. 2. 1.0 x 1.0 cm complex perigestational collection, possibly representing a subchorionic hemorrhage. LIMITATIONS: Overlying bowel gas. GESTATION: Endometrium measures 1.5 cm in thickness. Intrauterine gestational sac with mean sac diameter of 17.3 mm. pole and yolk sac identified. pole measures 58 mm in length. heart rate 136 bpm. 1.0 x 1.0 cm complex perigestational collection. PLACENTA/AMNIOTIC FLUID: Cannot be adequately evaluated due to the early gestational age. UTERUS/CERVIX: Uterus is anteverted and measures 11.9 x 5.0 x 5.7 cm. Cervix measures 5.3 cm in length and is closed. No myometrial lesion. OVARIES: Right ovary measures 1.4 x 1.3 x 1.3 cm. Normal internal vascularity. Left ovary is not visualized, likely obscured by bowel gas. FREE FLUID: No significant free fluid. ASSESSMENT AND PLAN: Assessment AND Plan Nausea and vomiting in Orders: THYROID STIMULATING HORMONE; Future COMPREHENSIVE METABOLIC PANEL; Future ondansetron (ZO (more content not included)...[facility] 03-17-2023 Emergency department Note* Sommre Maria RN - 03/17/2023 8:06 AM EST Urine sent to lab, pt states she is feeling better Sommer Maria RN 03/17/23 0806 [id number] Emergency [facility] Note* Sommer Maria RN - 03/17/2023 8:06 AM EST Urine sent to lab, pt states she is feeling better Sommer Maria RN 03/17/23 0806 * Landy Fernandez MD - 03/17/2023 6:50 AM EST EMERGENCY DEPARTMENT ENCOUNTER Pt Name: Kathy Hester Birthdate 1990 Date of evaluation: 03/17/2023 ED Provider: Landy Fernandez MD CHIEF COMPLAINT Chief Complaint Patient presents with Flu Symptoms HISTORY OF PRESENT ILLNESS (Location/Symptom, Timing/Onset, Context/Setting, Quality, Duration, Modifying Factors, Severity) Note limiting factors. HPI Kathy Hester is a 32 y.o. female who presents to the emergency department For flulike symptoms. Patient states that for the last 3 days has been having some flulike symptoms with body aches, nausea and diarrhea. Denies any fevers or chills. Denies any chest pain or cough. No abdominal pain.No urinary complaints. She states he initially was doing a little bit better and then yesterday her symptoms seem to worsen. Has not been taking any medications at home for this. No known sick contacts. Nursing Notes were reviewed. REVIEW OF SYSTEMS Review of Systems Pertinent positives and negatives per HPI PAST MEDICAL HISTORY Past Medical History: Diagnosis Date Allergic rhinitis SURGICAL HISTORY Past Surgical History: Procedure Laterality Date APPENDECTOMY CURRENT MEDICATIONS Previous Medications No medications on file ALLERGIES Egg solids, whole; Montelukast; Penicillins; and Latex FAMILY HISTORY No family history on file. SOCIAL HISTORY Social History Socioeconomic History Marital status: Tobacco Use Smoking status: Never Smokeless tobacco: Never Substance and Sexual Activity Alcohol use: No Drug use: Not Currently SCREENINGS Erin Coma Scale Best Eye Response: Spontaneous Best Verbal Response: Oriented Best Motor Response: Follows commands Erin Coma Scale Score: 15 PHYSICAL EXAM ED Triage Vitals [03/17/23 0656] Temp Heart Rate Resp BP 36.7 C (98 F) (!) 129 16 116/80 SpO2 Temp Source Heart Rate Source Patient Position 97 % Temporal Monitor -- BP Location FiO2 (%) -- -- Physical Exam Rundown and tired appearing female in no acute distress. Vital signs reviewed and notable for tachycardia the heart of 129. Normal posterior oropharynx. There is no erythema or tonsillar edema. Lungs are clear to auscultation bilaterally. No increased work of breathing. Speaking in full sentences. Abdomen is soft and nontender. No lower extremity edema. DIAGNOSTIC RESULTS RADIOLOGY (Per Emergency Physician): Interpretation per the Radiologist below, if available at the time of this note: No orders to display LABS: Labs Reviewed CBC WITH AUTO DIFFERENTIAL - Abnormal Result Value Auto WBC 9.1 RBC 4.79 Hemoglobin 15.0 Hematocrit 44.4 MCV 92.6 MCH 31.4 MCHC 33.9 RDW 12.3 Platelets 241 MPV 9.5 nRBC 0.0 Neutrophils Relative 89.1 (*) Lymphocytes Relative 6.0 (*) Monocytes Relative 4.5 Eosinophils Relative 0.2 (*) Basophils Relative 0.2 Neutrophils Absolute 8.1 (*) Lymphocytes Absolute 0.5 (*) Monocytes Absolute 0.4 Eosinophils Absolute 0.0 Basophils Absolute 0.0 COMPREHENSIVE METABOLIC PANEL - Abnormal SODIUM 137 POTASSIUM 3.7 CHLORIDE 103 CARBON DIOXIDE 26 ANION GAP 8 UREA NITROGEN 10 CREATININE 0.72 GLUCOSE 114 (*) CALCIUM 8.9 AST (SGOT) 39 ALT 57 (*) ALKALINE PHOSPHATASE 113 ALBUMIN 4.4 BILIRUBIN, TOTAL 0.7 TOTAL PROTEIN 7.9 eGFR >90.0 COMPLETE URINALYSIS - Abnormal Color, Urine Yellow Clarity, Urine Clear pH, Urine 6.0 Leukocytes, Urine Negative Nitrite, Urine Negative Protein, Urine 30 (*) Glucose, Urine Normal Bilirubin, Urine Negative Ketones, Urine Trace (*) Urobilinogen, Urine Normal Blood, Urine Negative RBC, Urine 3-5 (*) WBC, Urine 0-2 Squamous Epithelial, Urine 6-10 (*) Bacteria, Urine Few (*) Mucus, Urine Few SPECIFIC GRAVITY OF URINE (NUMERIC) 1.035 (*) SARS-COV-2 AND RESPIRATORY PCR PANEL COMPLETE URINALYSIS WITH REFLEX TO CULTURE Narrative: The following orders were created for panel order Complete Urinalysis with reflex to Culture. Procedure Abnormality Status --------- ------ Complete Urinalysis[[id number]] Abnormal Final result Please view results for these tests on the individual orders. All other labs were within normal range or not returned as of this dictation. EMERGENCY DEPARTMENT COURSE and DIFFERENTIAL DIAGNOSIS/MDM: Vitals: Vitals: 03/17/2356 03/17/23804 BP: 116/80 116/66 Pulse: (!) 129 83 Resp: 16 14 Temp: 36.7 C (98 F) TempSrc: Temporal SpO2: 97% 98% Medications sodium chloride 0.9 % bolus 1,000 mL (0 mL IntraVENous Stopped 03/17/23828) ondansetron (Zofran) injection 4 mg (4 mg IntraVENous Given 03/17/23727) ketorolac (Toradol) injection 30 mg (30 mg IntraVENous Given 03/17/23727) Medical Decision Making Problems Addressed: Dehydration: complicated acute illness or injury Viral illness: complicated acute illness or injury Amount and/or Complexity of Data Reviewed Labs: ordered. Risk Prescription drug management. 32-year-old female present emergency department today for flulike symptoms. On arrival he is tachycardic but afebrile and hemodynamically stable. Satting well on room air. Symptoms have been going onfor 3 days and seems to be viral in nature. She endorses body aches, nausea and diarrhea. I did order her IV normal saline as well as IV Toradol and IV Zofran for her symptoms. I will do some basic labs given the tachycardia specifically as well as a viral panel. Patient's labs are unremarkable. She started to feel a lot better after getting medicated. Her heart rate came down nicely. Her viral panel is still pending but I explained to her that that could take a few hours and that she can just look up the results on her MyChart. She is agreeable to discharge. Given prescriptions for symptomatic control at home. Given strict return precautions and discharged in stable condition. I Landy Fernandez MD am the ups driver of record. FINAL IMPRESSION 1. Viral illness 2. Dehydration DISPOSITION Discharge 03/17/2023 09:24:27 AM PATIENT REFERRED TO: Ephraim Boyd [place] [address] DISCHARGE MEDICATIONS: New Prescriptions KETOROLAC (TORADOL) 10 MG TABLET Take 1 tablet (10 mg) by mouth every 6 hours as needed for moderate pain (4-6) for up to 5 days. ONDANSETRON (ZOFRAN) 4 MG TABLET Take 1 tablet (4 mg) by mouth in the morning and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 [address] Phone: tel: Referral ID Status Reason Start Date Expiration Date Visits Re quested Visits Authorized [id number] 1 1 Reason Comments Cough URI Reason Onset Date Comments Mass 12/23/2022 Groin area Right side Reason Comments Flu Symptoms Reason Comments Initial OB Visit Reason Comments Care Reason Onset Date Comments Care 06/05/2024 Reason Onset Date Comments Care 06/12/2024 Reason Comments OB Pain Reason Onset Date Comments Care 06/16/2024 Reason Comments Med Change Request Reason Onset Date Comments Refill Request 06/24/2024 Reason Onset Date Comments Care 06/26/2024 Reason Onset Date Comments Care 07/02/2024 Specialty Diagnoses / Procedures Referred By Jose De Jesus adams Referred To Contact [facility] Diagnoses 8 weeks gestation of Procedures OBSTETRIC ULTRASOUND WHI US PREG UTERUS AFTER 1ST TRIMEST GESTATION Selam Cesar APRN.DOMINIC [address] [place] [address] Phone: tel: fax: [address] [phone] Referral ID Status Reason Start Date Expiration Date V isits Requested Visits Authorized [id number] Closed Auto-Generate d Referral 06/01/2024 06/01/2025 1 1 Reason Comments FMLA Paperwork Reason Onset Date Comments Refill Request 07/22/2024 Reason Onset Date Comments Care 07/31/2024 Reason Comments Care Medication question Reason Onset Date Comments Care 08/28/2024 Specialty Diagnoses / Procedures Referred By Jose De Jesus t Referred To Contact [facility] Diagnoses Supervision of high risk in first trimester (HCC) AMA (advanced maternal age) multigravida 35+, first trimester (HCC) 12 weeks gestation of (HCC) Procedures OBSTETRIC ULTRASOUND WHI US PREG UTERUS AFTER 1ST TRIMEST GESTATION Ernestine Gomez MD [address] [place] [address] Phone: tel: fax: [address] [phone] Referral ID Status Reason Start Date Expiration Date V isits Requested Visits Authorized [id number] Closed Auto-Generate d Referral 07/02/2024 07/02/2025 1 1 Reason Onset Date Comments Care 09/25/2024 Reason Onset Date Comments Care 10/30/2024 Reason Comments OB Bleeding - Pt Called Squad Reason Onset Date Comments Care 11/16/2024 Ordered Prescriptions (unrec ognized section and content) Prescription Sig Dispensed Refills Start Date End Da te predniSONE (DELTASONE) 10 MG tablet Take 4 tablets by mouth once daily for 5 days 20 tablet 0 01/14/2022 01/24/2022 benzonatate (TESSALON PERLES) 100 MG capsule Take 1 capsule by mouth 3 times daily as needed for Cough 30 capsule 0 01/14/2022 01/21/2022 albuterol sulfate HFA (VENTOLIN HFA) 108 (90 Base) MCG/ACT inhaler Inhale 2 puffs into the lungs 4 times daily as needed for Wheezing 18 g 0 01/14/2022 azithromycin (ZITHROMAX) 250 MG tabletIndications:Bronc hitis Take 2 tablets (500 mg total) on Day 1, followed by 1 tablet (250 mg) once daily on Days 2 through 5. 1 packet 0 01/14/2022 01/24/2022 Care Teams (unrecognized sec tion and content) Pathology Laboratory Director Relationship Specialty Start Date End Date Ephraim Boyd DO [address] [place] [address] PCP - General 10/14/15 Pathology Laboratory Director Relationship Specialty Start Date End Date Ephraim Boyd DO [address] [place] [address] [phone] PCP - General 10/14/15 Pathology Laboratory Director Relationship Specialty Start Date End Date Ephraim Boyd DO [address] [place] [address] [phone] PCP - General 10/14/15 Team Status: Active Member Role Status Dates Dr. Ephraim Boyd DO Primary Care Provider Active Team Status: Inactive Member Role Status Dates Jarrett HOWELL, PA Attending Provider Active Team Status: Inactive Member Role Status Dates Dr. Derek Cagle , Emergency Provider Active Dr. Ephraim Boyd DO Primary Care Provider Active Pathology Laboratory Director Relationship Specialty Start Date End Date Ephraim Boyd DO [address] [place] [phone] PCP - General 10/14/15 Pathology Laboratory Director Relationship Specialty Start Date End Date Ephraim Boyd DO [address] [place] [address] PCP - General Family Medicine 11/23/15 Pathology Laboratory Director Relationship Specialty Start Date End Date Ephraim Boyd DO [address] [place] [address] PCP - General Family Medicine 11/23/15 Pathology Laboratory Director Relationship Specialty Start Date End Date Ephraim Boyd DO [address] [place] [address] PCP - General Family Medicine 11/23/15 Pathology Laboratory Director Relationship Specialty Start Date End Date Ephraim Boyd DO [address] [place] [address] PCP - General Family Medicine 11/23/15 Pathology Laboratory Director Relationship Specialty Start Date End Date Ephraim Boyd DO [address] [place] [address] PCP - General Family Medicine 11/23/15 Pathology Laboratory Director Relationship Specialty Start Date End Date Ephraim Boyd DO [address] [place] [address] PCP - General Family Medicine 11/23/15 Pathology Laboratory Director Relationship Specialty Start Date End Date Ephraim Boyd DO [address] [place] [place] [address] PCP - General Family Medicine 11/23/15 Pathology Laboratory Director Relationship Specialty Start Date End Date Ephraim Boyd DO [address] [place] [place] [address] PCP - General Family Medicine 11/23/15 Pathology Laboratory Director Relationship Specialty Start Date End Date Ephraim Boyd DO [address] [place] [address] PCP - General Family Medicine 11/23/15 Pathology Laboratory Director Relationship Specialty Start Date End Date Ephraim Boyd DO [address] [place] [address] PCP - General Family Medicine 11/23/15 Pathology Laboratory Director Relationship Specialty Start Date End Date Ephraim Boyd DO [address] [place] [phone] PCP - General 10/14/15 Pathology Laboratory Director Relationship Specialty Start Date End Date Ephraim Boyd DO [address] [place], [place] [phone] PCP - General Family Medicine 11/23/15 Team Status: Inactive Member Role Status Dates Dr. Ephraim Boyd DO Primary Care Provider Active Start: September 20, 2024 End: September 20, 2024 Dr. Ernestine Gomez MD Attending Provider Active Start: September 20, 2024 End: September 20, 2024 Pathology Laboratory Director Relationship Specialty Start Date End Date Ephraim Boyd DO [address] [place] [address] PCP - General Family Medicine 11/23/15 Pathology Laboratory Director Relationship Specialty Start Date End Date Ephraim Boyd DO [address] [place] [address] PCP - General Family Medicine 11/23/15 Pathology Laboratory Director Relationship Specialty Start Date End Date Ephraim Boyd DO [address] [place] [address] PCP - General Family Medicine 11/23/15 Pathology Laboratory Director Relationship Specialty Start Date End Date Ephraim Boyd DO [address] [place] [address] PCP - General Family Medicine 11/23/15 Pathology Laboratory Director Relationship Specialty Start Date End Date Ephraim Boyd DO [address] [place] [address] PCP - General Family Medicine 11/23/15 Pathology Laboratory Director Relationship Specialty Start Date End Date Ephraim Boyd DO [address] [place] [address] PCP - General Family Medicine 11/23/15 Pathology Laboratory Director Relationship Specialty Start Date End Date Ephraim Boyd DO [address] [place] [address] PCP - General Family Medicine 11/23/15 Pathology Laboratory Director Relationship Specialty Start Date End Date Ephraim Boyd DO [address] [place] [address] PCP - General Family Medicine 11/23/15 Scheduled Active and Recently Administ ered Medications (unrecognized section and content) Medication Order 03/15/2023 03/16/2023 03/17/2023 ketorolac (Toradol) injection 30 mg (COMPLETED) 30 mg, IntraVENous, Once, On 03/17/23 at 0700, For 1 dose 0728 (Given - Provid er: Sommer Maria RN) ondansetron (Zofran) injection 4 mg (COMPLETED) 4 mg, IntraVENous, Once, On 03/17/23 at 0700, For 1 dose 0728 (Given - Provid er: Sommer Maria RN) sodium chloride 0.9 % bolus 1,000 mL (COMPLETED) 1,000 mL, IntraVENous, at 1,000 mL/hr, Administer over 1 Hours, Once, On 03/17/23 at 0700, For 1 dose 0729 (New Bag - Prov ider: Sommer Maria RN)0829 (Stopped - Provider: Sommer Maria RN) Goals (unrecognized section and content) Goals may be documented in a n alternate sectionGoals may be documented in an alternate section Source Comments (unrecognize d section and content) In the event this informatio n is protected by the Federal Confidentiality of Alcohol and Drug Abuse Patient Records regulations: The Federal rules restrict any use of the information to criminally investigate or prosecute any alcohol or drug abuse patient.[facility]In the event this information is protected by the Federal Confidentiality of Alcohol and Drug Abuse Patient Records regulations: The Federal rules restrict any use of the information to criminally investigate or prosecute any alcohol or drug abuse patient.[facility] HospitalIn the event this information is protected by the Federal Confidentiality of Alcohol and Drug Abuse Patient Records regulations: The Federal rules restrict any use of the information to criminally investigate or prosecute any alcohol or drug abuse patient.[facility]In the event this information is protected by the Federal Confidentiality of Alcohol and Drug Abuse Patient Records regulations: The Federal rules restrict any use of the information to criminally investigate or prosecute any alcohol or drug abuse patient.[facility]In the event this information is protected by the Federal Confidentiality of Alcohol and Drug Abuse Patient Records regulations: The Federal rules restrict any use of the information to criminally investigate or prosecute any alcohol or drug abuse patient.[facility]In the event this information is protected by the Federal Confidentiality of Alcohol and Drug Abuse Patient Records regulations: The Federal rules restrict any use of the information to criminally investigate or prosecute any alcohol or drug abuse patient.[facility]In the event this information is protected by the Federal Confidentiality of Alcohol and Drug Abuse Patient Records regulations: The Federal rules restrict any use of the information to criminally investigate or prosecute any alcohol or drug abuse patient.[facility]In the event this information is protected by the Federal Confidentiality of Alcohol and Drug Abuse Patient Records regulations: The Federal rules restrict any use of the information to criminally investigate or prosecute any alcohol or drug abuse patient.[facility]In the event this information is protected by the Federal Confidentiality of Alcohol and Drug Abuse Patient Records regulations: The Federal rules restrict any use of the information to criminally investigate or prosecute any alcohol or drug abuse patient.[facility]In the event this information is protected by the Federal Confidentiality of Alcohol and Drug Abuse Patient Records regulations: The Federal rules restrict any use of the information to criminally investigate or prosecute any alcohol or drug abuse patient.[facility] HospitalIn the event this information is protected by the Federal Confidentiality of Alcohol and Drug Abuse Patient Records regulations: The Federal rules restrict any use of the information to criminally investigate or prosecute any alcohol or drug abuse patient.[facility] HospitalIn the event this information is protected by the Federal Confidentiality of Alcohol and Drug Abuse Patient Records regulations: The Federal rules restrict any use of the information to criminally investigate or prosecute any alcohol or drug abuse patient.[facility] HospitalIn the event this information is protected by the Federal Confidentiality of Alcohol and Drug Abuse Patient Records regulations: The Federal rules restrict any use of the information to criminally investigate or prosecute any alcohol or drug abuse patient.[facility] HospitalIn the event this information is protected by the Federal Confidentiality of Alcohol and Drug Abuse Patient Records regulations: The Federal rules restrict any use of the information to criminally investigate or prosecute any alcohol or drug abuse patient.[facility]In the event this information is protected by the Federal Confidentiality of Alcohol and Drug Abuse Patient Records regulations: The Federal rules restrict any use of the information to criminally investigate or prosecute any alcohol or drug abuse patient.[facility] HospitalIn the event this information is protected by the Federal Confidentiality of Alcohol and Drug Abuse Patient Records regulations: The Federal rules restrict any use of the information to criminally investigate or prosecute any alcohol or drug abuse patient.[facility] HospitalIn the event this information is protected by the Federal Confidentiality of Alcohol and Drug Abuse Patient Records regulations: The Federal rules restrict any use of the information to criminally investigate or prosecute any alcohol or drug abuse patient.[facility] HospitalIn the event this information is protected by the Federal Confidentiality of Alcohol and Drug Abuse Patient Records regulations: The Federal rules restrict any use of the information to criminally investigate or prosecute any alcohol or drug abuse patient.[facility] HospitalIn the event this information is protected by the Federal Confidentiality of Alcohol and Drug Abuse Patient Records regulations: The Federal rules restrict any use of the information to criminally investigate or prosecute any alcohol or drug abuse patient.[facility] HospitalIn the event this information is protected by the Federal Confidentiality of Alcohol and Drug Abuse Patient Records regulations: The Federal rules restrict any use of the information to criminally investigate or prosecute any alcohol or drug abuse patient.[facility] HospitalIn the event this information is protected by the Federal Confidentiality of Alcohol and Drug Abuse Patient Records regulations: The Federal rules restrict any use of the information to criminally investigate or prosecute any alcohol or drug abuse patient.[facility] HospitalIn the event this information is protected by the Federal Confidentiality of Alcohol and Drug Abuse Patient Records regulations: The Federal rules restrict any use of the information to criminally investigate or prosecute any alcohol or drug abuse patient.[facility] HospitalIn the event this information is protected by the Federal Confidentiality of Alcohol and Drug Abuse Patient Records regulations: The Federal rules restrict any use of the information to criminally investigate or prosecute any alcohol or drug abuse patient.[facility] HospitalIn the event this information is protected by the Federal Confidentiality of Alcohol and Drug Abuse Patient Records regulations: The Federal rules restrict any use of the information to criminally investigate or prosecute any alcohol or drug abuse patient.[facility] HospitalIn the event this information is protected by the Federal Confidentiality of Alcohol and Drug Abuse Patient Records regulations: The Federal rules restrict any use of the information to criminally investigate or prosecute any alcohol or drug abuse patient.[facility] HospitalIn the event this information is protected by the Federal Confidentiality of Alcohol and Drug Abuse Patient Records regulations: The Federal rules restrict any use of the information to criminally investigate or prosecute any alcohol or drug abuse patient.[facility] FOR RECORDS PERTAINING TO PATIENTS WHO ARE OR HAVE BEEN ENROLLED IN A CHEMICAL DEPENDENCY/SUBSTANCEABUSE PROGRAM, SOME INFORMATION MAY BE OMITTED. This clinical summary was aggregated from multiple sources. Caution should be exercised in using it in the provision of clinical care. This summary normalizes information from multiple sources, and as a consequence, information in this document may materially change the coding, format and clinical context of patient data. In addition, data may be omitted in some cases. CLINICAL DECISIONS SHOULD BE BASED ON THE PRIMARY CLINICAL RECORDS. [facility]. provides no warranty or guarantee of the accuracy or completeness of information in this document.
[2024-11-29 14:23] LABS: ROM Internal Control Test YES-OK TO RESULT pt. (Internal QC)
[2024-11-29 14:24] LABS: ROM Patient Test Negative (Negative); Record Kit Lot#, ROM+ K3358
--- NOTE | 2024-11-29 14:35 | OB.TRI.HP_ITS ---
HPI - General General Date of Admission: 11/29/24 Date of Service: 11/29/24 Chief Complaint: leaking HPI Narrative KING HESTER, is a 34 F who presents with possible loss of fluid and hip pain. Irregular contractions. Brown spotting since bleeding at 30 weeks. No bright red blood currently. Maternal Data Information Final GASPER: 01/11/25 Gestational age: 33+5 PFSH PFSH Medical History Polycystic ovarian syndrome Eczema Hx of Pham thyroiditis Hay fever Home Medications ?Medication ?Instructions ?Recorded ?Last Taken ?Type cetirizine 10 mg capsule (Zyrtec) 10 mg PO DAILY PRN a llergies 04/04/21 Unknown History levothyroxine 13 mcg capsule 13 mcg PO DAILY 04/04/21 Unknown History ondansetron HCl 4 mg tablet 4 mg PO 4X/DAY 09/20/24 Un known History vit no.95-ferrous 1 tab PO DAILY 09/20/24 Unk nown History fumarate 28 mg-folic acid 800 mcg tablet () promethazine 12.5 mg tablet 25 mg PO QHS 09/20/24 Unkn own History Allergy/AdvReac Type Severity Reaction Status Date / Time amoxicillin Allergy Severe Hives Verified 11/29/24 14:49 tree nut (tree nuts) Allergy Intermediate Other Verified 11/29/24 14:49 latex Allergy Unknown unknown Verified 11/29/24 14:49 Penicillins Allergy Unknown unknown Verified 11/29/24 14:49 ethanolamine Allergy Anaphylaxis Verified 11/29/24 14:49 Family History Other Asthma Breast cancer Surgical History Hx of cholecystectomy Hx of appendectomy Social History Smoking Status: Never smoker History 2 Elective abortions Hx Para 1 Spontaneous abortions Hx # Term Pregnancies Ectopic pregnancies Hx # Pregnancies Multiple births # of living children Physical Exam Const alert, oriented x3 and no apparent distress General Appearance: cooperative and comfortable Resp normal respiratory effort GI soft to palpation Inspection: gravid Extremity normal to inspection Neuro oriented x3 and CN's II-XII intact bilaterally Psych mental status grossly normal NST FHR Rate Baby A Baseline: 125 Variability:: Moderate Accelerations:: 15 x 15 Decelerations:: None NST Reactive:: Yes Uterine Activity:: Occasional contraction Assessment & Plan (1) Encounter for suspected premature rupture of membranes, with rupture of membranes not found: (2) 33 weeks gestation of : PLAN: Plan Labor precautions. Has appointment in office tomorrow
[2024-11-29 14:56] LABS: Color, Urine Yellow (Yellow); Glucose, Dipstick Normal (Normal); Ketone-Dipstick 50 mg/dl (Negative); Leukocyte Esterase-Dipstick 100 /ul (Negative); Nitrite-Dipstick Negative (Negative); Occult Blood-Urine Negative /ul (Negative); Protein-Dipstick Negative (Negative); Specific Gravity, Urine 1.010 (1.002-1.030); Urine Bilirubin Dipstick Negative (Negative)
== END 2024-11-29 15:20 | disposition home or self-care (01) ==
LOC: WPOUT 13:41 → WP 13:42
PROVIDERS: PCP Family Medicine; Referring Provider Obstetrics & Gynecology; Visit Provider Obstetrics & Gynecology
DX: Z03.89 Encounter for observation for other suspected diseases and conditions ruled out (principal); O99.891 Other specified diseases and conditions complicating pregnancy; Z90.49 Acquired absence of other specified parts of digestive tract; M25.559 Pain in unspecified hip; Z3A.00 Weeks of gestation of pregnancy not specified
CPT/HCPCS: 59025; 59050; 81002; 84112; 99221; G0378

== ENCOUNTER 2024-12-10 11:19 | Outpatient (CLI) | payer BC, MEDICAID, SELFPAY ==
[2024-12-10] VITALS (22 sets, daily range): BP systolic 90–138; BP diastolic 53–81; PULSE 65–81; RESP 16–18; TEMP 36.7–37.2; O2SAT 95–100; BMI 31.6
[2024-12-10 12:33] LABS: ROM Internal Control Test YES-OK TO RESULT pt. (Internal QC); ROM Patient Test Negative (Negative); Record Kit Lot#, ROM+ K3358
--- NOTE | 2024-12-10 12:48 | OB.TRI.HP_ITS ---
HPI - General HPI Narrative KING HESTER, is a 34 F who presents for contractions and possible ROM. at 35w3d. Prior labor without delivery and seen at [facility]. PFSH PFSH Medical History Polycystic ovarian syndrome Eczema Hx of Micheline thyroiditis Hay fever Home Medications ?Medication ?Instructions ?Recorded ?Last Taken ?Type levothyroxine 13 mcg capsule 50 mcg PO DAILY micheline s 04/04/21 12/10/24 History ondansetron HCl 4 mg tablet 4 mg PO 4X/DAY 09/20/24 History vit no.95-ferrous 1 tab PO DAILY 09/20/24 History fumarate 28 mg-folic acid 800 mcg tablet () promethazine 12.5 mg tablet 25 mg PO QHS 09/20/24 Unkn own History Allergy/AdvReac Type Severity Reaction Status Date / Time amoxicillin Allergy Severe Hives Verified 12/10/24 11:37 tree nut (tree nuts) Allergy Intermediate Other Verified 12/10/24 11:37 latex Allergy Unknown hives Verified 12/10/24 11:37 Penicillins Allergy Unknown rash Verified 12/10/24 11:37 ethanolamine Allergy Anaphylaxis Verified 11/29/24 14:49 Influenza Virus Vaccines AdvReac Unknown Rash Verified 12/10/24 11:37 (flu shot) Family History Other Asthma Breast cancer Surgical History Hx of cholecystectomy Hx of appendectomy Social History Smoking Status: Never smoker History 2 Elective abortions Hx Para 1 Spontaneous abortions Hx # Term Pregnancies Ectopic pregnancies Hx # Pregnancies Multiple births # of living children NST FHR Rate Baby A Baseline: 130 Variability:: Moderate Accelerations:: 15 x 15 Decelerations:: Variable NST Reactive:: Yes Uterine Activity:: Irregular Assessment & Plan (1) 35 weeks gestation of : (2) Encounter for suspected premature rupture of membranes, with rupture of membranes not found: (3) Variable heart rate decelerations, antepartum: PLAN: Plan 1) BPP 12/18 and NST reactive 12/20 2) ROM plus negative 3) Cervical exam unchanged and no further signs of labor 4) D/C home
[2024-12-10 13:30] LABS: Hematocrit 38.2 % (37-47); Hemoglobin 13.1 g/dL (12.0-15.0); Mean Corp Hgb Conc 34.3 g/dL (32-36); Mean Corpuscular Volume 93.2 fL (81-99); Mean Platelet Vol. 11.6 fl (6.2-12.0); Platelet Count 202 K/mm3 (150-450); RBC Distribution Width CV 13.2 % (11.6-14.6); RBC Distribution Width SD 45.1 fl (35.1-43.9); Red Blood Count 4.10 M/mm3 (4.2-5.4); White Blood Count 10.3 K/mm3 (4.4-11.0)
[2024-12-10 13:57] LABS: Creatinine, Urine (random) 32.40 mg/dL (28.00-217.00); Protein, Urine (Random) 9.6 mg/dL (0.0-12.0); Protein:Creat Ratio 296 mg/g CRE (0-200)
[2024-12-10 13:59] LABS: AST(SGOT) 37 U/L (<=31); Alanine Aminotransfer ALT/SGPT 44 U/L (<=34); Estimated Creatinine Clearance 192.26 ml/min (50-250); Uric Acid 3.8 mg/dL (2.6-6.0)
--- NOTE | 2024-12-10 14:20 | US_ITS ---
PROCEDURE: OB BIOPHYSICAL PROF W/O NST 12/10/2024 REASON FOR EXAM: LATE DECELERATION AND VARIABLES ON NST TECHNIQUE: OB BIOPHYSICAL PROF W/O NST COMPARISON: None FINDINGS Intrauterine gestational with fetus in breech position. heart rate of 157 beats per minute. Amniotic fluid is within normal limits with largest fluid pocket measuring 4.6 cm. CYDNEY 9.1 cm. The placenta is located within posterior position without previa. Placenta grade of 1. Biophysical score of 8/8 including breathing movement, gross body movement, tone, and amniotic fluid volume. US/OB Biophysical Prof W/O NST IMPRESSION: Biophysical profile of 8/8. Amniotic fluid within normal limits. Reading Location: [id number]
== END 2024-12-10 19:09 | disposition home or self-care (01) ==
LOC: WPOUT 11:27 → WP 11:27
PROVIDERS: PCP Family Medicine; Referring Provider Advanced Practice Midwife; Visit Provider Advanced Practice Midwife
DX: O36.8330 Maternal care for abnormalities of the fetal heart rate or rhythm, third trimester, not applicable or unspecified (principal); Z90.49 Acquired absence of other specified parts of digestive tract; O47.03 False labor before 37 completed weeks of gestation, third trimester; Z3A.35 35 weeks gestation of pregnancy
CPT/HCPCS: 36415; 59025; 59050; 76819; 82565; 82570; 84112; 84156; 84450; 84460; 84550; 85027; 99221; G0378

== ENCOUNTER 2024-12-24 10:47 | Outpatient (CLI) | payer BC, MEDICAID, SELFPAY ==
[2024-12-24 11:06] VITALS: BP 105/66; PULSE 82; RESP 16; TEMP 36.4
[2024-12-24 11:11] VITALS: BMI 31.4
[2024-12-24] MEDS: Lactated Ringers 1,000 ML 125 ML IV (11:23)
--- NOTE | 2024-12-24 12:37 | HP.PCM.OB_ITS ---
HPI - General General Date of Admission: 12/24/24 Date of Service: 12/24/24 Chief Complaint: presents for scheduled version HPI Narrative KING HESTER, is a 34 F who presents for a scheduled ECV. She is having irregular but painful ctx's. No vb, lof. Good FM. [facility] Medical History Polycystic ovarian syndrome Eczema Hx of Micheline thyroiditis Hay fever Home Medications ?Medication ?Instructions ?Recorded ?Last Taken ?Type levothyroxine 13 mcg capsule 50 mcg PO DAILY micheline s 04/04/21 12/24/24 History ondansetron HCl 4 mg tablet 4 mg PO 4X/DAY 09/20/24 History vit no.95-ferrous 1 tab PO DAILY 09/20/24 History fumarate 28 mg-folic acid 800 mcg tablet () promethazine 12.5 mg tablet 25 mg PO QHS 09/20/24 0506/06 History Allergy/AdvReac Type Severity Reaction Status Date / Time amoxicillin Allergy Severe Hives Verified 12/24/24 11:17 tree nut (tree nuts) Allergy Intermediate Other Verified 12/24/24 11:17 latex Allergy Unknown hives Verified 12/24/24 11:17 Penicillins Allergy Unknown rash Verified 12/24/24 11:17 ethanolamine Allergy Anaphylaxis Verified 12/24/24 11:17 Influenza Virus Vaccines AdvReac Unknown Rash Verified 12/24/24 11:17 (flu shot) Family History Other Asthma Breast cancer Surgical History Hx of cholecystectomy Hx of appendectomy Social History Smoking Status: Never smoker History 2 Elective abortions Hx Para 1 Spontaneous abortions Hx # Term Pregnancies Ectopic pregnancies Hx # Pregnancies Multiple births # of living children NST FHR Rate Baby A Baseline: 140 Variability:: Moderate Accelerations:: 15 x 15 Decelerations:: None NST Reactive:: Yes FHR Category:: Category I Uterine Activity:: ctx's q 4-6 min Vital Signs Vital Signs Vital Signs: 12/24/24 11:06 08/14/25 11:06 12/24/24 11:06 Temperature Temperature Source Temporal Pulse Rate 82 Respiratory Rate Blood Pressure 105/66 BP Systolic 105 BP Diastolic 66 12/24/24 11:06 12/24/24 11:06 Temperature 97.6 F L Temperature Source Pulse Rate Respiratory Rate 16 Blood Pressure BP Systolic BP Diastolic Weight Weight: 200 lb 8 oz Body Mass Index (BMI) 31.4 Physical Exam Const alert and no apparent distress General Appearance: comfortable HEENT normocephalic Resp normal respiratory effort GI soft to palpation GI Narrative: Gravid Narrative: Cervix 2-3 cm externally but 1 cm internally Patient reports she was told she was 3 cm at [facility] at 28 weeks, and then she was told she was 1 cm in the office about 1 week ago Labs Labs Labs: Blood Type O POSITIVE Antibody Screen NEGATIVE Hct 38.2 % (37-47) Hgb 13.1 g/dL (12.0-15.0) VZV IgG Antibody 1281 index (Immune >165) Rubella IgG Antibody Reactive (Nonreactive) Assessment & Plan (1) 37 weeks gestation of : PLAN: FHT reactive and reassuring (2) Breech presentation: PLAN: Bedside TAUS confirms breech presentation (3) Uterine contractions: PLAN: Cvx 1 cm internally. IVF bolus started. Will recheck in 2 hours. Discussed with patient to have a low thresh hold to come in to L&D with contractions if she does not make cervical change given breech, and possible emergency. Discussed r/b/a ECV and patient declines. She is requesting to proceed with a primary section with tubal sterilization at 39 weeks or sooner if indicated. We discussed r/b/a section and reviewed recovery as well. All questions answered. The patient was well counseled and does not want the scheduled ECV. She has an appointment tomorrow in the office
== END 2024-12-24 15:20 | disposition home or self-care (01) ==
LOC: WPOUT 11:01 → WP 11:01
PROVIDERS: PCP Family Medicine; Referring Provider Obstetrics & Gynecology; Visit Provider Obstetrics & Gynecology
DX: O47.1 False labor at or after 37 completed weeks of gestation (principal); O32.1XX0 Maternal care for breech presentation, not applicable or unspecified; Z90.49 Acquired absence of other specified parts of digestive tract; Z3A.37 37 weeks gestation of pregnancy
CPT/HCPCS: 96360; 96361; 59025; 59050; 99221; G0378

== ENCOUNTER 2024-12-26 14:25 | Outpatient (CLI) | payer BC, MEDICAID, SELFPAY ==
--- OUTSIDE RECORDS SUMMARY | 2024-12-26 14:39 | XMS RPT_ITS | CCD ---
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 [address] [place] [address] [place] Debbie sp DNA KATHERIN+probe Ql (Vag fld) Not detected Normal Not detected [facility] Comment on above: Order Comment: Speci men Type: SWABOrdering Facility: [facility] Address: [address] [place] [address] Result Comment: The Debbie species group target includes C. albicans, C. tropicalis, C. parapsilosis, and C. dubliniensis. Performed By: #### G BPCR #### [facility] CLIA [id number] [address] [place] [address] OF [place] T. vaginalis DNA KATHERIN+probe Ql (Unsp spec) Not detected Normal Not detected [facility] Comment on above: Order Comment: Speci men Type: SWABOrdering Facility: [facility] Address: [address] [place] [address] Performed By: #### G BPCR #### [facility] CLIA [id number] [address] [place] [address] [place] CNPMichelle 12-14-2024 CNPN Telephone (OBGYWM) -------- KATHY HESTER ([id number]) 1990 F Date Time Provider Department 12/14/24 SUSSY LANDIN During your visit today, we recorded the following information about you: Keli Trinh, SAYDA 12/14/2024 5:07 PM Signed 36w0d Saw CP today. Orders for version at nurse triage desk to fax once scheduled. What day and provider would be best? Natasha Chandler, Sussy Bojorquez APRN.CNM; P [facility]-Cer[facility] Artist Pool Version orders to CP to sign. What day next week and which provider? From: Sussy Landin APRN.CNM Sent: 12/14/2024 4:05 PM EDT To: [facility] Artist Pool COMPLETE BREECH- NEEDS VERSION SCHEDULED NEXT WEEK. Please assist with scheduling and then notify patient. YI Blair Rebecca L, MD 12/15/2024 9:38 AM Signed see what labor and delivery has and schedule.Maybe on surgery day so people are already over there? Lee Ann Armas RN 12/15/2024 3:06 PM Signed Pt is scheduled for Version at [facility] 12/24/24 at 12pm. Pt notified and advised to arrive by 11am. Pt voiced understanding. Order faxed to [facility]. Once GBS results--will send up to date episode. Lee Ann Armas RN Allergies As of Date: 12/14/2024 Noted Allergy Reaction AMOXICILLIN 09/17/2015 1 - Mental Status Change LATEX, NATURAL RUBBER 10/20/2015 2 - Rash MONTELUKAST 01/14/2022 16 - Unknown PENICILLIN 10/20/2015 4 - Hives PENICILLINS 08/04/2015 4 - Hives 14 - Other: See Comments Comments: Mouth sores, mental changes Date Reviewed: 12/07/2024 Reviewed by: Natasha Segura MD - Fully Assessed Reason for Visit: ECV [Other] Prescriptions as of 12/16/2024 - diphenhydramine HCl (BENADRYL ALLERGY PO) Take by mouth. - ondansetron orally disintegrating [...] before breakfast. Problem List As Of Date 12/14/2024 Noted Resolved UTI (urinary tract infection) [N39.0] 10/20/2015 12/06/2015 Normal IUP (intrauterine ) on *12/04/2015 05/08/2016 Symptomatic cholelithiasis [K80.20] 12/04/2015 07/31/2024 Premature labor after 22 weeks and before 37 we*03/25/2016 05/08/2016 False labor after 37 weeks of gestation without*04/17/2016 05/08/2016 Term [Z34.90] 05/06/2016 05/08/2016 Micheline's disease [E06.3] 06/01/2024 Supervision of high-risk of [...] Vaginal bleeding in , third trimester *11/03/2024 30 weeks gestation of (HCC) [Z3A.30] 11/04/2024 Complete breech ([facility]) [O32.1XX0] 12/14/2024 Encounter Status:Closed by KELI TRINH on 12/16/24 Normal [facility] ROUTINE, GROUP B ST REPTOCOCCUS BY PCRon 12-14-2024 ROUTINE, GROUP B STREPTOCOCCUS BY PCR Not detected Normal [facility] Comment on above: Performed By: #### G BPCR #### [facility] CLIA [id number] [address] [place] [address] [place] URINE OB DIP B/Oon Glucose Ql (U) Negative Neg mg/dL [facility] Interpretation and review of laboratory results Normal [facility] Protein.monoclonal (U) [Mass/Vol] Negative Neg mg/dL [facility] (ROM) Rupture Of Membraneson 12-10-2024 ROM Negative Normal Negative [facility] Comment on above: Result Comment: Amni otic fluid not present indicates No Rupture of Membranes at time of specimen collection. Performed By: #### B TS #### [facility] [address] [place], [address] AST(SGOT)on 12-10-2024 AST [Catalytic activity/Vol] 37 U/L High <=31 [facility] Comment on above: Performed By: #### B TS #### [facility] [address] [place], [address] Alanine Aminotransferas (SGP T)on 12-10-2024 ALT [Catalytic activity/Vol] 44 U/L High <=34 [facility] Comment on above: Performed By: #### B TS #### [facility] [address] [place], [address] CBC-Complete Blood Cnt No Di ffon 12-10-2024 Erythrocyte distribution width (RBC) [Ratio] 13.2 % Normal 11.6-14.6 [facility] Comment on above: Performed By: #### B TS #### [facility] [address] [place], [address] Hematocrit (Bld) [Volume fraction] 38.2 % Normal 37-47 [facility] Comment on above: Performed By: #### B TS #### [facility] [address] [place], [address] Hemoglobin (Bld) [Mass/Vol] 13.1 g/dL Normal 12.0-15.0 [facility] Comment on above: Performed By: #### B TS #### [facility] [address] [place], [address] MCH (RBC) [Entitic mass] 32.0 pg Normal 27.0-32.0 [facility] Comment on above: Performed By: #### B TS #### [facility] [address] [place], [address] MCHC (RBC) [Mass/Vol] 34.3 g/dL Normal 32-36 [facility] Comment on above: Performed By: #### B TS #### [facility] [address] [place], [address] MCV (RBC) [Entitic vol] 93.2 fL Normal 81-99 [facility] Comment on above: Performed By: #### B TS #### [facility] [address] [place], [address] Platelet mean volume (Bld) [Entitic vol] 11.6 fL Normal 6.2-12.0 [facility] Comment on above: Performed By: #### B TS #### [facility] [address] [place], [address] Platelets (Bld) [#/Vol] 202 10*3/uL Normal 150-450 [facility] Comment on above: Performed By: #### B TS #### [facility] [address] [place], [address] RBC (Bld) [#/Vol] 4.10 10*6/uL Low 4.2-5.4 [facility] Comment on above: Performed By: #### B TS #### [facility] [address] [place], [address] RDW SD 45.1 fl High 35.1-43.9 [facility] Comment on above: Performed By: #### B TS #### [facility] [address] [place], [place], [address] WBC (Bld) [#/Vol] 10.3 10*3/uL Normal 4.4-11.0 [facility] Comment on above: Performed By: #### B TS #### [facility] [address] [place], [address] CNPNon 12-10-2024 CNPN Telephone (OBGYWM) -------- KATHY HESTER ([id number]) 1990 F Date Time Provider Department 12/10/24 PAMELLA CROWDER OBGYWSantos During your visit today, we recorded the following information about you: Natasha Chandler RN 12/10/2024 10:41 AM Signed 35w3d Patient called with c/o painful contractions every 10 min for the last hour. Contractions lasting 2-3 min. Pain rate of 6-7/10. Patient needed to stop and breathe through a contraction while on phone with a nurse. Also states that she is squirting fluid. Unsure if it's amniotic fluid or vaginal discharge. Spoke with MADELEINE. Advised patient go to [facility] as provider may get called out for a delivery. Attempted to notify [facility]. Charge nurse will call back. Updated HANDP faxed. SAYDA Guan Jennifer, RN 12/10/2024 10:55 AM Signed Charge nurse notified. Natasha Chandler RN Allergies As of Date: 12/10/2024 Noted Allergy Reaction AMOXICILLIN 09/17/2015 1 - Mental Status Change LATEX, NATURAL RUBBER 10/20/2015 2 - Rash MONTELUKAST 01/14/2022 16 - Unknown PENICILLIN 10/20/2015 4 - Hives PENICILLINS 08/04/2015 4 - Hives 14 - Other: See Comments Comments: Mouth sores, mental changes Date Reviewed: 12/07/2024 Reviewed by: Natasha Segura MD - Fully Assessed Reason for Visit: OB Contractions [Other] Prescriptions as of 12/10/2024 - diphenhydramine HCl (BENADRYL ALLERGY PO) Take by mouth. - ondansetron orally disintegrating [...] before breakfast. Problem List As Of Date 12/10/2024 Noted Resolved UTI (urinary tract infection) [N39.0] 10/20/2015 12/06/2015 Normal IUP (intrauterine ) on *12/04/2015 05/08/2016 Symptomatic cholelithiasis [K80.20] 12/04/2015 07/31/2024 Premature labor after 22 weeks and before 37 we*03/25/2016 05/08/2016 False labor after 37 weeks of gestation without*04/17/2016 05/08/2016 Term [Z34.90] 05/06/2016 05/08/2016 Micheline's disease [E06.3] 06/01/2024 Supervision of high-risk of [...] Vaginal bleeding in , third trimester *11/03/2024 30 weeks gestation of (HCC) [Z3A.30] 11/04/2024 Encounter Status:Closed by NATASHA CHANDLER on 12/10/24 Normal [facility] Erythrocyte distribution wid th ratioOrdered By: Pamella Crowder on 12-10-2024 Erythrocyte distribution width (RBC) [Ratio] 13.2 % 11.6-14.6 [facility] Erythrocyte distribution wid th standard deviationOrdered By: Pamella Crowder on 12-10-2024 Erythrocyte distribution width (RBC) [Ratio] 45.1 fl High 35.1-43.9 [facility] Glomerular filtration rate ( GFR) estimation/1.73 sq m using serum, plasma, or whole bOrdered By: Pamella Crowder on 12-10-2024 GFR/1.73 sq M.predicted among non-blacks MDRD (S/P/Bld) [Vol rate/Area] 127 mL/min/{1.73_m2} >60 [facility] Comment on above: mL/min/1.73m2 CKD-EP I Creatinine Equation (2020) Hematocrit Auto (Bld) [Volum e fraction]Ordered By: Pamella Crowder on 12-10-2024 Hematocrit (Bld) [Volume fraction] 38.2 % 37-47 [facility] Hemoglobin measurementOrdere d By: Pamella Crowder on 12-10-2024 Hemoglobin (Bld) [Mass/Vol] 13.1 g/dL 12.0-15.0 [facility] - Chemistry and C hemistry - challengeOrdered By: Pamella Crowder on 12-10-2024 AST [Catalytic activity/Vol] 37 U/L High <32 [facility] MCV (mean corpuscular volume ) determinationOrdered By: Pamella Crowder on 12-10-2024 MCV (RBC) [Entitic vol] 93.2 fL 81-99 [facility] Mean corpuscular hemoglobin (MCH) determinationOrdered By: Pamella Crowder on 12-10-2024 MCH (RBC) [Entitic mass] 32.0 pg 27.0-32.0 [facility] Mean corpuscular hemoglobin concentration (MCHC) determinationOrdered By: Pamella Crowder on 12-10-2024 MCHC (RBC) [Mass/Vol] 34.3 g/dL 32-36 [facility] Mean platelet volume determi nationOrdered By: Pamella Crowder on 12-10-2024 Platelet mean volume (Bld) [Entitic vol] 11.6 fL 6.2-12.0 [facility] OB Biophysical Prof W/O NSTo n 12-10-2024 OB Biophysical Prof W/O NST [facility] Imaging Services [address] [place], [place] [address] OB Biophysical Prof W/O NST MR#: [id number] Acct: [id number] Name: KATHY HESTER Rep #: [id number] : 1990 F 34 From: Saroj Art PCP: Dr. Ephraim Boyd, DO Status: DEP CLI Study: OB Biophysical Prof W/O NST Date of Exam: 11/12 06/06 Exam# [id number] Ordering Dr: Pamella Crowder CNM PROCEDURE: OB BIOPHYSICAL PROF W/O NST 12/10/2024 REASON FOR EXAM: LATE DECELERATION AND VARIABLES ON NST TECHNIQUE: OB BIOPHYSICAL PROF W/O NST COMPARISON: None FINDINGS Intrauterine gestational with fetus in breech position. heart rate of 157 beats per minute. Amniotic fluid is within normal limits with largest fluid pocket measuring 4.6 cm. CYDNEY 9.1 cm. The placenta is located within posterior position without previa. Placenta grade of 1. Biophysical score of 8/8 including breathing movement, gross body movement, tone, and amniotic fluid volume. US/OB Biophysical Prof W/O NST IMPRESSION: Biophysical profile of 8/8. Amniotic fluid within normal limits. Reading Location: [id number] CC: SAHRA Crowder; Dr. Ephraim Boyd, DO Redeye Gunner: Signed Normal [facility] OB Triage Physician Noteon 0 12-10-[address] [facility] Medical Records Department [address] [place] [address] OB Triage Physician Note 12/10/24 1248 MR#: [id number] Acct: [id number] Name: KAHTY HESTER Rep #: [id number] : 1990 34 From: Pamella Crowder CNM PCP: Dr. Ephraim Boyd, DO Status:DEP CLI Y Location: [facility] HPI - General HPI Narrative KATHY HESTER, is a 34 F who presents for contractions and possible ROM. at 35w3d. Prior labor without delivery and seen at [facility]. [facility] Medical History Polycystic ovarian syndrome Eczema Hx of Micheline thyroiditis Hay fever Home Medications ???Medication ???Instructions ???Recorded ???Last Taken ???Type levothyroxine 13 mcg capsule 50 mcg PO DAILY hashimotos 2 1 12/10/24 History ondansetron HCl 4 mg tablet 4 mg PO 4X/DAY 09/20/24 12/10/24 H istory vit no.95-ferrous 1 tab PO DAILY 09/20/24 12/10/24 H istory fumarate 28 mg-folic acid 800 mcg tablet () promethazine 12.5 mg tablet 25 mg PO QHS 09/20/24 Unknown Hist ory Allergy/AdvReac Type Severity Reaction Status Date / Time amoxicillin Allergy Severe Hives Verified 12/10/24 11:37 tree nut (tree nuts) Allergy Intermediate Other Verified 12/10/24 11:37 latex Allergy Unknown hives Verified 12/10/24 11:37 Penicillins Allergy Unknown rash Verified 12/10/24 11:37 ethanolamine Allergy Anaphylaxis Verified 11/29/24 14:49 Influenza Virus Vaccines AdvReac Unknown Rash Verified 12/10/24 11:37 (flu shot) Family History Other Asthma Breast cancer Surgical History Hx of cholecystectomy Hx of appendectomy Social History Smoking Status: Never smoker History 2 Elective abortions Hx Para 1 Spontaneous abortions Hx # Term Pregnancies Ectopic pregnancies Hx # Pregnancies Multiple births # of living children NST FHR Rate Baby A Baseline: 130 Variability:: Moderate Accelerations:: 15 x 15 Decelerations:: Variable NST Reactive:: Yes Uterine Activity:: Irregular Assessment Plan (1) 35 weeks gestation of : (2) Encounter for suspected premature rupture of membranes, with rupture of membranes not found: (3) Variable heart rate decelerations, antepartum: PLAN: Plan 1) BPP 12/18 and NST reactive 12/20 2) ROM plus negative 3) Cervical exam unchanged and no further signs of labor 4) D/C home 12/11/24 0403 Date Pamella Crowder [facility] Cosigner Signature (if applicable): Date CC: Santos Crowder; Dr. Ephraim Boyd DO Signed Normal [facility] Platelet countOrdered By: Abel Crowder on 12-10-2024 Platelets (Bld) [#/Vol] 202 10*3/uL 150-450 [facility] Protein+Creatinine Ratio,Uri neon 12-10-2024 PROT:CRE RATIO 296 mg/g CRE High 0-200 [facility] Comment on above: Performed By: #### B TS #### [facility] [address] [place], [place], [address] Protein (U) [Mass/Vol] 9.6 mg/dL Normal 0.0-12.0 [facility] Comment on above: Performed By: #### B TS #### [facility] [address] [place], [place], [address] UR CREAT 32.40 mg/dL Normal 28.00-217.00 [facility] Comment on above: Performed By: #### B TS #### [facility] [address] [place], [place], [address] (039) RBC Auto (Bld) [#/Vol]Ordere d By: Pamella Crowder on 12-10-2024 RBC (Bld) [#/Vol] 4.10 10*6/uL Low 4.2-5.4 [facility] Random urine creatinine [place] urement (mass/volume)Ordered By: Pamella Crowder on 12-10-2024 Creatinine Unsp time (U) [Mass/Vol] 32.40 mg/dL 28.00-217.00 [facility] Serum Creatinine AND GFRon 0 12-10-2024 Creatinine [Mass/Vol] 0.47 mg/dL Low 0.70-1.20 [facility] Comment on above: Performed By: #### B TS #### [facility] [address] [place], [address] ECRCL 192.26 ml/min Normal 50-250 [facility] Comment on above: Performed By: #### B TS #### [facility] [address] [place], [place], [id number] GFR/1.73 sq M.predicted among non-blacks MDRD (S/P/Bld) [Vol rate/Area] 127 mL/min/{1.73_m2} Normal >60 [facility] Comment on above: Result Comment: mL/m in/1.73m2 CKD-EPI Creatinine Equation (2020) Performed By: #### B TS #### [facility] [address] [place], [place], [address] Serum creatinine measurement (mass/volume)Ordered By: Pamella Crowder on 12-10-2024 Creatinine [Mass/Vol] 0.47 mg/dL Low 0.70-1.20 [facility] Serum or plasma alanine rose otransferase (ALT) measurementOrdered By: Pamella Crowder on 12-10-2024 ALT [Catalytic activity/Vol] 44 U/L High <35 [facility] Serum or plasma uric acid me asurement (mass/volume)Ordered By: Pamella Crowder on 12-10-2024 Urate [Mass/Vol] 3.8 mg/dL 2.6-6.0 [facility] Comment on above: The drugs N-Acetylcy steine and Metamizole may falsely depress this assay. Uric Acidon 12-10-2024 URIC 3.8 mg/dL Normal 2.6-6.0 [facility] Comment on above: Result Comment: The drugs N-Acetylcysteine and Metamizole may falsely depress this assay. Performed By: #### B TS #### [facility] [address] [place], [place], [address] Urine protein measurement (m ass/volume)Ordered By: Pamella Crowder on 12-10-2024 Protein (U) [Mass/Vol] 9.6 mg/dL 0.0-12.0 [facility] Urine protein/creatinine mas s ratioOrdered By: Pamella Crowder on 12-10-2024 Protein/Creatinine (U) [Mass ratio] 296 mg/g CRE High 0-200 [facility] White blood cell (WBC) count Ordered By: Pamella Crowder on 12-10-2024 WBC (Bld) [#/Vol] 10.3 10*3/uL 4.4-11.0 [facility] URINE OB DIP B/Oon 5 Glucose Ql (U) Negative Neg mg/dL [facility] Interpretation and review of laboratory results Normal [facility] Protein.monoclonal (U) [Mass/Vol] Negative Neg mg/dL [facility] T4 Free SerPl-mCncon 025 Free T4 [Mass/Vol] 1.0 ng/dL Normal 0.9-1.7 [facility] Comment on above: Order Comment: Speci men Type: BLOOD SPECIMENOrdering Facility: [facility] Address: [facility] [place] [address] Performed By: #### 3 016-3, 3024-7 ####[facility] [id number] [place] [id number] [place] TSH SerPl-aCncon 11-30-2024 TSH Qn 1.190 m[IU]/L Normal 0.270-4.200 [facility] Comment on above: Order Comment: Speci men Type: BLOOD SPECIMENOrdering Facility: [facility] Address: [address] [place] [address] Result Comment: If t he patient is , TSH reference range varies by gestational period: First Trimester (weeks 9-12): 0.180-2.990 mIU/L Second Trimester: 0.110-3.980 mIU/L Third Trimester: 0.480-4.710 mIU/L Jeremiah Sheldon et al. A Practical Approach for the Verifications and Determination of Site- and Trimester-Specific Reference Intervals for Thyroid Function tests in . Thyroid, 2019:29:3:412-420. Jared Henson, et al. 2017 Guidelines of the [place] Thyroid [employer] for the Diagnosis and Management of Thyroid Disease during and the . Thyroid, 2017:27:3:315-389. Performed By: #### 3 016-3, 3024-7 ####[facility] [id number] [place] [id number] [place] URINE OB DIP B/Oon Glucose Ql (U) Negative Neg mg/dL [facility] Interpretation and review of laboratory results Normal [facility] Protein.monoclonal (U) [Mass/Vol] Negative Neg mg/dL [facility] (ROM) Rupture Of Membraneson 11-29-2024 ROM Negative Normal Negative [facility] Comment on above: Result Comment: Amni otic fluid not present indicates No Rupture of Membranes at time of specimen collection. Performed By: #### L 205.1000 #### [facility] [address] [place], [address] Bilirubin Test strip Ql (U)O rdered By: Natasha Segura on 07-20-2025 Bilirubin Ql (U) Negative Negative [facility] Ketones Test strip Ql (U)Ord ered By: Natasha Segura on 11-29-2024 Ketones Ql (U) 50 mg/dl High Negative [facility] Nitrite Test strip Ql (U)Ord ered By: Natasha Segura on 11-29-2024 Nitrite Ql (U) Negative Negative [facility] OB Triage Physician Noteon 0 11-29-[address] [facility] Medical Records Department [address] [place] [address] OB Triage Physician Note 11/29/24 1435 MR#: [id number] Acct: [id number] Name: KATHY HESTER Rep #: [id number] : 1990 34 From: Natasha Segura MD PCP: Dr. Ephraim Boyd, DO Status:DEP CLI Y Location: [facility] HPI - General General Date of Admission: 11/29/24 Date of Service: 11/29/24 Chief Complaint: leaking HPI Narrative KATHY HESTER, is a 34 F who presents with possible loss of fluid and hip pain. Irregular contractions. Brown spotting since bleeding at 30 weeks. No bright red blood currently. Maternal Data Information Final GASPER: 01/11/25 Gestational age: 33+5 PFSH PFSH Medical History Polycystic ovarian syndrome Eczema Hx of Micheline thyroiditis Hay fever Home Medications ???Medication ???Instructions [...] / Time amoxicillin Allergy Severe Hives Verified 11/29/24 14:49 tree nut (tree nuts) Allergy Intermediate Other Verified 11/29/24 14:49 latex Allergy Unknown unknown Verified 11/29/24 14:49 Penicillins Allergy Unknown unknown Verified 11/29/24 14:49 ethanolamine Allergy Anaphylaxis Verified 11/29/24 14:49 Family History Other Asthma Breast cancer Surgical History Hx of cholecystectomy Hx of appendectomy Social History Smoking Status: Never smoker History 2 Elective abortions Hx Para 1 Spontaneous abortions Hx # Term Pregnancies Ectopic pregnancies Hx # Pregnancies Multiple births # of living children Physical Exam Const alert, oriented x3 and no apparent distress General Appearance: cooperative and comfortable Resp normal respiratory effort GI soft to palpation Inspection: gravid Extremity normal to inspection Neuro oriented x3 and CN's II-XII intact bilaterally Psych mental status grossly normal NST FHR Rate Baby A Baseline: 125 Variability:: Moderate Accelerations:: 15 x 15 Decelerations:: None NST Reactive:: Yes Uterine Activity:: Occasional contraction Assessment Plan (1) Encounter for suspected premature rupture of membranes, with rupture of membranes not found: (2) 33 weeks gestation of : PLAN: Plan Labor precautions. Has appointment in office tomorrow 11/29/24 180 Date Natasha Segura MD Cosigner Signature (if applicable): Date CC: Dr. Natasha Segura MD; Dr. Ephraim Boyd DO Signed Normal [facility] Protein Test strip Ql (U)Ord ered By: Natasha Segura on 11-29-2024 Protein Ql (U) Negative Negative [facility] Urinalysis, Routine (Dipstic k)on 11-29-2024 BILIRUBIN URINE Negative Normal Negative [facility] Comment on above: Order Comment: CLEAN CATCH Performed By: #### L 400.2010 #### [facility] [address] [place], [address] Clarity (U) Clear Normal Clear [facility] Comment on above: Order Comment: CLEAN CATCH Performed By: #### L 400.2010 #### [facility] [address] [place], [address] Color (U) Yellow Normal Yellow [facility] Comment on above: Order Comment: CLEAN CATCH Performed By: #### L 400.2010 #### [facility] [address] [place], [address] GLUCOSE, UR Normal Normal Normal [facility] Comment on above: Order Comment: CLEAN CATCH Performed By: #### L 400.2010 #### [facility] [address] [place], [address] KETONE UR 50 mg/dl Abnormal Negative [facility] Comment on above: Order Comment: CLEAN CATCH Performed By: #### L 400.2010 #### [facility] [address] [place], [address] LEUK ESTERASE 100 /ul Abnormal Negative [facility] Comment on above: Order Comment: CLEAN CATCH Performed By: #### L 400.2010 #### [facility] [address] [place], [address] Nitrite Ql (U) Negative Normal Negative [facility] Comment on above: Order Comment: CLEAN CATCH Performed By: #### L 400.2010 #### [facility] [address] [place], [address] OCCULT BLOOD-UR Negative Normal Negative [facility] Comment on above: Order Comment: CLEAN CATCH Performed By: #### L 400.2010 #### [facility] [address] [place], [address] pH UR 7.0 Normal 5.0 - 8.0 [facility] Comment on above: Order Comment: CLEAN CATCH Performed By: #### L 400.2010 #### [facility] [address] [place], [address] PROT DIPSTX Negative Normal Negative [facility] Comment on above: Order Comment: CLEAN CATCH Performed By: #### L 400.2010 #### [facility] [address] [place], [address] SP.GR. DIPSTX 1.010 Normal 1.002-1.030 [facility] Comment on above: Order Comment: CLEAN CATCH Performed By: #### L 400.2010 #### [facility] [address] [place], [address] UROBILI Normal Normal Normal [facility] Comment on above: Order Comment: CLEAN CATCH Performed By: #### L 400.2010 #### [facility] [address] [place], [address] Urine clarityOrdered By: Lesia Segura on 11-29-2024 Clarity (U) Clear Clear [facility] Urine color determinationOrd ered By: Natasha Segura on 11-29-2024 Color (U) Yellow Yellow [facility] Urine glucose detectionOrder ed By: Natasha Segura on 11-29-2024 Glucose Ql (U) Normal mg/dl Normal [facility] Urine leukocyte esterase det ection by dipstickOrdered By: Natasha Segura on 11-29-2024 Leukocyte esterase Test strip Ql (U) 100 /ul High Negative [facility] Urine pHOrdered By: Natasha Segura on 11-29-2024 pH (U) 7.0 [pH] 5.0 - 8.0 [facility] Urine specific gravity measu rementOrdered By: Natasha Segura on 11-29-2024 Specific gravity (U) [Rel density] 1.010 1.002-1.030 [facility] Urine urobilinogen measureme ntOrdered By: Natasha Segura on 11-29-2024 Urobilinogen Ql (U) Normal mg/dl Normal [facility] THYROGLOBULIN ANTIBODYon Thyroglobulin Ab Qn [IU]/mL Normal <4.0 [facility] Comment on above: Order Comment: Cecily dc Type: BLOOD SPECIMENOrdering Facility: [facility] Address: [address] [place] [address] Result Comment: The Thyroglobulin Antibody test was performed using the Tam SensingStrip Unicel DXI paramagnetic particle chemiluminescent immunoassay method. Results obtained with different assay methods or kits cannot be used interchangeably. Performed By: #### T KYMBERLY ####[facility] LAB[facility] [id number] [address] CNDSon 11-12-2024 CNDS HNO ID: [id number] Author: YAKELIN VENTURA DO Service: Maternal Medicine Author Type: Resident Type: Discharge Summary Filed: 11/12/2024 09:41 Note Text: -------- Attestation signed by Janis Gomez MD at 11/12/2024 2:37 PM I have performed the olps-[id number] and relevant services for a total of [...] remained unchanged from her last admission at 360/-3. She did not have any regular contractions [...] Dept Phone 11/16/2024 9:40 AM NATASHA SEGURA [phone] With: Provider When: In: Patient/Parents to call [...] DATE: November 12, 2024 TIME: 9:20 AM [facility] NUTRITIONon 11-11-2024 NUTRITION HNO ID: [id number] Author: REGGIE DELONG DTR Service: Nutrition Therapy Author Type: Punch Molder Type: Nutrition Filed: 11/11/2024 12:35 Note Text: NUTRITION THERAPY QUALITY ASSURANCE LAB TECHNICIAN NOTE SERVICE DATE: 11/11/2024 SERVICE TIME: Start [...] DATE: November 11, 2024 TIME: 12:34 PM [facility] CASE MGT INIT ASSESon 2024 CASE MGT INIT ASSES HNO ID: [id number] Author: LISA FAIRCHILD LSW Service: Social Work Author Type: Paver Operator Type: Care Mgt Initial Assessment Filed: 11/09/2024 13:23 Note Text: SOCIAL WORK INITIAL ASSESSMENT SERVICE DATE: 11/09/2024 SERVICE TIME: 12:20 PM : 1990 Delivery Mode: Did not yet deliver. Weight: N/A Gestational Age: 31w0d Eligibility Analyst: Did not assess. MOTHER Name: Kathy Hester [...] to her and are able to with children's nursery assistant and emotional support. States they have also aided with baby supplies. Patient states she has all the baby supplies she needs. Plans to go to community baby shower in [place] to aid with more baby supplies. Requested [...] home mother. Denied needing additional financial resources. Cuffing Machine Operator Arrangements: No additional Cuffing Machine Operator needed. Patient states her family can also aid with children's nursery assistant, if needed. PLAN/REFERRALS/INFORMATI ON PROVIDED: Parking resources [...] delivery. SW provided answer and discussed Medicaid Medical Sociologist after delivery that can also aid. Patient asked questions regarding certificate and SW provided answer. SW referred to nurse after delivery who aid with certificates after delivery. Patient asked for Parking resources and SW provided several interventions to aid with parking. Patient discussed resources available if is admitted to the NICUand SW provided [...] DATE: November 09, 2024 TIME: 12:20 PM [facility] NURSING PROGon 11-05-2024 NURSING PROG HNO ID: [id number] Author: CONCETTA GATES RN Service: Nursing Author Type: Registered Nurse Type: Nursing Progress Note Filed: 11/05/2024 21:22 Note Text: RN called to bedside because pt is complaining of new abdominal pain rating it a 6/10 and stating that she has passed a small clot. Peripad was left in bathroom with a small pea sized brown clot. Kennedy applied to assess for contractions and heart tones obtained. Pt given 1000mg of tylenol. Dr. Hernandez and Dr. Auguste updated. Will discontinue toco in 20minutes if toco is quiet. Pt agreeable with this plan. [facility] CBC panel Auto (Bld)on 11-03 Erythrocyte distribution width (RBC) [Ratio] 13.1 % Normal 11.5-15.0 [facility] Comment on above: Order Comment: Speci men Type: SWAB [facility] Address: [address] [place] [address] Performed By: #### B VAMP, CVTV #### [facility] CLIA [id number] [address] [place] [address] [place] Hematocrit (Bld) [Volume fraction] 36.4 % Normal 36.0-46.0 [facility] Comment on above: Order Comment: Speci men Type: SWAB [facility]ing [facility]: [facility] Address: [address] [place] [address] Performed By: #### B VAMP, CVTV #### [facility] CLIA [id number] [address] [place] [address] [place] Hemoglobin (Bld) [Mass/Vol] 12.0 g/dL Normal 11.5-15.5 [facility] Comment on above: Order Comment: Speci men Type: SWAB [facility]ing [facility]: [facility] Address: [address] [place] [address] Performed By: #### B VAMP, CVTV #### [facility] CLIA [id number] [address] [place] [address] [place] MCH (RBC) [Entitic mass] 31.4 pg Normal 26.0-34.0 [facility] Comment on above: Order Comment: Speci men Type: SWAB [facility] Address: [address] [place] [address] Performed By: #### B VAMP, CVTV #### [facility] CLIA [id number] [address] [place] [address] [place] MCHC (RBC) [Mass/Vol] 33.0 g/dL Normal 30.5-36.0 [facility] Comment on above: Order Comment: Speci men Type: SWAB [facility] Address: [address] [place] [address] Performed By: #### B VAMP, CVTV #### [facility] CLIA [id number] [address] [place] [address] [place] MCV (RBC) [Entitic vol] 95.3 fL Normal 80.0-100.0 [facility] Comment on above: Order Comment: Speci men Type: SWAB [facility] Address: [address] [place] [address] Performed By: #### B VAMP, CVTV #### [facility] CLIA [id number] [address] [place] [address] [place] Nucleated RBC (Bld) [#/Vol] 10*3/uL Normal <0.01 [facility] Comment on above: Order Comment: Speci men Type: SWAB [facility]ing [facility]: [facility] Address: [address] [place] [address] Performed By: #### B VAMP, CVTV #### [facility] CLIA [id number] [address] [place] [address] [place] Platelet mean volume (Bld) [Entitic vol] 10.5 fL Normal 9.0-12.7 [facility] Comment on above: Order Comment: Speci men Type: SWAB [facility] Address: [address] [place] [address] Performed By: #### B VAMP, CVTV #### [facility] CLIA [id number] [address] [place] [address] [place] Platelets (Bld) [#/Vol] 258 10*3/uL Normal 150-400 [facility] Comment on above: Order Comment: Speci men Type: SWAB [facility] Address: [address] [place] [address] Performed By: #### B VAMP, CVTV #### [facility] CLIA [id number] [address] [place] [address] [place] RBC (Bld) [#/Vol] 3.82 10*6/uL Low 3.90-5.20 [facility] Comment on above: Order Comment: Speci men Type: SWAB [facility] Address: [address] [place] [address] Performed By: #### B VAMP, CVTV #### [facility] CLIA [id number] [address] [place] [address] [place] WBC (Bld) [#/Vol] 12.19 10*3/uL High 3.70-11.00 [facility] Comment on above: Order Comment: Speci men Type: SWAB [facility] Address: [address] [place] [address] Performed By: #### B VAMP, CVTV #### [facility] CLIA [id number] [address] [place] [address] OF [place] Benny 11-03-2024 NIMA Telephone (OBGYWM) -------- KATHY HESTER ([id number]) 1990 F Date Time Provider Department 11/03/24 PRIYA WORKMAN During your visit today, we recorded the following information about you: Natasha Chandler, RN 11/03/2024 2:16 PM Signed 30w1d Patient called the office stating that she began bleeding and passing large blood clots. Unable to describe how large. States that she called for a squad and hoping that they will take her to [place]. Patient wanted to let our office know. 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] 06/01/2024 Supervision of high-risk of elderly m*06/01/2024 Nausea and vomiting in (HCC) [O21.9] 06/01/2024 Threatened labor (HCC) [O47.00] 09/21/2024 Threatened labor, antepartum (HCC) [O47*09/21/2024 Prematurity (HCC) [P07.30] 09/21/2024 Penicillin allergy [Z88.0] 09/21/2024 Vaginal bleeding during (HCC) [O46.90]09/21/2024 28 weeks gestation of (HCC) [Z3A.28] 10/19/2024 Threatened labor, third trimester ([facility])*10/19/2024 29 weeks gestation of (HCC) [Z3A.29] 10/28/2024 Vaginal bleeding in , third trimester *11/03/2024 Encounter Status:Closed by NATASHA CHANDLER on 11/03/24 Normal [facility] Fibrinogen PPP-mCncon 2024 Fibrinogen Coag (PPP) [Mass/Vol] 565 mg/dL High 200-400 [facility] Comment on above: Order Comment: Speci men Type: SWAB [facility] Address: [address] [place] [address] Performed By: #### B VAMP, CVTV #### [facility] CLIA [id number] [address] [place] [address] [place] HISTORY PHYSICALon HISTORY PHYSICAL HNO ID: [id number] Author: MARIANA BURKS MD Service: Maternal Medicine [...] REVIEW PAST MEDICAL HISTORY Diagnosis Date Gallstones Micheline's disease Symptomatic cholelithiasis 12/04/2015 UTI (urinary tract [...] was discussed with the patient or authorized hobbies and crafts sales representative. The patient or authorized hobbies and crafts sales representative has agreed to proceed with [...] vulva, vagi (more content not included)... Normal [facility] TYPE + SCREEN PRENATALon ABO O Normal [facility] Comment on above: Order Comment: Speci men Type: BLOOD SPECIMENOrdering Facility: [facility] Address: [address] [place] [address] Performed By: #### T SPN ####[facility] BLOOD BANKIA [id number] [address] Rh Nom (Bld) Positive Normal [facility] Comment on above: Order Comment: Speci men Type: BLOOD SPECIMENOrdering Facility: [facility] Address: [address] [place] [address] Performed By: #### T SPN ####[facility] BLOOD BANKIA [id number] [address] STATES [facility] TYPE AND SCREEN EXPIRATION 11/06/2024 23:59 Normal [facility] Comment on above: Order Comment: Speci men Type: BLOOD SPECIMENOrdering Facility: [facility] Address: [address] [place] [address] Performed By: #### T SPN ####[facility] BLOOD BANKIA [id number] [address] CBC W Auto Differential pane l (Bld)on 10-30-2024 Basophils (Bld) [#/Vol] 0.03 10*3/uL Normal <0.11 [facility] Comment on above: Order Comment: Speci men Type: BLOOD SPECIMENOrdering Facility: [facility] Address: [address] [place] [address] Performed By: #### 5 7021-8 ####[facility] [id number] [place] [address] [place] Basophils/100 WBC (Bld) 0.2 % Normal [facility] Comment on above: Order Comment: Speci men Type: BLOOD SPECIMENOrdering Facility: [facility] Address: [address] [place] [address] Performed By: #### 5 7021-8 ####[facility] [id number] [place] [address] [place] Differential cell count method Nom (Bld) Auto Normal [facility] Comment on above: Order Comment: Speci men Type: BLOOD SPECIMENOrdering Facility: [facility] Address: [address] [place] [address] Performed By: #### 5 7021-8 ####[facility] LATANYAMAXIM [id number] [place] [address] [place] Eosinophils (Bld) [#/Vol] 0.12 10*3/uL Normal <0.46 [facility] Comment on above: Order Comment: Speci men Type: BLOOD SPECIMENOrdering Facility: [facility] Address: [address] [place] [address] Performed By: #### 5 7021-8 ####[facility] [id number] [place] [address] [place] Eosinophils/100 WBC (Bld) 0.9 % Normal [facility] Comment on above: Order Comment: Speci men Type: BLOOD SPECIMENOrdering Facility: [facility] Address: [address] [place] [address] Performed By: #### 5 7021-8 ####[facility] [id number] [place] [address] [place] Erythrocyte distribution width (RBC) [Ratio] 12.9 % Normal 11.5-15.0 [facility] Comment on above: Order Comment: Speci men Type: BLOOD SPECIMENOrdering Facility: [facility] Address: [address] [place] [address] Performed By: #### 5 7021-8 ####[facility] LATANYALOYSBURGDOM [id number] [place] [address] [place] Hematocrit (Bld) [Volume fraction] 37.3 % Normal 36.0-46.0 [facility] Comment on above: Order Comment: Speci men Type: BLOOD SPECIMENOrdering Facility: [facility] Address: [address] [place] [address] Performed By: #### 5 7021-8 ####[facility] [id number] [place] [address] [place] Hemoglobin (Bld) [Mass/Vol] 12.5 g/dL Normal 11.5-15.5 [facility] Comment on above: Order Comment: Speci men Type: BLOOD SPECIMENOrdering Facility: [facility] Address: [address] [place] [address] Performed By: #### 5 7021-8 ####[facility] [id number] [place] [address] [place] Immature granulocytes (Bld) [#/Vol] 0.07 10*3/uL Normal <0.10 [facility] Comment on above: Order Comment: Speci men Type: BLOOD SPECIMENOrdering Facility: [facility] Address: [address] [place] [address] Performed By: #### 5 7021-8 ####[facility] [id number] [place] [address] [place] Immature granulocytes/100 WBC (Bld) 0.5 % Normal [facility] Comment on above: Order Comment: Speci men Type: BLOOD SPECIMENOrdering Facility: [facility] Address: [address] [place] [address] Performed By: #### 5 7021-8 ####[facility] MILLWNCLIA [id number] [place] [address] [place] Lymphocytes (Bld) [#/Vol] 1.82 10*3/uL Normal 1.00-4.00 [facility] Comment on above: Order Comment: Speci men Type: BLOOD SPECIMENOrdering Facility: [facility] Address: [address] [place] [address] Performed By: #### 5 7021-8 ####[facility]ENTERLIA [id number] [place] [address] [place] Lymphocytes/100 WBC (Bld) 13.7 % Normal [facility] Comment on above: Order Comment: Speci men Type: BLOOD SPECIMENOrdering Facility: [facility] Address: [address] [place] [address] Performed By: #### 5 7021-8 ####[facility] [id number] [place] [address] [place] MCH (RBC) [Entitic mass] 31.8 pg Normal 26.0-34.0 [facility] Comment on above: Order Comment: Speci men Type: BLOOD SPECIMENOrdering Facility: [facility] Address: [address] [place] [address] Performed By: #### 5 7021-8 ####[facility]ENTERLIA [id number] [place] [address] [place] MCHC (RBC) [Mass/Vol] 33.5 g/dL Normal 30.5-36.0 [facility] Comment on above: Order Comment: Speci men Type: BLOOD SPECIMENOrdering Facility: [facility] Address: [address] [place] [address] Performed By: #### 5 7021-8 ####[facility]ITALNCLIA [id number] [place] [address] [place] MCV (RBC) [Entitic vol] 94.9 fL Normal 80.0-100.0 [facility] Comment on above: Order Comment: Speci men Type: BLOOD SPECIMENOrdering Facility: [facility] Address: [address] [place] [address] Performed By: #### 5 7021-8 ####[facility] [id number] [place] [address] [place] Monocytes (Bld) [#/Vol] 0.73 10*3/uL Normal <0.87 [facility] Comment on above: Order Comment: Speci men Type: BLOOD SPECIMENOrdering Facility: [facility] Address: [address] [place] [address] Performed By: #### 5 7021-8 ####[facility] [id number] [place] [address] [place] Monocytes/100 WBC (Bld) 5.5 % Normal [facility] Comment on above: Order Comment: Speci men Type: BLOOD SPECIMENOrdering Facility: [facility] Address: [address] [place] [address] Performed By: #### 5 7021-8 ####[facility] [id number] [place] [address] [place] Neutrophils (Bld) [#/Vol] 10.48 10*3/uL High 1.45-7.50 [facility] Comment on above: Order Comment: Speci men Type: BLOOD SPECIMENOrdering Facility: [facility] Address: [address] [place] [address] Performed By: #### 5 7021-8 ####[facility] [id number] [place] [address] [place] Neutrophils/100 WBC (Bld) 79.2 % Normal [facility] Comment on above: Order Comment: Speci men Type: BLOOD SPECIMENOrdering Facility: [facility] Address: [address] [place] [address] Performed By: #### 5 7021-8 ####[facility] [id number] [place] [address] [place] Nucleated RBC (Bld) [#/Vol] 10*3/uL Normal <0.01 [facility] Comment on above: Order Comment: Speci men Type: BLOOD SPECIMENOrdering Facility: [facility] Address: [address] [place] [address] Performed By: #### 5 7021-8 ####[facility] [id number] [place] [address] [place] Nucleated RBC/100 WBC (Bld) [Ratio] 0.0 /100 WBC Normal [facility] Comment on above: Order Comment: Speci men Type: BLOOD SPECIMENOrdering Facility: [facility] Address: [address] [place] [address] Performed By: #### 5 7021-8 ####[facility] [id number] [place] [address] [place] Platelet mean volume (Bld) [Entitic vol] 10.3 fL Normal 9.0-12.7 [facility] Comment on above: Order Comment: Speci men Type: BLOOD SPECIMENOrdering Facility: [facility] Address: [address] [place] [address] Performed By: #### 5 7021-8 ####[facility] [id number] [place] [address] [place] Platelets (Bld) [#/Vol] 294 10*3/uL Normal 150-400 [facility] Comment on above: Order Comment: Speci men Type: BLOOD SPECIMENOrdering Facility: [facility] Address: [address] [place] [address] Performed By: #### 5 7021-8 ####[facility]ITALNCLIA [id number] [place] [address] [place] RBC (Bld) [#/Vol] 3.93 10*6/uL Normal 3.90-5.20 [facility] Comment on above: Order Comment: Speci men Type: BLOOD SPECIMENOrdering Facility: [facility] Address: [address] [place] [address] Performed By: #### 5 7021-8 ####[facility]ENTERA [id number] [place] [address] [place] WBC (Bld) [#/Vol] 13.25 10*3/uL High 3.70-11.00 [facility] Comment on above: Order Comment: Speci men Type: BLOOD SPECIMENOrdering Facility: [facility] Address: [address] [place] [address] Performed By: #### 5 7021-8 ####[facility] HOSPITALNCA [id number] [place] [address] [place] GESTATIONAL GLUCOSE SCREEN, 1-HOUR, 50 GRAM, NON-FASTINGon 10-30-2024 Glucose [Mass/Vol] 95 mg/dL Normal 74-134 [facility] Comment on above: Order Comment: Speci men Type: BLOOD SPECIMENOrdering Facility: [facility] Address: [address] [place] [address] Result Comment: [facility] Congress of Obstetricians and Gynecologists (Kristofer/Augie) guidelines state a gestational diabetes mellitus positive screen is made, in women not previously diagnosed with overt diabetes, when the 1 hr plasma glucose level is equal to or above 140 mg/dL. The [facility] [employer] [facility] [employer] recommends a 135 mg/dL cutoff. Performed By: #### G LTGST ####[facility]PITALNCT[facility] [id number] [place] [address] [place] Reagin and Treponema pallidu m IgG and IgM [Interp]on 10-30-2024 T. pallidum IgG+IgM IA Ql (S) Non-Reactive Normal Nonreactive [facility] Comment on above: Order Comment: Cecily dc Type: BLOOD SPECIMENOrdering Facility: [facility] Address: [address] [place] [address] Performed By: #### 7 3752-8 ####[facility] [id number] [address] [place] Reagin+T pallidum IgG+IgM Se rPl-Impon 10-30-2024 Reagin and Treponema pallidum IgG and IgM [Interp] Cannot exclude recent Treponemal infection if specimen collected within 7-10 days after appearance of suspect lesions or 2-3 weeks after an exposure. Clinical correlation is required. Normal [facility] Comment on above: Order Comment: Speci vanda Type: BLOOD SPECIMENOrdering Facility: [facility] Address: [address] [place] [address] Performed By: #### 7 3752-8 ####[facility] [id number] [address] OF [facility] CNPMichelle 10-28-2024 CNPN Telephone (SHERRI) -------- KATHY HESTER ([id number]) 1990 F Date Time Provider Department 10/28/24 PAMELLA CROWDER During your visit today, we recorded the following information about you: Kaelyn Spangler LPN 10/28/2024 3:13 PM Signed Ob patient is 29w2d called stating that she began to have pinkish spotting today that she noticed when using the restroom and then noticed the pinkish colored blood on pad. Patient is c/o lower back discomfort that started this morning. Denies cramping. No c/o contractions. Patient was admitted to [facility] from 10/21 to 10/26 for pre-term labor. Was 3cm when admitted. Discussed with Jesus Crowder and patient instructed to go to [facility] for evaluation. Allergies As of Date: 10/28/2024 Noted Allergy Reaction AMOXICILLIN 09/17/2015 1 - Mental Status Change LATEX, NATURAL RUBBER 10/20/2015 2 - Rash MONTELUKAST 01/14/2022 16 - Unknown PENICILLIN 10/20/2015 4 - Hives PENICILLINS 08/04/2015 4 - Hives 14 - Other: See Comments Comments: Mouth sores, mental changes Date Reviewed: 10/28/2024 Reviewed by: Barb Anthony RN - Fully Assessed Reason for Visit: Care 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] 06/01/2024 Supervision of high-risk of [...] Encounter Status:Closed by KAELYN SPANGLER on 11/04/24 [facility] HNO ID: [id number] Author: MARIANA BURKS MD Service: Obstetrics Author Type: Resident Type: Discharge Summary Filed: 10/26/2024 10:18 Note Text: -------- Attestation signed by Mariana Burks MD at 10/26/2024 10:18 AM Attending Note I evaluated the patient and personally participated in the deo components. I agree with the resident's findings and plan as documented and have discussed the case and management of the patient's care with the resident. I have performed the wble-si-avft and relevant discharge services for a total [...] Yes Penicillin allergy Yes Prematurity (HCC) Yes Micheline's disease Yes Resolved Hospital Problems No resolved problems to display. SIGNATURE: Desmond Hughes DO PATIENT NAME: Kathy Hester DATE: October 26, 2024 TIME: 10:08 AM [facility] NURSING PROGon 10-21-2024 NURSING PROG HNO ID: [id number] Author: MELVIN ANDERSON RN Service: ? Author [...] sized clot seen in the toilet. Normal [facility] NURSING PROG HNO ID: [id number] Author: YAKELIN OSUNA RN Service: Nursing Author Type: Registered Nurse Type: Nursing Progress Note Filed: 10/21/2024 06:36 Note Text: Other: Called into the patient's room, patient reports that she passed a blood clot while urinating. Quarter sized clot seen in the toilet. [facility] CASE MANAGEMon 10-20-2024 CASE MANAGEM HNO ID: [id number] Author: LISA FAIRCHILD LSW Service: Social Work Author Type: Paver Operator Type: Care Mgt Progress Note Filed: 10/20/2024 08:21 Note Text: CARE MANAGEMENT PROGRESS NOTE SERVICE DATE: 10/20/2024 SERVICE TIME: 7:35 AM LOS: 1 day SW consulted due to Adjustment to Condition. Blower Room Attendant Nurse had put in the consult with no other details. Discussed with Day Shift Nurse who states reason for consult was due Patient having Medicaid. Blower Room Attendant Nurse wanted to make sure she did not need any other resources. Day Shift Nurse had no concerns. Due to this SW will not discuss consult with Patient. SW will no longer follow but can be consulted at a later time. SIGNATURE: JOSE Wilcox PATIENT NAME: Kathy Hester DATE: October 20, 2024 TIME: 7:35 AM Normal [facility] Examination level ultrasound on 10-20-2024 [facility] Radiology Study observation (narrative) [facility] NURSING PROGon 10-20-2024 NURSING PROG HNO ID: [id number] Author: YAKELIN OSUNA RN Service: Nursing Author Type: Registered Nurse Type: Nursing Progress Note Filed: 10/20/2024 10:18 Note Text: Patient reporting increased abdominal and back pain with tightness, monitors placed and abdomen palpated. Resident notified Normal [facility] CBC W Auto Differential pane l (Bld)on 10-19-2024 Basophils (Bld) [#/Vol] 0.03 10*3/uL Normal <0.11 [facility] Comment on above: Order Comment: Speci men Type: BLOOD SPECIMENOrdering Facility: [facility] Address: [address] [place] [address] Performed By: #### 5 7021-8 ####[facility] LABORATORYCLIA [id number] [place] [address] [place] Basophils/100 WBC (Bld) 0.2 % Normal [facility] Comment on above: Order Comment: Speci men Type: BLOOD SPECIMENOrdering Facility: [facility] Address: [address] [place] [address] Performed By: #### 5 7021-8 ####[facility] LABORATORYCLIA [id number] [place] [address] [place] Differential cell count method Nom (Bld) Auto Normal [facility] Comment on above: Order Comment: Speci men Type: BLOOD SPECIMENOrdering Facility: [facility] Address: [address] [place] [address] Performed By: #### 5 7021-8 ####[facility]ORATORYCLIA [id number] [address] Eosinophils (Bld) [#/Vol] 0.10 10*3/uL Normal <0.46 [facility] Comment on above: Order Comment: Speci men Type: BLOOD SPECIMENOrdering Facility: [facility] Address: [address] [place] [address] Performed By: #### 5 7021-8 ####[facility] LABORATORYCLIA [id number] [address] Eosinophils/100 WBC (Bld) 0.6 % Normal [facility] Comment on above: Order Comment: Speci men Type: BLOOD SPECIMENOrdering Facility: [facility] Address: [address] [place] [address] Performed By: #### 5 7021-8 ####[facility] LABORATORYCLIA [id number] [address] Erythrocyte distribution width (RBC) [Ratio] 12.5 % Normal 11.5-15.0 [facility] Comment on above: Order Comment: Speci men Type: BLOOD SPECIMENOrdering Facility: [facility] Address: [address] [place] [address] Performed By: #### 5 7021-8 ####[facility] LABORATORYCLIA [id number] [address] Hematocrit (Bld) [Volume fraction] 38.5 % Normal 36.0-46.0 [facility] Comment on above: Order Comment: Speci men Type: BLOOD SPECIMENOrdering Facility: [facility] Address: [address] [place] [address] Performed By: #### 5 7021-8 ####[facility]ORATORYCLIA [id number] [address] Hemoglobin (Bld) [Mass/Vol] 12.8 g/dL Normal 11.5-15.5 [facility] Comment on above: Order Comment: Speci men Type: BLOOD SPECIMENOrdering Facility: [facility] Address: [facility] [place] [address] Performed By: #### 5 7021-8 ####[facility] LABORATORYCLIA [id number] [place] [address] [place] Immature granulocytes (Bld) [#/Vol] 0.15 10*3/uL High <0.10 [facility] Comment on above: Order Comment: Speci men Type: BLOOD SPECIMENOrdering Facility: [facility] Address: [address] [place] [address] Performed By: #### 5 7021-8 ####[facility]ORATORYCLIA [id number] [address] [place] Immature granulocytes/100 WBC (Bld) 1.0 % Normal [facility] Comment on above: Order Comment: Speci men Type: BLOOD SPECIMENOrdering Facility: [facility] Address: [address] [place] [address] Performed By: #### 5 7021-8 ####[facility] LABORATORYCLIA [id number] [place] [address] [place] Lymphocytes (Bld) [#/Vol] 1.67 10*3/uL Normal 1.00-4.00 [facility] Comment on above: Order Comment: Speci men Type: BLOOD SPECIMENOrdering Facility: [facility] Address: [address] [place] [address] Performed By: #### 5 7021-8 ####[facility]ORATORYCLIA [id number] [address] [place] Lymphocytes/100 WBC (Bld) 10.7 % Normal [facility] Comment on above: Order Comment: Speci men Type: BLOOD SPECIMENOrdering Facility: [facility] Address: [address] [place] [address] Performed By: #### 5 7021-8 ####[facility]ORATORYCLIA [id number] [place] [address] MCH (RBC) [Entitic mass] 32.0 pg Normal 26.0-34.0 [facility] Comment on above: Order Comment: Speci men Type: BLOOD SPECIMENOrdering Facility: [facility] Address: [address] [place] [address] Performed By: #### 5 7021-8 ####[facility] LABORATORYCLIA [id number] [address] [place] MCHC (RBC) [Mass/Vol] 33.2 g/dL Normal 30.5-36.0 [facility] Comment on above: Order Comment: Speci men Type: BLOOD SPECIMENOrdering Facility: [facility] Address: [address] [place] [address] Performed By: #### 5 7021-8 ####[facility] LABORATORYCLIA [id number] [address] MCV (RBC) [Entitic vol] 96.3 fL Normal 80.0-100.0 [facility] Comment on above: Order Comment: Speci men Type: BLOOD SPECIMENOrdering Facility: [facility] Address: [address] [place] [address] Performed By: #### 5 7021-8 ####[facility] LABORATORYCLIA [id number] [address] Monocytes (Bld) [#/Vol] 0.84 10*3/uL Normal <0.87 [facility] Comment on above: Order Comment: Speci men Type: BLOOD SPECIMENOrdering Facility: [facility] Address: [address] [place] [address] Performed By: #### 5 7021-8 ####[facility] LABORATORYCLIA [id number] [address] Monocytes/100 WBC (Bld) 5.4 % Normal [facility] Comment on above: Order Comment: Speci men Type: BLOOD SPECIMENOrdering Facility: [facility] Address: [address] [place] [address] Performed By: #### 5 7021-8 ####[facility] LABORATORYCLIA [id number] [place] [address] [place] Neutrophils (Bld) [#/Vol] 12.88 10*3/uL High 1.45-7.50 [facility] Comment on above: Order Comment: Speci men Type: BLOOD SPECIMENOrdering Facility: [facility] Address: [address] [place] [address] Performed By: #### 5 7021-8 ####[facility] LABORATORYCLIA [id number] [address] [place] Neutrophils/100 WBC (Bld) 82.1 % Normal [facility] Comment on above: Order Comment: Speci men Type: BLOOD SPECIMENOrdering Facility: [facility] Address: [address] [place] [address] Performed By: #### 5 7021-8 ####[facility] LABORATORYCLIA [id number] [address] [place] Nucleated RBC (Bld) [#/Vol] 10*3/uL Normal <0.01 [facility] Comment on above: Order Comment: Speci men Type: BLOOD SPECIMENOrdering Facility: [facility] Address: [address] [place] [address] Performed By: #### 5 7021-8 ####[facility] LABORATORYCLIA [id number] [address] [place] Nucleated RBC/100 WBC (Bld) [Ratio] 0.0 /100 WBC Normal [facility] Comment on above: Order Comment: Speci men Type: BLOOD SPECIMENOrdering Facility: [facility] Address: [address] [place] [address] Performed By: #### 5 7021-8 ####[facility] LABORATORYCLIA [id number] [address] [place] Platelet mean volume (Bld) [Entitic vol] 10.5 fL Normal 9.0-12.7 [facility] Comment on above: Order Comment: Speci men Type: BLOOD SPECIMENOrdering Facility: [facility] Address: [address] [place] [address] Performed By: #### 5 7021-8 ####[facility] LABORATORYCLIA [id number] [address] Platelets (Bld) [#/Vol] 295 10*3/uL Normal 150-400 [facility] Comment on above: Order Comment: Speci men Type: BLOOD SPECIMENOrdering Facility: [facility] Address: [address] [place] [address] Performed By: #### 5 7021-8 ####[facility] LABORATORYCLIA [id number] [address] RBC (Bld) [#/Vol] 4.00 10*6/uL Normal 3.90-5.20 [facility] Comment on above: Order Comment: Speci men Type: BLOOD SPECIMENOrdering Facility: [facility] Address: [address] [place] [address] Performed By: #### 5 7021-8 ####[facility] LABORATORYCLIA [id number] [address] WBC (Bld) [#/Vol] 15.67 10*3/uL High 3.70-11.00 [facility] Comment on above: Order Comment: Speci men Type: BLOOD SPECIMENOrdering Facility: [facility] Address: [address] [place] [address] Performed By: #### 5 7021-8 ####[facility] LABORATORYCLIA [id number] [address] CONSULTon 10-19-2024 CONSULT HNO ID: [id number] Author: CHRISTOS BHATT MD Service: Neonatology Author Type: Physician Type: Consults Filed: 10/19/2024 20:35 Note Text: NEONATOLOGY CONSULT SERVICE DATE: 10/19/2024 Admission Date: 10/19/2024 SERVICE TIME: 8 pm Date of : 1990 Age: [age] year old Sex: female Primary Care Physician: Ephraim Boyd DO Consulting Resort Keeper: Christos Bhatt MD Subjective Consultation for this [...] date). Maternal Hospital Problems: ACTIVE PROBLEM LIST Micheline's Disease Supervision of High-Risk of Elderly Multigravida (>= 35 Years Old At Time of Delivery) ([facility]) Nausea and Vomiting in ([facility]) Threatened Labor ([facility]) Threatened Labor, Antepartum ([facility]) Prematurity ([facility]) Penicillin Allergy 28 Weeks Gestation of ([facility]) Threatened Labor, Third Trimester ([facility]) Maternal Meds: No current facility-administered medications on [...] delays: Yes Discussed need for evaluation by Carrier Loader for ROP: Yes Discussed risk for hearing [...] Verbal consent obtained: No MISC. Name if Eligibility Analyst, if known: Unknown, please contact patient's primary care physician Possible need for transfer to outside hospital: No Possible need for subspecialty evaluation: No Additional discussion: N/A Impression/Recommendatio ns Assessment: A 34 year old female, , who is at 28w0d with an GASPER of 01/11/2025, by Ultrasound dating method She was admitted with premature labor Plan: NICU wolfgang (more content not included)... Normal [facility] ED Triage Noteon 10-19-2024 ED Triage Note HNO ID: [id number] Author: JOEL LIU APRN.CNP Service: Emergency Medicine Author Type: Nurse [...] at 144 over 6628 weeks seen at [facility]. Patient escorted via wheelchair to OB triage. BRIEF EXAM: Awake and Alert Non labored breathing No focal neurological deficits INITIAL WORKUP AND DECISION MAKING: Orders Placed This Encounter No orders of the defined types were placed in this encounter. SIGNATURE: Joel Liu APRN.DOMINIC Normal [facility] Fibrinogen PPP-mCncon 2024 Fibrinogen Coag (PPP) [Mass/Vol] 614 mg/dL High 200-400 [facility] Comment on above: Order Comment: Speci men Type: SWAB [facility] Address: [address] [place] [address] Performed By: #### B VAMP, CVTV #### [facility] CLIA [id number] [address] [place] [address] [place] [address] [place] HISTORY PHYSICALon HISTORY PHYSICAL HNO ID: [id number] Author: PHIL CARD MD Service: Obstetrics Author Type: Resident Type: H&P Filed: 10/20/2024 09:06 Note Text: -------- Attestation signed by Phil Card MD at 10/20/2024 9:06 AM Attending Note [...] discussed with: Provider, RN, Patient Signature: Phil Card MD Date: October 20, 2024 Time: 9:01 [...] REVIEW PAST MEDICAL HISTORY Diagnosis Date Gallstones Micheline's disease Normal IUP (intrauterine ) on ultrasound [...] mg table (more content not included)... Normal [facility] PT panel Coag (PPP)on 2024 INR Coag (PPP) [Relative time] 0.9 {INR} Normal 0.9-1.3 [facility] Comment on above: Order Comment: Cecily dc Type: SWAB [facility] Address: [address] [place] [address] Result Comment: Kelli min K Antagonist (VKA) Therapeutic Range: INR 2 to 3 (Target INR of 2.5) Note: For patients treated with VKA drugs, such as warfarin, the [place] [employer] 2012 Guideline recommends [...] Chest 2012, 141:7S-47S Sharon RA, et al. JACC 2017, 70: 252-289 Performed By: #### B VAMP, CVTV #### [facility] CLIA [id number] [address] [place] [address] [place] PT Coag (PPP) [Time] 10.3 s Normal 9.7-13.0 [facility] Comment on above: Order Comment: Speci men Type: SWAB [facility] Address: [address] [place] [address] Performed By: #### DIANA SINGHV #### [facility] CLIA [id number] [address] [place] [address] [place] Reagin and Treponema pallidu m IgG and IgM [Interp]on 10-19-2024 T. pallidum IgG+IgM IA Ql (S) Non-Reactive Normal Nonreactive [facility] Comment on above: Order Comment: Speci men Type: BLOOD SPECIMEN [facility] Address: [address] [place] [address] Performed By: #### 3 016-3, 3024-7, 97210-5 #### [facility] CLIA [id number] [address] [place] [address] [place] Reagin+T pallidum IgG+IgM Se rPl-Impon 10-19-2024 Reagin and Treponema pallidum IgG and IgM [Interp] Cannot exclude recent Treponemal infection if specimen collected within 7-10 days after appearance of suspect lesions or 2-3 weeks after an exposure. Clinical correlation is required. Normal [facility] Comment on above: Order Comment: Speci men Type: BLOOD SPECIMEN [facility] Address: [address] [place] [address] Performed By: #### 3 016-3, 3024-7, 29542-4 #### [facility] CLIA [id number] [address] [place] [address] [place] T4 Free SerPl-mCncon 025 Free T4 [Mass/Vol] 0.9 ng/dL Normal 0.9-1.7 [facility] Comment on above: Order Comment: Speci men Type: BLOOD SPECIMEN [facility] Address: [address] [place] [address] Performed By: #### 3 016-3, 3024-7, 62338-6 #### [facility] CLIA [id number] [address] [place] [address] [place] TSH SerPl-aCncon 10-19-2024 TSH Qn 2.120 m[IU]/L Normal 0.270-4.200 [facility] Comment on above: Order Comment: Speci men Type: BLOOD SPECIMEN [facility] Address: [address] [place] [address] Result Comment: If t he patient is , TSH reference range varies by gestational period: First Trimester (weeks 9-12): 0.180-2.990 mIU/L Second Trimester: 0.110-3.980 mIU/L Third Trimester: 0.480-4.710 mIU/L Jreemiah Sheldon et al. A Practical Approach for the Verifications and Determination of Site- and Trimester-Specific Reference Intervals for Thyroid Function tests in . Thyroid, 2019:29:3:412-420. Jared Henson, et al. 2017 Guidelines of the [place] Thyroid Association for the Diagnosis and Management of Thyroid Disease during and the . Thyroid, 2017:27:3:315-389. Performed By: #### 3 016-3, 3024-7, 00011-8 #### [facility] CLIA [id number] [address] [place] [address] [place] TYPE + SCREEN PRENATALon ABO O Normal [facility] Comment on above: Order Comment: Speci men Type: BLOOD SPECIMENOrdering Facility: [facility] Address: [address] [place] [address] Performed By: #### T SPN ####[facility] BLOOD BANKCLIA [id number] [address] [place] Rh Nom (Bld) Positive Normal [facility] Comment on above: Order Comment: Speci men Type: BLOOD SPECIMENOrdering Facility: [facility] Address: [address] [place] [address] Performed By: #### T SPN ####[facility] BLOOD BANKCLIA [id number] [address] [place] TYPE AND SCREEN EXPIRATION 10/22/2024 23:59 Normal [facility] Comment on above: Order Comment: Speci men Type: BLOOD SPECIMENOrdering Facility: [facility] Address: [address] [place] [address] Performed By: #### T SPN ####[facility] BLOOD BANKCLIA [id number] [address] OF [facility] aPTT PPPon 10-19-2024 aPTT Coag (PPP) [Time] 27.9 s Normal 23.0-32.4 [facility] Comment on above: Order Comment: Speci men Type: SWAB Ordering Facility: [facility] Address: [address] [place] [address] Performed By: #### B VAMP, CVTV #### [facility] CLIA [id number] [address] [place] [address] OF [facility] CNPNon 09-30-2024 CNPN Telephone (OBGYWM) -------- KATHY HESTER ([id number]) 1990 F Date Time Provider Department 09/30/24 NATASHA SEGURA During your visit today, we recorded the following information about you: Natasha Chandler RN 09/30/2024 1:06 PM Signed Received breast pump RX from [facility]. To Seamus to sign. SAYDA Guan Lindsey, RN 10/01/2024 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] 06/01/2024 Supervision of high-risk of elderly m*06/01/2024 Nausea and vomiting in (HCC) [O21.9] 06/01/2024 Threatened labor (HCC) [O47.00] 09/21/2024 Threatened labor, antepartum (HCC) [O47*09/21/2024 Prematurity (HCC) [P07.30] 09/21/2024 Penicillin allergy [Z88.0] 09/21/2024 Vaginal bleeding during (HCC) [O46.90]09/21/2024 Encounter Status:Closed by SARAH ORLANDO [facility] HNO ID: [id number] Author: MARIANA BURKS MD Service: Obstetrics Author [...] with the resident. I have performed the bfue-ub-cywl and relevant discharge services for a total [...] labor, antepartum (HCC) (POA: Yes) Active Problems: Micheline's disease (POA: Yes) Supervision of high-risk of [...] at an outside [facility] on [facility] exam, completed [...] Dept Phone 09/25/2024 1:30 PM NATASHA SEGURA [phone] With: Provider When: In: Patient/Parents to call for appointment?: Scheduled Plan of care discussed with: Provider, RN, Patient. Final Diagnosis: threatened labor Active Hospital Problems Diagnosis POA Threatened labor, antepartum (HCC) Yes Threatened labor (HCC) Unknown Prematurity (HCC) Unknown Penicillin allergy Unknown Vaginal bleeding during (HCC) Unknown Supervision of high-risk of elderly multigravida (>= 35 years old at time of delivery) (HCC) Yes Micheline's disease Yes Nausea and vomiting in (HCC) Yes Resolved Hospital Problems No resolved problems to display. SIGNATURE: Ernestine Stanislaw, DO DATE: September 22, 2024 TIME: 8:33 AM Normal [facility] BACTERIAL VAGINOSIS NAATon 0 09-21-2024 Lactobacillus crispatus+gasseri+ashely enii + Gardnerella vaginalis + Atopobium vaginae rRNA KATHERIN+probe Ql (Vag fld) Not detected Normal Not detected [facility] Comment on above: Order Comment: Speci men Type: SWAB Ordering Facility: [facility] Address: [address] [place] [address] Performed By: #### Mitch JON CVTV #### [facility] CLIA [id number] [address] [place] [address] [place] C. trachomatis+N. gonorrhoea e DNA KATHERIN+probe Ql (Unsp spec)on 09-21-2024 C. trachomatis rRNA KATHERIN+probe Ql (Unsp spec) Not detected Normal Not detected [facility] Comment on above: Order Comment: Speci men Type: SWAB Ordering Facility: [facility] Address: [address] [place] [address] Performed By: #### 3 6902-5 #### [facility] CLIA [id number] [address] [place] [address] [place] N. gonorrhoeae rRNA KATHERIN+probe Ql (Unsp spec) Not detected Normal Not detected [facility] Comment on above: Order Comment: Speci men Type: SWAB Ordering Facility: [facility] Address: [address] [place] [address] Performed By: #### 3 6902-5 #### [facility] CLIA [id number] [address] [place] [address] [place] DEBBIE/TRICHOMONAS NAATon 0 09-21-2024 C. glabrata RNA KATHERIN+probe Ql (Vag fld) Not detected Normal Not detected [facility] Comment on above: Order Comment: Speci men Type: SWAB Ordering Facility: [facility] Address: [address] [place] [address] Performed By: #### B VAMP, CVTV #### [facility] CLIA [id number] [address] [place] [address] [place] Debbie sp DNA KATHERIN+probe Ql (Vag fld) Not detected Normal Not detected [facility] Comment on above: Order Comment: Speci men Type: SWAB Ordering Facility: [facility] Address: [address] [place] [address] Result Comment: The Debbie species group target includes C. albicans, C. tropicalis, C. parapsilosis, and C. dubliniensis. Performed By: #### B VAMP, CVTV #### [facility] CLIA [id number] [address] [place] [address] OF [facility] T. vaginalis DNA KATHERIN+probe Ql (Unsp spec) Not detected Normal Not detected [facility] Comment on above: Order Comment: Speci men Type: SWAB Ordering Facility: [facility] Address: [address] [place] [address] Performed By: #### B VAMP, CVTV #### [facility] CLIA [id number] [address] [place] [address] [place] CBC W Auto Differential pane l (Bld)on 09-21-2024 Basophils (Bld) [#/Vol] 0.03 10*3/uL Normal <0.11 [facility] Comment on above: Order Comment: Speci men Type: BLOOD SPECIMEN Ordering Facility: [facility] Address: [address] [place] [address] Performed By: #### 5 7021-8 #### [facility] CLIA [id number] [address] [place] Basophils/100 WBC (Bld) 0.2 % Normal [facility] Comment on above: Order Comment: Speci men Type: BLOOD SPECIMEN Ordering Facility: [facility] Address: [address] [place] [address] Performed By: #### 5 7021-8 #### [facility] CLIA [id number] [address] Differential cell count method Nom (Bld) Auto Normal [facility] Comment on above: Order Comment: Speci men Type: BLOOD SPECIMEN Ordering Facility: [facility] Address: [address] [place] [address] Performed By: #### 5 7021-8 #### [facility] CLIA [id number] [address] Eosinophils (Bld) [#/Vol] 10*3/uL Normal <0.46 [facility] Comment on above: Order Comment: Speci men Type: BLOOD SPECIMEN Ordering Facility: [facility] Address: [address] [place] [address] Performed By: #### 5 7021-8 #### [facility] CLIA [id number] [address] Eosinophils/100 WBC (Bld) 0.1 % Normal [facility] Comment on above: Order Comment: Speci men Type: BLOOD SPECIMEN Ordering Facility: [facility] Address: [address] [place] [address] Performed By: #### 5 7021-8 #### [facility] CLIA [id number] [address] Erythrocyte distribution width (RBC) [Ratio] 12.9 % Normal 11.5-15.0 [facility] Comment on above: Order Comment: Speci men Type: BLOOD SPECIMEN Ordering Facility: [facility] Address: [address] [place] [address] Performed By: #### 5 7021-8 #### [facility] CLIA [id number] [address] Hematocrit (Bld) [Volume fraction] 38.3 % Normal 36.0-46.0 [facility] Comment on above: Order Comment: Speci men Type: BLOOD SPECIMEN Ordering Facility: [facility] Address: [address] [place] [address] Performed By: #### 5 7021-8 #### [facility] CLIA [id number] [address] [place] Hemoglobin (Bld) [Mass/Vol] 12.5 g/dL Normal 11.5-15.5 [facility] Comment on above: Order Comment: Speci men Type: BLOOD SPECIMEN Ordering Facility: [facility] Address: [address] [place] [address] Performed By: #### 5 7021-8 #### [facility] CLIA [id number] [address] [place] Immature granulocytes (Bld) [#/Vol] 0.21 10*3/uL High <0.10 [facility] Comment on above: Order Comment: Speci men Type: BLOOD SPECIMEN Ordering Facility: [facility] Address: [address] [place] [address] Performed By: #### 5 7021-8 #### [facility] CLIA [id number] [address] [place] Immature granulocytes/100 WBC (Bld) 1.2 % Normal [facility] Comment on above: Order Comment: Speci men Type: BLOOD SPECIMEN Ordering Facility: [facility] Address: [address] [place] [address] Performed By: #### 5 7021-8 #### [facility] CLIA [id number] [address] [place] [address] [place] Lymphocytes (Bld) [#/Vol] 1.06 10*3/uL Normal 1.00-4.00 [facility] Comment on above: Order Comment: Speci men Type: BLOOD SPECIMEN Ordering Facility: [facility] Address: [address] [place] [address] Performed By: #### 5 7021-8 #### [facility] CLIA [id number] [address] Lymphocytes/100 WBC (Bld) 6.0 % Normal [facility] Comment on above: Order Comment: Speci men Type: BLOOD SPECIMEN Ordering Facility: [facility] Address: [address] [place] [address] Performed By: #### 5 7021-8 #### [facility] CLIA [id number] [address] MCH (RBC) [Entitic mass] 32.1 pg Normal 26.0-34.0 [facility] Comment on above: Order Comment: Speci men Type: BLOOD SPECIMEN Ordering Facility: [facility] Address: [address] [place] [address] Performed By: #### 5 7021-8 #### [facility] CLIA [id number] [address] [place] MCHC (RBC) [Mass/Vol] 32.6 g/dL Normal 30.5-36.0 [facility] Comment on above: Order Comment: Speci men Type: BLOOD SPECIMEN Ordering Facility: [facility] Address: [address] [place] [address] Performed By: #### 5 7021-8 #### [facility] CLIA [id number] [address] MCV (RBC) [Entitic vol] 98.2 fL Normal 80.0-100.0 [facility] Comment on above: Order Comment: Speci men Type: BLOOD SPECIMEN Ordering Facility: [facility] Address: [address] [place] [address] Performed By: #### 5 7021-8 #### [facility] CLIA [id number] [address] Monocytes (Bld) [#/Vol] 0.16 10*3/uL Normal <0.87 [facility] Comment on above: Order Comment: Speci men Type: BLOOD SPECIMEN Ordering Facility: [facility] Address: [address] [place] [address] Performed By: #### 5 7021-8 #### [facility] CLIA [id number] [address] [place] Monocytes/100 WBC (Bld) 0.9 % Normal [facility] Comment on above: Order Comment: Speci men Type: BLOOD SPECIMEN Ordering Facility: [facility] Address: [address] [place] [address] Performed By: #### 5 7021-8 #### [facility] CLIA [id number] [address] [place] Neutrophils (Bld) [#/Vol] 16.14 10*3/uL High 1.45-7.50 [facility] Comment on above: Order Comment: Speci men Type: BLOOD SPECIMEN Ordering Facility: [facility] Address: [address] [place] [address] Performed By: #### 5 7021-8 #### [facility] CLIA [id number] [address] [place] Neutrophils/100 WBC (Bld) 91.6 % Normal [facility] Comment on above: Order Comment: Speci men Type: BLOOD SPECIMEN Ordering Facility: [facility] Address: [address] [place] [address] Performed By: #### 5 7021-8 #### [facility] CLIA [id number] [address] [place] Nucleated RBC (Bld) [#/Vol] 10*3/uL Normal <0.01 [facility] Comment on above: Order Comment: Speci men Type: BLOOD SPECIMEN Ordering Facility: [facility] Address: [address] [place] [address] Performed By: #### 5 7021-8 #### [facility] CLIA [id number] [address] [place] Nucleated RBC/100 WBC (Bld) [Ratio] 0.0 /100 WBC Normal [facility] Comment on above: Order Comment: Speci men Type: BLOOD SPECIMEN Ordering Facility: [facility] Address: [address] [place] [address] Performed By: #### 5 7021-8 #### [facility] CLIA [id number] [address] [place] Platelet mean volume (Bld) [Entitic vol] 10.8 fL Normal 9.0-12.7 [facility] Comment on above: Order Comment: Speci men Type: BLOOD SPECIMEN Ordering Facility: [facility] Address: [address] [place] [address] Performed By: #### 5 7021-8 #### [facility] CLIA [id number] [address] [place] Platelets (Bld) [#/Vol] 326 10*3/uL Normal 150-400 [facility] Comment on above: Order Comment: Speci men Type: BLOOD SPECIMEN Ordering Facility: [facility] Address: [address] [place] [address] Performed By: #### 5 7021-8 #### [facility] CLIA [id number] [address] [place] RBC (Bld) [#/Vol] 3.90 10*6/uL Normal 3.90-5.20 [facility] Comment on above: Order Comment: Speci men Type: BLOOD SPECIMEN Ordering Facility: [facility] Address: [address] [place] [address] Performed By: #### 5 7021-8 #### [facility] CLIA [id number] 1 [place] [address] [place] WBC (Bld) [#/Vol] 17.61 10*3/uL High 3.70-11.00 [facility] Comment on above: Order Comment: Speci men Type: BLOOD SPECIMEN Ordering Facility: [facility] Address: [facility] [place] [address] Performed By: #### 5 7021-8 #### [facility] CLIA [id number] [address] [place] Examination level ultrasound on 09-21-2024 [facility] Radiology Study observation (narrative) [facility] Fibrinogen PPP-mCncon 2024 Fibrinogen Coag (PPP) [Mass/Vol] 634 mg/dL High 200-400 [facility] Comment on above: Order Comment: Speci men Type: BLOOD SPECIMEN Ordering Facility: [facility] Address: [address] [place] [address] Performed By: #### 3 255-7 #### [facility] CLIA [id number] [address] Gp B Strep Vag Ql Culton S. agalactiae Org specific cx Ql (Vag fld) Positive for Group B Streptococcus by PCR. Unable to recover viable organism for susceptibility testing. Abnormal [facility] Comment on above: Performed By: #### 5 84-3, GBPCR ####[facility]ORY[facility]IA [id number] [address] OF [facility] HISTORY PHYSICALon HISTORY PHYSICAL HNO ID: [id number] Author: MARIANA BURKS MD Service: Obstetrics Author [...] today. She went to the ED at [place] and had a speculum exam performed where [...] REVIEW PAST MEDICAL HISTORY Diagnosis Date Gallstones Micheline's disease Normal IUP (intrauterine ) on ultrasound ([facility]) 12/04/2015 Symptomatic cholelithiasis 12/04/2015 UTI (urinary tract [...] Multiple0 Live Births1 Name of Baby 1: REBECA PAKBG MALIK Date: 05/07/16 GA: 40w2d Type: Vaginal, Spontaneous Apgar1: 9 Apgar5: 9 Living: Living Name of Baby 2: Not recorded Date: Not recorded GA: Not recorded Type: Not recorded Apgar1: Not recorded Apgar5: Not recorded Living: Not recorded Active Non-Hospital Problems Diagnosis Date Noted Nausea and vomiting in ([facility]) 06/01/2024 Overview Note: 06/12/24- N/V improved since starting Phenergan PO. Able to eat and drink. Sussy Landin APRN.[employer] ALL[employer]GIES Allergen Reactions Amoxicillin Mental Status Change [...] diarrhea : No dysuria, frequency or incontinence DIRECTOR OF ARCHITECTURE: Negative for abnormal vaginal discharge Objective LAST [...] was discussed with the patient or authorized hobbies and crafts sales representative. The patient or authorized hobbies and crafts sales representative has agreed to proceed with the sensit (more content not included)... Normal [facility] ROUTINE, GROUP B ST REPTOCOCCUS BY PCRon 09-21-2024 ROUTINE, GROUP B STREPTOCOCCUS BY PCR Detected Abnormal [facility] Comment on above: Performed By: #### 5 84-3, GBPCR ####[facility]ORY[facility]IA [id number] [place] [address] [place] Reagin and Treponema pallidu m IgG and IgM [Interp]on 09-21-2024 T. pallidum IgG+IgM IA Ql (S) Non-Reactive Normal Nonreactive [facility] Comment on above: Order Comment: Speci men Type: SWAB Ordering Facility: [facility] Address: [address] [place] [address] Performed By: #### B VAMP, CVTV #### [facility] CLIA [id number] [address] [place] [address] [place] Reagin+T pallidum IgG+IgM Se rPl-Impon 09-21-2024 Reagin and Treponema pallidum IgG and IgM [Interp] Cannot exclude recent Treponemal infection if specimen collected within 7-10 days after appearance of suspect lesions or 2-3 weeks after an exposure. Clinical correlation is required. Normal [facility] Comment on above: Order Comment: Speci men Type: SWAB Ordering Facility: [facility] Address: [address] [place] [address] Performed By: #### B VAMP, CVTV #### [facility] CLIA [id number] [address] [place] [address] [place] TYPE + SCREEN PRENATALon ABO O Normal [facility] Comment on above: Order Comment: Speci men Type: BLOOD SPECIMENOrdering Facility: [facility] Address: [address] [place] [address] Performed By: #### T SPN ####[facility]ANKCLIA [id number] [place] [address] [place] Rh Nom (Bld) Positive Normal [facility] Comment on above: Order Comment: Speci men Type: BLOOD SPECIMENOrdering Facility: [facility] Address: [address] [place] [address] Performed By: #### T SPN ####[facility]ANKCLIA [id number] [place] [address] [place] TYPE AND SCREEN EXPIRATION 09/24/2024 23:59 Normal [facility] Comment on above: Order Comment: Speci men Type: BLOOD SPECIMENOrdering Facility: [facility] Address: [address] [place] [address] Performed By: #### T SPN ####[facility]ANKCLIA [id number] [place] [address] [place] Absolute lymphocyte countOrd ered By: Ernestine Gomez on 09-20-2024 Lymphocytes Auto (Unsp spec) [#/Vol] 1.91 10*3/uL 0.83-4.51 [facility] Absolute neutrophil countOrd ered By: Ernestine Gomez on 09-20-2024 Neutrophils (Bld) [#/Vol] 11.2 10*3/uL High 2.0-7.7 [facility] Activated partial thrombopla stin time (aPTT) in platelet poor plasma by coagulation aOrdered By: Ernestine Gomez on 09-20-2024 aPTT Coag (PPP) [Time] 25.7 s 24.1-36.2 [facility] Automated lymphocyte count a s percentage of total leukocytesOrdered By: Ernestine Gomez on 09-20-2024 Lymphocytes/100 WBC Auto (Unsp spec) 13.4 % Low 19-41 [facility] Basophil percentageOrdered B y: Ernestine Gomez on 09-20-2024 Basophils/100 WBC (Bld) 0.3 % 0-1 [facility] CBC W/Diff, Automatedon 09-10 Absolute Lymph 1.91 X10 3/uL Normal 0.83-4.51 [facility] Comment on above: Performed By: #### L 300.4310, L300.4700, L300.3900, L100.0100 #### [facility] [address] [place], [address] Absolute Neut 11.2 X10 3/uL High 2.0-7.7 [facility] Comment on above: Performed By: #### L 300.4310, L300.4700, L300.3900, L100.0100 #### [facility] [address] [place], [address] Basophils/100 WBC (Bld) 0.3 % Normal 0-1 [facility] Comment on above: Performed By: #### L 300.4310, L300.4700, L300.3900, L100.0100 #### [facility] [address] [place], [address] Eosinophils/100 WBC (Bld) 0.9 % Normal 0-5 [facility] Comment on above: Performed By: #### L 300.4310, L300.4700, L300.3900, L100.0100 #### [facility] [address] [place], [address] Erythrocyte distribution width (RBC) [Ratio] 12.6 % Normal 11.6-14.6 [facility] Comment on above: Performed By: #### L 300.4310, L300.4700, L300.3900, L100.0100 #### [facility] [address] [facility] [place], [address] Hematocrit (Bld) [Volume fraction] 36.2 % Low 37-47 [facility] Comment on above: Performed By: #### L 300.4310, L300.4700, L300.3900, L100.0100 #### [facility] [address] [place], [address] Hemoglobin (Bld) [Mass/Vol] 11.9 g/dL Low 12.0-15.0 [facility] Comment on above: Performed By: #### L 300.4310, L300.4700, L300.3900, L100.0100 #### [facility] [address] [place], [address] IG% 1.100 High 0.0-0.9 [facility] Comment on above: Result Comment: IG% - Immature Granulocytes (promyelocytes, myelocytes and metamyelocytes) > 1% indicates that a LEFT SHIFT is Present. Performed By: #### L 300.4310, L300.4700, L300.3900, L100.0100 #### [facility] [address] [place], [address] Lymphocytes/100 WBC (Bld) 13.4 % Low 19-41 [facility] Comment on above: Performed By: #### L 300.4310, L300.4700, L300.3900, L100.0100 #### [facility] [address] [place], [address] MCH (RBC) [Entitic mass] 31.9 pg Normal 27.0-32.0 [facility] Comment on above: Performed By: #### L 300.4310, L300.4700, L300.3900, L100.0100 #### [facility] [address] [place], [address] MCHC (RBC) [Mass/Vol] 32.9 g/dL Normal 32-36 [facility] Comment on above: Performed By: #### L 300.4310, L300.4700, L300.3900, L100.0100 #### [facility] [address] [place], [address] MCV (RBC) [Entitic vol] 97.1 fL Normal 81-99 [facility] Comment on above: Performed By: #### L 300.4310, L300.4700, L300.3900, L100.0100 #### [facility] [address] [place], [address] Monocytes/100 WBC (Bld) 5.8 % Normal 0-10 [facility] Comment on above: Performed By: #### L 300.4310, L300.4700, L300.3900, L100.0100 #### [facility] [address] [place], [address] Neutrophils/100 WBC (Bld) 78.5 % High 47-70 [facility] Comment on above: Performed By: #### L 300.4310, L300.4700, L300.3900, L100.0100 #### [facility] [address] [place], [address] Nucleated RBC (Bld) [#/Vol] 0 10*3/uL Normal 0-5 [facility] Comment on above: Performed By: #### L 300.4310, L300.4700, L300.3900, L100.0100 #### [facility] [address] [place], [address] Platelet mean volume (Bld) [Entitic vol] 10.5 fL Normal 6.2-12.0 [facility] Comment on above: Performed By: #### L 300.4310, L300.4700, L300.3900, L100.0100 #### [facility] [address] [place], [address] Platelets (Bld) [#/Vol] 299 10*3/uL Normal 150-450 [facility] Comment on above: Performed By: #### L 300.4310, L300.4700, L300.3900, L100.0100 #### [facility] [facility] [address] [place], [address] RBC (Bld) [#/Vol] 3.73 10*6/uL Low 4.2-5.4 [facility] Comment on above: Performed By: #### L 300.4310, L300.4700, L300.3900, L100.0100 #### [facility] [address] [place], [address] RDW SD 44.7 fl High 35.1-43.9 [facility] Comment on above: Performed By: #### L 300.4310, L300.4700, L300.3900, L100.0100 #### [facility] [address] [place], [address] WBC (Bld) [#/Vol] 14.2 10*3/uL High 4.4-11.0 [facility] Comment on above: Performed By: #### L 300.4310, L300.4700, L300.3900, L100.0100 #### [facility] [address] [place], [place], [address] Eosinophil percentageOrdered By: Ernestine Gomez on 09-20-2024 Eosinophils/100 WBC (Bld) 0.9 % 0-5 [facility] Erythrocyte distribution wid th ratioOrdered By: Ernestine Gomez on 09-20-2024 Erythrocyte distribution width (RBC) [Ratio] 12.6 % 11.6-14.6 [facility] Erythrocyte distribution wid th standard deviationOrdered By: Ernestine Gomez on 09-20-2024 Erythrocyte distribution width (RBC) [Ratio] 44.7 fl High 35.1-43.9 [facility] Fibrinogenon 09-20-2024 FIBRINOGEN 544 mg/dl High 203-444 [facility] Comment on above: Performed By: #### L 300.4310, L300.4700, L300.3900, L100.0100 #### [facility] [address] [place], [place], [address] Hematocrit Auto (Bld) [Volum e fraction]Ordered By: Ernestine Gomez on 09-20-2024 Hematocrit (Bld) [Volume fraction] 36.2 % Low 37-47 [facility] Hemoglobin measurementOrdere d By: Ernestine Gomez on 09-20-2024 Hemoglobin (Bld) [Mass/Vol] 11.9 g/dL Low 12.0-15.0 [facility] Immature granulocytes/100 WB C Auto (Bld)Ordered By: Ernestine Gomez on 09-20-2024 Immature granulocytes/100 WBC (Bld) 1.100 % High 0.0-0.9 [facility] Comment on above: IG% - Immature Granu locytes (promyelocytes, myelocytes and metamyelocytes) > 1% indicates that a LEFT SHIFT is Present. International normalized rat io (INR) calculationOrdered By: Ernestine Gomez on 09-20-2024 INR Coag (Bld) [Relative time] 0.9 {INR} [facility] MCV (mean corpuscular volume ) determinationOrdered By: Ernestine Gomez on 09-20-2024 MCV (RBC) [Entitic vol] 97.1 fL 81-99 [facility] Mean corpuscular hemoglobin (MCH) determinationOrdered By: Ernestine Gomez on 09-20-2024 MCH (RBC) [Entitic mass] 31.9 pg 27.0-32.0 [facility] Mean corpuscular hemoglobin concentration (MCHC) determinationOrdered By: Ernestine Gomez on 09-20-2024 MCHC (RBC) [Mass/Vol] 32.9 g/dL 32-36 [facility] Mean platelet volume determi nationOrdered By: Ernestine Gomez on 09-20-2024 Platelet mean volume (Bld) [Entitic vol] 10.5 fL 6.2-12.0 [facility] Monocyte percentageOrdered B y: Ernestine Gomez on 09-20-2024 Monocytes/100 WBC (Bld) 5.8 % 0-10 [facility] Neutrophil percentageOrdered By: Ernestine Gomez on 09-20-2024 Neutrophils/100 WBC (Bld) 78.5 % High 47-70 [facility] Nucleated red blood cell per centageOrdered By: Ernestine Gomez on 09-20-2024 Nucleated RBC/100 WBC (Bld) [Ratio] 0 % 0-5 [facility] OB Triage Physician Noteon 0 09-20-[address] [facility] Medical Records Department [address] [place] [address] OB Triage Physician Note 09/20/24 1858 MR#: [id number] Acct: [id number] Name: REBECA MELLISAKATHY Rep #: [id number] : 1990 34 From: Ernestine Gomez MD PCP: Dr. Ephraim Boyd, DO Status:REG CLI Y Location: [id number] HPI - General General Date of Admission: 09/20/24 Date of Service: 09/20/24 Chief Complaint: vaginal bleeding HPI Narrative KATHY JOSE DOTEmory, is a 34 F @ 23 6/7 [...] History Polycystic ovarian syndrome Eczema Hx of Micheline thyroiditis Hay fever Home Medications ???Medication ???Instructions [...] to her (more content not included)... Normal [facility] Partial Thromboplast Timeon 09-20-2024 aPTT Coag (Bld) [Time] 25.7 s Normal 24.1-36.2 [facility] Comment on above: Performed By: #### L 300.4310, L300.4700, L300.3900, L100.0100 #### [facility] [address] [place], [address] Platelet countOrdered By: Berta Gomez on 09-20-2024 Platelets (Bld) [#/Vol] 299 10*3/uL 150-450 [facility] Prothrombin Time w/INRon INR Coag (PPP) [Relative time] 0.9 {INR} Normal [facility] Comment on above: Performed By: #### L 300.4310, L300.4700, L300.3900, L100.0100 #### [facility] [address] [place], [address] PT Coag (PPP) [Time] 12.8 s Normal 11.7-14.9 [facility] Comment on above: Performed By: #### L 300.4310, L300.4700, L300.3900, L100.0100 #### [facility] [address] [place], [address] INR Normal [facility] Comment on above: Result Comment: DUPL ICATE ORDER Performed By: #### L 300.3900 #### [facility] [address] [place], [address] PROTIME Normal 11.7-14.9 [facility] Comment on above: Result Comment: DUPL ICATE ORDER Performed By: #### L 300.3900 #### [facility] [address] [place], [address] Prothrombin timeOrdered By: Ernestine Gomez on 09-20-2024 PT Coag (PPP) [Time] 12.8 s 11.7-14.9 [facility] RBC Auto (Bld) [#/Vol]Ordere d By: Ernestine Gomez on 09-20-2024 RBC (Bld) [#/Vol] 3.73 10*6/uL Low 4.2-5.4 [facility] Type AND Screenon 09-20-2024 ABO and Rh group Nom (Bld) Blood group O Rh(D) positive Normal [facility] Comment on above: Order Comment: HVAG Performed By: #### B TS #### [facility] [address] [place], [address] White blood cell (WBC) count Ordered By: Ernestine Gomez on 09-20-2024 WBC (Bld) [#/Vol] 14.2 10*3/uL High 4.4-11.0 [facility] Examination level ultrasound on 08-31-2024 Indication Detailed [...] 13 oz EFW by: Hadlock (HC-AC-FL) Extended Dishwasher 7.1 mm CM 5.1 mm 50% Nicolaides [...] normal LVOT view: normal 3-vessel view: normal 7-jrlijm-tmmsylw view: normal Heart / Thorax Situs: situs [...] Read By: Mariana Burks M.D. MATERNAL MEDICINE [facility] Examination level ultrasound on 08-28-2024 Radiology Study observation (narrative) [facility] CNPNon 08-03-2024 CNPN Telephone (OBGYWM) -------- KATHY HESTER ([id number]) 1990 F Date Time Provider Department 08/03/24 [...] a response to her Mychart. Pamella Crowder APRN.SAHRA 08/03/2024 11:34 AM Signed Yes this is fine as long as she is not taking unisom or other antihistamine. Thank you, Pamella Crowder APRN.Sarah Dunne, SAYDA 08/03/2024 11:45 AM Signed Sing[employer] message sent to patient. 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 MINERVA [place], [place] 07/20/2024 11:11 AM Signed See [employer] message. Patient quit job so no longer needing [facility] paperwork, will dispose of paperwork. 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 - Single, live, intrauterine . - [place] rump length measurement is consistent with the [...] view: suboptimal 4-chamber view with color: suboptimal 7-aviyuk-gqkoqex view: suboptimal Abdominal cord insertion: normal Stomach: [...] Read By: Claire Valdez M.D. 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] 06/01/2024 Supervision of high-risk of elderly m*06/01/2024 Nausea and vomiting in [O21.9] 06/01/2024 Encounter Status:Closed by KELI TRINH on 06/16/24 Normal [facility] CBC W Auto Differential pane l (Bld)on 06-05-2024 Basophils (Bld) [#/Vol] 0.03 10*3/uL Normal <0.11 [facility] Comment on above: Order Comment: Speci men Type: BLOOD SPECIMENOrdering Facility: [facility] Address: [address] [place] [address] Performed By: #### 5 7021-8 ####[facility] [id number] [place] [address] [place] Basophils/100 WBC (Bld) 0.2 % Normal [facility] Comment on above: Order Comment: Speci men Type: BLOOD SPECIMENOrdering Facility: [facility] Address: [address] [place] [address] Performed By: #### 5 7021-8 ####[facility] [id number] [place] [address] [place] Differential cell count method Nom (Bld) Auto Normal [facility] Comment on above: Order Comment: Speci men Type: BLOOD SPECIMENOrdering Facility: [facility] Address: [address] [place] [address] Performed By: #### 5 7021-8 ####[facility] MILLTOWNCLIA [id number] [place] [address] [place] Eosinophils (Bld) [#/Vol] 0.06 10*3/uL Normal <0.46 [facility] Comment on above: Order Comment: Speci men Type: BLOOD SPECIMENOrdering Facility: [facility] Address: [address] [place] [address] Performed By: #### 5 7021-8 ####[facility] MILLWTAYLERLIA [id number] [place] [address] [place] Eosinophils/100 WBC (Bld) 0.5 % Normal [facility] Comment on above: Order Comment: Speci men Type: BLOOD SPECIMENOrdering Facility: [facility] Address: [address] [place] [address] Performed By: #### 5 7021-8 ####[facility]ENTERWTAYLERLIA [id number] [place] [address] [place] Erythrocyte distribution width (RBC) [Ratio] 11.9 % Normal 11.5-15.0 [facility] Comment on above: Order Comment: Speci men Type: BLOOD SPECIMENOrdering Facility: [facility] Address: [address] [place] [address] Performed By: #### 5 7021-8 ####[facility] MILLTOWNCLIA [id number] [place] [address] [place] Hematocrit (Bld) [Volume fraction] 41.4 % Normal 36.0-46.0 [facility] Comment on above: Order Comment: Speci men Type: BLOOD SPECIMENOrdering Facility: [facility] Address: [address] [place] [address] Performed By: #### 5 7021-8 ####[facility] [id number] [place] [address] [place] Hemoglobin (Bld) [Mass/Vol] 14.2 g/dL Normal 11.5-15.5 [facility] Comment on above: Order Comment: Speci men Type: BLOOD SPECIMENOrdering Facility: [facility] Address: [address] [place] [address] Performed By: #### 5 7021-8 ####[facility] [id number] [place] [address] [place] Immature granulocytes (Bld) [#/Vol] 0.05 10*3/uL Normal <0.10 [facility] Comment on above: Order Comment: Speci men Type: BLOOD SPECIMENOrdering Facility: [facility] Address: [address] [place] [address] Performed By: #### 5 7021-8 ####[facility] [id number] [place] [address] [place] Immature granulocytes/100 WBC (Bld) 0.4 % Normal [facility] Comment on above: Order Comment: Speci men Type: BLOOD SPECIMENOrdering Facility: [facility] Address: [address] [place] [address] Performed By: #### 5 7021-8 ####[facility] [id number] [place] [address] [place] Lymphocytes (Bld) [#/Vol] 2.04 10*3/uL Normal 1.00-4.00 [facility] Comment on above: Order Comment: Speci men Type: BLOOD SPECIMENOrdering Facility: [facility] Address: [address] [place] [address] Performed By: #### 5 7021-8 ####[facility] [id number] [place] [address] [place] Lymphocytes/100 WBC (Bld) 15.6 % Normal [facility] Comment on above: Order Comment: Speci men Type: BLOOD SPECIMENOrdering Facility: [facility] Address: [address] [place] [address] Performed By: #### 5 7021-8 ####[facility] [id number] [place] [address] [place] MCH (RBC) [Entitic mass] 31.4 pg Normal 26.0-34.0 [facility] Comment on above: Order Comment: Speci men Type: BLOOD SPECIMENOrdering Facility: [facility] Address: [address] [place] [address] Performed By: #### 5 7021-8 ####[facility] [id number] [place] [address] [place] MCHC (RBC) [Mass/Vol] 34.3 g/dL Normal 30.5-36.0 [facility] Comment on above: Order Comment: Speci men Type: BLOOD SPECIMENOrdering Facility: [facility] Address: [address] [place] [address] Performed By: #### 5 7021-8 ####[facility] [id number] [place] [address] [place] MCV (RBC) [Entitic vol] 91.6 fL Normal 80.0-100.0 [facility] Comment on above: Order Comment: Speci men Type: BLOOD SPECIMENOrdering Facility: [facility] Address: [address] [place] [address] Performed By: #### 5 7021-8 ####[facility] [id number] [place] [address] [place] Monocytes (Bld) [#/Vol] 0.67 10*3/uL Normal <0.87 [facility] Comment on above: Order Comment: Speci men Type: BLOOD SPECIMENOrdering Facility: [facility] Address: [address] [place] [address] Performed By: #### 5 7021-8 ####[facility] MILLTOWNCLIA [id number] [place] [address] [place] Monocytes/100 WBC (Bld) 5.1 % Normal [facility] Comment on above: Order Comment: Speci men Type: BLOOD SPECIMENOrdering Facility: [facility] Address: [address] [place] [address] Performed By: #### 5 7021-8 ####[facility]ENTERWNCLIA [id number] [place] [address] [place] Neutrophils (Bld) [#/Vol] 10.24 10*3/uL High 1.45-7.50 [facility] Comment on above: Order Comment: Speci men Type: BLOOD SPECIMENOrdering Facility: [facility] Address: [address] [place] [address] Performed By: #### 5 7021-8 ####[facility] MILLWNCLIA [id number] [place] [address] [place] Neutrophils/100 WBC (Bld) 78.2 % Normal [facility] Comment on above: Order Comment: Speci men Type: BLOOD SPECIMENOrdering Facility: [facility] Address: [address] [place] [address] Performed By: #### 5 7021-8 ####[facility] MILLTOWNCLIA [id number] [place] [address] [place] Nucleated RBC (Bld) [#/Vol] 10*3/uL Normal <0.01 [facility] Comment on above: Order Comment: Speci men Type: BLOOD SPECIMENOrdering Facility: [facility] Address: [address] [place] [address] Performed By: #### 5 7021-8 ####[facility] [id number] [place] [address] [place] Nucleated RBC/100 WBC (Bld) [Ratio] 0.0 /100 WBC Normal [facility] Comment on above: Order Comment: Speci men Type: BLOOD SPECIMENOrdering Facility: [facility] Address: [address] [place] [address] Performed By: #### 5 7021-8 ####[facility] [id number] [place] [address] [place] Platelet mean volume (Bld) [Entitic vol] 10.5 fL Normal 9.0-12.7 [facility] Comment on above: Order Comment: Speci men Type: BLOOD SPECIMENOrdering Facility: [facility] Address: [address] [place] [address] Performed By: #### 5 7021-8 ####[facility] [id number] [place] [address] [place] Platelets (Bld) [#/Vol] 315 10*3/uL Normal 150-400 [facility] Comment on above: Order Comment: Speci men Type: BLOOD SPECIMENOrdering Facility: [facility] Address: [address] [place] [address] Performed By: #### 5 7021-8 ####[facility] [id number] [place] [address] [place] RBC (Bld) [#/Vol] 4.52 10*6/uL Normal 3.90-5.20 [facility] Comment on above: Order Comment: Speci men Type: BLOOD SPECIMENOrdering Facility: [facility] Address: [address] [place] [address] Performed By: #### 5 7021-8 ####[facility] [id number] [place] [address] [place] WBC (Bld) [#/Vol] 13.09 10*3/uL High 3.70-11.00 [facility] Comment on above: Order Comment: Speci men Type: BLOOD SPECIMENOrdering Facility: [facility] Address: [address] [place] [address] Performed By: #### 5 7021-8 ####[facility] PB[facility] [id number] [place] [address] [place] Comprehensive metabolic 2000 panelOrdered By: Kaylie Brown on 06-05-2024 Albumin [Mass/Vol] 4.4 g/dL 3.9 - 4.9 g/dL [facility] ALP [Catalytic activity/Vol] 117 U/L 34 - 123 U/L [facility] ALT [Catalytic activity/Vol] 67 U/L High 7 - 38 U/L [facility] Anion gap [Moles/Vol] 10 mmol/L 8 - 15 mmol/L [facility] AST [Catalytic activity/Vol] 26 U/L 13 - 35 U/L [facility] Bilirubin [Mass/Vol] 0.4 mg/dL 0.2 - 1 .3 mg/dL [facility] Calcium [Mass/Vol] 10.7 mg/dL High 8.5 - 10. 2 mg/dL [facility] Chloride [Moles/Vol] 98 mmol/L 98 - 10 7 mmol/L [facility] CO2 [Moles/Vol] 27 mmol/L 22 - 30 mmol/L [facility] Creatinine [Mass/Vol] 0.59 mg/dL 0.58 - 0.96 mg/dL [facility] GFR/1.73 sq M.predicted among non-blacks MDRD (S/P/Bld) [Vol rate/Area] 121 mL/min/{1.73_m2} - PINF [facility] Comment on above: Estimated Glomerular Filtration [...] [Mass/Vol] 87 mg/dL 74 - 99 mg/dL [facility] Comment on above: The [place] Diab[employer] Association (ADA) provides guidance for [...] Standards of Medical Care in Diabetes 2016, [place] [employer]. Diabetes Care. 2016.39(Suppl 1). Interpretation and review of laboratory results Abnormal [facility] Potassium [Moles/Vol] 3.4 mmol/L Low 3.7 - 5.1 mmol/L [facility] Protein [Mass/Vol] 7.4 g/dL 6.3 - 8.0 g/dL [facility] Sodium [Moles/Vol] 135 mmol/L Low 136 - 144 mmol/L [facility] Urea nitrogen [Mass/Vol] 10 mg/dL 7 - 21 mg/dL [facility] Comprehensive metabolic 2000 panelon 06-05-2024 Albumin [Mass/Vol] 4.4 g/dL Normal 3.9-4.9 [facility] Comment on above: Order Comment: Speci men Type: BLOOD SPECIMENOrdering Facility: [facility] Address: [address] [place] [address] Performed By: #### 2 4323-8 ####[facility] [id number] [place] [address] [place] ALP [Catalytic activity/Vol] 117 U/L Normal 34-123 [facility] Comment on above: Order Comment: Speci men Type: BLOOD SPECIMENOrdering Facility: [facility] Address: [address] [place] [id number] Performed By: #### 2 4323-8 ####[facility] [id number] [place] [id number] [place] ALT [Catalytic activity/Vol] 67 U/L High 7-38 [facility] Comment on above: Order Comment: Speci men Type: BLOOD SPECIMENOrdering Facility: [facility] Address: [address] [place] [address] Performed By: #### 2 4323-8 ####[facility] PB MILLTOWNCLIA [id number] [place] [address] [place] Anion gap [Moles/Vol] 10 mmol/L Normal 8-15 [facility] Comment on above: Order Comment: Speci men Type: BLOOD SPECIMENOrdering Facility: [facility] Address: [address] [place] [address] Performed By: #### 2 4323-8 ####[facility]ENTERWNCLIA [id number] [place] [address] [place] AST [Catalytic activity/Vol] 26 U/L Normal 13-35 [facility] Comment on above: Order Comment: Speci men Type: BLOOD SPECIMENOrdering Facility: [facility] Address: [address] [place] [address] Performed By: #### 2 4323-8 ####[facility]ENTERWNCLIA [id number] [place] [address] [place] Bilirubin [Mass/Vol] 0.4 mg/dL Normal 0.2-1.3 [facility] Comment on above: Order Comment: Speci men Type: BLOOD SPECIMENOrdering Facility: [facility] Address: [address] [place] [address] Performed By: #### 2 4323-8 ####[facility] MILLTOWNCLIA [id number] [place] [address] [place] Calcium [Mass/Vol] 10.7 mg/dL High 8.5-10.2 [facility] Comment on above: Order Comment: Speci men Type: BLOOD SPECIMENOrdering Facility: [facility] Address: [address] [place] [address] Performed By: #### 2 4323-8 ####[facility] CENTERLIA [id number] [place] [address] [place] Chloride [Moles/Vol] 98 mmol/L Normal 98-107 [facility] Comment on above: Order Comment: Speci men Type: BLOOD SPECIMENOrdering Facility: [facility] Address: [address] [place] [address] Performed By: #### 2 4323-8 ####[facility] [id number] [place] [address] [place] CO2 [Moles/Vol] 27 mmol/L Normal 22-30 [facility] Comment on above: Order Comment: Speci men Type: BLOOD SPECIMENOrdering Facility: [facility] Address: [address] [place] [address] Performed By: #### 2 4323-8 ####[facility] [id number] [place] [address] [place] Creatinine [Mass/Vol] 0.59 mg/dL Normal 0.58-0.96 [facility] Comment on above: Order Comment: Speci men Type: BLOOD SPECIMENOrdering Facility: [facility] Address: [address] [place] [address] Performed By: #### 2 4323-8 ####[facility] [id number] [place] [address] [place] Creatinine and Glomerular filtration rate.predicted panel (S/P/Bld) 121 mL/min/1.73m??? Normal >=60 [facility] Comment on above: Order Comment: Speci men Type: BLOOD SPECIMENOrdering Facility: [facility] Address: [address] [place] [address] Result Comment: Bessy mated Glomerular Filtration Rate [...] actual GFR. Performed By: #### 2 4323-8 ####[facility] [id number] [place] [address] [place] Glucose [Mass/Vol] 87 mg/dL Normal 74-99 [facility] Comment on above: Order Comment: Cecily dc Type: BLOOD SPECIMENOrdering Facility: [facility] Address: [address] [place] [address] Result Comment: The [place] Diabetes Association (ADA) provides guidance for cutoff [...] Standards of Medical Care in Diabetes 2016, [place] Diabetes Association. Diabetes Care. 2016.39(Suppl 1). Performed By: #### 2 4323-8 ####[facility] [id number] [place] [address] [place] Potassium [Moles/Vol] 3.4 mmol/L Low 3.7-5.1 [facility] Comment on above: Order Comment: Cecily dc Type: BLOOD SPECIMENOrdering Facility: [facility] Address: [address] [place] [address] Performed By: #### 2 4323-8 ####[facility] [id number] [place] [address] [place] Protein [Mass/Vol] 7.4 g/dL Normal 6.3-8.0 [facility] Comment on above: Order Comment: Speci men Type: BLOOD SPECIMENOrdering Facility: [facility] Address: [address] [place] [address] Performed By: #### 2 4323-8 ####[facility] [id number] [place] [address] [place] Sodium [Moles/Vol] 135 mmol/L Low 136-144 [facility] Comment on above: Order Comment: Speci men Type: BLOOD SPECIMENOrdering Facility: [facility] Address: [address] [place] [address] Performed By: #### 2 4323-8 ####[facility] [id number] [place] [address] [place] Urea nitrogen [Mass/Vol] 10 mg/dL Normal 7-21 [facility] Comment on above: Order Comment: Speci men Type: BLOOD SPECIMENOrdering Facility: [facility] Address: [address] [place] [address] Performed By: #### 2 4323-8 ####[facility] [id number] [place] [address] [place] HBV surface Ag Ser Qlon 05-14 HBV surface Ag Ql (S) Negative Normal Negative [facility] Comment on above: Order Comment: Speci men Type: BLOOD SPECIMENOrdering Facility: [facility] Address: [address] [place] [address] Performed By: #### G BPCR #### [facility] CLIA [id number] [address] [place] [address] [place] HCV Ab Ser Qlon 06-05-2024 HCV Ab Ql (S) Negative Normal Negative [facility] Comment on above: Order Comment: Speci men Type: BLOOD SPECIMENOrdering Facility: [facility] Address: [address] [place] [address] Result Comment: The result suggests no evidence of active infection with Hepatitis C virus. Should recent infection be suspected, repeat testing may be considered 4-6 weeks after this draw. Performed By: #### 1 6128-1 ####[facility] LAB[facility]IA [id number] [place] [address] [place] HIV 1+2 Ab IA Qlon 5 HIV 1 and 2 Ab IA.rapid Nom (S/P/Bld) Normal [facility] Comment on above: Order Comment: Speci men Type: BLOOD SPECIMENOrdering Facility: [facility] Address: [address] [place] [address] Result Comment: Test not indicated. Performed By: #### G BPCR #### [facility] CLIA [id number] [address] [place] [address] [place] HIV 1+2 Ab+HIV1 p24 Ag IA Ql Non-Reactive Normal Nonreactive [facility] Comment on above: Order Comment: Speci men Type: BLOOD SPECIMENOrdering Facility: [facility] Address: [address] [place] [address] Performed By: #### G BPCR #### [facility] CLIA [id number] [address] [place] [address] [place] HIV immunoassay testing algorithm interpretation (S/P/Bld) [Interp] Normal [facility] Comment on above: Order Comment: Speci men Type: BLOOD SPECIMENOrdering Facility: [facility] Address: [address] [place] [address] Result Comment: No e vidence of HIV-1 or HIV-2 infection. Should recent infection be suspected, repeat testing may be considered 2-3 weeks after this draw. [place] Rev. Code 3701.243(E): This information has been [...] test results or diagnoses. Performed By: #### G BPCR #### [facility] CLIA [id number] [address] [place] [address] HbA1c (Bld)on 06-05-2024 Average glucose Estimated from glycated hemoglobin (Bld) [Mass/Vol] 77 mg/dL Normal [facility] Comment on above: Order Comment: Speci men Type: BLOOD SPECIMENOrdering Facility: [facility] Address: [address] [place] [address] Result Comment: eAG: (Estimated average glucose) is a calculated value from HgbA1c and is hobbies and crafts sales representative of the average blood glucose level in the last 2-3 month period. Performed By: #### G BPCR #### [facility] CLIA [id number] [address] [place] [address] STATES [place] [facility] HbA1c (Bld) [Mass fraction] 4.3 % Normal 4.3-5.6 [facility] Comment on above: Order Comment: Speci men Type: BLOOD SPECIMENOrdering Facility: [facility] Address: [address] [place] [address] Result Comment: Amer [place] Diabetes Association guidelines indicate that patients with HgbA1c in the range 5.7-6.4% are at increased risk for development of diabetes, and intervention by lifestyle modification may be beneficial. HgbA1c greater or equal to 6.5% is considered diagnostic of diabetes. Performed By: #### G BPCR #### [facility] CLIA [id number] [address] [place] [address] [place] RUBELLA IGG ANTIBODYon 06-05 RUBELLA IGG AB, QUAL Positive Normal Positive [facility] Comment on above: Order Comment: Speci men Type: BLOOD SPECIMENOrdering Facility: [facility] Address: [address] [place] [address] Result Comment: The result suggests recent or past exposure to Rubella virus or history of Rubella vaccination. Positive result may also be seen due to presence of passively-transferred antibodies. Please correlate with patient's history. Performed By: #### R UBIGG ####[facility] LAB[facility] [id number] [place] [address] [place] Reagin and Treponema pallidu m IgG and IgM [Interp]on 06-05-2024 T. pallidum IgG+IgM IA Ql (S) Non-Reactive Normal Nonreactive [facility] Comment on above: Order Comment: Speci men Type: BLOOD SPECIMENOrdering Facility: [facility] Address: [address] [place] [address] Performed By: #### G BPCR #### [facility] CLIA [id number] [address] [place] [address] [place] Reagin+T pallidum IgG+IgM Se rPl-Impon 06-05-2024 Reagin and Treponema pallidum IgG and IgM [Interp] Cannot exclude recent Treponemal infection if specimen collected within 7-10 days after appearance of suspect lesions or 2-3 weeks after an exposure. Clinical correlation is required. Normal [facility] Comment on above: Order Comment: Cecily dc Type: BLOOD SPECIMENOrdering Facility: [facility] Address: [address] [place] [address] Performed By: #### G BPCR #### [facility] CLIA [id number] [address] [place] [address] [place] TSH SerPl-aCncon 06-05-2024 TSH Qn 0.647 m[IU]/L Normal 0.270-4.200 [facility] Comment on above: Order Comment: Cecily dc Type: BLOOD SPECIMENOrdering Facility: [facility] Address: [address] [place] [address] Result Comment: If t he patient is , TSH reference range varies by gestational period: First Trimester (weeks 9-12): 0.180-2.990 mIU/L Second Trimester: 0.110-3.980 mIU/L Third Trimester: 0.480-4.710 mIU/L Jeremiah Sheldon et al. A Practical Approach for the Verifications and Determination of Site- and Trimester-Specific Reference Intervals for Thyroid Function tests in . Thyroid, 2019:29:3:412-420. Jared Henson, et al. 2017 Guidelines of the [place] Thyroid Association for the Diagnosis and Management of Thyroid Disease during and the . Thyroid, 2017:27:3:315-389. Performed By: #### 3 016-3 ####[facility] [id number] [address] TYPE + SCREEN PRENATALon ABO O Normal [facility] Comment on above: Order Comment: Speci men Type: BLOOD SPECIMENOrdering Facility: [facility] Address: [address] [place] [address] Performed By: #### T SPN ####[facility] BLO[facility] BANKIA [id number] [address] Rh Nom (Bld) Positive Normal [facility] Comment on above: Order Comment: Speci men Type: BLOOD SPECIMENOrdering Facility: [facility] Address: [address] [place] [address] Performed By: #### T SPN ####[facility] B[facility]ANKIA [id number] [address] TYPE AND SCREEN EXPIRATION 06/08/2024 23:59 Normal [facility] Comment on above: Order Comment: Speci men Type: BLOOD SPECIMENOrdering Facility: [facility] Address: [address] [place] [address] Performed By: #### T SPN ####[facility] BLOOD BANKIA [id number] [address] [place] CNPNon 06-02-2024 CNPEmory Telephone (OBGYWM) -------- REBECA KATHY PAK ([id number]) 1990 F Date Time Provider Department 06/02/24 PAMELLA CROWDERWSantos During your visit today, we recorded the [...] along with pepcid to help. Pamella Crowder APRN.CAITLIN 06/02/2024 11:23 AM Signed I can add reglan. She can interchange zofran and reglan throughout the day. If no improvement by , please make appointment with provider on Saturday. Pamella Crowder APRN.CAITLIN Keli Trinh, SAYDA 06/02/2024 11:49 AM Signed Patient notified. Keli Trinh RN The following approved medication requests have been transmitted electronically. Requested Prescriptions Signed Prescriptions Disp Refills metoclopramide HCl (REGLAN) 10 mg tablet 90 tablet 0 Sig: Take 1 tablet by mouth three times a day as needed. 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 Encounter Status:Closed by KELI TRINH on 06/02/24 Normal [facility] Bacteria Ur Culton Bacteria identified Cx Nom (U) ORGANISM ID: 1 50,000-<100,000 CFU/ml Normal urogenital luis a Normal [facility] Comment on above: Performed By: #### G BPCR #### [facility] CLIA [id number] [address] [place] [address] [place] C. trachomatis+N. gonorrhoea e DNA KATHERIN+probe Ql (Unsp spec)on 06-01-2024 C. trachomatis rRNA KATHERIN+probe Ql (Unsp spec) Not detected Normal Not detected [facility] Comment on above: Order Comment: Speci men Type: SWABOrdering Facility: [facility] Address: [address] [place] [address] Performed By: #### 3 6902-5 ####[facility] LAB[facility] [id number] [place] [address] [place] N. gonorrhoeae rRNA KATHERIN+probe Ql (Unsp spec) Not detected Normal Not detected [facility] Comment on above: Order Comment: Speci men Type: SWABOrdering Facility: [facility] Address: [address] [place] [address] Performed By: #### 3 6902-5 ####[facility] LAB[facility] [id number] [place] [address] [place] HIGH RISK HUMAN PAPILLOMA ALEX (HPV), PCR FOR DETECTION AND GENOTYPINGon 06-01-2024 HPV 16 Ag Ql (Unsp spec) Not detected Normal Not detected [facility] Comment on above: Order Comment: Speci men Type: FLUID SPECIMENOrdering Facility: [facility] Address: [address] [place] [address] Performed By: #### H PVHRT ####[facility] LAB[facility] [id number] [place] [address] [place] HPV 18 Ag Ql (Unsp spec) Not detected Normal Not detected [facility] Comment on above: Order Comment: Speci men Type: FLUID SPECIMENOrdering Facility: [facility] Address: [address] [place] [address] Performed By: #### H PVHRT ####[facility] LAB[facility] [id number] [place] [address] [place] HPV 31+33+35+39+45+51+52+5 6+58+59+66+68 DNA KATHERIN+probe Ql (Cvx) Not detected Normal Not detected [facility] Comment on above: Order Comment: Speci men Type: FLUID SPECIMENOrdering Facility: [facility] Address: [address] [place] [address] Result Comment: High Risk HPV Other Type includes HPV types 31, 33, 35, 39, 45, 51, 52, 56, 58, 59, 66 and 68. Performed By: #### H PVHRT ####[facility] LAB[facility] [id number] [place] [address] [place] PAP TESTon 06-01-2024 ADEQUACY Satisfactory for interpretation. Normal [facility] Comment on above: Order Comment: Speci men Type: FLUID SPECIMENOrdering Facility: [facility] Address: [address] [place] [address] Performed By: #### L [id number] ####[facility] LABCLIA [id number] [place] [address] [place] CASE REPORT Normal [facility] Comment on above: Order Comment: Speci men Type: FLUID SPECIMENOrdering Facility: [facility] Address: [address] [place] [address] Result Comment: Gyne cologic Cytology Report Case: [id number] Authorizing Provider: Selam Cesar APRN.SECURITY OPERATIONS ENGINEER Collected: 06/01/2024 03:42 PM Ordering Location: OB/Gynecology Received: 06/01/2024 04:43 PM First Screen: Jairo, Junie, CT, ASCP Specimen: Pap Test, ThinPrep, Cervix Performed By: #### L [id number] ####[facility] LAB[facility] [id number] [place] [address] [place] CLINICAL HISTORY, CYTOLOGY, DIRECTOR OF ARCHITECTURE Routine Exam Normal [facility] Comment on above: Order Comment: Speci men Type: FLUID SPECIMENOrdering Facility: [facility] Address: [address] [place] [address] Performed By: #### L [id number] ####[facility] LABCLIA [id number] [address] [address] [place] FINAL PERFORMING LAB Normal [facility] Comment on above: Order Comment: Speci men Type: FLUID SPECIMENOrdering Facility: [facility] Address: [address] [place] [address] Result Comment: Tech nical component, marine pipefitter helper screening performed at [facility], [address] [place] [address] CLIA# [id number] Diagnostic interpretation performed at [facility], [address] [place] [address] CLIA# [id number] Steel Die Printer: Noel Maldonado M.D. Performed By: #### L [id number] ####[facility] LAB[facility] [id number] [place] [address] [place] INTERPRETATION, CYTOLOGY, DIRECTOR OF ARCHITECTURE Normal [facility] Comment on above: Order Comment: Speci men Type: FLUID SPECIMENOrdering Facility: [facility] Address: [address] [place] [address] Result Comment: Nega tive for intraepithelial lesion or malignancy. Performed By: #### L [id number] ####[facility]IA [id number] [address] [address] [place] LMP 03/25/2024 Normal [facility] Comment on above: Order Comment: Speci men Type: FLUID SPECIMENOrdering Facility: [facility] Address: [address] [place], [place] [address] Performed By: #### L [id number] ####[facility] LAB[facility]IA [id number] [place] [id number] [place] PAP DISCLAIMER COMMENT The Pap Smear is a screening test for cervical cancer. False negative results occur with all screening tests, emphasizing the need for rescreening at recommended intervals, and clinical correlation. Normal [facility] Comment on above: Order Comment: Speci men Type: FLUID SPECIMENOrdering Facility: [facility] Address: [address] [place] [address] Performed By: #### L [id number] ####[facility] [id number] [address] [place] PAP CHIEF COUNSEL COMMENT This specimen has be en analyzed by the ThinPrep Imaging System, an automated imaging and review system, which assists the laboratory in evaluating cells on ThinPrep Pap tests. Following automated imaging, selected miller from every slide are reviewed by a marine pipefitter helper. Normal [facility] Comment on above: Order Comment: Speci men Type: FLUID SPECIMENOrdering Facility: [facility] Address: [address] [place] [address] Performed By: #### L [id number] ####[facility] LABCLIA [id number] [address] [place] POC TAILER OFF ULTRASOUNDon 06-01-19 Indication Confirmation of intrauterine . 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 Normal [facility] Comprehensive metabolic 2000 panelon 05-26-2024 Albumin [Mass/Vol] 4.4 g/dL Normal 3.9-4.9 [facility] Comment on above: Order Comment: Speci men Type: BLOOD SPECIMENOrdering Facility: [facility] Address: [address] [place] [address] Performed By: #### 2 4323-8 ####[facility] [id number] [place] [address] [place] ALP [Catalytic activity/Vol] 100 U/L Normal 34-123 [facility] Comment on above: Order Comment: Speci men Type: BLOOD SPECIMENOrdering Facility: [facility] Address: [address] [place] [address] Performed By: #### 2 4323-8 ####[facility] [id number] [place] [address] [place] ALT [Catalytic activity/Vol] 51 U/L High 7-38 [facility] Comment on above: Order Comment: Speci men Type: BLOOD SPECIMENOrdering Facility: [facility] Address: [address] [place] [address] Performed By: #### 2 4323-8 ####[facility] PB MILLTOWNCLIA [id number] [place] [address] [place] Anion gap [Moles/Vol] 11 mmol/L Normal 8-15 [facility] Comment on above: Order Comment: Speci men Type: BLOOD SPECIMENOrdering Facility: [facility] Address: [address] [place] [address] Performed By: #### 2 4323-8 ####[facility] [id number] [place] [address] [place] AST [Catalytic activity/Vol] 30 U/L Normal 13-35 [facility] Comment on above: Order Comment: Speci men Type: BLOOD SPECIMENOrdering Facility: [facility] Address: [address] [place] [address] Performed By: #### 2 4323-8 ####[facility] [id number] [place] [address] [place] Bilirubin [Mass/Vol] 0.3 mg/dL Normal 0.2-1.3 [facility] Comment on above: Order Comment: Speci men Type: BLOOD SPECIMENOrdering Facility: [facility] Address: [address] [place] [address] Performed By: #### 2 4323-8 ####[facility] MILLTONCLIA [id number] [place] [address] [place] Calcium [Mass/Vol] 9.8 mg/dL Normal 8.5-10.2 [facility] Comment on above: Order Comment: Speci men Type: BLOOD SPECIMENOrdering Facility: [facility] Address: [address] [place] [address] Performed By: #### 2 4323-8 ####[facility] LATANYAWNCLIA [id number] [place] [address] [place] Chloride [Moles/Vol] 99 mmol/L Normal 98-107 [facility] Comment on above: Order Comment: Speci men Type: BLOOD SPECIMENOrdering Facility: [facility] Address: [address] [place] [address] Performed By: #### 2 4323-8 ####[facility] [id number] [place] [address] [place] CO2 [Moles/Vol] 27 mmol/L Normal 22-30 [facility] Comment on above: Order Comment: Speci men Type: BLOOD SPECIMENOrdering Facility: [facility] Address: [address] [place] [address] Performed By: #### 2 4323-8 ####[facility] [id number] [place] [address] [place] Creatinine [Mass/Vol] 0.66 mg/dL Normal 0.58-0.96 [facility] Comment on above: Order Comment: Speci men Type: BLOOD SPECIMENOrdering Facility: [facility] Address: [address] [place] [address] Performed By: #### 2 4323-8 ####[facility] [id number] [place] [address] [place] Creatinine and Glomerular filtration rate.predicted panel (S/P/Bld) 117 mL/min/1.73m??? Normal >=60 [facility] Comment on above: Order Comment: Speci men Type: BLOOD SPECIMENOrdering Facility: [facility] Address: [address] [place] [address] Result Comment: Bessy mated Glomerular Filtration Rate [...] actual GFR. Performed By: #### 2 4323-8 ####[facility] [id number] [place] [address] [place] Glucose [Mass/Vol] 82 mg/dL Normal 74-99 [facility] Comment on above: Order Comment: Cecily dc Type: BLOOD SPECIMENOrdering Facility: [facility] Address: [address] [place] [address] Result Comment: The [place] Diabetes Association (ADA) provides guidance for cutoff [...] Standards of Medical Care in Diabetes 2016, [place] Diabetes Association. Diabetes Care. 2016.39(Suppl 1). Performed By: #### 2 4323-8 ####[facility]ENTER[facility] [id number] [place] [address] [place] Potassium [Moles/Vol] 4.3 mmol/L Normal 3.7-5.1 [facility] Comment on above: Order Comment: Cecily cd Type: BLOOD SPECIMENOrdering Facility: [facility] Address: [address] [place] [address] Performed By: #### 2 4323-8 ####[facility] [id number] [place] [address] [place] Protein [Mass/Vol] 7.5 g/dL Normal 6.3-8.0 [facility] Comment on above: Order Comment: Speci men Type: BLOOD SPECIMENOrdering Facility: [facility] Address: [address] [place] [address] Performed By: #### 2 4323-8 ####[facility] [id number] [place] [address] [place] Sodium [Moles/Vol] 137 mmol/L Normal 136-144 [facility] Comment on above: Order Comment: Speci men Type: BLOOD SPECIMENOrdering Facility: [facility] Address: [address] [place] [address] Performed By: #### 2 4323-8 ####[facility] [id number] [place] [address] [place] Urea nitrogen [Mass/Vol] 9 mg/dL Normal 7-21 [facility] Comment on above: Order Comment: Speci men Type: BLOOD SPECIMENOrdering Facility: [facility] Address: [address] [place] [address] Performed By: #### 2 4323-8 ####[facility] [id number] [place] [address] [place] TSH SerPl-aCncon 05-26-2024 TSH Qn 0.770 m[IU]/L Normal 0.270-4.200 [facility] Comment on above: Order Comment: Speci men Type: BLOOD SPECIMENOrdering Facility: [facility] Address: [address] [place] [address] Result Comment: If t he patient is , TSH reference range varies by gestational period: First Trimester (weeks 9-12): 0.180-2.990 mIU/L Second Trimester: 0.110-3.980 mIU/L Third Trimester: 0.480-4.710 mIU/L Jeremiah Sheldon et nani. A Practical Approach for the Verifications and Determination of Site- and Trimester-Specific Reference Intervals for Thyroid Function tests in . Thyroid, 2019:29:3:412-420. Jared Henson, et al. 2017 Guidelines of the [place] Thyroid Association for the Diagnosis and Management of Thyroid Disease during and the . Thyroid, 2017:27:3:315-389. Performed By: #### G BPCR #### [facility] CLIA [id number] [address] [place] [address] [place] US PELVIS TRANSVAGINALon US [...] Electronically Signed Date/Time: 05/19/2024 12:23 PM EST [facility] US Pelvis transvaginalon 1. Single live intrauterine with estimated gestational age of 7 weeks and 0 days. Estimated date of delivery is 07/30/2024. 2. 1.0 x 1.0 cm complex perigestational collection, possibly representing a subchorionic hemorrhage. Report Dictated on Electronically Signed By: Mich Ovalle MD Electronically Signed Date/Time: 05/19/2024 12:23 PM [facility] Patient Name: KATHY HESTER : 1990 Exam [...] gas. FREE FLUID: No significant free fluid. [facility] Tawnya Ovalle MD - 05/19/2024 [facility] Name: [facility] : 1990 [id number] Exam Date/Time: 05/19/2024 10:50 Procedure: US PELVIS [...] Electronically Signed Date/Time: 05/19/2024 12:23 PM EST [facility] Radiology Study observation (narrative) [facility] US Pelvis transvaginalOrdere d By: Tawnya Ovalle on 05-19-2024 [facility] Work Phone: Office Visit Reporton 2023 Office Visit Report [facility] [address] [place] [address] OFFICE VISIT Date of Service: 01/20/24 MR#: [id number] Acct: [id number] Patient: KATHY HESTER Rep #: [id number] : 1990 Provider: LYNDA Kwan Age/Sex: 33/F Location: [facility] Status: Signed Intake Vital Signs 08/31/23 17:23 [...] Cosigner Signature: Date (if applicable) CC: Normal [facility] - Microbiology an d Antimicrobial susceptibilityon 08-16-2023 SARS-CoV-2 (COVID-19) RNA KATHERIN+probe Ql (Unsp spec) Not detected [facility] No Panel Informationon 08-15 Influenza Types A,B Rapid (Clinic) Not detected [facility] CBC W Auto Differential pane l (Bld)Ordered By: Magnolia Barcenas on 03-17-2023 Basophils (Bld) [#/Vol] 0.0 10*3/uL 0.0 - 0.2 10*3/uL [facility] Basophils/100 WBC (Bld) 0.2 % 0.0 - 2.0 % [facility] Eosinophils (Bld) [#/Vol] 0.0 10*3/uL 0.0 - 0.5 10*3/uL [facility] Eosinophils/100 WBC (Bld) 0.2 % Low 1.0 - 6.0 % [facility] Erythrocyte distribution width (RBC) [Ratio] 12.3 % 11.5 - 14.5 % [facility] Hematocrit (Bld) [Volume fraction] 44.4 % 35.0 - 47.0 % [facility] Hemoglobin (Bld) [Mass/Vol] 15.0 g/dL 11.7 - 16.0 g/dL [facility] Interpretation and review of laboratory results Abnormal [facility] Lymphocytes (Bld) [#/Vol] 0.5 10*3/uL Low 1.0 - 4.3 10*3/uL [facility] Lymphocytes/100 WBC (Bld) 6.0 % Low 20.0 - 40.0 % [facility] MCH (RBC) [Entitic mass] 31.4 pg 26.0 - 34.0 pg [facility] MCHC (RBC) [Mass/Vol] 33.9 % 32.0 - 36.0 % [facility] MCV (RBC) [Entitic vol] 92.6 fL 80.0 - 98.0 fL [facility] Monocytes (Bld) [#/Vol] 0.4 10*3/uL 0.0 - 0.8 10*3/uL [facility] Monocytes/100 WBC (Bld) 4.5 % 2.0 - 10.0 % [facility] Neutrophils (Bld) [#/Vol] 8.1 10*3/uL High 1.8 - 7.0 10*3/uL [facility] Neutrophils/100 WBC (Bld) 89.1 % High 40.0 - 80.0 % [facility] Nucleated RBC/100 WBC (Bld) [Ratio] 0.0 % [facility] Platelet mean volume (Bld) [Entitic vol] 9.5 fL 7.4 - 12.4 fL [facility] Platelets (Bld) [#/Vol] 241 10*3/uL 140 - 440 10*3/uL [facility] RBC (Bld) [#/Vol] 4.79 10*6/uL 3.8 - 5.20 10*6/uL [facility] WBC (Bld) [#/Vol] 9.1 10*3/uL 3.6 - 10.7 10*3/uL [facility] Comprehensive metabolic 1998 panelon 03-17-2023 Albumin [Mass/Vol] 4.4 g/dL 3.5 - 5.0 g/dL [facility] ALP [Catalytic activity/Vol] 113 U/L 38 - 126 U/L [facility] ALT [Catalytic activity/Vol] 57 U/L High 0 - 34 U/L [facility] Anion gap [Moles/Vol] 8 mmol/L 3 - 13 mmol/L [facility] AST [Catalytic activity/Vol] 39 U/L 15 - 46 U/L [facility] Bilirubin [Mass/Vol] 0.7 mg/dL 0.2 - 1 .3 mg/dL [facility] Calcium [Mass/Vol] 8.9 mg/dL 8.4 - 10. 4 mg/dL [facility] Chloride [Moles/Vol] 103 mmol/L 98 - 10 7 mmol/L [facility] CO2 [Moles/Vol] 26 mmol/L 22 - 30 mmol/L [facility] Creatinine [Mass/Vol] 0.72 mg/dL 0.52 - 1.04 mg/dL [facility] GFR/1.73 sq M.predicted MDRD (S/P/Bld) [Vol rate/Area] - PINF [facility] Comment on above: Calculation based on the Chronic Kidney Disease Epidemiology Collaboration (CKD-EPI) equation refit without adjustment for race Glucose [Mass/Vol] 114 mg/dL High 70 - 100 mg/dL [facility] Interpretation and review of laboratory results Abnormal [facility] Potassium [Moles/Vol] 3.7 mmol/L 3.5 - 5.1 mmol/L [facility] Protein [Mass/Vol] 7.9 g/dL 6.3 - 8.2 g/dL [facility] Sodium [Moles/Vol] 137 mmol/L 135 - 145 mmol/L [facility] Urea nitrogen [Mass/Vol] 10 mg/dL 7 - 17 mg/dL [facility] Respiratory pathogens DNA an d RNA panel KATHERIN+non-probe (Nph)on 03-17-2023 Adenovirus Not detected Not Detected [facility] B. pertussis DNA KATHERIN+probe Ql (Unsp spec) Not detected Not Detected [facility] Bordetella parapertussis Not detected Not Detected [facility] Chlamydia pneumoniae Not detected Not Detected [facility] Coronavirus 229E Not detected Not Detected [facility] Coronavirus HKU1 Not detected Not Detected [facility] Coronavirus NL63 Not detected Not Detected [facility] Coronavirus OC43 Not detected Not Detected [facility] FLUAV RNA KATHERIN+non-probe Ql (Nph) Not detected Not Detected [facility] FLUBV RNA KATHERIN+non-probe Ql (Nph) Not detected Not Detected [facility] Human Metapneumovirus Not detected Not Detected [facility] Human Rhinovirus/Enterovirus Not detected Not Detected [facility] Interpretation and review of laboratory results Normal [facility] Mycoplasma pneumoniae Not detected Not Detected [facility] Parainfluenza 1 Not detected Not Detected [facility] Parainfluenza 2 Not detected Not Detected [facility] Parainfluenza 3 Not detected Not Detected [facility] Parainfluenza 4 Not detected Not Detected [facility] Respiratory Syncytial Virus Not detected Not Detected [facility] SARS-CoV-2 (COVID-19) RNA KATHERIN+non-probe Ql (Nph) Not detected Not Detected [facility] Methodology: Multipl ex PCR [facility] Urinalysis complete panel (U )on 03-17-2023 Bacteria LM.HPF (Urine sed) [#/Area] Few Abnormal Negative /HPF [facility] Bilirubin Ql (U) Negative Negative mg/dL [facility] Clarity (U) Clear Clear [facility] Color (U) Yellow Lt. Yellow [facility] Epithelial cells.squamous LM.HPF (Urine sed) [#/Area] 6-10 Abnormal [facility] Glucose Ql (U) Normal Normal (<70) mg/dL [facility] Hemoglobin Ql (U) Negative Negative mg/dL [facility] Interpretation and review of laboratory results Abnormal [facility] Ketones (U) [Mass/Vol] Trace Abnormal Negat arnie mg/dL [facility] Leukocyte esterase Test strip Ql (U) Negative Negative Valerie/uL [facility] Mucus LM.HPF (Urine sed) [#/Area] Few Negative /LPF [facility] Nitrite Ql (U) Negative Negative [facility] pH (U) 6.0 [pH] 5.0 - 8.0 pH [facility] Protein (U) [Mass/Vol] 30 mg/dL Abnormal Negative [facility] RBC LM.HPF (Urine sed) [#/Area] 3-5 Abnormal [facility] Specific gravity (U) [Rel density] 1.035 High 1.005 - 1.030 [facility] Urobilinogen (U) [Mass/Vol] Normal Normal (0-1) mg/dL [facility] WBC LM.HPF (Urine sed) [#/Area] 0-2 [facility] Ambulatory Clinical Summaryo n 01-28-2023 Ambulatory Clinical Summary KATHY CASTELLANOS :1990 [facility]:[id number] Registration Date:01/28/2023 Ambulatory Visit Instructions Your Care Team Attending Physician - RAUL ROWAN FACOG, [place] Primary Care Physician - EPHRAIM BOYD Procedures [...] are currently receiving treatment for. Egg allergy Micheline's disease Irregular periods PCOS (polycystic ovarian syndrome) [...] call to get immediate medical attention! Normal [facility] HCG QUANTon 01-28-2023 HCG, Quant <2.6 Normal [facility] Comment on above: Order Comment: Order ed on Fin# [id number] Result Comment: 0.2- 1 weeks 5 -50 mIU/ml 1 - 2 weeks 50-500 mIU/ml 2 - 3 weeks 100-5,000 mIU/ml 3 - 4 weeks 500-10,000 mIU/ml 4 - 5 weeks 1,000-50,000 mIU/ml 5 - 6 weeks 10,000-100,000 mIU/ml 6 - 8 weeks 15,000-200,000 mIU/ml 2 - 3 months 10,000-100,000 mIU/ml Performed By: #### 1 15131 #### [facility] [address] [place] [address] Twister In: Christiano Hernandez MD Phone Msgoemory 01-28-2023 Phone Msg - From: Orin Corea To: Aretha Castellanos MA; Sent: 01/28/2023 09:16:38 EDT Subject: APPT? BLOOD TEST? Actions: Message Caller Name: KATHY CASTELLANOS; Caller Number: H PATIENT CALLING IN WITH QUESTION ABOUT NOT FEELING WELL/ SYMPTOMS OF OR COULD BE PERIOD TIRED, NAUSEAUS, UTERAUS FEELS HEAVY, HEARTBURN, BLOATED, SHE SPOTTED IN DECEMBER 18-01/11/, HOME TEST NEGATIVE, MISCARRIED IN MAY, BEST CONTACT # [phone] THANK YOU, SB Called pt and she [...] to see what her levels are. Normal [facility] Phone Msgon 09-14-2022 Phone Msg [...] a call. she said she would. Normal [facility] DHEAon 06-10-2022 DHEA 4.843 ng/mL Normal 1.330-7.780 [facility] Comment on above: Order Comment: Order ed on Fin# [id number] Result Comment: INTERPRETIVE INFORMATION: Dehydroepiandrosterone, Females 18 years and older: Postmenopausal: 0.60-5.73 ng/mL REFERENCE INTERVAL: Dehydroepiandrosterone by TMS Access complete set of age- and/or gender-specific reference intervals for this test in the [employer] [facility] Test Directory ([employer]). This test was developed and its performance characteristics determined by [facility]. It has not been cleared or approved by the US Food and Drug Administration. This test was performed in a CLIA certified laboratory and is intended for clinical purposes. 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 EST Subject: RE: Patricia Mejia DO --- [facility] M[employer] SHEETS SUPERVISOR: No subject Thank you for your message. It has been successfully sent to the appropriate care team. Thank you so much! I am going to call the fertility doctor that you recommended on Saturday. I will let you know when I have an appointment. From: PATRICIA ROSENTHAL To: KATHY CASTELLANOS Sent: [...] Lymph % 30.8 % ??? \.br\06/04/2022 15:10 [place] % 5.4 % ??? \.br\06/04/2022 15:10 Neutrophil % 61.0 % ??? \.br\06/04/2022 15:10 Eosin % 2.1 % ??? \.br\06/04/2022 15:10 Basos % 0.7 % ??? \.br\06/04/2022 15:10 Lymph Count 2.59 x1000 (1.20 - 4.80) \.br\06/04/2022 15:10 [place] Count 0.46 x1000 (0.10 - 1.00) \.br\06/04/2022 15:10 Neutrophil Count (ANC) 5.13 x1000 (1.40 - 8.80) \.br\06/04/2022 15:10 Eos Count 0.18 x1000 (0.00 - 0.50) \.br\06/04/2022 15:10 Baso Count 0.06 x1000 (0.00 - 0.20) Normal [facility] Phone Msgon 06-07-2022 Phone Msg - From: PATRICIA ROSENTHAL To: KATHY CASTELLANOS Sent: 06/07/2022 17:10:58 Uziel Demarco your hormones are in the normal range. [...] 15:10 Lymph % 30.8 % \.br\06/04/2022 15:10 [place] % 5.4 % \.br\06/04/2022 15:10 Neutrophil % 61.0 % \.br\06/04/2022 15:10 Eosin % 2.1 % \.br\06/04/2022 15:10 Basos % 0.7 % \.br\06/04/2022 15:10 Lymph Count 2.59 x1000 (1.20 - 4.80) \.br\06/04/2022 15:10 [place] Count 0.46 x1000 (0.10 - 1.00) \.br\06/04/2022 15:10 Neutrophil Count (ANC) 5.13 x1000 (1.40 - 8.80) \.br\06/04/2022 15:10 Eos Count 0.18 x1000 (0.00 - 0.50) \.br\06/04/2022 15:10 Baso Count 0.06 x1000 (0.00 - 0.20) Normal [facility] AUTO DIFFon 06-04-2022 Baso Count 0.06 x1000 Normal 0.00-0.20 [facility] Comment on above: Performed By: #### 1 66248, 229683, 080110, [id number], 968183 #### [facility] [address] [place] [address] Twister In: Christiano Hernandez MD Basos % 0.7 % Normal [facility] Comment on above: Performed By: #### 1 18993, 969923, 375300, 6927238, 451595 #### [facility] [address] [place] [address] Twister In: Christiano Hernandez MD Eos Count 0.18 x1000 Normal 0.00-0.50 [facility] Comment on above: Performed By: #### 1 54141, 092955, 428668, 1806365, 282926 #### [facility] [address] [place] [address] Twister In: Christiano Hernandez MD Eosinophils/100 WBC (Bld) 2.1 % Normal [facility] Comment on above: Performed By: #### 1 71813, 321445, 845929, 3703914, 966119 #### [facility] [address] [place] [address] Twister In: Christiano Hernandez MD Lymph Count 2.59 x1000 Normal 1.20-4.80 [facility] Comment on above: Performed By: #### 1 47492, 718306, 020997, 2256559, 711194 #### [facility] [address] [place] [address] Twister In: Christiano Hernandez MD Lymphocytes/100 WBC (Bld) 30.8 % Normal [facility] Comment on above: Performed By: #### 1 26174, 176523, 069660, 7116410, 802708 #### [facility] [address] [place] [address] Twister In: Christiano Hernandez MD [place] Count 0.46 x1000 Normal 0.10-1.00 [facility] Comment on above: Performed By: #### 1 27331, 779461, 049596, 1193107, 521101 #### [facility] [address] [place] [address] Twister In: Christiano Hernandez MD Monocytes/100 WBC (Bld) 5.4 % Normal [facility] Comment on above: Performed By: #### 1 84869, 173594, 683854, 6282526, 553496 #### [facility] [address] [place] [address] Twister In: Christiano Hernandez MD Neutrophil Count (ANC) 5.13 x1000 Normal 1.40-8.80 [facility] Comment on above: Performed By: #### 1 62120, 745116, 892821, 1449255, 468453 #### [facility] [address] [place] [address] Twister In: Christiano Hernandez MD Neutrophils/100 WBC (Bld) 61.0 % Normal [facility] Comment on above: Performed By: #### 1 61195, 972465, 912324, 7026658, 586000 #### [facility] [address] [place] [address] Twister In: Christiano Hernandez MD Ambulatory Clinical Summaryo n [...] are currently receiving treatment for. Egg allergy Micheline's disease Irregular periods PCOS (polycystic ovarian syndrome) [...] call to get immediate medical attention! Normal [facility] FSHon 06-04-2022 FSH 8.3 IU/L Normal [facility] Comment on above: Order Comment: Order ed on [facility]# [id number] Result Comment: Fema les: Normally menstruating Follicular Phase 2.5 ? 10.2 IU/L Mid-cycle Peak 3.4 ? 33.4 IU/L Luteal Phase 1.5 ? 9.1 IU/L <0.3 IU/L Post-Menopausal 23.0 ? 116.3 IU/L Males (13-70 years) 1.4 ? 18.1 IU/L Performed By: #### 1 37453, 053686, 009345, 0152866, 495523 ####[facility] [address] [place] [address] Medical Director: Christiano Hernandez MD HEMOon 06-04-2022 DIFF? No Normal [facility] Comment on above: Performed By: #### 1 59403, 906485, 632761, 4337177, 883819 #### [facility] [address] [place] [address] Twister In: Christiano Hernandez MD Erythrocyte distribution width (RBC) [Ratio] 12.6 % Normal 11.5-14.5 [facility] Comment on above: Performed By: #### 1 82407, 374368, 544909, 0415694, 967025 #### [facility] [address] [place], [place] [address] Twister In: Christiano Hernandez MD Hematocrit (Bld) [Volume fraction] 42.4 % Normal 36.0-46.0 [facility] Comment on above: Performed By: #### 1 90753, 428818, 132666, 0183233, 962250 #### [facility] [address] [place] [address] Twister In: Christiano Hernandez MD Hemoglobin (Bld) [Mass/Vol] 14.2 g/dL Normal 12.0-16.0 [facility] Comment on above: Performed By: #### 1 27410, 098048, 404503, 7583601, 216603 #### [facility] [address] [place] [address] Twister In: Christiano Hernandez MD Instr WBC 8.4 Normal [facility] Comment on above: Performed By: #### 1 77304, 335664, 283478, 1611884, 189635 #### [facility] [address] [place], [place] [address] Twister In: Chirstiano Hernandez MD MCH (RBC) [Entitic mass] 31.3 pg Normal 27.0-34.0 [facility] Comment on above: Performed By: #### 1 73648, 824014, 120513, 8643947, 538095 #### [facility] [address] [place] [address] Twister In: Christiano Hernandez MD MCHC (RBC) [Mass/Vol] 33.4 g/dL Normal 32.0-37.0 [facility] Comment on above: Performed By: #### 1 98347, 367184, 031651, 9991777, 598541 #### [facility] [address] [place] [address] Twister In: Christiano Hernandez MD MCV (RBC) [Entitic vol] 93.5 fL Normal 80.0-100.0 [facility] Comment on above: Performed By: #### 1 97423, 941034, 576620, 2762437, 240720 #### [facility] [address] [place] [address] Twister In: Christiano Hernandez MD Nucleated RBC 0 /100WBC Normal [facility] Comment on above: Performed By: #### 1 47944, 094842, 673380, 3280633, 039509 #### [facility] [address] [place] [address] Twister In: Christiano Hernandez MD Platelet 289 x10 Normal 150-450 [facility] Comment on above: Performed By: #### 1 76740, 606283, 584414, 1393771, 776148 #### [facility] [address] [place] [address] Twister In: Christiano Hernandez MD Platelet mean volume (Bld) [Entitic vol] 9.4 fL Normal 7.4-10.4 [facility] Comment on above: Performed By: #### 1 34643, 919774, 366157, 3028471, 987408 #### [facility] [address] [place] [address] Twister In: Christiano Hernandez MD RBC 4.53 x10 Normal 4.20-5.40 [facility] Comment on above: Result Comment: Note : RBC morphology is normal unless otherwise stated. Evaluation performed only if differential is requested. Performed By: #### 1 91841, 538232, 092485, 4017276, 086855 #### [facility] [address] [place] [address] Twister In: Christiano Hernandez MD WBC 8.4 x10 Normal 4.5-11.0 [facility] Comment on above: Performed By: #### 1 81964, 208812, 669667, 2718576, 324706 #### [facility] [address] [place] [address] Twister In: Christiano Hernandez MD HGB A1Con 06-04-2022 HbA1c (Bld) [Mass fraction] 4.7 % Normal [facility] Comment on above: Order Comment: Order ed on Fin# [id number] Result Comment: Refe rence Range: Diabetic Greater than or equal to 6.5 % Prediabetic 5.7?6.4 % Normal Less than 5.7 % Performed By: #### 1 99231 ####[facility] [address] [place] [address] Medical Director: Christiano Hernandez MD PROLACTINon 06-04-2022 PROLACTIN 10.0 ng/mL Normal [facility] Comment on above: Order Comment: Order ed on Fin# [id number] Result Comment: Fema les: Non 2.8-29.2 ng/mL 9.7- greater than 200 ng/mL Postmenopausal 1.8-20.3 ng/mL Males 2.1-17.7 ng/mL - , , and the administration of oral contraceptives can increase prolactin concentrations Performed By: #### 1 90495, 286942, 550772, 4301899, 545106 #### [facility] [address] [place] [address] Twister In: Christiano Hernandez MD TSHon 06-04-2022 TSH Qn 1.00 m[IU]/L Normal 0.55-4.78 [facility] Comment on above: Order Comment: Order ed on Fin# [id number] Result Comment: - Do not use samples that contain fluorescein. Fluorescein levels > 0.24 ?g/mL may decrease results in this assay - Patients undergoing retinal fluorescein angiography can retain amounts of fluorescein in the body for up to 48?72 hours post-treatment. Such samples can produce falsely depressed values when tested with this assay, and should not be tested Performed By: #### 1 [id number], [id number], [id number], [id number], [id number] ####[facility] [address] [place] [address] Medical Director: Christiano Hernandez MD Phone Msgon 02-02-2022 Phone Msg - From: PATRICIA ROSENTHAL [...] the fertility specialists Reproductive Gynecology and Infertility- [phone]. Take care and good luck. Normal [facility] COVID-19, Flu A/B, and RSV C omboon 01-14-2022 Influenza A by PCR Not detected SUMM A Influenza B by PCR Not detected SUMM A RSV PCR Not Detected. Expected Result: Not Detected _ Method: Real-time, RT-PCR This assay was developed by [employer] and distributed under an Emergency Use Authorization (EUA) granted by the FDA for the qualitative detection of nucleic acids from SARS-CoV-2, Influenza A, Influenza B, and Respiratory Syncytial Virus. Provider and patient fact sheets can be found at https://www.fda.gov/medi a/899494/download and https://www.fda.gov/medi a/955976/download. [facility] SARS-CoV-2 (COVID-19) RNA KATHERIN+probe Ql (Unsp spec) Not detected [facility] Test Performed by [facility], [address] [place], [place] [id number] [place] [address] LAB [facility] CR Chest Portableon 01-15-20 22 CR Chest Portable Patient Name: KATHY HESTER Diagnostic Radiology ACCESSION EXAM DATE/TIME PROCEDURE ORDERING PROVIDER [id number] 01/14/2022 10:05 EDT CR Chest Portable LALY PENN AMY L CPT code 86174 Reason For Exam (CR Chest Portable) Cough [...] Transcribed Date and Time: 01/14/2022 10:43 Normal [facility] ED Provider Noteon ED Provider Note [facility] ED eMERGENCY dEPARTMENT eNCOUnter Pt Name: Kathy [...] and Sexual Activity Alcohol use: No SCREENINGS Waller Coma Scale Eye Opening: Spontaneous Best Verbal Response: Oriented Best Motor Response: Obeys commands Waller Coma Scale Score: 15 PHYSICAL EXAM (5+ [...] Radiology ACCESSION EXAM DATE/TIME PROCEDURE ORDERING PROVIDER [id number] 01/14/2022 10:05 EDT CR Chest Portable LALY PENN AMY L CPT code 18804 Reason For Exam (CR Chest Portable) Cough [...] AND RSV COMBO Narrative: Test Performed by [employer], [address] [place], [place] [address] All other labs were within normal range or not returned as of this dictation. EMERGENCY DEPARTMENT COURSE a (more content not included)... Normal [facility] SARS-CoV-2, Flu A/B and RSVo n 01-14-2022 SARS-CoV-2 (COVID-19) RNA KATHERIN+probe Ql (Unsp spec) SARS-CoV-2 --> Status: F Not Detected. Flu A PCR --> Status: F Not Detected. Flu B PCR --> Status: F Not Detected. RSV PCR --> Status: F Not Detected. Expected Result: Not Detected _ Method: Real-time, RT-PCR This assay was developed by [employer] and distributed under an Emergency Use Authorization (EUA) granted by the FDA for the qualitative detection of nucleic acids from SARS-CoV-2, Influenza A, Influenza B, and Respiratory Syncytial Virus. Provider and patient fact sheets can be found at https://www.fda.gov/medi a/759148/download and https://www.fda.gov/medi a/708547/download. Expected Result: Not Detected _ Method: Real-time, RT-PCR This assay was developed by [employer] and distributed under an Emergency Use Authorization (EUA) granted by the FDA for the qualitative detection of nucleic acids from SARS-CoV-2, Influenza A, Influenza B, and Respiratory Syncytial Virus. Provider and patient fact sheets can be found at https://www.fda.gov/medi a/998567/download and https://www.fda.gov/medi a/317823/download. Normal [facility] Comment on above: Performed By: #### C VF #### [facility] [address] [place] [address] , [id number] XR CHEST PORTABLEon 01-15-20 Patient Name: KATHY HESTER Diagnostic Radiology ACCESSION EXAM DATE/TIME PROCEDURE ORDERING PROVIDER [id number] 01/14/2022 10:05 EDT CR Chest Portable LALY PENN AMY L CPT code 47475 Reason For Exam (CR Chest Portable) Cough [...] JEFFREY Transcribed Date and Time: 01/14/2022 10:43 [facility] Gokul Castellon MD - 01/14/2022 Patient Name: KATHY HESTER Diagnostic Radiology ACCESSION EXAM DATE/TIME PROCEDURE ORDERING PROVIDER [id number] 01/14/2022 10:05 EDT CR Chest Portable LALY PENN AMY L CPT code 07569 Reason For Exam (CR Chest Portable) Cough [...] JEFFREY Transcribed Date and Time: 01/14/2022 10:43 [facility] Work Phone: Radiology Study observation (narrative) [facility] Work Phone: XR CHEST PORTABLEOrdered By: Gokul Castellon on 01-14-2022 [facility] Work Phone: CBC and Differentialon 03-30 Abs Lym 0.82 K/uL Low 1.00-4.00 [facility] Comment on above: Performed By: #### C MP, LIPA, CBCDIF ####[facility] [address] [place], [place] [phone] Abs [place] 0.82 k/uL Normal <0.87 [facility] Comment on above: Performed By: #### C MP, LIPA, CBCDIF ####[facility] [address] [place] [address] Abs Neut 18.60 k/uL High 1.45-7.50 [facility] Comment on above: Performed By: #### C MP, LIPA, CBCDIF ####[facility] [address] [place] [address] Eosinophils 0.20 10*3/uL Normal <0.46 [facility] Comment on above: Performed By: #### C MP, LIPA, CBCDIF ####[facility] [address] [place] [address] Eosinophils/100 leukocytes 1 % Normal [facility] Comment on above: Performed By: #### C MP, LIPA, CBCDIF ####[place] [address] Erythrocyte distribution width Auto Ratio (RBC) 12.5 % Normal 11.5-15.0 [facility] Comment on above: Performed By: #### C MP, LIPA, CBCDIF ####[place] [address] Erythrocytes (RBC) 5.15 10*6/uL Normal 3.90-5.20 [facility] Comment on above: Performed By: #### C MP, LIPA, CBCDIF ####[place] [address] Hematocrit (HCT) 48.3 % High 36.0-46.0 [facility] Comment on above: Performed By: #### C MP, LIPA, CBCDIF ####[facility] [address] [place] [address] Hemoglobin mass conc (Bld) 15.4 g/dL Normal 11.5-15.5 [facility] Comment on above: Performed By: #### C MP, LIPA, CBCDIF ####[place] [address] Lymphocytes/100 leukocytes 4 % Normal [facility] Comment on above: Performed By: #### C MP, LIPA, CBCDIF ####[facility] [address] [place] [address] MCH 29.9 pG Normal 26.0-34.0 [facility] Comment on above: Performed By: #### C MP, LIPA, CBCDIF ####[facility] [address] [place] [address] MCHC mass conc (RBC) 31.9 g/dL Normal 30.5-36.0 [facility] Comment on above: Performed By: #### C MP, LIPA, CBCDIF ####[facility] [address] [place] [address] MCV 93.8 fL Normal 80.0-100.0 [facility] Comment on above: Performed By: #### C MP, LIPA, CBCDIF ####[facility] [address] [place] [address] Monocytes/100 leukocytes 4 % Normal [facility] Comment on above: Performed By: #### C MP, LIPA, CBCDIF ####[facility] [address] [place] [address] Neutrophils/100 WBC Auto (Bld) 91 % Normal [facility] Comment on above: Performed By: #### C MP, LIPA, CBCDIF ####[facility] [address] [place] [address] Platelet mean volume (PMV) 11.1 fL Normal 9.0-12.7 [facility] Comment on above: Performed By: #### C MP, LIPA, CBCDIF ####[facility] [address] [place] [address] Platelets Platelet estimate adequate Normal [facility] Comment on above: Performed By: #### C MP, LIPA, CBCDIF ####[place] [address] Platelets 218 10*3/uL Normal 150-400 [facility] Comment on above: Performed By: #### C MP, LIPA, CBCDIF ####[place] [address] Red Cell Morph SEE COMMENT [facility] Comment on above: Result Comment: Unre markable Performed By: #### C MP, LIPA, CBCDIF ####[facility] [address] [place] [address] WBC (Leukocytes) 20.44 10*3/uL High 3.70-11.00 [facility] Comment on above: Performed By: #### C MP, LIPA, CBCDIF ####[facility] [address]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 10-19-2024 End: 10-19-2024 Emergency department patient visit [facility] Facility:[facility] Start: 09-25-2024 End: 09-25-2024 Patient encounter procedure Natasha Segura MD Work Phone: OB/Gynecology Comment on above: AMA (advanced matern al age) multigravida 35+, second trimester (HCC) (Primary Dx); Supervision of high risk in second trimester (HCC); Micheline's disease; 24 weeks gestation of (HCC); Screening for diabetes mellitus; Encounter for supervision of other normal in third trimester (HCC) Start: 09-25-2024 End: 09-25-2024 ambulatory EPHRAIM BOYD Facility:[facility] Start: 09-21-2024 End: 09-21-2024 Evaluation and management of inpatient Us Rm1 [employer] Technician [employer] Work Phone: [facility]aternal Medicine Comment on above: Supervision of high- risk of elderly multigravida (>= 35 years old at time of delivery) ([facility]) (Primary Dx); Threatened labor, antepartum ([facility]) Start: 09-20-2024 End: 09-22-2024 Evaluation and management of inpatient EPHRAIM BOYD Facility:[facility] Start: 09-20-2024 End: 09-20-[address] Ephraim Boyd DO Work Phone: [facility] Work Phone: Start: 09-20-2024 End: 09-20-[address] Ernestine Gomez MD [facility] Work Phone: Start: 08-31-2024 End: 10-31-2024 Follow-up encounter Ernestine Gomez MD Work Phone: OB/Gynecology Start: 08-28-2024 End: 08-28-2024 Patient encounter procedure Juregn Richmond MD Work Phone: OB/Gynecology Comment on above: AMA (advanced matern al age) multigravida 35+, second trimester (HCC) (Primary Dx); Micheline's disease; Supervision of high risk in second trimester (HCC); 20 weeks gestation of (HCC) Supervision of high- risk of elderly multigravida (>= 35 years old at time of delivery) (HCC) (Primary Dx); Supervision of high risk in first trimester (HCC); AMA (advanced maternal age) multigravida 35+, first trimester (HCC); 12 weeks gestation of ([facility]) Start: 08-28-2024 End: 08-28-2024 ambulatory EPHRAIM BOYD Facility:[facility] Start: 08-03-2024 End: 08-03-2024 Telephone encounter Pamella Crowder APRN.CNM Work Phone: OB/Gynecology Comment on above: Care (Medic ation question) Start: 07-31-2024 End: 07-31-2024 [facility] Facility:[facility] Start: 07-31-2024 End: 07-31-2024 Patient encounter procedure Natasha Segura MD Work Phone: OB/Gynecology Comment on above: AMA (advanced matern al age) multigravida 35+, second trimester (Primary Dx); 16 weeks gestation of ; Nausea and vomiting in ; 8 weeks gestation of Start: 07-22-2024 End: 07-22-2024 Refill Sussy Landin APRN.CNM Work Phone: OB/Gynecology Comment on above: Refill Request Start: 07-07-2024 End: 07-20-2024 Telephone encounter Pamella Crowder APRN.CNM Work Phone: OB/Gynecology Comment on above: FMLA Paperwork Start: 07-03-2024 End: 09-02-2024 Follow-up encounter Selam Cesar APRN.SECURITY OPERATIONS ENGINEER Work Phone: OB/Gynecology Start: 07-02-2024 End: 07-02-2024 [facility] Facility:[facility] Start: 07-02-2024 End: 07-02-2024 Patient encounter procedure Ernestine Gomez MD Work Phone: OB/Gynecology Comment on above: Supervision of high risk in first trimester (Primary Dx); Micheline's disease; AMA (advanced maternal age) multigravida 35+, [...] in first trimester Start: 06-26-2024 End: 06-26-2024 [facility] Facility:[facility] Start: 06-24-2024 End: 06-24-2024 Refill Marissa Baker MD Work Phone: OB/Gynecology Comment on above: Refill Request Start: 06-17-2024 End: 06-17-2024 Refill Pamella Crowder APRN.CNM Work Phone: OB/Gynecology Comment on above: Med Change Request Start: 06-16-2024 End: 06-16-2024 [facility] Facility:[facility] Start: 06-16-2024 End: 06-16-2024 Patient encounter procedure Pamella Crowder APRN.CNM Work Phone: OB/Gynecology Comment on above: Supervision of high risk in first trimester (Primary Dx); Nausea and vomiting in ; 10 weeks gestation of ; Constipation, unspecified constipation type Start: 06-16-2024 End: 06-16-2024 Telephone encounter Pamella Crowder APRN.CNM Work Phone: OB/Gynecology Comment on above: OB Pain Start: 06-12-2024 End: 06-12-2024 [facility] Facility:[facility] Start: 06-12-2024 End: 06-12-2024 Patient encounter procedure Sussy Landin APRN.CNM Work Phone: OB/Gynecology Comment on above: Nausea and vomiting in (Primary Dx); 9 weeks gestation of ; Supervision of high risk in first trimester Start: 06-05-2024 End: 06-05-2024 [facility] Facility:[facility] Start: 06-05-2024 End: 06-05-2024 Patient encounter procedure Jurgen Richmond MD Work Phone: OB/Gynecology Comment on above: Nausea and vomiting in (Primary Dx); 8 weeks gestation of Start: 06-02-2024 End: 06-02-2024 Telephone encounter Pamella Vel RICHMOND Work Phone: OB/Gynecology Comment on above: Care Start: 06-01-2024 End: 06-01-2024 ambulatory SELAM CESAR Facility:[facility] Start: 06-01-2024 End: 06-01-2024 Patient encounter procedure Selam Cesar DAWSON.SECURITY OPERATIONS ENGINEER Work Phone: OB/Gynecology Comment on above: Nausea and vomiting in (Primary Dx); Screening for cervical cancer; 8 weeks gestation of ; Micheline's disease; Supervision of high-risk of elderly multigravida (>= 35 years old at time of delivery) Start: 05-26-2024 End: 05-26-2024 ambulatory PAMELLA VEL Facility:[facility] Start: 05-21-2024 End: 08-20-2024 Transcribe Orders Sommer Joe APRN - SECURITY OPERATIONS ENGINEER Work Phone: [facility] Scheduling Comment on above: Generalized abdomina l pain (Primary Dx); Nausea with vomiting, unspecified; Other specified abnormal findings of blood chemistry Start: 05-19-2024 End: 05-19-2024 Subsequent hospital visit by physician Sommer Joe APRN - SECURITY OPERATIONS ENGINEER Work Phone: [facility] Comment on above: Nausea with vomiting , unspecified; Other specified abnormal findings of blood chemistry; Generalized abdominal pain Start: 05-19-2024 End: 08-18-2024 [facility] Comment on above: Nausea with vomiting , unspecified (Primary Dx); Other specified abnormal findings of blood chemistry; Generalized abdominal pain Start: 01-20-2024 End: 01-20-2024 ambulatory Gautam HOWELL Facility:[facility] Start: 08-31-2023 End: 08-31-2023 Emergency department patient visit LYNDA HOWELL Work Phone: [facility] Work Phone: Start: 08-16-2023 End: 08-16-2023 Patient encounter procedure LYNDA HOWELL Work Phone: [facility] Work Phone: Start: 03-17-2023 End: 03-17-2023 Emergency department patient visit Landy Fernandez MD Work Phone: [facility] ED Comment on above: Viral illness (Prima ry Dx); Dehydration Start: 01-29-2023 ambulatory EPHRAIM D OLIVER Facilit y:[facility] Start: 01-29-2023 ambulatory EPHRAIM D OLIVER Facilit y:[facility] Start: 01-28-2023 End: 01-29-2023 ambulatory CHULA CARTER MD Facility:[id number] Start: 01-28-2023 End: 01-29-2023 ambulatory CHULA CARTER MD Facility:[facility] Start: 01-28-2023 ambulatory EPHRAIM D OLIVER Facilit y:[facility] Start: 12-23-2022 ambulatory Mildred Mckinley RN [facility] Start: 12-23-2022 Patient encounter procedure Mildred Mckinley RN [facility] Clinical Communication Start: 09-14-2022 ambulatory EPHRAIM D OLIVER Facilit y:[facility] Start: 06-04-2022 End: 06-05-2022 ambulatory EPHRAIM D OLIVER Facility:[id number] Start: 06-04-2022 End: 06-05-2022 ambulatory EPHRAIM D OLIVER Facility:[facility] Start: 01-14-2022 End: 01-14-2022 Emergency department patient visit Ephraim Boyd DO Work Phone: [facility] ED Comment on above: Bronchitis (Primary Dx) Start: 03-30-2017 End: 03-30-2017 Emergency department patient visit [facility] Procedures Date Procedure Procedure Detail Performing Clinician Start: 12-25-2024 Urnls dip stick/tabl et rgnt non-auto w/o micrscp Natasha Segura MD Work Phone: Start: 12-14-2024 Urnls dip stick/tabl et rgnt non-auto w/o micrscp Sussy Landin APRN.CNM Work Phone: Start: 12-10-2024 Ultrasonography for biophysical profile without non-stress testing Dr. Ephraim Boyd DO Work Phone: Start: 12-10-[address] Ephraim Boyd DO Work Phone: Start: 12-10-2024 Measurement of pH in vaginal fluid specimen using nitrazine yellow for detection of rupture of amniotic membrane Dr. Ephraim Boyd DO Work Phone: Comment on above: Amniotic fluid not p resent indicates No Rupture of FetalMembranes at time of specimen collection. Start: 12-07-2024 Urnls dip stick/tabl et rgnt non-auto w/o micrscp Natasha Segura MD Work Phone: Start: 11-30-2024 Urnls dip stick/tabl et rgnt non-auto w/o micrscp Sussy Landin APRN.CNM Work Phone: Start: 11-29-2024 Urnls dip stick/tabl et reagent auto microscopy Dr. Ephraim Boyd DO Work Phone: Start: 11-29-2024 Measurement of pH in vaginal fluid specimen using nitrazine yellow for detection of rupture of amniotic membrane Dr. Ephraim Boyd DO Work Phone: Comment on above: Amniotic fluid not p resent indicates No Rupture of FetalMembranes at time of specimen collection. Start: 11-03-2024 Antibody screen JOE JUARES Comment on above: Order Comment: Speci men Type: BLOOD SPECIMENOrdering Facility: [facility] Address: [address] [place] [address] Performed By: #### T SPN ####[facility] BLOOD BANKIA [id number] [place] [address] [place] Start: 10-20-2024 Us preg uterus after 1st trimest 05/13 gestation Yakelin CombsRaven DO Work Phone: Start: 10-19-2024 Antibody screen JOE JUARES Comment on above: Order Comment: Speci men Type: BLOOD SPECIMENOrdering Facility: [facility] Address: [address] [place] [id number] Performed By: #### T SPN ####[facility] BLOOD BANKCLIA [id number] [address] Start: 09-21-2024 Us preg uterus after 1st trimest 1/ gestation Elva Tejalzak DO Work Phone: Start: 09-21-2024 Antibody screen JOE JUARES Comment on above: Order Comment: Speci men Type: BLOOD SPECIMENOrdering Facility: [facility] Address: [address] [place], [place] [id number] Performed By: #### T SPN ####[facility] BLOOD BANKIA [id number] [address] Start: 09-20-2024 Fibrinogen assay, quantitative Dr. Ephraim Boyd DO Work Phone: Start: 08-28-2024 Us preg uterus after 1st trimest 1/ gestation Ernestine Gomez MD Work Phone: Start: 07-02-2024 Us preg uterus after 1st trimest 1/ gestation Selam [place] SUPERVISOR [employer].SECURITY OPERATIONS ENGINEER Work Phone: Start: 06-05-2024 Antibody screen ELSIE LANDIN Comment on above: Order Comment: Speci men Type: BLOOD SPECIMENOrdering Facility: [facility] Address: [address] [place] [address] Performed By: #### T SPN ####[facility] BLOOD BANKCLIA [id number] [facility] [id number] [place], [place] [id number] [place] Start: 06-01-2024 Us uterus l imited 1/> fetuses Selam Arsenio SUPERVISOR [employer].SECURITY OPERATIONS ENGINEER Work Phone: Start: 05-19-2024 Us transvaginal Josué Joe SUPERVISOR [employer] - SECURITY OPERATIONS ENGINEER Work Phone: Start: 08-31-2023 Radiologic examinati on of knee LYNDA HOWELL Work Phone: Start: 03-17-2023 Urinalysis complete panel - Urine Landy Moftakhar MD Work Phone: Start: 03-17-2023 End: 03-17-2023 [...] for Adults (1 - 1-dose 75+ series) [facility] Start: 2038 Zoster Vaccines (1 of 2) Zoster Vacc jayashree (1 of 2) [facility] Start: 10-22-2034 Urine microalbumin profile DTaP,Tdap,Td Vaccine (3 - Td or Tdap) [facility] Start: 06-01-2029 Screening for malign ant neoplasm of cervix Cervical Cancer Screening [facility] Start: 03-01-2026 DTaP/Tdap/Td vaccine (2 - Td or Tdap) DTaP/Tdap/Td vaccine (2 - Td or Tdap) [facility] Start: 03-01-2026 DTaP/Tdap/Td Vaccine s (2 - Td or Tdap) DTaP/Tdap/Td Vaccines (2 - Td or Tdap) [facility] Start: 03-01-2026 Urine microalbumin profile DTaP,Tdap,Td Vaccine (2 - Td or Tdap) [facility] Start: 01-11-2025 Influenza vaccination S [facility] Start: 12-28-2024 End: 12-28-2024 Patient encounter procedure 12/28/2024 11:40 AM EDT Routine Office Visit OB/Gynecology [address] [place] [address] Jurgen Richmond MD [address] [place] [address] OB OB/Gynecology Comment on above: OB Start: 12-25-2024 End: 12-25-2024 Patient encounter procedure 12/25/2024 10:00 AM EDT Routine Office Visit OB/Gynecology [address] [place] [address] Natasha Segura MD [address] [place] [address] OB OB/Gynecology Comment on above: OB Start: 12-24-2024 Nonstress test [facility] Start: 12-24-2024 Catheterization of vein [facility] Start: 12-24-2024 [facility] Start: 12-24-2024 Patient discharge [facility] Start: 12-14-2024 End: 12-14-2024 Patient encounter procedure 12/14/2024 3:15 PM EDT Routine Office Visit OB/Gynecology [address] [place] [address] Sussy Landin APRN.CN [address] [place] [address] OB OB/Gynecology Comment on above: OB Start: 12-10-2024 Biophysical pr ofile panel US [facility] Start: 12-10-2024 Ultrasonography for biophysical profile without non-stress testing OB Biophysical Prof W/O NST [facility] Start: 12-10-2024 Nonstress test [facility] Start: 12-10-2024 Obstetric monitoring [facility] Start: 12-10-2024 Vital signs measurements [facility] Start: 12-10-2024 [facility] Start: 12-10-2024 Patient discharge [facility] Start: 12-07-2024 End: 12-07-2024 Patient encounter procedure 12/07/2024 11:20 AM EDT Routine Office Visit OB/Gynecology [address] [place] [address] Natasha Segura MD [address] [place] [address] OB OB/Gynecology Comment on above: OB Start: 11-30-2024 End: 03-01-2025 Thyrotropin [Units/volume] in Serum or Plasma [facility] Work Phone: Comment on above: Expected: 11/30/2024 , Expires: 03/01/2025 Start: 11-30-2024 End: 03-01-2025 Thyroxine (T4) free [Mass/volume] in Serum or Plasma [facility] Comment on above: Expected: 11/30/2024 , Expires: 03/01/2025 Start: 11-30-2024 End: 11-30-2024 Patient encounter procedure 11/30/2024 10:15 AM EDT Routine Office Visit OB/Gynecology [address] [place] [address] Sussy Landin APRN.[facility] [address] [place] [address] OB OB/Gynecology Comment on above: OB Start: 11-29-2024 Nonstress test [facility] Start: 11-29-2024 Obstetric monitoring [facility] Start: 11-29-2024 Vital signs measurements [facility] Start: 11-29-2024 [facility] Start: 11-29-2024 Patient discharge [facility] Start: 11-16-2024 End: 11-16-2024 Patient encounter procedure 11/16/2024 9:40 AM EDT Routine Office Visit OB/Gynecology [address] [place] [address] Natasha Segura MD [address] [place] [address] OB OB/Gynecology Comment on above: OB Start: 10-30-2024 End: 01-29-2025 THYROGLOBULIN ANTIBODY THYROGLOBULIN ANTIBODY Lab Routine Micheline's disease Expected: 10/30/2024, Expires: 01/29/2025 [facility] Work Phone: Comment on above: Expected: 10/30/2024 , Expires: 01/29/2025 Start: 10-26-2024 End: 01-25-2025 ANEMIA REFLEX PANEL ANEMIA REFLEX PANEL Lab Routine Encounter for supervision of other normal in third trimester (HCC) Expected: 10/26/2024, Expires: 01/25/2025 [facility] Comment on above: Expected: 10/26/2024 , Expires: 01/25/2025 Start: 10-26-2024 End: 09-25-2025 GESTATIONAL GLUCOSE SCREEN, 1-HOUR, 50 GRAM, NON-FASTING GESTATIONAL GLUCOSE SCREEN, 1-HOUR, 50 GRAM, NON-FASTING Lab Routine Screening for diabetes mellitus Expected: 10/26/2024, Expires: 09/25/2025 [facility] Work Phone: Comment on above: Expected: 10/26/2024 , Expires: 09/25/2025 Start: 10-26-2024 End: 09-25-2025 SYPHILIS TREPONEMAL W/REFLEX SYPHILIS TREPONEMAL W/REFLEX Lab Routine Encounter for supervision of other normal in third trimester (HCC) Expected: 10/26/2024, Expires: 09/25/2025 [facility] Comment on above: Expected: 10/26/2024 , Expires: 09/25/2025 Start: 10-26-2024 End: 10-26-2024 Patient encounter procedure 10/26/2024 9:40 AM EDT Routine Office Visit OB/Gynecology [address] [place], [place] [address] Jurgen Richmond MD [address] [place] [address] Glucose Test/OB OB/Gynecology Comment on above: Glucose Test/OB Start: 10-26-2024 End: 10-26-2024 ambulatory 10/26/2024 9:30 AM EDT Results Only [facility] Laboratory [address] [place] [address] Glucose Test [facility] Comment on above: Glucose Test Start: 09-25-2024 End: 09-25-2024 Patient encounter procedure 09/25/2024 1:30 PM EDT Routine Office Visit OB/Gynecology [address] [place] [address] Natasha Segura MD [address] [place] [address] OB Routine OB/Gynecology Comment on above: OB Routine Start: 09-20-2024 Nonstress test [facility] Start: 09-20-2024 Obstetric monitoring [facility] Start: 09-20-2024 Vital signs measurements [facility] Start: 09-20-2024 [facility] Start: 09-20-2024 Iv infusion hydratio n each additional hour HYDRATE IV INFUSION ADD-ON [facility] Start: 09-20-2024 Iv infusion therapy prophylaxis/dx ea hour [facility] Start: 09-20-2024 Iv infusion therapy/prophylaxis /dx 1st to 1 hr THER/PROPH/DIAG IV INF INIT [facility] Start: 09-20-2024 Patient discharge [facility] Start: 08-28-2024 End: 08-28-2024 Patient encounter procedure [facility] Comment on above: Anatomy Scan OB Routine Start: 07-31-2024 End: 07-31-2024 Patient encounter procedure 07/31/2024 9:50 AM EDT Routine Office Visit OB/Gynecology [address] [place] [address] Natasha Segura MD [address] [place] [address] OB Routine OB/Gynecology Comment on above: OB Routine Start: 07-02-2024 End: 07-02-2025 OBSTETRIC ULTRASOUND WHI OBSTETRIC ULTRASOUND [facility]I Anc Imaging Routine Supervision of high risk in first trimester AMA (advanced maternal age) multigravida 35+, first trimester 12 weeks gestation of Expected: 07/02/2024, Expires: 07/02/2025 [facility] Work Phone: Comment on above: Expected: 07/02/2024 , Expires: 07/02/2025 Start: 07-02-2024 End: 07-02-2024 Patient encounter procedure OB/Gynecology Comment on above: Est New OB Nuchal Start: 06-12-2024 End: 06-12-2024 Patient encounter procedure 06/12/2024 3:15 PM EST Routine Office Visit OB/Gynecology [address] [place] [id number] Sussy Landin APRN.CN [address] [place] [id number] OB OB/Gynecology Comment on above: OB Start: 06-01-2024 End: 08-31-2024 ANEMIA REFLEX PANEL ANEMIA REFLEX PANEL Lab Routine Nausea and vomiting in Expected: 06/01/2024, Expires: 08/31/2024 [facility] Work Phone: Comment on above: Expected: 06/01/2024 , Expires: 08/31/2024 Start: 06-01-2024 End: 08-31-2024 Hemoglobin A1c in Blood HEMOGLOBIN A1C Lab Routine Nausea and vomiting in Expected: 06/01/2024, Expires: 08/31/2024 [facility] Comment on above: Expected: 06/01/2024 , Expires: 08/31/2024 Start: 06-01-2024 End: 08-31-2024 Hepatitis B virus surface Ag [Presence] in Serum HEPATITIS B SURFACE ANTIGEN Lab Routine Nausea and vomiting in Expected: 06/01/2024, Expires: 08/31/2024 [facility] Comment on above: Expected: 06/01/2024 , Expires: 08/31/2024 Start: 06-01-2024 End: 08-31-2024 Hepatitis C virus Ab [Presence] in Serum HEPATITIS C ANTIBODY IA WITH CONFIRMATION Lab Routine Nausea and vomiting in Expected: 06/01/2024, Expires: 08/31/2024 [facility] Comment on above: Expected: 06/01/2024 , Expires: 08/31/2024 Start: 06-01-2024 End: 08-31-2024 HIV 1+2 Ab [Presence] in Serum or Plasma by Immunoassay HIV 1/2 COMBO WITH REFLEX TO DIFFERENTIATION Lab Routine Nausea and vomiting in Expected: 06/01/2024, Expires: 08/31/2024 [facility] Comment on above: Expected: 06/01/2024 , Expires: 08/31/2024 Start: 06-01-2024 End: 06-01-2025 OBSTETRIC ULTRASOUND WHI OBSTETRIC ULTRASOUND [facility]I Anc Imaging Routine 8 weeks gestation of Expected: 06/01/2024, Expires: 06/01/2025 [facility] Comment on above: Expected: 06/01/2024 , Expires: 06/01/2025 Start: 06-01-2024 End: 08-31-2024 RUBELLA IGG ANTIBODY RUBELLA IGG ANTIBODY Lab Routine Nausea and vomiting in Expected: 06/01/2024, Expires: 08/31/2024 [facility] Comment on above: Expected: 06/01/2024 , Expires: 08/31/2024 Start: 06-01-2024 End: 08-31-2024 SYPHILIS TREPONEMAL W/REFLEX SYPHILIS TREPONEMAL W/REFLEX Lab Routine Nausea and vomiting in Expected: 06/01/2024, Expires: 08/31/2024 [facility] Comment on above: Expected: 06/01/2024 , Expires: 08/31/2024 Start: 06-01-2024 End: 08-31-2024 Thyrotropin [Units/volume] in Serum or Plasma THYROID STIMULATING HORMONE Lab Routine 8 weeks gestation of Micheline's disease Expected: 06/01/2024, Expires: 08/31/2024 [facility] Comment on above: Expected: 06/01/2024 , Expires: 08/31/2024 Start: 06-01-2024 End: 08-31-2024 TYPE + SCREEN TYPE + SCREEN Blood Bank Routine Nausea and vomiting in Expected: 06/01/2024, Expires: 08/31/2024 [facility] Comment on above: Expected: 06/01/2024 , Expires: 08/31/2024 Start: 05-21-2024 End: 05-21-2025 US Pelvis transvaginal US pelvis transvaginal Imaging STAT Generalized abdominal pain Nausea with vomiting, unspecified Other specified abnormal findings of blood chemistry Expected: 05/21/2024, Expires: 05/21/2025 [facility] Work Phone: Comment on above: Expected: 05/21/2024 , Expires: 05/21/2025 Start: 01-12-2024 COVID-19 Vaccine ( season) COVID-19 Vaccine () [facility] Start: 01-12-2024 Influenza vaccination Influenza Vacc ine (#1) [facility] Start: 08-31-2023 [facility] Start: 01-11-2023 Influenza vaccination Influenza Vacc ine (#1) [facility] Start: 01-11-2022 Influenza vaccination Flu vaccine (# 1) [facility] Start: 2018 Screening for malign ant neoplasm of cervix [facility] Start: 10-28-2017 Screening for malign ant neoplasm of cervix Pap smear [facility] Start: 08-07-2015 HPV Vaccine (1 - 3-d ose SCDM series) HPV Vaccine (1 - 3-dose SCDM series) [facility] Start: 2009 Screening for malign ant neoplasm of cervix [facility] Start: 08-07-2007 Hepatitis B Vaccine (1 of 3 - 19+ 3-dose series) Hepatitis B Vaccine (1 of 3 - 19+ 3-dose series) [facility] Start: 08-07-2007 Hepatitis B Vaccines (1 of 3 - 19+ 3-dose series) Hepatitis B Vaccines (1 of 3 - 19+ 3-dose series) [facility] Start: 2006 Anxiety Screening Anxiety Screening [facility] Start: 2006 Depression Screening Depression Scre ening [facility] Start: 2006 Hepatitis C screening [facility] Start: 2006 HIV screening HIV Screening [facility] Start: 08-07-2003 HIV screening HIV screen [facility] Start: 2001 Varicella vaccination Varicell a Vaccines (1 of 2 - 13+ 2-dose series) [facility] Start: 2000 Depression Screen Depression Screen [facility] Start: 2000 Depression Screening Depression Scre ening [facility] Start: 1989 MMR Vaccines (1 of 1 - Standard series) MMR Vaccines (1 of 1 - Standard series) [facility] Start: 1989 Varicella vaccination Varicell a Vaccines (1 of 2 - 2-dose childhood series) [facility] Start: 1989 Varicella vaccine (1 of 2 - 2-dose childhood series) Varicella vaccine (1 of 2 - 2-dose childhood series) [facility] Start: 02-06-1989 COVID-19 Vaccine (#1) COVID-19 Vacci ne (#1) [facility] Start: 1988 Hepatitis B Vaccines (1 of 3 - 3-dose series) Hepatitis B Vaccines (1 of 3 - 3-dose series) [facility] Start: 1988 HIV screening HIV Screening [facility] jeffry Bacteria identified in Urine by Culture BACTERIAL CULTURE, URINE Microbiology Routine Nausea and vomiting in 06/01/2024 3:42 PM EST [facility] Chlamydia trachomatis+Neisseria gonorrhoeae DNA [Presence] in Unspecified specimen by KATHERIN with probe detection GONORRHEA/CHLAMYDIA NAAT Lab Routine Nausea and vomiting in 06/01/2024 3:42 PM [facility] PAP TEST PAP TEST Lab Rou nohemi Screening for cervical cancer 06/01/2024 3:42 PM [facility] Patient Education [facility] Work Phone: Patient referral [facility] Work Phone: ROUTINE, GR OUP B STREPTOCOCCUS BY PCR ROUTINE, GROUP B STREPTOCOCCUS BY PCR Microbiology Routine AMA (advanced maternal age) multigravida 35+, third trimester ([facility]) Supervision of high risk in third trimester ([facility]) Hypothyroidism, unspecified type Micheline's disease 36 weeks gestation of ([facility]) 12/14/2024 3:46 PM EDT [facility] Work Phone: Immunizations Immunization Date Immunization Notes Care Provider Fa manoj 10-22-2024 tetanus toxoid, redu raheem diphtheria toxoid, and acellular pertussis vaccine, adsorbed Natasha Segura MD Work Phone: [facility] 02-09-2021 influenza, injectabl e, quadrivalent, preservative free LYNDA HOWELL Work Phone: [facility] 02-09-2021 influenza, seasonal, injectable, preservative free Natasha Segura MD Work Phone: [facility] 02-09-2021 influenza virus vaccine, unspecified formulation Landy Fernandez MD Work Phone: [facility] 03-01-2016 tetanus toxoid, redu raheem diphtheria toxoid, and acellular pertussis vaccine, adsorbed Selam Arsenio SUPERVISOR [employer].SECURITY OPERATIONS ENGINEER Work Phone: [facility] Payers Date Payer Category Payer Medicaid [id number] 2024 Medicaid [id number] 2024 Self-pay [id number] 2021 Blue Cross Blue Shield BLUE ACCE SS PPO [id number] 2021 Blue Cross [place] [employer] Managed Care - [facility] [place] [id number] 2021 Unknown [id number] 2019 Unknown BCBS BCBS - [place] P [id number] 2019-Present [phone] [address] [place] [address] [id number] 2008 Unknown 1988 Unknown [id number]. 159 1988 Unknown [id number]. 159 1988 Unknown [id number] [id number]. 159 1988 Unknown [id number] [id number]. 159 1988 Unknown [id number]. 159 1988 Unknown [id number]. 159 1988 Unknown [id number] [id number]. 159 1988 Unknown [id number] [id number]. 159 Unknown [id number]. 462 Unknown [id number]. 462 Unknown [id number]. 462 Unknown [id number] 462 Unknown [id number] 462 Social History Date Type Detail Facility Start: 08-04-2015 End: 05-26-2024 Tobacco smoking status NHIS Never smoked tobacco [facility] Work Phone: Start: 08-04-2015 End: 05-26-2024 Tobacco use and exposure Smokeless tobacco non-user [employer] Phone: Start: 08-04-2015 End: 12-25-2024 Alcohol intake Current non-drinker of alcohol (finding) [facility] Work Phone: Start: 1990 Sex Assigned At Not on file [facility] Work Phone: Start: 01-04-2022 End: 01-14-2022 Exposure to SARS-CoV-2 (event) Not sure [facility] Work Phone: Start: 03-17-2023 End: 05-26-2024 Gender identity Not on file [facility] Start: 03-17-2023 End: 05-26-2024 History of Social function [facility] Start: 08-31-2023 Tobacco smoking stat us FLIS Unknown if ever smoked [facility] Start: 1990 Sex Assigned At Female W [facility] Start: 12-11-2021 Sex Female (finding) [facility] Start: 09-17-2015 National Score (1-10 0), lower number is lower risk 52 [facility] Start: 04-20-2024 [facility] Start: 05-28-2024 Sexual orientation Heterosexual (cristiana zhang) [facility] Goals Date Patient Goal Desired Activity /State Personal health goal Functional Status Date Assessment Result Facility 11-12-2024 Are you deaf, or do you have serious difficulty hearing No 11/12/2024 10:32 AM Carlotta Dickinson, SAYDA No [facility] 11-12-2024 Are you blind, or do you have serious difficulty seeing, even when wearing glasses No 11/12/2024 10:32 AM Carlotta Dickinson, SAYDA No [facility] 11-12-2024 Do you have serious difficulty walking or climbing stairs No 11/12/2024 10:32 AM Carlotta Dickinson, SAYDA No [facility] 11-12-2024 Do you have difficul ty dressing or bathing No 11/12/2024 10:32 AM Carlotta Dickinson, SAYDA No [facility] 11-12-2024 Because of a physica l, mental, or emotional condition, do you have difficulty doing errands alone such as visiting a physician's office or shopping No 11/12/2024 10:32 AM Carlotta Dickinson, SAYDA No [facility] 10-28-2024 Are you deaf, or do you have serious difficulty hearing No 10/28/2024 6:14 PM Barb Walters, SAYDA No [facility] 10-28-2024 Are you blind, or do you have serious difficulty seeing, even when wearing glasses No 10/28/2024 6:14 PM Barb Walters, SAYDA No [facility] 10-28-2024 Do you have serious difficulty walking or climbing stairs No 10/28/2024 6:14 PM Barb Walters, SAYDA No [facility] 10-28-2024 Do you have difficul ty dressing or bathing No 10/28/2024 6:14 PM Barb Walters, SAYDA No [facility] 10-28-2024 Because of a physica l, mental, or emotional condition, do you have difficulty doing errands alone such as visiting a physician's office or shopping No 10/28/2024 6:14 PM Barb Walters, SAYDA No [facility] 09-22-2024 Are you deaf, or do you have serious difficulty hearing No 09/22/2024 10:11 AM Ileana Evans, SAYDA No [facility] 09-22-2024 Are you blind, or do you have serious difficulty seeing, even when wearing glasses No 09/22/2024 10:11 AM Ileana Evans, SAYDA No [facility] 09-22-2024 Do you have serious difficulty walking or climbing stairs No 09/22/2024 10:11 AM Ileana Evans, SAYDA No [facility] 09-22-2024 Do you have difficul ty dressing or bathing No 09/22/2024 10:11 AM Ileana Evans, SAYDA No [facility] 09-22-2024 Because of a physica l, mental, or emotional condition, do you have difficulty doing errands alone such as visiting a physician's office or shopping No 09/22/2024 10:11 AM Ileana Evans, SAYDA No [facility] 05-08-2016 Are you deaf, or do you have serious difficulty hearing No 05/08/2016 2:18 PM Amber Driver RN No [facility] 05-08-2016 Are you blind, or do you have serious difficulty seeing, even when wearing glasses No 05/08/2016 2:18 PM Amber Driver RN No [facility] 05-08-2016 Do you have serious difficulty walking or climbing stairs No 05/08/2016 2:18 PM Amber Driver, SAYDA No [facility] 05-08-2016 Do you have difficul ty dressing or bathing No 05/08/2016 2:18 PM Amber Driver RN No [facility] 05-08-2016 Because of a physica l, mental, or emotional condition, do you have difficulty doing errands alone such as visiting a physician's office or shopping No 05/08/2016 2:18 PM Amber Driver RN No [facility] Mental Status Date Assessment Result Facility 11-12-2024 Because of a physica l, mental, or emotional condition, do you have serious difficulty concentrating, remembering, or making decisions No 11/12/2024 10:32 AM Carlotta Dickinson, SAYDA No [facility] 10-28-2024 Because of a physica l, mental, or emotional condition, do you have serious difficulty concentrating, remembering, or making decisions No 10/28/2024 6:14 PM Barb Walters, SAYDA No [facility] 09-22-2024 Because of a physica l, mental, or emotional condition, do you have serious difficulty concentrating, remembering, or making decisions No 09/22/2024 10:11 AM Ielana Evans, SAYDA No [facility] 05-08-2016 Because of a physica l, mental, or emotional condition, do you have serious difficulty concentrating, remembering, or making decisions No 05/08/2016 2:18 PM Amber Driver, SAYDA No [facility] Clinical Notes 12-23-2022 to 12-25-2024 Quick Notes - Natasha Segura MD - 12/25/2024 4:22 PM EDTPrenatal Quick Notes - Natasha Segura MD - 12/25/2024 4:22 PM EDTPatient Instructions Note Date & Type Note Facility 12-25-2024 Progress note Formatting of t his note [...] Gen: No apparent distress Abd: Gravid, nontender Breech C/s to be scheduled for 39 weeks ASSESSMENT/PLAN: 1. AMA (advanced maternal age) multigravida 35+, third trimester ([facility]) - ICD9: 659.63, ICD10: O09.523 (primary diagnosis) - URINE OB DIP B/O 2. Supervision of high risk in third trimester ([facility]) - ICD9: V23.9, ICD10: O09.93 - URINE OB DIP B/O 3. Hypothyroidism, unspecified type - ICD9: 244.9, ICD10: E03.9 - URINE OB DIP B/O 4. Micheline's disease - ICD9: 245.2, ICD10: E06.3 - URINE OB DIP B/O 5. Vaginal bleeding in , third trimester ([facility]) - ICD9: 641.93, ICD10: O46.93 - URINE OB DIP B/O 6. 37 weeks gestation of ([facility]) - ICD9: V22.2, ICD10: Z3A.37 - URINE OB DIP B/O Natasha Segura MD [facility] 12-25-2024 Miscellaneous Notes Formattin g of this note might be different from the original. S: Kathy Hester is a 34 year old female who presents at 01/11/2025, by Ultrasound for a routine visit. Denies headache, visual changes, chest pain, shortness of breath, vaginal bleeding, leakage of fluid, or dysuria. Feeling well, no complaints. Good movement, No contractions O: See flow sheet Gen: No apparent distress Abd: Gravid, nontender Breech C/s to be scheduled for 39 weeks ASSESSMENT/PLAN: 1. AMA (advanced maternal age) multigravida 35+, third trimester ([facility]) - ICD9: 659.63, ICD10: O09.523 (primary diagnosis) - URINE OB DIP B/O 2. Supervision of high risk in third trimester ([facility]) - ICD9: V23.9, ICD10: O09.93 - URINE OB DIP B/O 3. Hypothyroidism, unspecified type - ICD9: 244.9, ICD10: E03.9 - URINE OB DIP B/O 4. Micheline's disease - ICD9: 245.2, ICD10: E06.3 - URINE OB DIP B/O 5. Vaginal bleeding in , third trimester ([facility]) - ICD9: 641.93, ICD10: O46.93 - URINE OB DIP B/O 6. 37 weeks gestation of ([facility]) - ICD9: V22.2, ICD10: Z3A.37 - URINE OB DIP B/O Natasha Segura MD documented in this encounter [facility] 12-25-2024 Instructions Anjelica Gore MA - 12/25/2024 9:35 AM EDT SEQUENTIAL SCREENINGS The [facility] offers sequential screenings for women who [...] It will require an appointment with our mechanical laboratory technician. This is not an ultrasound performed [...] the above symptoms, contact our office at [phone] and ask to speak with a nurse. After hours, you can call doctors registry at [phone] OR call [facility] at [phone] and ask to have the doctor industrial relations commissioner paged. If you consider this an emergency, dial 1-2-7 or go to your nearest emergency department. NEED HELP? Are you dealing with a violent or abusive relationship? Are you a victim of rape or sexual assult? Call [facility] ([place]) 24 hour Crisis Hotline: 773.748.4616 or 860-331-8607. MANUAL Your Guide to a Healthy manual is now on-line. 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 Ephraim Boyd DO Status:RE G CLI Location: [id number] HPI - General General Date of Admission: 12/24/24 Date of Service: 12/24/24 Chief Complaint: presents for scheduled version HPI Narrative KATHY HESTER, is a 34 F who presents for a scheduled ECV. She is having irregular but painful ctx's. No vb, lof. Good FM. PFSH PFSH Medical History Polycystic ovarian syndrome Eczema Hx of Micheline thyroiditis Hay fever Home Medications ?Medication ?Instructions ?Recorded ?Last Taken ?Type levothyroxine 13 mcg capsule 50 mcg PO DAILY micheline s 04/04/21 12/24/24 History ondansetron HCl 4 mg tablet 4 mg PO 4X/DAY 09/20/24 History vit no.95-ferrous 1 tab PO DAILY 09/20/24 History fumarate 28 mg-folic acid 800 mcg tablet () promethazine 12.5 mg tablet 25 mg PO QHS 09/20/24 05/06/06 History Allergy/AdvReac Type Severity Reaction Status Date / Time amoxicillin Allergy Severe Hives Verified 12/24/24 11:17 tree nut (tree nuts) Allergy Intermediate Other Verified 12/24/24 11:17 latex Allergy Unknown hives Verified 12/24/24 11:17 Penicillins Allergy Unknown rash Verified 12/24/24 11:17 ethanolamine Allergy Anaphylaxis Verified 12/24/24 11:17 Influenza Virus Vaccines AdvReac Unknown Rash Verified 12/24/24 11:17 (flu shot) Family History Other Asthma Breast cancer Surgical History Hx of cholecystectomy Hx of appendectomy Social History Smoking Status: Never smoker History 2 Elective abortions Hx Para 1 Spontaneous abortions Hx # Term Pregnancies Ectopic pregnancies Hx # Pregnancies Multiple births # of living children NST FHR Rate Baby A Baseline: 140 Variability:: Moderate Accelerations:: 15 x 15 Decelerations:: None NST Reactive:: Yes FHR Category:: Category I Uterine Activity:: ctx's q 4-6 min Vital Signs Vital Signs Vital Signs: 12/24/24 11:06 12/24/24 11:06 12/24/24 11:06 Temperature Temperature Source Temporal Pulse Rate 82 Respiratory Rate Blood Pressure 105/66 BP Systolic 105 BP Diastolic 66 12/24/24 11:06 12/24/24 11:06 Temperature 97.6 F L Temperature Source Pulse Rate Respiratory Rate 16 Blood Pressure BP Systolic BP Diastolic Weight Weight: 200 lb 8 oz Body Mass Index (BMI) 31.4 Physical Exam Const alert and no apparent distress General Appearance: comfortable HEENT normocephalic Resp normal respiratory effort GI soft to palpation GI Narrative: Gravid Narrative: Cervix 2-3 cm externally but 1 cm internally Patient reports she was told she was 3 cm at [facility] at 28 weeks, and antmagalifili was told she was 1 cm in the office about 1 week ago Labs Labs Labs: Blood Type O POSITIVE Antibody Screen NEGATIVE Hct 38.2 % (37-47) Hgb 13.1 g/dL (12.0-15.0) VZV IgG Antibody 1281 index (Immune >165) Rubella IgG Antibody Reactive (Nonreactive) Assessment & Plan (1) 37 weeks gestation of : PLAN: FHT reactive and reassuring (2) Breech presentation: PLAN: Bedside TAUS confirms breech presentation (3) Uterine contractions: PLAN: Cvx 1 cm internally. IVF bolus started. Will recheck in 2 hours. Discussedwith patient to have a low thresh hold to come in to L&D with contractions if she does not make cervical change given breech, and possible emergency. Discussed r/b/a ECV and patient declines. She is requesting to proceed with a primary section with tubal sterilization at 39 weeks or sooner if indicated. We discussed r/b/a section and reviewed recovery as well. All questions answered. The patient was well counseled and does not want the scheduled ECV. She has an appointment tomorrow in the office 12/24/24 3937 <Electronically signed by Jurgen Richmond DO> Cosigner Signature (if applicable): CC: Dr. Ephraim Boyd DO; Dr. 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 pEhraim Boyd DO Status:RE G CLI Location: [id number] HPI - General General Date of Admission: 12/24/24 Date of Service: 12/24/24 Chief Complaint: presents for scheduled version HPI Narrative KATHY HESTER, is a 34 F who presents for a scheduled ECV. She is having irregular but painfulctx's. No vb, lof. Uziel FM. PFS PFS Medical History Polycystic ovarian syndrome Eczema Hx of Micheline thyroiditis Hay fever Home Medications ?Medication ?Instructions ?Recorded ?Last Taken ?Type levothyroxine 13 mcg capsule 50 mcg PO DAILY micheline s 04/04/21 12/24/24 History ondansetron HCl 4 mg tablet 4 mg PO 4X/DAY 09/20/24 History vit no.95-ferrous 1 tab PO DAILY 09/20/24 History fumarate 28 mg-folic acid 800 mcg tablet () promethazine 12.5 mg tablet 25 mg PO QHS 09/20/24 05/06/06 History Allergy/AdvReac Type Severity Reaction Status Date / Time amoxicillin Allergy Severe Hives Verified 12/24/24 11:17 tree nut (tree nuts) Allergy Intermediate Other Verified 12/24/24 11:17 latex Allergy Unknown hives Verified 12/24/24 11:17 Penicillins Allergy Unknown rash Verified 12/24/24 11:17 ethanolamine Allergy Anaphylaxis Verified 12/24/24 11:17 Influenza Virus Vaccines AdvReac Unknown Rash Verified 12/24/24 11:17 (flu shot) Family History Other Asthma Breast cancer Surgical History Hx of cholecystectomy Hx of appendectomy Social History Smoking Status: Never smoker History 2 Elective abortions Hx Para 1 Spontaneous abortions Hx # Term Pregnancies Ectopic pregnancies Hx # Pregnancies Multiple births # of living children NST FHR Rate Baby A Baseline: 140 Variability:: Moderate Accelerations:: 15 x 15 Decelerations:: None NST Reactive:: Yes FHR Category:: Category I Uterine Activity:: ctx's q 4-6 min Vital Signs Vital Signs Vital Signs: 12/24/24 11:06 12/24/24 11:06 12/24/24 11:06 Temperature Temperature Source Temporal Pulse Rate 82 Respiratory Rate Blood Pressure 105/66 BP Systolic 105 BP Diastolic 66 12/24/24 11:06 12/24/24 11:06 Temperature 97.6 F L Temperature Source Pulse Rate Respiratory Rate 16 Blood Pressure BP Systolic BP Diastolic Weight Weight: 200 lb 8 oz Body Mass Index (BMI) 31.4 Physical Exam Const alert and no apparent distress General Appearance: comfortable HEENT normocephalic Resp normal respiratory effort GI soft to palpation GI Narrative: Gravid Narrative: Cervix 2-3 cm externally but 1 cm internally Patient reports she was told she was 3 cm at [facility] at 28 weeks, and sirena was told she was 1 cm in the office about 1 week ago Labs Labs Labs: Blood Type O POSITIVE Antibody Screen NEGATIVE Hct 38.2 % (37-47) Hgb 13.1 g/dL (12.0-15.0) VZV IgG Antibody 1281 index (Immune >165) Rubella IgG Antibody Reactive (Nonreactive) Assessment & Plan (1) 37 weeks gestation of : PLAN: FHT reactive and reassuring (2) Breech presentation: PLAN: Bedside TAUS confirms breech presentation (3) Uterine contractions: PLAN: Cvx 1 cm internally. IVF bolus started. Will recheck in 2 hours. Discussedwith patient to have a low thresh hold to come in to L&D with contractions if she does not make cervical change given breech, and possible emergency. Discussed r/b/a ECV and patient declines. She is requesting to pro ceed with a primary section with tubal sterilization at 39 weeks or sooner if indicated. We discussed r/b/a section and reviewed recovery as well. All questions answered. The patient was well counseled and does not want the scheduled ECV. She has an appointment tomorrow in the office 12/24/24 1244 Cosigner Signature (if applicable): CC: Dr. Ephraim Boyd, DO; Dr. Jurgen Richmond, DO~ Signed [facility]08-04-2025 Progress note* Quick Notes - Sussy Landin APRN.CNM - 12/14/2024 3:14 PM EDT S: Kathy Hester is a 34 year old female who presents at 36 weeks gestation for a routine visit. Positive movements. C/O irregular contractions. Denies headache, visual changes, chest pain, shortness of breath, vaginal bleeding, leakage of fluid, or dysuria. O: See flow sheet Gen: No apparent distress Abd: Gravid, non tender TAUS- Complete Breech- verified by Marquis Hilton ASSESSMENT/PLAN: 1. Supervision of high risk in third trimester 2. AMA (advanced maternal age) multigravida 35+, third trimester 3. Hypothyroidism, unspecified type 4. Micheline's disease 5. 36 weeks gestation of 6. Breech - Patient counseled on ECV vs. Primary C/S- patient requesting ECV at 37 weeks gestation - Will assist with scheduling - URINE OB DIP B/O - ROUTINE, GROUP B STREPTOCOCCUS BY PCR - RTO 1 week or sooner if needed Sussy Landin APRN.CNM P: 1) PTL precautions reviewed and when to call 2) RTO [facility]08-04-2025 Miscellaneous Notes* Quick Notes - Sussy Landin APRN.CNM - 12/14/2024 3:14 PM EDT S: Kathy Hester is a 34 year old female who presents at 36 weeks gestation for a routine visit. Positive movements. C/O irregular contractions. Denies headache, visual changes, chest pain, shortness of breath, vaginal bleeding, leakage of fluid, or dysuria. O: See flow sheet Gen: No apparent distress Abd: Gravid, non tender TAUS- Complete Breech- verified by Marquis Hilton ASSESSMENT/PLAN: 1. Supervision of high risk in third trimester 2. AMA (advanced maternal age) multigravida 35+, third trimester 3. Hypothyroidism, unspecified type 4. Micheline's disease 5. 36 weeks gestation of 6. Breech - Patient counseled on ECV vs. Primary C/S- patient requesting ECV at 37 weeks gestation - Will assist with scheduling - URINE OB DIP B/O - ROUTINE, GROUP B STREPTOCOCCUS BY PCR - RTO 1 week or sooner if needed Sussy Landin APRN.CNM P: 1) PTL precautions reviewed and when to call 2) RTO [facility] Instructions* Patient Instructions* Terry Barahona LPN - 12/14/2024 2:59 PM EDT SEQUENTIAL SCREENINGS The [facility] offers sequential screenings for women who [...] testing. It will require an appointment withour mechanical laboratory technician. This is not an ultrasound performed [...] the above symptoms, contact our office at [phone] and ask to speak with anurse. After hours, you can call doctors registry at [phone] OR call [facility] at [phone] ask to have the doctor industrial relations commissioner paged. If you consider this an emergency, dial 9-1-3 or go to your nearest emergency department. NEED HELP? Are you dealing with a violent or abusive relationship? Are you a victim of rape or sexual assult? Call [facility] ([place]) 24 hour Crisis Hotline: 454.164.1124 or 189-596-6602. MANUAL Your Guide to a Healthy manual is now on-line. Visit [email or web address] to download your free copy [facility] Telephone encounter Note * Telephone Encounter - Natasha Chandler RN - 12/10/2024 10:55 AM EDT Charge nurse notified. Natasha Chandler RN [facility]07-31-2025 Miscellaneous Notes* Telephone Encounter - Natasha Chandler RN - 12/10/2024 10:55 AM EDT Charge nurse notified. Natasha Chandler RN * Telephone Encounter - Natasha Chandler RN - 12/10/2024 10:38 AM EDT 35w3d Patient called with c/o painful contractions every 10 min for the last hour. Contractions lasting 2-3 min. Pain rate of 6-7/10. Patient needed to stop and breathe through a contraction while on phonewith a nurse. Also states that she is squirting fluid. Unsure if it's amniotic fluid or vaginal discharge. Spoke with MADELEINE. Advised patient go to L&D as provider may get called out for a delivery. Attempted to notify L&D. Charge nurse will call back. Updated H&P faxed. Natasha Chandler RN [facility] Telephone encounter Note * Telephone Encounter - Natasha Chandler RN - 12/10/2024 10:38 AM EDT 35w3d Patient called with c/o painful contractions every 10 min for the last hour. Contractions lasting 2-3 min. Pain rate of 6-7/10. Patient needed to stop and breathe through a contraction while on phonewith a nurse. Also states that she is squirting fluid. Unsure if it's amniotic fluid or vaginal discharge. Spoke with MADELEINE. Advised patient go to L&D as provider may get called out for a delivery. Attempted to notify L&D. Charge nurse will call back. Updated H&P faxed. Natasha Chandler RN [facility]07-28-2025 Progress note* Quick Notes - Natasha Segura MD - 12/07/2024 1:11 PM EDT S: Kathy Hester is a 34 year old female who presents at 01/11/2025, by Ultrasound for a routine visit. Denies headache, visual changes, chest pain, shortness of breath, vaginal bleeding, leakage of fluid, or dysuria. Feeling well, no complaints. Good movement, BH contractions. Brown dischargeno bleeding. O: See flow sheet Gen: No apparent distress Abd: Gravid, nontender ASSESSMENT/PLAN: 1. AMA (advanced maternal age) multigravida 35+, third trimester ([facility]) - ICD9: 659.63, ICD10: O09.523 (primary diagnosis) - URINE OB DIP B/O 2. Supervision of high risk in third trimester ([facility]) - ICD9: V23.9, ICD10: O09.93 - URINE OB DIP B/O 3. Hypothyroidism, unspecified type - ICD9: 244.9, ICD10: E03.9 - URINE OB DIP B/O 4. Micheline's disease - ICD9: 245.2, ICD10: E06.3 TrAB done - URINE OB DIP B/O 5. 35 weeks gestation of ([facility]) - ICD9: V22.2, ICD10: Z3A.35 - URINE OB DIP B/O 6. Vaginal bleeding in , third trimester ([facility]) - ICD9: 641.93, ICD10: O46.93 Brown discharge. Natasha Segura MD [facility]07-28-2025 Miscellaneous Notes* Quick Notes - Natasha Segura MD - 12/07/2024 1:11 PM EDT S: Kathy Hester is a 34 year old female who presents at 01/11/2025, by Ultrasound for a routine visit. Denies headache, visual changes, chest pain, shortness of breath, vaginal bleeding, leakage of fluid, or dysuria. Feeling well, no complaints. Good movement, BH contractions. Brown dischargeno bleeding. O: See flow sheet Gen: No apparent distress Abd: Gravid, nontender ASSESSMENT/PLAN: 1. AMA (advanced maternal age) multigravida 35+, third trimester ([facility]) - ICD9: 659.63, ICD10: O09.523 (primary diagnosis) - URINE OB DIP B/O 2. Supervision of high risk in third trimester ([facility]) - ICD9: V23.9, ICD10: O09.93 - URINE OB DIP B/O 3. Hypothyroidism, unspecified type - ICD9: 244.9, ICD10: E03.9 - URINE OB DIP B/O 4. Micheline's disease - ICD9: 245.2, ICD10: E06.3 TrAB done - URINE OB DIP B/O 5. 35 weeks gestation of ([facility]) - ICD9: V22.2, ICD10: Z3A.35 - URINE OB DIP B/O 6. Vaginal bleeding in , third trimester ([facility]) - ICD9: 641.93, ICD10: O46.93 Brown discharge. Natasha Segura MD documented in this encounter[facility]07-[facility]25 Instructions* Patient Instructions* Anjelica Gore MA - 12/07/2024 11:23 AM EDT SEQUENTIAL SCREENINGS The [facility] offers sequential screenings for women who [...] testing. It will require an appointment withour mechanical laboratory technician. This is not an ultrasound performed [...] the above symptoms, contact our office at [phone] and ask to speak with anurse. After hours, you can call doctors registry at [phone] OR call [facility] at [phone] ask to have the doctor industrial relations commissioner paged. If you consider this an emergency, dial 9-1-7 or go to your nearest emergency department. NEED HELP? Are you dealing with a violent or abusive relationship? Are you a victim of rape or sexual assult? Call [facility] ([facility] 24 hour Crisis Hotline: 858.531.8422 or 001-643-6262. MANUAL Your Guide to a Healthy manual is now on-line. Visit [email or web address] to download your free copy documented in this encounter[facility]07-[facility]-2025 Progress note* Quick Notes - Sussy Landin APRN.CNM - 11/30/2024 10:11 AM EDT S: Kathy Hester is a 34 year old female who presents at 34 weeks gestation for a routine visit. Seen in L&D last night for contractions and leaking fluid. ROM plus- negative. Urine negative. labor ruled out. Positive movements. Denies any further leaking or vaginal bleeding. Denies headache, visual changes, chest pain, shortness of breath, vaginal bleeding, leakage of fluid, or dysuria. O: See flow sheet Gen: No apparent distress Abd: Gravid, nontender ASSESSMENT/PLAN: 1. Supervision of high risk in third trimester 2. AMA (advanced maternal age) multigravida 35+, third trimester 3. 34 weeks gestation of 4. Micheline's Disease - Continue Synthroid 50 mcg PO daily - TSH/T4 levels today- not done in over 30 days - PCP managing thyroid - Continue vitamin and ASA - PTL precautions reviewed and when to call office - RTO 1 week or sooner if needed Sussy Landin APRN.CNM [facility]07-21-2025 Miscellaneous Notes* Quick Notes - Sussy Landin APRN.CNM - 11/30/2024 10:11 AM EDT S: Kathy Hester is a 34 year old female who presents at 34 weeks gestation for a routine visit. Seen in L&D last night for contractions and leaking fluid. ROM plus- negative. Urine negative. labor ruled out. Positive movements. Denies any further leaking or vaginal bleeding. Denies headache, visual changes, chest pain, shortness of breath, vaginal bleeding, leakage of fluid, or dysuria. O: See flow sheet Gen: No apparent distress Abd: Gravid, nontender ASSESSMENT/PLAN: 1. Supervision of high risk in third trimester 2. AMA (advanced maternal age) multigravida 35+, third trimester 3. 34 weeks gestation of 4. Micheline's Disease - Continue Synthroid 50 mcg PO daily - TSH/T4 levels today- not done in over 30 days - PCP managing thyroid - Continue vitamin and ASA - PTL precautions reviewed and when to call office - RTO 1 week or sooner if needed Sussy Landin APRN.CNM documented in this encounterMer[facility]07-[facility]-2025 Instructions* Patient Instructions* Terry Barahona LPN - 11/30/2024 9:50 AM EDT SEQUENTIAL SCREENINGS The [facility] offers sequential screenings for women who [...] testing. It will require an appointment withour mechanical laboratory technician. This is not an ultrasound performed [...] the above symptoms, contact our office at [phone] and ask to speak with anurse. After hours, you can call doctors registry at [phone] OR call [facility] at [phone] ask to have the doctor industrial relations commissioner paged. If you consider this an emergency, dial 9-1-1 or go to your nearest emergency department. NEED HELP? Are you dealing with a violent or abusive relationship? Are you a victim of rape or sexual assult? Call [facility] ([place]) 24 hour Crisis Hotline: 983.844.8192 or 071-977-9107. MANUAL Your Guide to a Healthy manual is now on-line. Visit [email or web address] to download your free copy documented in this encounterMer[facility]07-[facility]-2025 Progress note* Quick Notes - Natasha Segura MD - 11/16/2024 9:32 AM EDT S: Kathy Hester is a 34 year old female who presents at 01/11/2025, by Ultrasound for a routine visit. Denies headache, visual changes, chest pain, shortness of breath, leakage of fluid, or dysuria. Feeling well, no complaints. Good movement, No contractions O: See flow sheet Gen: No apparent distress Abd: Gravid, nontender Admitted for a week at [facility] for bleeding. Source unknown. Cervix not changed. Brown discharge now Getting TrAB done. ASSESSMENT/PLAN: 1. 32 weeks gestation of ([facility]) - ICD9: V22.2, ICD10: Z3A.32 (primary diagnosis) 2. AMA (advanced maternal age) multigravida 35+, second trimester ([facility]) - ICD9: 659.63, ICD10: O09.522 3. Supervision of high risk in second trimester ([facility]) - ICD9: V23.9, ICD10: O09.92 Natasha Segura MD [facility]07-07-[facility] Miscellaneous Notes* Quick Notes - Natasha Sgeura MD - 11/16/2024 9:32 AM EDT S: Kathy Hester is a 34 year old female who presents at 01/11/2025, by Ultrasound for a routine visit. Denies headache, visual changes, chest pain, shortness of breath, leakage of fluid, or dysuria. Feeling well, no complaints. Good movement, No contractions O: See flow sheet Gen: No apparent distress Abd: Gravid, nontender Admitted for a week at [facility] for bleeding. Source unknown. Cervix not changed. Brown discharge now Getting TrAB done. ASSESSMENT/PLAN: 1. 32 weeks gestation of ([facility]) - ICD9: V22.2, ICD10: Z3A.32 (primary diagnosis) 2. AMA (advanced maternal age) multigravida 35+, second trimester ([facility]) - ICD9: 659.63, ICD10: O09.522 3. Supervision of high risk in second trimester ([facility]) - ICD9: V23.9, ICD10: O09.92 Natasha Segura MD documented in this encounterMer[facility]07-07-2025 Instructions* Patient Instructions* Aretha Gorman MA - 11/16/2024 9:12 AM EDT SEQUENTIAL SCREENINGS The [facility] offers sequential screenings for women who [...] testing. It will require an appointment withour mechanical laboratory technician. This is not an ultrasound performed [...] the above symptoms, contact our office at [phone] and ask to speak with anurse. After hours, you can call doctors registry at [phone] OR call [facility] at [phone] ask to have the doctor industrial relations commissioner paged. If you consider this an emergency, dial or go to your nearest emergency department. NEED HELP? Are you dealing with a violent or abusive relationship? Are you a victim of rape or sexual assult? Call [facility] ([place]) 24 hour Crisis Hotline: 611.989.9969 or 300-339-4374. MANUAL Your Guide to a Healthy manual is now on-line. Visit [email or web address] to download your free copy documented in this encounterMer[facility] NoteHNO ID: [id number] Author: CARLOTTA BELTRAN RN Service: Obstetrics Author [...] NST OBJECTIVE FINDINGS PER NURSE: Start Time: 0808 (11/12/24 0800 : Carlotta Beltran, RN) Complete Time: 0850 (11/12/24 0800 : Carlotta Beltran, RN) Indications: Other: Comment (inpatient, vag bleed) (11/12/24799 : Carlotta Beltran RN) Patient Reason For: NST Explanation: Procedure Explained, Monitor Explained, Verbalizes Understanding (11/12/24799 : Carlotta Beltran RN) Acoustic Stimulator: Interventions: MONITORING/ASSESSMENT: Baseline: 135 bpm (11/12/24799 : Carlotta Beltran RN) Variability: Moderate (6-25 bpm) (11/12/24799 : Carlotta Beltran RN) Accelerations: Present (11/12/24799 : Carlotta Beltran RN) Decelerations: Decelerations: None (11/12/24799 : Carlotta Beltran RN) Contractions: Not present (11/12/24799 : Carlotta Beltran RN) Frequency: Above information forwarded to yolette (11/12/24799 : Carlotta Beltran RN) for final review and interpretation. SIGNATURE: Carlotta Beltran RN PATIENT NAME: Kathy Hester DATE: November 12, 2024 TIME: 10:09 [facility]07-03-2025 NoteHNO ID: [id number] Author: YAKELIN VENTURA DO Service: Maternal Medicine [...] and maternal status, anticipate discharge 11/12 Prematurity ([facility]) - Vertex - tracing reactive without contractions [...] NAME: Kathy Hester DATE: 11/12/2024 TIME: 9:42 [facility]07-02-2025 NoteHNO ID: [id number] Author: DANIEL BULLOCK RN Service: Nursing Author [...] Explanation: Acoustic Stimulator: No (11/11/24837 : Daniel Bullock, SAYDA) Interventions: Other (See Comment) (none) (11/11/24837 : Daniel Bullock, SAYDA) MONITORING/ASSESSMENT: Baseline: 125 bpm (11/11/24837 : Daniel Bullock, SAYDA) Variability: Moderate (6-25 bpm) (11/11/24837 : Daniel Bullock RN) Accelerations: Present (11/11/24837 : Daniel Bullock RN) Decelerations: Decelerations: None (11/11/24837 : Daniel Bullock RN) Contractions: Not present (11/11/24837 : Daniel Bullokc RN) Frequency: Above information forwarded to Dr. Osorio (11/11/24837 : Daniel Bullock RN) for final review and interpretation. SIGNATURE: Daniel Bullock RN PATIENT NAME: Kathy Hester DATE: November 11, 2024 TIME: 8:52 [facility]07-02-2025 NoteHNO ID: [id number] Author: YAKELIN VENTURA DO Service: Maternal Medicine [...] and maternal status, anticipate discharge 11/12 Prematurity ([facility]) - Vertex - tracing reactive without contractions [...] NAME: Kathy Hester DATE: 11/11/2024 TIME: 5:35 [facility]07-01-2025 NoteHNO ID: [id number] Author: ANA HERRERA MD Service: Obstetrics Author [...] NST OBJECTIVE FINDINGS PER NURSE: Start Time: 639 (11/10/24713 : Su Delatorre RN) Complete Time: 656 (11/10/24713 : Su Delatorre RN) Indications: Other: Comment (vag bleed) (11/10/24713 : Su Delatorre RN) Patient Reason For: to monitor the baby (11/10/24713 : Su Delatorre RN) NST Explanation: Procedure Explained, Monitor Explained, Verbalizes Understanding (11/10/24713 : Su Delatorre RN) Acoustic Stimulator: No (11/10/24713 : Su Delatorre RN) Interventions: Other (See Comment) (none) (11/10/24713 : Su Delatorre RN) MONITORING/ASSESSMENT: Baseline: 120 bpm (11/10/24656 : Su Delatorre RN) Variability: Moderate (6-25 bpm) (11/10/24656 : Su Delatorre RN) Accelerations: Present (11/10/24656 : Su Delatorre RN) Decelerations: Decelerations: None (11/10/24656 : Su Delatorre, SAYDA) Contractions: Not present (11/10/2457 : Su Delatorre, SAYDA) Frequency: Above information forwarded to Dr. Herrera (11/10/2414 : Su Delatorre, SAYDA) for final review and interpretation. SIGNATURE: Su Delatorre RN PATIENT NAME: Kathy Hester DATE: November 10, 2024 TIME: 7:20 AM PROVIDER INTERPRETATION: Reactive SIGNATURE: Ana Herrera MD DATE: November 10, 2024 TIME: 2:01 [facility]07-01-2025 NoteHNO ID: [id number] Author: ROSY RUSH MD Service: Maternal Medicine [...] SIGNATURE: Rosy Rush MD PATIENT NAME: Kathy Hetser DATE: November 10, 2024 TIME: 4:13 [facility]06-30-2025 NoteHNO ID: [id number] Author: AURY LÓPEZ MD Service: Obstetrics Author Type: Resident Type: Progress Notes Filed: 11/09/2024 23:26 Note Text: Pt was feeling intermittent tightening in her back. Placed on the monitor for 20 min. OLC424/moderate/+accels/no decelerations. Contraction x1. Aury López MD OBGYN PGY-4 Pager #[phone] November 09, 2024 11:25 [facility]06-30-2025 NoteHNO ID: [id number] Author: JOE OSORIO MD Service: Maternal Medicine [...] 10:17 AM 34 year old EGA:31w0d admitted 09/20 and 10/19 with threatened labor, [...] Hester DATE: November 09, 2024 TIME: 10:17 [facility]06-30-2025 NoteHNO ID: [id number] Author: ERASTO PERAZA DO Service: Nursing Author Type: Physician Type: Procedures Filed: 11/09/2024 06:17 Note Text: OBSTETRICS NST SUMMARY SERVICE DATE: November 09, 2024 The patient is a 34 year old female, , who is at 31w0d with an GASPER of 01/11/2025, by Ultrasound dating method. NST OBJECTIVE FINDINGS PER NURSE: Start Time: 05 (11/09/24 0550 : Dulce Mcgowan, RN) Complete Time: 0550 (11/09/24 0550 : Dulce Mcgowan, RN) Indications: Other: Comment (vag bleed) (11/09/24 0550 : Dulce Mcgowan, RN) Patient Reason For: monitor baby (11/09/24 0550 : Dulce Mcgowan, RN) NST Explanation: Procedure Explained, Monitor Explained, Verbalizes Understanding (11/09/24 0550 : Dulce Mcgowan RN) Acoustic Stimulator: No (11/09/24 0550 : Dulce Mcgowan RN) Interventions: MONITORING/ASSESSMENT: Baseline: 130 bpm (11/09/24 0550 : Dulce Mcgowan RN) Variability: Moderate (6-25 bpm) (11/09/24 0550 : Dulce Mcgowan RN) Accelerations: Present (11/09/24 0550 : Dulce Mcgowan RN) Decelerations: Decelerations: None (11/09/24 0550 : Dulce Mcgowan RN) Contractions: Not present (11/09/24 0550 : Dulce Mcgowan RN) Frequency: Above information forwarded to Vin (11/09/24 0550 : Dulce Mcgowan RN) for final review and interpretation. PROVIDER INTERPRETATION: Reactive SIGNATURE: Erasto Peraza DO DATE: November 09, 2024 TIME: 6:17 AM SIGNATURE: Dulce Mcgowan RN PATIENT NAME: Kathy Hester DATE: November 09, 2024 TIME: 5:52 [facility]06-29-2025 NoteHNO ID: [id number] Author: MIGUEL CACERES MD Service: Maternal Medicine [...] then would like to be transferred to [place] for further inpatient stay until delivery. Signature: [...] - SVE unchanged from last admission at 3/60/-3 - Admission hgb and fibrinogen stable, low [...] Hester DATE: November 08, 2024 TIME: 1:05 [facility]06-29-2025 NoteHNO ID: [id number] Author: YAKELIN OSUNA, SAYDA Service: Nursing Author Type: Registered Nurse Type: Procedures Filed: 11/08/2024 10:45 Note Text: Attestation signed by Sonia Sousa MD at 11/08/2024 11:24 AM PROVIDER INTERPRETATION: Reactive SIGNATURE: Sonia Sousa MD DATE: November 08, 2024 TIME: 11:24 AM OBSTETRICS NST SUMMARY SERVICE DATE: November 08, 2024 The patient is a 34 year old female, , who is at 30w6d with an GASPER of 01/11/2025, by Ultrasound dating method. NST OBJECTIVE FINDINGS PER NURSE: Start Time: 939 (11/08/24 1030 : Yakelin Osuna, RN) Complete Time: 1030 (11/08/24 1030 : Yakelin Osnua, RN) Indications: Other: Comment (vaginal bleedng) (11/08/24 1030 : Yakelin Osuna RN) Patient Reason For: monitor (11/08/24 1030 : [...] Osuna RN) Accelerations: Present (11/08/24 1030 : Yakelin Osuna RN) Decelerations: Decelerations: None (11/08/24 1030 : Yakelin Osuna RN) Contractions: Not present (11/08/24 1030 : Yakelin Osuna RN) Frequency: Above information forwarded to Dr. Sousa (11/08/24 1030 : Yakelin Osuna RN) for final review and interpretation. SIGNATURE: Yakelin Osuna RN PATIENT NAME: Kathy Hester DATE: November 08, 2024 TIME: 10:45 [facility]06-28-2025 NoteHNO ID: [id number] Author: MIGUEL CACERES MD Service: Maternal Medicine [...] - SVE unchanged from last admission at 3/60/-3 - Admission hgb and fibrinogen stable, low [...] Hester DATE: November 07, 2024 TIME: 10:31 [facility]06-28-2025 NoteHNO ID: [id number] Author: MAX CÁRDENAS MD Service: Nursing Author [...] : Ileana Alas RN) Complete Time: 938 (11/07/24 09 : Ileana Alas RN) Indications: Other: Comment (vb) (11/07/24938 : Ileana Alas RN) Patient Reason For: NST Explanation: Procedure Explained, Monitor Explained, Verbalizes Understanding (11/07/24938 : Ileana Alas RN) Acoustic Stimulator: Interventions: MONITORING/ASSESSMENT: Baseline: 130 bpm (11/07/24938 : Ileana Alas RN) Variability: Moderate (6-25 bpm) (11/07/24938 : Ileana Alas RN) Accelerations: Present (11/07/24 : Ileana Alas RN) Decelerations: Decelerations: None (11/07/24938 : Ileana Alas RN) Contractions: Not present (11/07/24 : Ileana Alas RN) Frequency: Above information forwarded to wil (11/07/24938 : Ileana Alas RN) for final review and interpretation. SIGNATURE: Ileana Alas RN PATIENT NAME: Kathy Hester DATE: November 07, 2024 TIME: 9:55 [facility]06-27-2025 NoteHNO ID: [id number] Author: MARIANA BURKS MD Service: Maternal Medicine [...] 06, 2024 TIME: 9:42 AM PAGER/CONTA[facility] #: [phone] NoteHNO ID: [id number] Author: MARIANA BURKS MD Service: Maternal Medicine [...] Carter, RN) Complete Time: 848 (11/06/2449 : Saida Carter, RN) Indications: Other: Comment (vag bleed) (11/06/24848 : Saida Carter, RN) Patient Reason For: monitor baby (11/06/24848 : Saida Carter, RN) NST Explanation: Procedure Explained, Monitor Explained, Verbalizes Understanding (11/06/24848 : Saida Carter, RN) Acoustic Stimulator: Interventions: MONITORING/ASSESSMENT: Baseline: 135 bpm (ok per dr burks to d/c monitoring) (11/06/24 0849 : Saida Carter RN) Variability: Moderate (6-25 bpm) (11/06/24 0849 : Saida Carter, SAYDA) Accelerations: Present (11/06/24 0849 : Saida Carter, SAYDA) Decelerations: Decelerations: None (11/06/24 0849 : Saida Carter RN) Contractions: Not present (11/06/2449 : Saida Carter, SAYDA) Frequency: Above information forwarded to Dr. Burks (11/06/2449 : Saida Carter, SAYDA) for final review and interpretation. SIGNATURE: Saida Carter RN PATIENT NAME: Kathy Hester DATE: November 06, 2024 TIME: 8:56 [facility]06-26-2025 NoteHNO ID: [id number] Author: MARIANA BURKS MD Service: Nursing Author [...] Variability: Moderate (6-25 bpm) (11/05/24937 : Yakelin Osuna RN) Accelerations: Present (11/05/24937 : Yakelin Osuna RN) Decelerations: Decelerations: None (11/05/24937 : Yakelin Osuna, SAYDA) Contractions: Not present (11/05/24937 : Yakelin Osuna RN) Frequency: Above information forwarded to Dr. Burks (11/05/24937 : Yakelin Osuna, SAYDA) for final review and interpretation. SIGNATURE: Yakelin Osuna RN PATIENT NAME: Kathy Hester DATE: November 05, 2024 TIME: 10:00 [facility]06-26-2025 NoteHNO ID: [id number] Author: MARIANA BURKS MD Service: Maternal Medicine [...] the patient's care with the resident. 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 Given third admission [...] - SVE unchanged from last admission at 3/60/-3 - Admission hgb and fibrinogen stable, low [...] Hester DATE: November 05, 2024 TIME: 5:59 [facility]06-25-2025 NoteHNO ID: [id number] Author: MARIANA BURKS MD Service: Nursing Author [...] FINDINGS PER NURSE: Start Time: 935 (11/04/24 09Rayo : Sis Morgan RN) Complete Time: 1002 (11/04/24 09 : Sis Morgan RN) Indications: Other: Comment (vaginal bleeding) (11/04/24 09 : Sis Morgan, SAYDA) Patient Reason For: wellbeing (11/04/24 09 : Sis Morgan RN) NST Explanation: Procedure Explained, Monitor Explained, Verbalizes Understanding (11/04/24 09 : Sis Morgan RN) Acoustic Stimulator: Interventions: MONITORING/ASSESSMENT: Baseline: 135 bpm (11/04/24 09 : Sis Morgan RN) Variability: Moderate (6-25 bpm) (11/04/24 09 : Sis Morgan RN) Accelerations: Present (11/04/24 09 : Sis Morgan RN) Decelerations: Decelerations: None (11/04/24 [facility] : Sis Morgan RN) Contractions: Not present (11/04/24 [facility] : Sis Morgan RN) Frequency: Above information forwarded to July (11/04/24 09 : Sis Morgan RN) for final review and interpretation. SIGNATURE: Sis Morgan RN PATIENT NAME: Kathy Hester DATE: November 04, 2024 TIME: 10:04 [facility]06-25-2025 NoteHNO ID: [id number] Author: MARIANA BURKS MD Service: Maternal Medicine [...] for continued observation. Desmond Hughes DO 9:54 [facility]06-24-2025 Telephone encounter Note* Telephone Encounter - Priya Workman MD - 11/03/2024 4:12 PM EDT Noted Priya Workman MD [facility] Work Phone: 1(512) 512-662606-24-2025 Miscellaneous Notes* Telephone Encounter - Priya Workman MD - 11/03/2024 4:12 PM EDT Noted Priya Workman MD * Telephone Encounter - Natasha Chandler RN - 11/03/2024 2:12 PM EDT 30w1d Patient called the office stating that she began bleeding and passing large blood clots. Unable to describe how large. States that she called for a squad and hoping that they will take her to [place]. Patient wanted to let our office know. She is home with her , mother, and child. Did not attempt to ask further questions regarding her bleeding as patient was crying on the phone and the squadwas on it's way. Natasha Chandler, RN documented in this encounterMer[facility]06-24-2025 NoteHNO ID: [id number] Author: ANA HERRERA MD Service: Obstetrics Author [...] (10/19-). PAST MEDICAL HISTORY Diagnosis Date Gallstones Micheline's disease Symptomatic cholelithiasis 12/04/2015 UTI (urinary tract [...] was discussed with the patient or authorized hobbies and crafts sales representative. The patient or authorized hobbies and crafts sales representative has agreed to proceed with [...] EXAM: Dilation: 3 (11/03/24 1525 : Desmond Hughes DO) Station: -3 (11/03/24 1525 : Desmond Hughes DO) Effacement (%): 60 (11/03/24 1525 : Desmond Hughes DO) MONITORING/ASSESSMENT: Baseline: 120 bpm Variability:Moderate Accelerations:Present [...] vaginal bleeding - SVE at that time 3 - Vitals within normal limits - Reactive NST without contractions - SSE with 10 cc of dark, red organized blood clot in posterior vaginal vault; no active bleeding from cervical os - SVE unchanged at 3 Plan: - Due to a change in her bleeding since last admission, admit to [facility] service for continued observation for vaginal bleeding - ANCS not indicated; last rescue course steroids on (10/19-10/20) - HOLD on magnesium for neuroprotection and Ancef for GBS prophylaxis (more content not included)...[facility]06-24-2025 Telephone encounter Note* Telephone Encounter - Natasha Chandler RN - 11/03/2024 2:12 PM EDT 30w1d Patient called the office stating that she began bleeding and passing large blood clots. Unable to describe how large. States that she called for a squad and hoping that they will take her to [place]. Patient wanted to let our office know. She is home with her , mother, and child. Did not attempt to ask further questions regarding her bleeding as patient was crying on the phone and the squadwas on it's way. Natasha Chandler, RN [facility]06-20-2025 Progress note* Quick Notes - Natasha Segura MD - 10/30/2024 12:01 PM EDT S: Kathy Hester is a 34 year old female who presents at 01/11/2025, by Ultrasound for a routine visit. Denies headache, visual changes, chest pain, shortness of breath, vaginal bleeding, leakage of fluid, or dysuria. Feeling well, no complaints. Good movement, No contractions O: See flow sheet Gen: No apparent distress Abd: Gravid, nontender Has been to L&D in [place] 3 times. Last check was 3 cm. Has received BMZ and magnesium. Is on pelvic rest Wants a tubal Declined LARC Already had TDAP 10/22/24 ASSESSMENT/PLAN: 1. 29 weeks gestation of ([facility]) - ICD9: V22.2, ICD10: Z3A.29 (primary diagnosis) 2. AMA (advanced maternal age) multigravida 35+, second trimester ([facility]) - ICD9: 659.63, ICD10: O09.522 3. Supervision of high risk in second trimester ([facility]) - ICD9: V23.9, ICD10: O09.92 4. Micheline's disease - ICD9: 245.2, ICD10: E06.3 - THYROGLOBULIN ANTIBODY Natasha Segura MD [facility]06-20-2025 Miscellaneous Notes* Quick Notes - Natasha Segura MD - 10/30/2024 12:01 PM EDT S: Kathy Hester is a 34 year old female who presents at 01/11/2025, by Ultrasound for a routine visit. Denies headache, visual changes, chest pain, shortness of breath, vaginal bleeding, leakage of fluid, or dysuria. Feeling well, no complaints. Good movement, No contractions O: See flow sheet Gen: No apparent distress Abd: Gravid, nontender Has been to L&D in [place] 3 times. Last check was 3 cm. Has received BMZ and magnesium. Is on pelvic rest Wants a tubal Declined LARC Already had TDAP 10/22/24 ASSESSMENT/PLAN: 1. 29 weeks gestation of ([facility]) - ICD9: V22.2, ICD10: Z3A.29 (primary diagnosis) 2. AMA (advanced maternal age) multigravida 35+, second trimester ([facility]) - ICD9: 659.63, ICD10: O09.522 3. Supervision of high risk in second trimester ([facility]) - ICD9: V23.9, ICD10: O09.92 4. Micheline's disease - ICD9: 245.2, ICD10: E06.3 - THYROGLOBULIN ANTIBODY Natasha Segura MD documented in this encounterMer[facility]06-20-2025 Instructions* Patient Instructions* Aretha Gorman MA - 10/30/2024 10:49 AM EDT SEQUENTIAL SCREENINGS The [facility] offers sequential screenings for women who [...] testing. It will require an appointment withour mechanical laboratory technician. This is not an ultrasound performed [...] the above symptoms, contact our office at [phone] and ask to speak with anurse. After hours, you can call doctors registry at [phone] OR call [facility] at [phone] ask to have the doctor industrial relations commissioner paged. If you consider this an emergency, dial or go to your nearest emergency department. NEED HELP? Are you dealing with a violent or abusive relationship? Are you a victim of rape or sexual assult? Call [facility] ([place]) 24 hour Crisis Hotline: 989.138.1333 or 355-554-7875. MANUAL Your Guide to a Healthy manual is now on-line. Visit [email or web address] to download your free copy documented in this encounterMercy Health [facility] Hospital06-18-2025 NoteHNO ID: [id number] Author: MAX CÁRDENAS MD Service: Nursing Author [...] Start Time: 1630 (10/28/24 1800 : Barb Anthony RN) Complete Time: 1800 (10/28/24 1800 : [...] Hester DATE: October 28, 2024 TIME: 6:06 [facility]06-18-2025 NoteHNO ID: [id number] Author: MAX CÁRDENAS MD Service: Obstetrics Author [...] vaginal bleeding. Patient was admitted to the [facility] service from 10/19 to 10/26 for [...] fluid. PAST MEDICAL HISTORY Diagnosis Date Gallstones Micheline's disease Symptomatic cholelithiasis 12/04/2015 UTI (urinary tract [...] was discussed with the patient or authorized hobbies and crafts sales representative. The patient or authorized hobbies and crafts sales representative has agreed to proceed with [...] no contractions on toco - SVE remains /-3 - discussed with patient that she is not progressing at this time; provided reassurance and emotional suppor (more content not included)...[facility]06-18-2025 Telephone encounter Note* Telephone Encounter - Kaelyn Spangler LPN - 10/28/2024 3:09 PM EDT Ob patient is 29w2d called stating that she began to have pinkish spotting today that she noticed when using the restroom and then noticed the pinkish colored blood on pad. Patient is c/o lower back discomfort that started this morning. Denies cramping. No c/o contractions. Patient was admitted to [facility] from 10/21 to 10/26 for pre-term labor. Was 3cm when admitted. Discussed with Jesus Crowder and patient instructed to go to [facility] for evaluation. [facility]06-18-2025 Miscellaneous Notes* Telephone Encounter - Kaelyn Spangler LPN - 10/28/2024 3:09 PM EDT Ob patient is 29w2d called stating that she began to have pinkish spotting today that she noticed when using the restroom and then noticed the pinkish colored blood on pad. Patient is c/o lower back discomfort that started this morning. Denies cramping. No c/o contractions. Patient was admitted to [place] l&d from 10/21 to 10/26 for pre-term labor. Was 3cm when admitted. Discussed with Jesus Crowder and patient instructed to go to [place] l&d for evaluation. documented in this encounterMercy Health [facility] Hospital06-16-2025 NoteHNO ID: [id number] Author: MARIANA BURKS MD Service: Maternal Medicine [...] NST OBJECTIVE FINDINGS PER NURSE: Start Time: 829 (10/26/24 08Blaine : Carlotta Beltran RN) Complete Time: 854 (10/26/24 0857 : Carlotta Beltran RN) Indications: Labor (10/26/24 08Blaine : Carlotta Beltran, SAYDA) Patient Reason For: [...] Carlotta Beltran RN) Contractions: Not present (10/26/24 0857 : Carlotta Beltran RN) Frequency: Above information forwarded to July (10/26/24 0857 : Carlotta Beltran RN) for final review and interpretation. SIGNATURE: Carlotta Beltran RN PATIENT NAME: Kathy Hester DATE: October 26, 2024 TIME: 8:59 [facility]06-16-2025 NoteHNO ID: [id number] Author: MARIANA BURKS MD Service: Maternal Medicine [...] with the resident. I have performed the [id number] and relevant discharge services for a total [...] /-3 Plan: - Continue inpatient admission to [facility] service / to advanced dilation at [...] 28w1d 1232 g 49%, AC 38%, cephalic Micheline's disease - 50mcg synthroid daily Prematurity (HCC) [...] Hester DATE: October 26, 2024 TIME: 6:00 [facility]06-15-2025 NoteHNO ID: [id number] Author: BRANDI RÍOS DO Service: Obstetrics Author Type: Resident Type: [...] Will continue to monitor. Reassurance provided. Dr. Arreola updated. Brandi Ríos, [facility]06-15-2025 NoteHNO ID: [id number] Author: DEONDRE ARREOLA MD Service: Nursing Author [...] OBJECTIVE FINDINGS PER NURSE: Start Time: 09 (10/25/24 1018 : Erica Leonardo RN) Complete Time: 1018 (10/25/24 1018 : Erica Leonardo RN) Indications: Labor () (10/25/24 1018 : Erica Leonardo RN) Patient Reason For: monitor baby (10/25/24 1018 : Erica Leonardo RN) NST Explanation: Procedure Explained, Monitor Explained, [...] Frequency: Above information forwarded to Dr Arreola (10/25/248 : Erica Leonardo RN) for final review and interpretation. SIGNATURE: Erica Leonardo RN PATIENT NAME: Kathy Hester DATE: October 25, 2024 TIME: 12:00 [facility]06-15-2025 NoteHNO ID: [id number] Author: DEONDRE ARREOLA MD Service: Maternal Medicine Author Type: Resident Type: Progress Notes Filed: 10/25/2024 13:41 Note Text: Attestation signed by Deondre Arreola MD at 10/25/2024 1:41 PM MFM Attending Addendum: I have seen, [...] dilation. Discussed possibility of transfer back to [facility] and resumption of magnesium for neuroprotection with [...] /-3 Plan: - Continue inpatient admission to [facility] service 06/14 to advanced dilation at [...] 28w1d 1232 g 49%, AC 38%, cephalic Micheline's disease - 50mcg synthroid daily Prematurity (HCC) [...] Hester DATE: October 25, 2024 TIME: 7:56 [facility]06-14-2025 NoteHNO ID: [id number] Author: DEONDRE ARREOLA MD Service: Nursing Author [...] OBJECTIVE FINDINGS PER NURSE: Start Time: 815 (10/24/24 0836 : Erica Leonardo RN) Complete Time: 08 (10/24/24 0836 : Erica Leonardo RN) Indications: Labor () (10/24/24 0836 : Erica Leonardo RN) Patient Reason For: monitor baby (10/24/24 : Erica Leonardo RN) NST Explanation: Procedure Explained, Monitor Explained, Verbalizes Understanding (10/24/24 : Erica Leonardo RN) Acoustic Stimulator: Interventions: (n/a) (10/24/24 0836 : Erica Leonardo RN) MONITORING/ASSESSMENT: Baseline: 135 bpm (10/24/24 : Erica Leonardo RN) Variability: Moderate (6-25 bpm) (10/24/24 : Erica Leonardo RN) Accelerations: Present (10/24/24 : Erica Leonardo RN) Decelerations: Decelerations: None (10/24/24 : Erica Leonardo RN) Contractions: Not present (10/24/24 : Erica Leonardo RN) Frequency: Above information forwarded to Dr Arreola (10/24/24835 : Erica Leonardo RN) for final review and interpretation. SIGNATURE: Erica Leonardo RN PATIENT NAME: Kathy Hester DATE: October 24, 2024 TIME: 11:01 [facility]06-14-2025 NoteHNO ID: [id number] Author: DEONDRE ARREOLA MD Service: Maternal Medicine [...] year old EGA:28w5d admitted for admitted to [facility] service for threatened . Assessment AND Plan Threatened labor, third trimester (HCC) - increased vaginal bleeding with low back pain and abdominal tightening that started at 1700 10/19 - now have subsided - recent admission 09/20-09/21 for vaginal bleeding, s/p course of BMZ, no explanation for bleeding, SVE at that time 0.5/-3 - vitals WNL - NST appropriate for gestational age - admission SSE with 4-6cc's bright red blood mixed with mucous, small amount of active bleeding from external os - SVE stable at /-3 Plan: - Continue inpatient admission to [facility] service / to advanced dilation at 28 weeks - NICU consult - s/p rescue BMZ x 2 10/19-10/20 - s/p mag x 12 hours - s/p Ancef for GBS prophylaxis - re-escalate PCN, mag if concern for imminent delivery - epidural on request - NST daily - Regular diet - 10/20: Growth US 28w1d 1232 g 49%, AC 38%, cephalic Micheline's disease - 50mcg synthroid daily Prematurity (HCC) [...] Hester DATE: October 24, 2024 TIME: 7:44 [facility]06-13-2025 NoteHNO ID: [id number] Author: PHIL CARD MD Service: Maternal Medicine Author Type: Registered Nurse Type: Procedures Filed: 10/23/2024 09:16 Note Text: Attestation signed by Phil Card MD at 10/23/2024 9:16 AM PROVIDER INTERPRETATION: Reactive SIGNATURE: Phil Card MD DATE: October 23, 2024 TIME: 9:16 AM OBSTETRICS NST SUMMARY SERVICE DATE: October 23, 2024 The patient is a 34 year old female, , who is at 28w4d with an GASPER of 01/11/2025, by Ultrasound dating method. NST OBJECTIVE FINDINGS PER NURSE: Start Time: 823 (10/23/24835 : Carlotta Beltran, RN) Complete Time: 854 (10/23/24835 : Carlotta Beltran, RN) Indications: Labor (10/23/24835 : Carlotta Beltran, RN) Patient Reason For: NST Explanation: Procedure Explained, Monitor Explained, Verbalizes Understanding (10/23/24835 : Carlotta Beltran RN) Acoustic Stimulator: Interventions: MONITORING/ASSESSMENT: Baseline: 140 bpm (10/23/24 08Rayo : Carlotta Beltran RN) Variability: Moderate (6-25 bpm) (10/23/24 0836 : Carlotta Beltran RN) Accelerations: Present (10/23/24 0836 : Carlotta Beltran RN) Decelerations: Decelerations: (!) Variable (10/23/24 0836 : Carlotta Beltran RN) Decel Frequency: Intermittent (10/23/24 0836 : Carlotta Beltran RN) Contractions: Not present (10/23/24 0836 : Carlotta Beltran RN) Frequency: Above information forwarded to Ruth (10/23/24 08 : Carlotta Beltran RN) for final review and interpretation. SIGNATURE: Carlotta Beltran RN PATIENT NAME: Kathy Hester DATE: October 23, 2024 TIME: 9:10 [facility]06-13-2025 NoteHNO ID: [id number] Author: PHIL CARD MD Service: Maternal Medicine Author Type: Resident Type: Progress Notes Filed: 10/23/2024 09:35 Note Text: Attestation signed by Phil Card MD at 10/23/2024 9:35 AM Attending Note [...] discussed with: Provider, RN, Patient Signature: Phil Card MD Date: October 23, 2024 Time: 9:35 AM OBSTETRICS ANTEPARTUM PROGRESS NOTE SERVICE DATE: 10/23/2024 SERVICE TIME: 6:12 AM 34 year old EGA:28w4d admitted for admitted to [facility] service for threatened . Assessment AND [...] 360/-3 Plan: - Continue inpatient admission to [facility] service 06/14 to advanced dilation at 28 weeks - NICU consult - s/p rescue BMZ x 2 10/19-10/20 - s/p mag x 12 hours - s/p Ancef for GBS prophylaxis - re-escalate PCN, mag if concern for imminent delivery - epidural on request - NST daily - Regular diet - 10/20: Growth US 28w1d 1232 g 49%, AC 38%, cephalic Micheline's disease - 50mcg synthroid daily Prematurity (HCC) - vertex - reassuring FHT for GA - s/p BMZ course 09/20-09/21; s/p rescue course 10/19-10/20 - NST daily - s/p magnesium for neuroprotection - NICU consult Penicillin allergy - anc for GBS prophylaxis, previously tolerated 28 weeks [...] Hester DATE: October 23, 2024 TIME: 6:12 [facility]06-12-2025 NoteHNO ID: [id number] Author: PHIL CARD MD Service: Maternal Medicine Author Type: Registered Nurse Type: Procedures Filed: 10/22/2024 10:15 Note Text: Attestation signed by Phil Card MD at 10/22/2024 10:15 AM PROVIDER INTERPRETATION: Reactive SIGNATURE: Phil Card MD DATE: October 22, 2024 TIME: 10:15 AM OBSTETRICS NST SUMMARY SERVICE DATE: October 22, 2024 The patient is a 34 year old female, , who is at 28w3d with an GASPER of 01/11/2025, by Ultrasound dating method. NST OBJECTIVE FINDINGS PER NURSE: Start Time: 08 (10/22/24 08 : Carlotta Beltran RN) Complete Time: 08 (10/22/24 08 : Carlotta Beltran RN) Indications: Labor (10/22/24799 : Carlotta Beltran RN) Patient Reason For: NST Explanation: Procedure Explained, Monitor Explained, Verbalizes Understanding (10/22/24799 : Carlotta Beltran RN) Acoustic Stimulator: Interventions: MONITORING/ASSESSMENT: Baseline: 135 bpm (10/22/24 08 : Carlotta Beltran RN) Variability: Moderate [...] Hester DATE: October 22, 2024 TIME: 9:20 [facility]06-12-2025 NoteHNO ID: [id number] Author: PHIL CARD MD Service: Maternal Medicine Author Type: Resident Type: Progress Notes Filed: 10/22/2024 10:02 Note Text: Attestation signed by Phil Card MD at 10/22/2024 10:02 AM Attending Note [...] for neuroprotection 10/20. Rescue course of betamethasone . S/p NICU consult. growth scan 10/20/24 with EFW at 49%ile, vertex. Currently, reports some brownish discharge, but no bright red bleeding. Recommend continued inpatient admission secondary to advanced dilation at 28 weeks. Plan of care discussed with: Provider, RN, Patient Signature: Phil Card MD Date: October 22, 2024 Time: 10:02 AM MATERNAL MEDICINE ANTEPARTUM PROGRESS NOTE SERVICE DATE: 10/22/2024 SERVICE TIME: 5:03 AM 34 year old EGA:28w2d admitted for admitted to [facility] service for threatened labor. Assessment AND [...] /-3 Plan: - Continue inpatient admission to [facility] service 2/ to advanced dilation at 28 weeks - NICU consult - s/p rescue BMZ x 2 10/19-10/20 - s/p mag x 12 hours - s/p Ancef for GBS prophylaxis - re-escalate PCN, mag if concern for imminent delivery - epidural on request - NST daily - Regular diet - 10/20: Growth US 28w1d 1232 g 49%, AC 38%, cephalic Micheline's disease - 50mcg synthroid daily Prematurity (HCC) [...] Hester DATE: October 22, 2024 TIME: 5:04 [facility]06-11-2025 NoteHNO ID: [id number] Author: NATASHA ALFONSO MD Service: Nursing Author [...] NST OBJECTIVE FINDINGS PER NURSE: Start Time: 507 (10/21/24547 : Yakelin Osuna, RN) Complete Time: 547 (10/21/24547 : Yakelin Osuna, RN) Indications: Labor (10/21/24547 : Yakelin Osuna, RN) Patient Reason For: NST Explanation: Procedure Explained, Monitor Explained, Verbalizes Understanding (10/21/24547 : Yakelin Osuna, RN) Acoustic Stimulator: No (10/21/24547 : Yakelin Osuna, RN) Interventions: (none) (10/21/24547 : Yakelin Osuna RN) MONITORING/ASSESSMENT: Baseline: 125 bpm (10/21/24547 : Yakelin Osuna RN) Variability: Moderate (6-25 bpm) (10/21/24547 : Yakelin Osuna RN) Accelerations: Present (10/21/24547 : Yakelin Osuna RN) Decelerations: Decelerations: None (10/21/24547 : Yakelin Osuna RN) Contractions: Irregular (10/21/24547 : Yakelin Osuna RN) Frequency: x3 (10/21/24547 : Yakelin Osuna RN) Above information forwarded to Dr. Alfonso (10/21/24547 : Yakelin Osuna RN) for final review and interpretation. SIGNATURE: Yakelin Osuna RN PATIENT NAME: Kathy Hester DATE: October 21, 2024 TIME: 9:09 [facility]06-11-2025 NoteHNO ID: [id number] Author: PHIL CARD MD Service: Maternal Medicine Author Type: Resident Type: Progress Notes Filed: 10/21/2024 09:55 Note Text: Attestation signed by Phil Card MD at 10/21/2024 9:55 AM Attending Note [...] discussed with: Provider, RN, Patient Signature: Phil Card MD Date: October 21, 2024 Time: 9:50 AM MATERNAL MEDICINE ANTEPARTUM PROGRESS NOTE SERVICE DATE: 10/21/2024 SERVICE TIME: 5:22 AM 34 year old EGA:28w2d admitted for admitted to [facility] service for threatened labor. Assessment AND [...] 360/-3 Plan: - Continue inpatient admission to [facility] service 06/14 to advanced dilation at [...] 28w1d 1232 g 49%, AC 38%, cephalic Micheline's disease - 50mcg synthroid daily Prematurity (HCC) - vertex - reassuring FHT for GA - s/p BMZ course 09/20-09/21; s/p rescue course 10/19-10/20 - NST daily - s/p magnesium for neuroprotection - NICU consult Penicillin allergy - anc for GBS prophylaxis, previously tolerated 28 weeks [...] Hester DATE: October 21, 2024 TIME: 5:22 [facility]06-10-2025 Note Indication Evaluation of growth. Advanced maternal [...] prior assessment 28 w + 1 d GASPER by prior assessment: 01/11/2025 Ultrasound [...] EFW (oz) 11 oz EFW by: Hadlock ([id number]) Extended Dishwasher 5.6 mm Extremities / Bony Struc FL [...] By: Sadia Schwartz RDMS Read By: Phil Card M.D.MATERNAL [id number] NoteHNO ID: [id number] Author: PHIL CARD MD Service: Nursing Author Type: Registered Nurse Type: Procedures Filed: 10/20/2024 09:44 Note Text: Attestation signed by Phil Card MD at 10/20/2024 9:44 AM PROVIDER INTERPRETATION: Appropriate for gestational age SIGNATURE: Phil Card MD DATE: October 20, 2024 TIME: 9:44 AM OBSTETRICS NST SUMMARY SERVICE DATE: October 20, 2024 The patient is a 34 year old female, , who is at 28w1d with an GASPER of 01/11/2025, by Ultrasound dating method. NST OBJECTIVE FINDINGS PER NURSE: Start Time: 811 (10/20/24841 : Yakelin Osuna, RN) Complete Time: 841 (10/20/24841 : Yakelin Osuna, RN) Indications: Labor (10/20/24841 : Yakelin Osuna, RN) Patient Reason For: NST Explanation: Monitor Explained, Verbalizes Understanding, Procedure Explained (10/20/24841 : Yakelin Osuna, RN) Acoustic Stimulator: No (10/20/24841 : Yakelin Osuna, RN) Interventions: (none) (10/20/24 : Yakelin Osuna RN) MONITORING/ASSESSMENT: Baseline: 125 bpm (10/20/24 0842 : Yakelin Osuna RN) Variability: Moderate (6-25 bpm) (10/20/24 0842 : Yakelin Osuna RN) Accelerations: Present (10/20/24 08 : Yakelin Osuna RN) Decelerations: Decelerations: None (10/20/24 08 : Yakelin Osuna RN) Decel Frequency: Intermittent (10/20/24 0700 : Yakelin Osuna RN) Contractions: Not present (10/20/24 08 : Yakelin Osuna RN) Frequency: x1 (10/20/24 08 : Yakelin Osuna RN) Above information forwarded to Dr. Card (10/20/24841 : Yakelin Osuna RN) for final review and interpretation. SIGNATURE: Yakelin Osuna RN PATIENT NAME: Kathy Hester DATE: October 20, 2024 TIME: 9:31 [facility]06-10-2025 NoteHNO ID: [id number] Author: PHIL CARD MD Service: Maternal Medicine Author Type: Resident Type: Progress Notes Filed: 10/20/2024 09:17 Note Text: Attestation signed by Phil Card MD at 10/20/2024 9:17 AM Attending Note [...] discussed with: Provider, RN, Patient Signature: Phil Card MD Date: October 20, 2024 Time: 9:17 AM OBSTETRICS ANTEPARTUM PROGRESS NOTE SERVICE DATE: 10/20/2024 SERVICE TIME: 5:33 AM 34 year old EGA:28w1d admitted for admitted to [facility] service for threatened labor. Assessment AND Plan Threatened labor, third trimester (HCC) - increased vaginal bleeding with low back pain and abdominal tightening that started at 1700 10/19 - recent admission 09/20-09/21 for vaginal bleeding, s/p course of BMZ, no explanation for bleeding, SVE at that time 0.5/-3 - vitals WNL - category 1, reactive NST - admission SSE with 4-6cc's bright red blood mixed with mucous, small amount of active bleeding from external os - SVE now /-3 Plan: - admitted to [facility] service for threatened labor - 2nd dose rescue BMZ @ 10/20 -12 hours magnesium ending today this morning 10/20 at 0800 - hold on tocolysis - Ancef for GBS prophylaxis - epidural on request - CEFM > de-escalate to NST daily after d/c mag - clear liquids - plan for repeat growth US today 10/20 Micheline's disease - 50mcg synthroid daily Prematurity (HCC) - vertex - reassuring FHT for GA - s/p BMZ course 09/20-09/21; rescue course initiated 10/19 - CEFM - magnesium for neuroprotection - NICU consult Penicillin allergy - anc for GBS prophylaxis, previously tolerated Subjective : [...] Hester DATE: October 20, 2024 TIME: 5:32 [facility]06-09-2025 NoteHNO ID: [id number] Author: AAN HERRERA MD Service: Obstetrics Author Type: Registered [...] Hester DATE: October 19, 2024 TIME: 7:37 [facility]05-16-2025 Progress note* Quick Notes - Natasha Segura MD - 09/25/2024 2:37 PM EDT S: Kathy Hester is a 34 year [...] (advanced maternal age) multigravida 35+, second trimester ([facility]) - ICD9: 659.63, ICD10: O09.522 (primary diagnosis) 2. Supervision of high risk in second trimester ([facility]) - ICD9: V23.9, ICD10: O09.92 3. Micheline's disease - ICD9: 245.2, ICD10: E06.3 4. 24 weeks gestation of ([facility]) - ICD9: V22.2, ICD10: Z3A.24 5. Screening for diabetes mellitus - ICD9: V77.1, ICD10: Z13.1 - GESTATIONAL GLUCOSE SCREEN, 1-HOUR, 50 GRAM, NON-FASTING 6. Encounter for supervision of other normal in third trimester ([facility]) - ICD9: V22.1, ICD10: Z34.83 - SYPHILIS TREPONEMAL W/REFLEX - ANEMIA REFLEX PANEL Natasha Segura MD [facility]05-16-2025 Miscellaneous Notes* Quick Notes - Natasha Segura MD - 09/25/2024 2:37 PM EDT S: Kathy Hester is a 34 year [...] (advanced maternal age) multigravida 35+, second trimester ([facility]) - ICD9: 659.63, ICD10: O09.522 (primary diagnosis) 2. Supervision of high risk in second trimester ([facility]) - ICD9: V23.9, ICD10: O09.92 3. Micheline's disease - ICD9: 245.2, ICD10: E06.3 4. 24 weeks gestation of ([facility]) - ICD9: V22.2, ICD10: Z3A.24 5. Screening for diabetes mellitus - ICD9: V77.1, ICD10: Z13.1 - GESTATIONAL GLUCOSE SCREEN, 1-HOUR, 50 GRAM, NON-FASTING 6. Encounter for supervision of other normal in third trimester ([facility]) - ICD9: V22.1, ICD10: Z34.83 - SYPHILIS TREPONEMAL W/REFLEX - ANEMIA REFLEX PANEL Natasha Segura MD [facility] Instructions* Patient Instructions* Joy Heart MA - 09/25/2024 1:26 PM EDT SEQUENTIAL SCREENINGS [facility] offers sequential screenings for women who [...] testing. It will require an appointment withour mechanical laboratory technician. This is not an ultrasound performed [...] the above symptoms, contact our office at [phone] and ask to speak with anurse. After hours, you can call doctors registry at [phone] OR call [facility] at [phone] ask to have the doctor industrial relations commissioner paged. If you consider this an emergency, dial 9-1-9 or go to your nearest emergency department. NEED HELP? Are you dealing with a violent or abusive relationship? Are you a victim of rape or sexual assult? Call [facility] ([place]) 24 hour Crisis Hotline: 552.319.1544 or 616-220-7228. MANUAL Your Guide to a Healthy manual is now on-line. Visit [email or web address] to download your free copy documented in this encounterMer[facility]05-[facility]-2025 NoteHNO ID: [id number] Author: SAIDA HITCHCOCK MD Service: Obstetrics Author Type: Physician Type: Progress Notes Filed: 09/29/2024 11:15 Note Text: Documentation Query Please clarify the diagnosis associated with clinical indicators outlined. {Please select the appropriate option:[id number]:: Group B Streptococcus prophylaxis only, This document will become part of the patient's medical record.[facility]05-13-2025 NoteHNO ID: [id number] Author: MARIANA BURKS MD Service: Maternal Medicine [...] OBJECTIVE FINDINGS PER NURSE: Start Time: 929 (09/22/2450 : Ileana Allen RN) Complete Time: 949 (09/22/2450 : Ileana Allen RN) Indications: () (09/22/2450 : Ileana Allen RN) Patient Reason For: monitor baby (09/22/2450 : Ileana Allen RN) NST Explanation: Procedure Explained, Monitor Explained, Verbalizes Understanding (09/22/2450 : Ileana Allen RN) Acoustic Stimulator: Interventions: MONITORING/ASSESSMENT: Baseline: 135 bpm (09/22/2450 : Ileana Allen RN) Variability: Moderate (6-25 bpm) (09/22/24 0950 : Ileana Allen RN) Accelerations: Present (09/22/24 0950 : Ileana Allen RN) Decelerations: Decelerations: None (09/22/24 0950 : Ileana Allen RN) Decel Frequency: Intermittent (09/22/24919 : Ileana Allen RN) Contractions: Not present (09/22/2450 : Ileana Allen RN) Frequency: Above information forwarded to July (09/22/2450 : Ileana Allen RN) for final review and interpretation. SIGNATURE: Ileana Allen RN PATIENT NAME: Kathy Hester DATE: September 22, 2024 TIME: 10:11 [facility]05-13-2025 NoteHNO ID: [id number] Author: MARIANA BURKS MD Service: Obstetrics Author [...] with the resident. I have performed the yanh-sm-nrhx and relevant discharge services for a total [...] dilated on speculum exam - Transferred to [facility] for care, 0.5cm on digital exam - s/p Magnesium, Ancef - s/p Betamethasone x2 (09/21-09/22) - Reactive NST without contractions on tocometer - Vaginal bleeding slowed to brown mucus discharge then turned bright red again - overnight just dark brown/black specks - GBS pending - Swabs for GC/CT, yeast, trichomonas, BV negative - Anticipate D/C today Prematurity ([facility]) Assessment: - Threatened labor at 24w0d gestation - MFM primary, PPG for delivery - Transverse lie on bedside admission ultrasound - GBS pending - s/p NICU c/s - Growth US 09/21: 24w0d 1lbs 7oz 44%, AC 39%, Placenta posterior, normal-appearing. CYDNEY 16.5cm. Vaginal bleeding during ([facility]) - one episode of passing clot without provoking factors - continued brown clots and bright red blood 8cc in vaginal vault on repeat speculum exam - placenta posterior and fundal on anatomy ultrasound and bedside ultrasound - RESOLVED as of AM 09/22 Micheline's disease - managed on levothyroxine 50 mcg daily Supervision of high-risk of elderly multigravida (>= 35 years old at time of delivery) ([facility]) - normal anatomy ultrasound Nausea and vomiting in ([facility]) - home regimen of compazine - manage [...] Hester DATE: September 22, 2024 TIME: 6:32 [facility]05-12-2025 NoteHNO ID: [id number] Author: MAX CÁRDENAS MD Service: Nursing Author [...] RN) Complete Time: 2054 (09/21/242099 : Sade Serrano, RN) Indications: Labor (09/21/242099 : Sade Serrano, RN) Patient Reason For: monitor baby (09/21/242099 : Sade Serrano, RN) NST Explanation: Procedure Explained, Monitor Explained, Verbalizes Understanding (09/21/242099 : Sade Serrano, SAYDA) Acoustic Stimulator: No (09/21/242099 : Sade Serrano, RN) Interventions: MONITORING/ASSESSMENT: Baseline: 135 bpm (09/21/242055 : Sade Serrano, RN) Variability: Moderate (6-25 bpm) (09/21/242055 : Sade Serrano, RN) Accelerations: Present (09/21/242055 : Sade Serrano RN) Decelerations: Decelerations: None (09/21/242055 : Sade Serrano RN) Contractions: Not present (09/21/242055 : Sade Serrano RN) Frequency: Above information forwarded to Dr Cárdenas (09/21/242099 : Sade Serrano RN) for final review and interpretation. SIGNATURE: Sade Serrano RN PATIENT NAME: Kathy Hester DATE: September 21, 2024 TIME: 9:06 [facility]05-12-2025 Note Indication Evaluation of growth. Advanced maternal [...] EFW (oz) 7 oz EFW by: Hadlock ([id number]) Extended Dishwasher 5.4 mm Extremities / Bony Struc FL [...] Arlyn Wyatt RDMS Read By: Mariana Burks M.D.MATERNAL [id number] NoteHNO ID: [id number] Author: MARIANA BURKS MD Service: Nursing Author [...] OBJECTIVE FINDINGS PER NURSE: Start Time: 07 (09/21/24799 : Alee Guzman RN) Complete Time: 729 (09/21/24799 : Alee Guzman RN) Indications: Labor (09/21/24799 : Alee Guzman RN) Patient Reason For: Monitor Baby (09/21/24799 : Alee Guzman RN) NST Explanation: Verbalizes Understanding (09/21/24799 : Alee Guzman RN) Acoustic Stimulator: No (09/21/24799 : Alee Guzman RN) Interventions: MONITORING/ASSESSMENT: Baseline: 135 bpm (09/21/24829 : Alee Guzman RN) Variability: Moderate (6-25 bpm) (09/21/24829 : Alee Guzman RN) Accelerations: Absent (09/21/24799 : Alee Guzman RN) Decelerations: Decelerations: None (09/21/24799 : Alee Guzman RN) Contractions: Not present (09/21/24829 : Alee Guzman RN) Frequency: x3 (09/21/24 0800 : Alee Guzman, RN) Above information forwarded to Dr. Burks (09/21/24 0800 : Alee Guzman RN) for final review and interpretation. SIGNATURE: Alee Guzman RN PATIENT NAME: Kathy Hester DATE: September 21, 2024 TIME: 9:53 [facility]05-11-2025 History and physical note Author Ernestine Gomez [facility] Note Date/Time September 20, 2024 7:24p [facility] Medical Records Department [address] [place] [address] OB Triage Physician Note 09/20/24 1858 MR#: [id number] Acct: [id number] Name: KATHY HESTER Rep #:[id number] : 1990 34 From: Ernestine Gomez MD PCP: Dr. Ephraim Boyd, DO Status:RE G CLI Y Location: [id number] HPI - General General Date of Admission: [...] History Polycystic ovarian syndrome Eczema Hx of Micheline thyroiditis Hay fever Home Medications ?Medication ?Instructions [...] Response and alternatives to transport to [facility] neonatology specialty availability were reviewed with the patient, her questions were answered to her satisfaction and she agrees to proceed with transport. Dr. Hitchcock accepts patient at [facility]. Neonatolgy there aware and inagreement w/ accepting transport. 09/20/241911 <Electronically signed by Ernestine day MD> Date _ Ernestine Gomez MD Cosigner Signature (if applicable): Date CC: Dr. Ephraim Boyd, DO; Dr. Ernestine Gomez MD ~ Signed ADDENDUM by Dr. Ernestine Gomez MD on 09/20/24 at 1924 Addendum NST- Baseline 140 BPM variability -moderate accels- 10x10 decelerations-none reactive-no but appropriate for gestational age tocos- no ctxs noted on monitor but patient feels tightening 05/11/25 1924 <Electronically signed by Ernestine day MD> Date _ Ernestine Gomez MD cc: Dr. Ephraim Boyd, DO; Dr. Ernestine Gomez MD ~* Signed [facility] Work Phone: 1(595) 654-448605-11-[address] [facility] Medical Records Department [address] [place] [address] OB Triage Physician Note 09/20/24 1858 MR#: [id number] Acct: [id number] Name: KATHY HESTER Rep #:[id number] : 1990 34 From: Ernestine Gomez MD PCP: Dr. Ephraim Boyd, Status:RE G CLI Y Location: [place] [address] HPI - General General Date of Admission: [...] History Polycystic ovarian syndrome Eczema Hx of Micheline thyroiditis Hay fever Home Medications ?Medication ?Instructions [...] vertex. Response and alternatives to transport to [facility] for perinatology and neonatology specialty availability were reviewed with the patient, her questions were answered to her satisfaction and she agrees to proceed with transport. Dr. Hitchcock accepts patient at [facility]. Neonatolgy there aware and inagreement w/ accepting transport. 09/20/241911 ll > Date _ Ernestine Gomez MD Cosigner Signature (if applicable): Date CC: Dr. Ephraim Boyd, DO; Dr. Ernestine Gomez MD ~ Signed ADDENDUM by Dr. Ernestine Gomez MD on 09/20/24 at 1924 Addendum NST- Baseline 140 BPM variability -moderate accels- 10x10 decelerations-none reactive-no but appropriate for gestational age tocos- no ctxs noted on monitor but patient feels tightening 09/20/241923 ll > Date _ Ernestine Gomez MD cc: Dr. Ephraim Boyd, DO; Dr. Ernestine Gomez MD ~* Signed [facility]05-11-2025 Evaluation note* Diagnosis Onset Date Resolution Status Admit Date 23 weeks gestation of acut e September 20, 2024 5:10pm Advanced maternal age during in second trimester acute Ma y 2024 5:10pm labor in second trimester ac corby September 20, 2024 5:10pm Supervision of high risk pre gnancy in second trimester acute September 20 5:10pm Vaginal bleeding during preg domitila, antepartum acute September 20, 2024 5 :10pm [facility] Work Phone: 1(179) 820-280905-11-2025 Evaluation note* Diagnosis Onset Date Resolution Status Admit Date 23 weeks gestation of acut e September 20, 2024 5:10pm Advanced maternal age during in second trimester acute Ma y 2024 5:10pm labor in second trimester ac corby September 20, 2024 5:10pm Supervision of high risk in second trimester acute Ma y 2024 5:10pm Vaginal bleeding during , antepartum acute September 20, 2024 5:10pm 33 weeks gestation of acut e November 29, 2024 1:29pm Encounter for suspected bhanu ature rupture of membranes, with rupture of acute November 29, 2024 1:29pm [facility] Work Phone: 1(563) 400-419305-11-2025 Evaluation note* Diagnosis Onset Date Resolution Status Admit Date 23 weeks gestation of acut e September 20, 2024 5:10pm Advanced maternal age during in second trimester acute Ma y 2024 5:10pm labor in second trimester acute September 20, 2024 5 :10pm Supervision of high risk in second trimester acute Ma y 2024 5:10pm Vaginal bleeding during , antepartum acute September 20, 2024 5:10pm 33 weeks gestation of acut e November 29, 2024 1:29pm Encounter for suspected premature rupture of membranes, with rupture of acute November 29, 2024 1:29pm 35 weeks gestation of acut e December 10, 2024 11:19am Encounter for suspected premature rupture of membranes, with rupture of acute December 10, 2024 11:19am Variable heart rate decelerations, antepartum acute November 122024 11:19am 37 weeks gestation of acut e December 24, 2024 10:47am Breech presentation acute Augus t 2024 10:47am Uterine contractions acute Augu st 2024 10:47am [facility] Work Phone: 1(207) 817-873304-21-2025 Progress note* Result Encounter Note - Ernestine Gomez MD - 08/31/2024 12:17 PM EDT Anatomy ultrasound reviewed. No abnormalities identified. Follow up as clinically indicated. Pleaseplace copy in ob chart. Ernestine Gomez MD [facility] Work Phone: 1(574) 447-207404-21-2025 Miscellaneous Notes* Result Encounter Note - Ernestine Gomez MD - 08/31/2024 12:17 PM EDT Anatomy ultrasound reviewed. No abnormalities identified. Follow up as clinically indicated. Pleaseplace copy in ob chart. Ernestine Gomez MD documented in this encounterMer[facility]04-18-2025 Progress note* Quick Notes - Jurgen [...] - RTO 4 wks Jurgen Richmond DO [facility] Work Phone: 1(599) 768-786804-18-2025 Miscellaneous Notes* Quick Notes - Jurgen Richmond [...] wks Jurgen Richmond DO documented in this encounterMercy Health [facility] Hospital04-18-2025 Instructions* Patient Instructions* Rafael Mendoza MA - 08/28/2024 3:15 PM EDT SEQUENTIAL SCREENINGS The [facility] offers sequential screenings for women who [...] testing. It will require an appointment withour mechanical laboratory technician. This is not an ultrasound performed [...] the above symptoms, contact our office at [phone] and ask to speak with anurse. After hours, you can call doctors registry at [phone] OR call [facility] at [phone] ask to have the doctor industrial relations commissioner paged. If you consider this an emergency, dial 9-1-1 or go to your nearest emergency department. NEED HELP? Are you dealing with a violent or abusive relationship? Are you a victim of rape or sexual assult? Call [facility] ([place]) 24 hour Crisis Hotline: 652.902.8660 or 531-552-8512. MANUAL Your Guide to a Healthy manual is now on-line. Visit [email or web address] to download your free copy documented in this encounterMercy [facility] Hospital03-24-2025 Telephone encounter Note * Telephone Encounter - Sarah Orlando RN - 08/03/2024 11:44 AM EDT [employer] message sent to patient. Sarah Orlando RN [facility]03-24-2025 Miscellaneous Notes* Telephone Encounter - Sarah Orlando RN - 08/03/2024 11:44 AM EDT [employer] message sent to patient. Sarah Orlando RN [...] response to her Mychart. documented in this encounterMercy Health Anderson Hospital03-24-2025 Telephone encounter Note * Telephone Encounter - Pamella Crowder APRN.CNM - 08/03/2024 11:33 AM EDT Yes this is fine as long as she is not taking unisom or other antihistamine. Thank you, Pamella Crowder APRN.CNM [facility]03-24-2025 Telephone encounter Note* Telephone Encounter - [...] would like a response to her Mychart. [facility]03-21-2025 Progress note* Quick Notes - Natasha [...] PROMETHAZINE 25 MG TABLET Natasha Segura MD [facility]03-21-2025 Miscellaneous Notes* Quick Notes - Natasha Segura [...] TABLET Natasha Segura MD documented in this encounterMercy Health Anderson Hospital03-21-2025 Instructions* Patient Instructions* Joy Heart MA - 07/31/2024 9:40 AM EDT SEQUENTIAL SCREENINGS The [facility] offers sequential screenings for women who [...] testing. It will require an appointment withour mechanical laboratory technician. This is not an ultrasound performed [...] the above symptoms, contact our office at [phone] and ask to speak with anurse. After hours, you can call doctors registry at [phone] OR call [facility] at [phone] ask to have the doctor industrial relations commissioner paged. If you consider this an emergency, dial 9-1-7 or go to your nearest emergency department. NEED HELP? Are you dealing with a violent or abusive relationship? Are you a victim of rape or sexual assult? Call [facility] ([place]) 24 hour Crisis Hotline: 182.774.4148 or 952-230-0786. MANUAL Your Guide to a Healthy manual is now on-line. Visit [email or web address] to download your free copy documented in this encounterMercy Health [facility] Hospital03-12-2025 Telephone encounter Note * Telephone Encounter - Natasha Chandler RN - 07/22/2024 10:13 AM EDT Patient notified. Offered her a sooner visit to discuss. Patient has 5 days worth of Phenergan. If she runs out she will switch to her Zofran. Natasha Chandler RN [facility]03-12-2025 Miscellaneous Notes* Telephone Encounter - Natasha [...] 07/31. Sarah Orlando RN documented in this encounterMercy Health Anderson Hospital03-12-2025 Telephone encounter Note * Telephone Encounter - Sussy Landin APRN.CNM - 07/22/2024 9:08 AM EDT Patient does not need to use Phenergan if not having nausea with vomiting. We can discuss maybe useof another medication for nausea. Sussy Landin APRN.CNM [facility]03-12-2025 Telephone encounter Note* Telephone Encounter - Sarah Orlando RN - 07/22/2024 8:30 AM EDT Patient 15w2d calling requesting a refill on her Phenergan Rx. Patient states she is not vomiting, but continues to have all day long nausea with dry heaving. Patient has upcoming appointment on 07/31. Sarah Orlando RN [facility]03-10-2025 Telephone encounter Note* Telephone Encounter - Rafael Mendoza MA - 07/20/2024 11:10 AM EDT See Mychart message. Patient quit job so no longer needing FMLA paperwork, will dispose of paperwork. Rafael Mendoza MA [facility]03-10-2025 Miscellaneous Notes* Telephone Encounter - Rafael Mendoza MA - 07/20/2024 11:10 AM EDT See [employer] message. Patient quit job so no longer needing FMLA paperwork, will dispose of paperwork. Rafael Mendoza MA * Telephone Encounter - Rafael Mendoza MA - 07/07/2024 1:26 PM EST Received FMLA paperwork. Rafael Mendoza MA documented in this encounterMercy Health [facility] Hospital02-25-2025 Telephone encounter Note * Telephone Encounter - Rafael Mendoza MA - 07/07/2024 1:26 PM EST Received FMLA paperwork. Rafael Mendoza MA [facility]02-20-2025 Progress note* Quick Notes - Ernestine [...] 4 weeks or prn Ernestine Gomez M.D. [facility]02-20-2025 Miscellaneous Notes* Quick Notes - Ernestine [...] prn Ernestine Gomez M.D. documented in this encounterMercy Health Anderson Hospital02-20-2025 Instructions* Patient Instructions* Anjelica Gore MA - 07/02/2024 1:13 PM EST SEQUENTIAL SCREENINGS The [facility] offers sequential screenings for women who [...] testing. It will require an appointment withour mechanical laboratory technician. This is not an ultrasound performed [...] the above symptoms, contact our office at [phone] and ask to speak with anurse. After hours, you can call doctors registry at [phone] OR call [facility] at [phone] ask to have the doctor industrial relations commissioner paged. If you consider this an emergency, dial 0-1-7 or go to your nearest emergency department. NEED HELP? Are you dealing with a violent or abusive relationship? Are you a victim of rape or sexual assult? Call [facility] ([place]) 24 hour Crisis Hotline: 909.818.9415 or 737-668-1909. MANUAL Your Guide to a Healthy manual is now on-line. 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 11 weeks gestation of - ICD9: V22.2, ICD10: Z3A.11 Continue with phenergan and zofran jimenez Segura MD [facility]02-14-2025 Miscellaneous Notes* Quick Notes - Natasha [...] needs to talk with HR about a local intermodal truck driver option ASSESSMENT/PLAN: 1. 11 weeks gestation of - ICD9: V22.2, ICD10: Z3A.11 Continue with phenergan and zofran jimenez Segura MD documented in this encounterMercy Health Anderson Hospital02-14-2025 Instructions* Patient Instructions* Aretha Gorman MA - 06/26/2024 3:26 PM EST SEQUENTIAL SCREENINGS The [facility] offers sequential screenings for women who [...] testing. It will require an appointment withour mechanical laboratory technician. This is not an ultrasound performed [...] the above symptoms, contact our office at [phone] and ask to speak with anurse. After hours, you can call doctors registry at [phone] OR call [facility] at [phone] ask to have the doctor industrial relations commissioner paged. If you consider this an emergency, dial 9--1 or go to your nearest emergency department. NEED HELP? Are you dealing with a violent or abusive relationship? Are you a victim of rape or sexual assult? Call [facility] ([place]) 24 hour Crisis Hotline: 675.309.8829 or 458-887-6786. MANUAL Your Guide to a Healthy manual is now on-line. Visit [email or web address] to download your free copy documented in this encounterMercy Health Anderson Hospital02-12-2025 Telephone encounter Note * Telephone Encounter - Keli Trinh RN - 06/24/2024 1:52 PM EST 11w2d Patient called in requesting refill. Requested Prescriptions Pending Prescriptions Disp Refills promethazine (PHENERGAN) 25 mg tablet 30 tablet 1 Sig: Take 1 tablet by mouth every 6 hours. Keli Trinh RN [facility]02-12-2025 Miscellaneous Notes* Telephone Encounter - Keli Trinh RN - 06/24/2024 1:52 PM EST 11w2d Patient called in requesting refill. Requested Prescriptions Pending Prescriptions Disp Refills promethazine (PHENERGAN) 25 mg tablet 30 tablet 1 Sig: Take 1 tablet by mouth every 6 hours. Keli Trinh RN documented in this encounterMercy Health [facility] Hospital02-05-2025 Miscellaneous Notes* Telephone Encounter - Keli Trinh RN - 06/17/2024 12:32 PM EST Pharmacy requesting 90 day supply. 10w2d Requested Prescriptions Pending Prescriptions Disp Refills folic acid 1 mg tablet [Pharmacy Med Name: FOLIC ACID 1 MG TABLET] 90 tablet 1 Sig: TAKE 1 TABLET BY MOUTH EVERY DAY Keli Trinh RN documented in this encounterMercy Health [facility] Hospital02-05-2025 Telephone encounter Note * Telephone Encounter - Keli Trinh RN - 06/17/2024 12:32 PM EST Pharmacy requesting 90 day supply. 10w2d Requested Prescriptions Pending Prescriptions Disp Refills folic acid 1 mg tablet [Pharmacy Med Name: FOLIC ACID 1 MG TABLET] 90 tablet 1 Sig: TAKE 1 TABLET BY MOUTH EVERY DAY Keli Trinh RN [facility]02-04-2025 Progress note* Quick Notes - Pamella Crowder APRN.CNM - 06/16/2024 4:19 PM EST MADELEINE-S: [...] call RTO as scheduled Pamella Crowder APRN.CNM [facility]02-04-2025 Miscellaneous Notes* Quick Notes - Pamella [...] scheduled Pamella Crowder APRN.CNM documented in this encounterMercy Health Anderson Hospital02-04-2025 Instructions* Patient Instructions* Pamella Crowder APRN.CNM [...] the above symptoms, contact our office at [phone] and ask to speak with anurse. After hours, you can call doctors registry at [phone] OR call [facility] at [phone] ask to have the doctor industrial relations commissioner paged. If you consider this an emergency, dial 9-1-2 or go to your nearest emergency department. NEED HELP? Are you dealing with a violent or abusive relationship? Are you a victim of rape or sexual assult? Call [facility] ([place]) 24 hour Crisis Hotline: 307.251.1745 or 009-171-7391. MANUAL Your Guide to a Healthy manual is now on-line. Visit [email or web address] to download your free copy documented in this encounterMercy Health [facility] Hospital02-04-2025 Telephone encounter Note * Telephone Encounter - Keli Trinh RN - 06/16/2024 3:22 PM EST Patient notified and scheduled. Keli Trinh RN [facility]02-04-2025 Miscellaneous Notes* Telephone Encounter - Keli [...] advise. Keli Trinh RN documented in this encounterMercy Health Anderson Hospital02-04-2025 Telephone encounter Note * Telephone Encounter - Pamella Crowder APRN.CNM - 06/16/2024 3:19 PM EST I can see her at 3:45pm if she can come in. Likely just constipation but happy to see her. Pamella Crowder APRN.CNM [facility]02-04-2025 Telephone encounter Note* Telephone Encounter - [...] if needed. Please advise. Keli Trinh RN [facility]01-31-2025 Progress note* Quick Notes - Sussy Landin [...] weeks for BERRY Landin APRN.CNM [facility]01-31-2025 Miscellaneous Notes* Quick Notes - Sussy Landin [...] for BERRY Landin APRN.CNM documented in this encounterMercy Health Anderson Hospital01-31-2025 Instructions* Patient Instructions* Rafael Mendoza MA - 06/12/2024 3:00 PM EST SEQUENTIAL SCREENINGS The [facility] offers sequential screenings for women who [...] testing. It will require an appointment withour mechanical laboratory technician. This is not an ultrasound performed [...] the above symptoms, contact our office at [phone] and ask to speak with anurse. After hours, you can call doctors registry at [phone] OR call [facility] at [phone] ask to have the doctor industrial relations commissioner paged. If you consider this an emergency, dial 9--5 or go to your nearest emergency department. NEED HELP? Are you dealing with a violent or abusive relationship? Are you a victim of rape or sexual assult? Call [facility] ([place]) 24 hour Crisis Hotline: 955.464.8151 or 394-695-6804. MANUAL Your Guide to a Healthy manual is now on-line. Visit [email or web address] to download your free copy documented in this encounterMercy Health Anderson Hospital01-24-2025 Progress note* Quick Notes - Jurgen [...] Follow up next week Jurgen Richmond DO [facility]01-24-2025 Miscellaneous Notes* Quick Notes - Jurgen [...] week Jurgen Richmond DO documented in this encounterMercy Health Anderson Hospital01-24-2025 Instructions* Patient Instructions* Kaelyn Spangler LPN - 06/05/2024 10:54 AM EST SEQUENTIAL SCREENINGS The [facility] offers sequential screenings for women who [...] testing. It will require an appointment withour mechanical laboratory technician. This is not an ultrasound performed [...] the above symptoms, contact our office at [phone] and ask to speak with anurse. After hours, you can call doctors registry at [phone] OR call [facility] at [phone] ask to have the doctor industrial relations commissioner paged. If you consider this an emergency, dial 2-1-9 or go to your nearest emergency department. NEED HELP? Are you dealing with a violent or abusive relationship? Are you a victim of rape or sexual assult? Call [facility] ([place]) 24 hour Crisis Hotline: 751.188.5229 or 682-431-2236. MANUAL Your Guide to a Healthy manual is now on-line. Visit [email or web address] to download your free copy documented in this encounterMercy Health [facility] Hospital01-21-2025 Telephone encounter Note * Telephone Encounter [...] CROWDER [id number] [address] [place] [address] [facility]01-21-2025 Miscellaneous Notes* Telephone Encounter - Keli [...] PAMELLA CROWDER Pharmacy Information Pharmacy Address Telephone [facility] [place] [address] * Telephone Encounter - Pamella Crowder APRN.CNM [...] with pepcid to help. documented in this encounterMercy Health Anderson Hospital01-21-2025 Telephone encounter Note * Telephone Encounter - Pamella Crowder APRN.CNM - 06/02/2024 11:22 AM EST I can add reglan. She can interchange zofran and reglan throughout the day. If no improvement by , please make appointment with provider on Saturday. Pamella Crodwer APRN.CNM [facility]01-21-2025 Telephone encounter Note* Telephone Encounter - Kaelyn [...] along with pepcid to help. [facility]01-16-2025 NoteHNO ID: [id number] Author: SELAM CESAR APRN.CNP Service: ? Author Type: Nurse Practitioner Type: [...] experience? 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 OB [...] Partner: Name: Anmol Hester Age: 35 Occupation: [employer]-Service Delivery Supervisor Gender: Male PAST MEDICAL HISTORY Diagnosis Date [...] [place] 01/14/2022 Unknown PEN (more content not included)...[facility]01-16-2025 History of Present illness Narrative* Selam Cesar, DAWSON.SECURITY OPERATIONS ENGINEER - 05/28/2024 1:47 PM EST INITIAL OB [...] experience? 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 As applicable, any other physician, advance practice provider, medical student, or other health professional student that will be observing or involved in the sensitive examination for educational or training purposes was discussed with the Patient or Authorized Medical Sociologist. The Patient or Authorized Medical Sociologist has agreed to proceed with the sensitive [...] with LMP. GASPER now 01/11/25 Selam Cesar APRN.SECURITY OPERATIONS ENGINEER ASSESSMENT: 33 year old at 8d0 wks gestational age PLAN: 1) Patient oriented to practice. Patient given new OB orientation folder. Discussed nutrition, folic acid supplementation, dietary guidelines, exercise, smoking, alcohol, caffeine, and drug use. Discussed gestational weight gain guidelines. Discussed routine OB labs including STD/HIV. Discussed how to access Your guide to a health and the Manager Urology. Reviewed midwifery and direct selling counselor services that are available. 2) Screening: Hemoglobin [...] Follow up in 4 weeks or sooner prn. Selam Cesar APRN.SECURITY OPERATIONS ENGINEER documented in this encounterMercy Health Anderson Hospital01-16-2025 Instructions* Patient Instructions* Patsy Salas LPN - 05/28/2024 1:47 PM EST Please select the following link to access the [facility] Your Guide to a Healthy . [email or web address] Please select the following link to access the [facility] Your Guide to a Healthy . [email or web address] documented in this encounterMercy Health Anderson Hospital01-14-2025 NoteHNO ID: [id number] Author: PAMELLA CROWDER APRN.CNM Service: ? 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 LMP: 03/28/2024, Unknown Age at Menarche: 12 Age at First : Age at Menopause: Ceramics Artist History Comments: Sexual Activity: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 Member Role Status Dates Dr. Ephraim Boyd , DO Primary Care Provider Active Team Status: Inactive Member Role Status Dates Jarrett HOWELL, PA Attending Provider Active Team Status: Inactive Member Role Status Dates Dr. Derek Cagle , DO Emergency Provider Active Dr. Ephraim Boyd , DO Primary Care Provider Active Supervisor Covering And Lining Relationship Specialty Start Date End Date Ephraim Boyd DO [address] [place] [id number] PCP - General 10/14/15 Supervisor Covering And Lining Relationship Specialty Start Date End Date Ephraim Boyd DO [address] [place], [place] [address] PCP - General Family Medicine 11/23/15 Supervisor Covering And Lining Relationship Specialty Start Date End Date Ephraim Boyd DO [address] [place] [address] PCP - General Family Medicine 11/23/15 Supervisor Covering And Lining Relationship Specialty Start Date End Date Ephraim Boyd DO [address] [place], [place] [id number] PCP - General Family Medicine 11/23/15 Supervisor Covering And Lining Relationship Specialty Start Date End Date Ephraim Boyd DO [address] [place] [address] PCP - General Family Medicine 11/23/15 Supervisor Covering And Lining Relationship Specialty Start Date End Date Ephraim Boyd DO [address] [place] [address] PCP - General Family Medicine 11/23/15 Supervisor Covering And Lining Relationship Specialty Start Date End Date Ephraim Boyd DO [address] [place] [address] PCP - General Family Medicine 11/23/15 Supervisor Covering And Lining Relationship Specialty Start Date End Date Ephraim Boyd DO [address] [place] [address] PCP - General Family Medicine 11/23/15 Supervisor Covering And Lining Relationship Specialty Start Date End Date Ephraim Boyd DO [address] [place] [address] PCP - General Family Medicine 11/23/15 Supervisor Covering And Lining Relationship Specialty Start Date End Date Ephraim Boyd DO [address] [place] [address] PCP - General Family Medicine 11/23/15 Supervisor Covering And Lining Relationship Specialty Start Date End Date Ephraim Boyd DO [address] [place] [address] PCP - General Family Medicine 11/23/15 Supervisor Covering And Lining Relationship Specialty Start Date End Date Ephraim Boyd DO [address] [place] [phone] PCP - General 10/14/15 Supervisor Covering And Lining Relationship Specialty Start Date End Date Ephraim Boyd DO [address] [place] [address] PCP - General Family Medicine 11/23/15 Team Status: Inactive Member Role Status Dates Dr. Ephraim Boyd DO Primary Care Provider Active Start: September 20, 2024 End: September 20, 2024 Dr. Ernestine Gomez MD Attending Provider Active Start: September 20, 2024 End: September 20, 2024 Supervisor Covering And Lining Relationship Specialty Start Date End Date Ephraim Boyd DO [address] [place] [address] PCP - General Family Medicine 11/23/15 Supervisor Covering And Lining Relationship Specialty Start Date End Date Ephraim Boyd DO [address] [place] [address] PCP - General Family Medicine 11/23/15 Supervisor Covering And Lining Relationship Specialty Start Date End Date Ephraim Boyd DO [address] [place], [place] [address] PCP - General Family Medicine 11/23/15 Supervisor Covering And Lining Relationship Specialty Start Date End Date Ephraim Boyd DO [address] [place], [place] [id number] PCP - General Family Medicine 11/23/15 Supervisor Covering And Lining Relationship Specialty Start Date End Date Ephraim Boyd DO [address] [place], [place] [address] PCP - General Family Medicine 11/23/15 Supervisor Covering And Lining Relationship Specialty Start Date End Date Ephraim Boyd DO [address] [place] [address] PCP - General Family Medicine 11/23/15 Supervisor Covering And Lining Relationship Specialty Start Date End Date Ephraim Boyd DO [address] [place] [address] PCP - General Family Medicine 11/23/15 Supervisor Covering And Lining Relationship Specialty Start Date End Date Ephraim Boyd DO [address] [place], [place] [id number] PCP - General [facility] Medicine 11/23/15 Team Status: Active Member Role/Relationship Status Dates Dr. Ephraim Boyd DO Primary Care Provider Active Team Status: Inactive Member Role/Relationship Status Dates Dr. Ephraim Boyd DO Primary Care Provider Active Start: September 20, 2024 End: September 20, 2024 Dr. Ernestine Gomez MD Attending Provider Active Start: September 20, 2024 End: September 20, 2024 Team Status: Inactive Member Role/Relationship Status Dates Dr. Ephraim Boyd DO Primary Care Provider Active Start: November 29, 2024 End: November 29, 2024 Dr. Natasha Segura MD Attending Provider Active Start: November 29, 2024 End: November 29, 2024 Dr. Natasha Segura MD Referring Provider Active Start: November 29, 2024 End: November 29, 2024 Supervisor Covering And Lining Relationship Specialty Start Date End Date Ephraim Boyd DO [address] [place] [address] PCP - General [facility] Medicine 11/23/15 Supervisor Covering And Lining Relationship Specialty Start Date End Date Ephraim Boyd DO [address] [place], [place] [id number] PCP - [facility] 11/23/15 Team Status: Inactive Member Role/Relationship Status Dates Dr. Ephraim Boyd DO Primary Care Provider Active Start: December 10, 2024 End: December 10, 2024 Pamella Crowder CNM Attending Provider Active St art: December 10, 2024 End: December 10, 2024 Pamella Crowder CNM Referring Provider Active St art: December 10, 2024 End: December 10, 2024 Supervisor Covering And Lining Relationship Specialty Start Date End Date Ephraim Boyd DO [address] [place] [address] PCP - [facility] 11/23/15 Supervisor Covering And Lining Relationship Specialty Start Date End Date Ephraim Boyd DO [address] [place] [address] PCP - [facility] 11/23/15 Team Status: Inactive Member Role/Relationship Status Dates Dr. Ephraim Boyd DO Primary Care Provider Active Start: December 24, 2024 End: December 24, 2024 Dr. Jurgen Richmond DO Attending Provider Active Start: December 24, 2024 End: December 24, 2024 Dr. Jurgen Richmond DO Referring Provider Active Start: December 24, 2024 End: December 24, 2024 Scheduled Active and Recently Administ ered Medications [...] sectionGoals may be documented in an alternate sectionGoals may be documented in an alternate sectionGoals may be documented in an alternate sectionGoals may be documented in an alternate section Source Comments (unrecognize d section and content) In the event this informatio n is protected by the Federal Confidentiality of Alcohol and Drug Abuse Patient Records regulations: The Federal rules restrict any use of the information to criminally investigate or prosecute any alcohol or drug abuse patient.[facility] HospitalIn the event this information is protected by the Federal Confidentiality of Alcohol and Drug Abuse Patient Records regulations: The Federal rules restrict any use of the information to criminally investigate or prosecute any alcohol or drug abuse patient.[facility] HospitalIn the event this information is protected by the Federal Confidentiality of Alcohol and Drug Abuse Patient Records regulations: The Federal rules restrict any use of the information to criminally investigate or prosecute any alcohol or drug abuse patient.[facility] HospitalIn the event this information is protected by the Federal Confidentiality of Alcohol and Drug Abuse Patient Records regulations: The Federal rules restrict any use of the information to criminally investigate or prosecute any alcohol or drug abuse patient.[facility] HospitalIn the event this information is protected by the Federal Confidentiality of Alcohol and Drug Abuse Patient Records regulations: The Federal rules restrict any use of the information to criminally investigate or prosecute any alcohol or drug abuse patient.[facility] HospitalIn the event this information is protected by the Federal Confidentiality of Alcohol and Drug Abuse Patient Records regulations: The Federal rules restrict any use of the information to criminally investigate or prosecute any alcohol or drug abuse patient.[facility] HospitalIn the event this information is protected by the Federal Confidentiality of Alcohol and Drug Abuse Patient Records regulations: The Federal rules restrict any use of the information to criminally investigate or prosecute any alcohol or drug abuse patient.[facility] HospitalIn the event this information is protected by the Federal Confidentiality of Alcohol and Drug Abuse Patient Records regulations: The Federal rules restrict any use of the information to criminally investigate or prosecute any alcohol or drug abuse patient.[facility] HospitalIn the event this information is protected by the Federal Confidentiality of Alcohol and Drug Abuse Patient Records regulations: The Federal rules restrict any use of the information to criminally investigate or prosecute any alcohol or drug abuse patient.[facility] HospitalIn the event this information is protected by the Federal Confidentiality of Alcohol and Drug Abuse Patient Records regulations: The Federal rules restrict any use of the information to criminally investigate or prosecute any alcohol or drug abuse patient.[facility] HospitalIn the event this information is protected by the Federal Confidentiality of Alcohol and Drug Abuse Patient Records regulations: The Federal rules restrict any use of the information to criminally investigate or prosecute any alcohol or drug abuse patient.[facility] HospitalIn the event this information is protected by the Federal Confidentiality of Alcohol and Drug Abuse Patient Records regulations: The Federal rules restrict any use of the information to criminally investigate or prosecute any alcohol or drug abuse patient.[facility] HospitalIn the event this information is protected by the Federal Confidentiality of Alcohol and Drug Abuse Patient Records regulations: The Federal rules restrict any use of the information to criminally investigate or prosecute any alcohol or drug abuse patient.[facility] HospitalIn the event this information is protected by the Federal Confidentiality of Alcohol and Drug Abuse Patient Records regulations: The Federal rules restrict any use of the information to criminally investigate or prosecute any alcohol or drug abuse patient.[facility] HospitalIn the event this information is protected by the Federal Confidentiality of Alcohol and Drug Abuse Patient Records regulations: The Federal rules restrict any use of the information to criminally investigate or prosecute any alcohol or drug abuse patient.[facility] HospitalIn the event this information is protected by the Federal Confidentiality of Alcohol and Drug Abuse Patient Records regulations: The Federal rules restrict any use of the information to criminally investigate or prosecute any alcohol or drug abuse patient.[facility] HospitalIn the event this information is protected by the Federal Confidentiality of Alcohol and Drug Abuse Patient Records regulations: The Federal rules restrict any use of the information to criminally investigate or prosecute any alcohol or drug abuse patient.[facility] HospitalIn the event this information is protected by the Federal Confidentiality of Alcohol and Drug Abuse Patient Records regulations: The Federal rules restrict any use of the information to criminally investigate or prosecute any alcohol or drug abuse patient.[facility] HospitalIn the event this information is protected by the Federal Confidentiality of Alcohol and Drug Abuse Patient Records regulations: The Federal rules restrict any use of the information to criminally investigate or prosecute any alcohol or drug abuse patient.[facility] HospitalIn the event this information is protected by the Federal Confidentiality of Alcohol and Drug Abuse Patient Records regulations: The Federal rules restrict any use of the information to criminally investigate or prosecute any alcohol or drug abuse patient.[facility] HospitalIn the event this information is protected by the Federal Confidentiality of Alcohol and Drug Abuse Patient Records regulations: The Federal rules restrict any use of the information to criminally investigate or prosecute any alcohol or drug abuse patient.[facility] HospitalIn the event this information is protected by the Federal Confidentiality of Alcohol and Drug Abuse Patient Records regulations: The Federal rules restrict any use of the information to criminally investigate or prosecute any alcohol or drug abuse patient.[facility] HospitalIn the event this information is protected by the Federal Confidentiality of Alcohol and Drug Abuse Patient Records regulations: The Federal rules restrict any use of the information to criminally investigate or prosecute any alcohol or drug abuse patient.[facility] HospitalIn the event this information is protected by the Federal Confidentiality of Alcohol and Drug Abuse Patient Records regulations: The Federal rules restrict any use of the information to criminally investigate or prosecute any alcohol or drug abuse patient.[facility] HospitalIn the event this information is protected by the Federal Confidentiality of Alcohol and Drug Abuse Patient Records regulations: The Federal rules restrict any use of the information to criminally investigate or prosecute any alcohol or drug abuse patient.[facility] HospitalIn the event this information is protected by the Federal Confidentiality of Alcohol and Drug Abuse Patient Records regulations: The Federal rules restrict any use of the information to criminally investigate or prosecute any alcohol or drug abuse patient.[facility] HospitalIn the event this information is protected by the Federal Confidentiality of Alcohol and Drug Abuse Patient Records regulations: The Federal rules restrict any use of the information to criminally investigate or prosecute any alcohol or drug abuse patient.[facility] HospitalIn the event this information is protected by the Federal Confidentiality of Alcohol and Drug Abuse Patient Records regulations: The Federal rules restrict any use of the information to criminally investigate or prosecute any alcohol or drug abuse patient.[facility] HospitalIn the event this information is protected by the Federal Confidentiality of Alcohol and Drug Abuse Patient Records regulations: The Federal rules restrict any use of the information to criminally investigate or prosecute any alcohol or drug abuse patient.[facility] HospitalIn the event this information is protected by the Federal Confidentiality of Alcohol and Drug Abuse Patient Records regulations: The Federal rules restrict any use of the information to criminally investigate or prosecute any alcohol or drug abuse patient.[facility] HospitalIn the event this information is protected by the Federal Confidentiality of Alcohol and Drug Abuse Patient Records regulations: The Federal rules restrict any use of the information to criminally investigate or prosecute any alcohol or drug abuse patient.[facility] FOR RECORDS PERTAINING TO PATIENTS WHO [...] BE BASED ON THE PRIMARY CLINICAL RECORDS. [facility] [employer] [facility]. provides no warranty or guarantee of the accuracy or completeness of information in this document.
[2024-12-26 15:25] VITALS: RESP 18; TEMP 36.6
[2024-12-26 15:26] VITALS: BP 121/60; PULSE 78; PULSE 82; O2SAT 98
[2024-12-26 15:28] VITALS: BMI 31.4
--- NOTE | 2024-12-26 16:57 | OB.TRI.NOTE ---
HPI - General General Date of Admission: 12/26/24 Date of Service: 12/26/24 Chief Complaint: Contractions HPI Narrative KING HESTER, is a 34 F who presents with painful contractions for 2 hours. No Bleeding No LOF. Baby is breech and will be a PCS. No cervical change after 2 hours. Contractions spaced out. Cat I tracing. Maternal Data Information Final GASPER: 01/11/25 Gestational age: 37+5 PFSH PFSH Medical History Polycystic ovarian syndrome Eczema Hx of Pham thyroiditis Hay fever Home Medications ?Medication ?Instructions ?Recorded ?Last Taken ?Type levothyroxine 13 mcg capsule 50 mcg PO DAILY hashimotos 04/04/21 12/26/24 History ondansetron HCl 4 mg tablet 4 mg PO 4X/DAY 09/20/24 12/26/24 History vit no.95-ferrous 1 tab PO DAILY 09/20/24 12/25/24 History fumarate 28 mg-folic acid 800 mcg tablet () promethazine 12.5 mg tablet 25 mg PO QHS 09/20/24 09/10/24 History Allergy/AdvReac Type Severity Reaction Status Date / Time amoxicillin Allergy Severe Hives Verified 12/26/24 15:30 tree nut (tree nuts) Allergy Intermediate Other Verified 12/26/24 15:30 latex Allergy Unknown hives Verified 12/26/24 15:30 Penicillins Allergy Unknown rash Verified 12/26/24 15:30 ethanolamine Allergy Anaphylaxis Verified 12/26/24 15:30 Influenza Virus Vaccines AdvReac Unknown Rash Verified 12/26/24 15:30 (flu shot) Family History Other Asthma Breast cancer Surgical History Hx of cholecystectomy Hx of appendectomy Social History Smoking Status: Never smoker History 2 Elective abortions Hx Para 1 Spontaneous abortions Hx # Term Pregnancies Ectopic pregnancies Hx # Pregnancies Multiple births # of living children NST FHR Rate Baby A Baseline: 150 Variability:: Moderate Accelerations:: 15 x 15 Decelerations:: None NST Reactive:: Yes Uterine Activity:: irregular Assessment & Plan (1) Uterine contractions: (2) 37 weeks gestation of : (3) Breech presentation: QUALIFIERS: Fetus number: single or unspecified fetus Qualified Code(s): O32.1XX0 - Maternal care for breech presentation, not applicable or unspecified PLAN: Plan No cervical change. Discharged home
[2024-12-26 17:52] VITALS: BP 125/60; PULSE 68; RESP 16; TEMP 36.3
== END 2024-12-26 18:12 | disposition home or self-care (01) ==
LOC: WPOUT 14:36 → WP 14:47
PROVIDERS: PCP Family Medicine; Referring Provider Obstetrics & Gynecology; Visit Provider Obstetrics & Gynecology
DX: O47.1 False labor at or after 37 completed weeks of gestation (principal); Z90.49 Acquired absence of other specified parts of digestive tract; Z3A.37 37 weeks gestation of pregnancy; O32.1XX0 Maternal care for breech presentation, not applicable or unspecified
CPT/HCPCS: 59025; 59050; 99221; G0378

== ENCOUNTER 2025-01-05 09:30 | Inpatient (IN) | payer BC, MEDICAID, SELFPAY ==
[2025-01-05] VITALS (20 sets, daily range): BP systolic 96–134; BP diastolic 56–84; PULSE 54–89; RESP 16–18; TEMP 36.1–36.8; O2SAT 97–100; BMI 31.7
[2025-01-05] MEDS: Lactated Ringers 1,000 ML 999 ML IV (10:15)
[2025-01-05 10:32] LABS: Hematocrit 37.4 % (37-47); Hemoglobin 12.7 g/dL (12.0-15.0); Immature Granulocytes Count 0.080 X10^3/uL (0.0-0.0); Mean Corp Hgb Conc 34.0 g/dL (32-36); Mean Corpuscular Volume 92.8 fL (81-99); Mean Platelet Vol. 11.8 fl (6.2-12.0); NRBC Flagged by Analyzer 0 % (0-5); Platelet Count 234 K/mm3 (150-450); RBC Distribution Width CV 13.2 % (11.6-14.6); RBC Distribution Width SD 44.8 fl (35.1-43.9); Red Blood Count 4.03 M/mm3 (4.2-5.4); White Blood Count 11.5 K/mm3 (4.4-11.0)
[2025-01-05] MEDS: Lactated Ringers 1,000 ML 150 ML IV (11:19)
[2025-01-05 11:21] LABS: Syphilis Antibodies Nonreactive (Nonreactive)
[2025-01-05] MEDS: morphine PF (epidural) 5 MG/10 ML Vial EPIDURAL (12:05)
--- NOTE | 2025-01-05 12:11 | HP.PCM.OB_ITS ---
HPI - General General Date of Admission: 01/05/25 HPI Narrative KING HESTER, is a 34 F who presents for . Maternal Data Information GASPER Calculator Estimated Delivery Date Method Current WG Current Estimate 01/11/25 Manual 39w 1d PFSH [facility] Medical History Family history of hearing loss at age younger than 7 years Polycystic ovarian syndrome Eczema Hx of Pham thyroiditis Hay fever Home Medications ?Medication ?Instructions ?Recorded ?Last Taken ?Type ondansetron HCl 4 mg tablet 4 mg PO 4X/DAY nausea 09/1001/05/25 08:45 History 4 mg vit no.95-ferrous 1 tab PO DAILY 01/04/25 12:00 History fumarate 28 mg-folic acid 800 mcg 1 TA B tablet () diphenhydramine HCl 25 mg capsule 25 mg PO QHS PRN ins omnia 01/05/25 01/04/25 20:00 History (Allergy (diphenhydramine)) 25 mg levothyroxine 50 mcg tablet 50 mcg PO DAILY hypothyroi d 01/05/25 01/04/25 06:00 History 50 mcg Allergy/AdvReac Type Severity Reaction Status Date / Time amoxicillin Allergy Severe Hives Verified 01/05/25 10:16 tree nut (tree nuts) Allergy Intermediate Other Verified 01/05/25 10:16 latex Allergy Unknown hives Verified 01/05/25 10:16 montelukast (From Singulair) Allergy Unknown unknown Verified 01/05/25 10:19 Penicillins Allergy Unknown rash Verified 01/05/25 10:16 ethanolamine Allergy Anaphylaxis Verified 12/26/24 15:30 Influenza Virus Vaccines AdvReac Unknown Rash Verified 01/05/25 10:16 (flu shot) Family History Other Asthma Breast cancer Surgical History Hx of cholecystectomy Hx of appendectomy Social History Smoking Status: Never smoker History 2 Elective abortions Hx Para 1 Spontaneous abortions Hx # Term Pregnancies Ectopic pregnancies Hx # Pregnancies Multiple births # of living children Vital Signs Vital Signs Vital Signs: 01/05/25 09:52 01/05/25 09:52 01/05/25 09:53 Temperature Temperature Source Pulse Rate 83 Respiratory Rate Blood Pressure 115/56 L BP Systolic 115 BP Diastolic 56 Pulse Ox 97 01/05/25 09:53 01/05/25 09:53 01/05/25 09:53 Temperature Temperature Source Temporal Pulse Rate 85 Respiratory Rate 18 Blood Pressure BP Systolic BP Diastolic Pulse Ox 01/05/25 09:53 01/05/25 09:57 01/05/25 09:57 Temperature 98.1 F Temperature Source Pulse Rate 89 Respiratory Rate Blood Pressure BP Systolic BP Diastolic Pulse Ox 97 Weight Weight: 202 lb 13.204 oz Body Mass Index (BMI) 31.7 Labs Labs Labs: Blood Type O POSITIVE Antibody Screen NEGATIVE Hct 37.4 % (37-47) Hgb 12.7 g/dL (12.0-15.0) Syphilis Total Ab Nonreactive (Nonreactive) VZV IgG Antibody 1281 index (Immune >165) Rubella IgG Antibody Reactive (Nonreactive) Assessment & Plan (1) Breech presentation: QUALIFIERS: Fetus number: single or unspecified fetus Qualified Code(s): O32.1XX0 - Maternal care for breech presentation, not applicable or unspecified COMMENT: @ 39&1 (2) Request for sterilization: PLAN: Plan Admit to L&D MOD - discussed R/B/A and will proceed with for breech Sterilization request - reviewed R/B/A including risks of failure & regret Informed consent signed
[2025-01-05] MEDS: Gentamicin 800 MG/20 ML Vial 310 MG IV (12:29)
--- NOTE | 2025-01-05 13:03 | OP.PCM_ITS ---
Maternal Data Information GASPER Calculator Estimated Delivery Date Method Current WG Current Estimate 01/11/25 Manual 39w 1d Operative Report (OB) Details Procedure Type: low transverse (with bilateral salpingectomy) Date of Procedure: 01/05/25 Procedure Start Time: 12:25 Procedure Stop Time: 13:03 Pre-Operative Diagnosis: Repeat Elective and Desires elective sterilization Post-Operative Diagnosis: Same as Pre-operative diagnosis Classification: Scheduled Type of Anesthesia: Spinal Antibiotic Given: Ancef 2 grams IV x1 Drain: White to straight drain Estimated Blood Loss: 800ml Fluids Replaced: 1200ml Findings Description of surgery: The patient was taken to the operating room where spinal anesthesia was placed & found to be adequate. She was prepped and draped in the dorsal supine position with a leftward tilt. A Pfannenstiel skin incision was made approximately 2 cm above the symphysis pubis and carried through to the underlying fascia with the scalpel. The fascia was incised incised in the midline and extended laterally with the Reese scissors. The rectus muscles were in the midline and the peritoneum was entered carefully and bluntly. The peritoneal incision was stretched and the bladder blade was inserted. Vesicouterine peritoneum was tented up, incised & then bladder flap created gently. The uterine incision was made in a low transverse fashion with the scalpel and extended superiorly and inferiorly with blunt dissection. The buttocks were grasped and the delivered via typical breech maneuvers. The 3VC cord was clamped and cut in slightly delayed fashion. The infant was handed off to the waiting orthopedics pediatric physician. The placenta was delivered with fundal massage and gentle traction in the standard fashion. The uterus was exteriorized and cleared of clots and debris. The uterine incision was closed with #1 Vicryl suture in a running locked fashion. Monocryl suture was used in an imbricating fashion. The incision was examined and was found to be hemostatic. Attention was turned to the fallopian tubes. Starting on the right the fallopian tube was grasped, cauterized and cut. Excellent hemostasis of the tubal site was confirmed. Then the left fallopian tube was grasped, cauterized and cut. Excellent hemostasis of the tubal site was confirmed. The uterus was returned to the abdominal cavity. Hemostasis of the tubal excision sites was again confirmed. Hemoblast placed on the tubal excision sites. After irrigating hemoblast was placed over the uterine incision as some areas were denuded (but hemostatic). The rectus muscle was examined and any bleeding was Bovie cauterized. The fascia was closed with PDS suture in a running standard fashion. The subcutaneous tissue was examining and any bleeding was Bovie cauterized. The subcutaneous tissue was reapproximated with interrupted sutures. The skin was closed in a subcuticular fashion by the AUTOMOTIVE QUALITY MANAGER while I was present in the OR. The remainder of the procedure was performed by me with assistance. Surgical findings: normal maternal uterus and adnexa Presentation: Vertex Amniotic Membrane Rupture Type: Artificial Amniotic Fluid Description: Clear Placental Delivery Description: Expressed Placenta Disposition: [facility] Specimen collected: Yes Description of specimen(s) removed: bilateral fallopian tubes Cord Vessel Description: 3 Vessels Cord Entanglement: None Infant A gender: Male (1 minute): 9 (5 minute): 9 Delayed Cord Clamping: Yes Lead Front Desk Agent field marketing associate: Yes Marketing Traffic Manager: Sis Olivares Tasks completed by assistant property manager: Opening & closing and Retracting Additional drilling assistant?: No Complications Complications: No
[2025-01-05] MEDS: Oxytocin 15 Units/NS 250ml 15 UNITS/250 ML IV.SOLN 83 UNITS IV (13:20)
--- NOTE | 2025-01-05 13:49 | FALS_PTH ---
PATIENT: KING HESTER LOC: [facility] U#:[id number] AGE/SX: 34/F ROOM: [facility] RE01/05/[address]: Dr. Cesar Armas MD : 1990 BED: 1 DIS: 01/07/2025 SPEC #: [id number] RECD: 01/05/25 14:18 STATUS: RODDY REShai #: [id number] MONAE: 01/05/25 13:[address]: Cesar Armas DEPT: SURGICAL PATHOLOGY RECD BY: Rafael Stahl ENTERED: 01/05/25 14:51 SP TYPE: FALL TUBES OTHR DR: Dr. Ephraim Dubon, DO Tissues: A - Fallopian tube Procedures: Surgery Specimen Level II HEADER OPERATION: Tubal ligation PRE-OP DIAGNOSIS: Sterilization TISSUE SUBMITTED: A- Bilateral fallopian tubes MICROSCOPIC DIAGNOSIS A. Two fallopian tubes, bilateral salpingectomies: * Full thickness segments of two benign fallopian tubes MICROSCOPIC DESCRIPTION Slides are reviewed. GROSS DESCRIPTION A. Received fresh and subsequently placed in formalin, labeled with the patient's name and date of . Designated as suture RT tube are 2 purple-red fimbriated fallopian tubes with a suture designated as right tube, measuring 5.3 x 0.8 cm (left) and 9.2 x 0.7 cm (right). No lesions are grossly identified. Tire Changer sections are submitted in 2 cassettes as follows: A1: Left fallopian tubeA2: Right fallopian tube [place] 01/05/2025 CPT:02889h4
--- NOTE | 2025-01-05 13:51 | NURSING ---
1318-expressed half dollar size clot w fundal message
[2025-01-05 14:23] LABS: Pathology Specimen OB SEE PATHOLOGY REPORT
[2025-01-05] MEDS: Ketorolac 30 MG/ML Syringe IV ×2 (14:24→20:42)
[2025-01-05] MEDS: Lactated Ringers 1,000 ML 100 ML IV (16:35)
[2025-01-06] VITALS (7 sets, daily range): BP systolic 106–122; BP diastolic 55–81; PULSE 71–104; RESP 16; TEMP 36.2–36.7; O2SAT 96–97
[2025-01-06] MEDS: 0.9% Saline Lock 10 ML Syringe IV (02:28)
[2025-01-06] MEDS: Ketorolac 30 MG/ML Syringe IV ×2 (02:28→09:17)
[2025-01-06 06:20] LABS: Hematocrit 33.7 % (37-47); Hemoglobin 11.3 g/dL (12.0-15.0); Mean Corp Hgb Conc 33.5 g/dL (32-36); Mean Corpuscular Volume 93.1 fL (81-99); Mean Platelet Vol. 11.2 fl (6.2-12.0); Platelet Count 209 K/mm3 (150-450); RBC Distribution Width CV 13.3 % (11.6-14.6); RBC Distribution Width SD 45.4 fl (35.1-43.9); Red Blood Count 3.62 M/mm3 (4.2-5.4); White Blood Count 15.7 K/mm3 (4.4-11.0)
--- NOTE | 2025-01-06 08:27 | PN_ITS ---
Subjective Subjective patient seen at bedside, doing well. Patient reports good pain control. lochia mild. passing flatus. Objective Data Objective Data Vital Signs: Vital Signs Temp Pulse Resp BP Pulse Ox O2 Del Method 97.9 F 75 16 109/58 L 96 Room Air 01/06/25 04:05 01/06/25 04:05 01/06/25 04:05 01/06/25 04:05 01/06/25 04:05 01/06/25 04:05 Oxygen Delivery Method Room Air Weight: 92 kg Body Mass Index (BMI) 31.7 Intake & Output: Intake and Output for Last 24 Hours 01/04/25 01/05/25 01/06/25 23:59 23:59 23:59 Intake Total 1775 / 2516.67 741.67 / 741.67 Output Total 1800 / 2050 800 / 800 Balance -25 / 466.67 -58.33 / -58.33 Lab / Micro Data 01/06/25 06:05 Labs: Laboratory Results - last 24 hr 01/05/25 10:15: WBC 11.5 H, RBC 4.03 L, Hgb 12.7, Hct 37.4, MCV 92.8, MCH 31.5, MCHC 34.0, RDW Std Deviation 44.8 H, RDW Coeff of Jeremias 13.2, Plt Count 234, MPV 11.8, Immature Gran % (Auto) 0.700, Neut % (Auto) 81.7 H, Lymph % (Auto) 11.3 L, Sunflower % (Auto) 5.6, Eos % (Auto) 0.4, Baso % (Auto) 0.3, Absolute Neuts (auto) 9.4 H, Absolute Lymphs (auto) 1.30, Nucleated RBC % 0, Syphilis Total Ab Nonreactive, Blood Type O POSITIVE, Antibody Screen NEGATIVE 01/06/25 06:05: WBC 15.7 H, RBC 3.62 L, Hgb 11.3 L, Hct 33.7 L, MCV 93.1, MCH 31.2, MCHC 33.5, RDW Std Deviation 45.4 H, RDW Coeff of Jeremias 13.3, Plt Count 209, MPV 11.2 Physical Exam Narrative Abd: fundus firm. dressing dry and intact Const alert and oriented x3 General Appearance: cooperative HEENT normocephalic Neck General: normal visual inspection GI soft to palpation and non-distended GI Narrative: Fundus firm Extremity normal to inspection and no calf tenderness Skin no rashes or lesions noted Neuro oriented x3 and CN's II-XII intact bilaterally Psych mental status grossly normal Assessment & Plan Assessment/Plan (1) Delivery by section: PLAN: Plan POD#1 , Doing well Routine care pain mgmt monitor VS ambulation
[2025-01-06] MEDS: Senna/Docusate Sodium 1 Tablet PO (09:17)
[2025-01-07 01:42] VITALS: BP 117/64; PULSE 82; RESP 16; TEMP 36.7; O2SAT 97
--- NOTE | 2025-01-07 08:48 | PCM.PN.OB ---
Subjective Subjective Doing well. Ambulating and voiding without difficulty. Mild lochia. Breast feeding. Objective Data Objective Data Vital Signs: Vital Signs Temp Pulse Resp BP Pulse Ox O2 Del Method 98.1 F 82 16 117/64 97 Room Air 01/07/25 01:42 01/07/25 01:42 01/07/25 01:42 01/07/25 01:42 01/07/25 01:42 01/07/25 01:42 Oxygen Delivery Method Room Air Weight: 92 kg Body Mass Index (BMI) 31.7 Intake & Output: Intake and Output for Last 24 Hours 01/05/25 01/06/25 01/07/25 23:59 23:59 23:59 Intake Total 1775 / 2516.67 741.67 / 741.67 Output Total 1800 / 2050 800 / 800 Balance -25 / 466.67 -58.33 / -58.33 Lab / Micro Data 01/06/25 06:05 ROS Constitutional Constitutional: Denies headache(s) Cardiovascular Cardiovascular: Denies chest pain or dyspnea Gastrointestinal Gastrointestinal: Denies nausea or vomiting Genitourinary Genitourinary: Denies dysuria Physical Exam Const alert, oriented x3 and no apparent distress General Appearance: cooperative and comfortable Eyes PERRL and EOMs intact bilaterally Resp normal respiratory effort GI soft to palpation and non-tender GI Narrative: soft, moderate distention, fundus firm, appropriately tender. Abdominal bandage clean dry and intact Uterus Palpation: uterus fundus firm ( below umbilicus) Extremity normal to inspection and full ROM Neuro oriented x3 and CN's II-XII intact bilaterally Psych mental status grossly normal Assessment & Plan (1) Delivery by section: (2) Request for sterilization: PLAN: Plan Discharge home
--- NOTE | 2025-01-07 08:49 | PCM.DC.SUM ---
Providers Date of Admission: 01/05/25 Date of Discharge: 01/07/25 Primary Care Physician: Dr. Ephraim Dubon DO Reason For Visit: SCHEDULED Diagnosis Discharge Diagnosis (1) Delivery by section: Status: Acute (2) Request for sterilization: Status: Acute Code(s): Z30.2 - Encounter for sterilization Plan Discharge home Medications at Discharge Home Medications vit no.95-ferrous fumarate 28 mg-folic acid 800 mcg tablet () 1 tab PO DAILY 09/20/24 levothyroxine 50 mcg tablet 50 mcg PO DAILY hypothyroid 01/05/25 oxycodone 5 mg tablet 5 mg PO Q6H PRN pain 5 days #20 tabs 01/07/25 Hospital Course Operations section (with tubal) Summary of Care Provided Minutes Spent on Discharge: 20 Hospital Course: Scheduled primary c/s with tubal for breech. Breast feeding Physical Exam Const alert General Appearance: cooperative GI GI Narrative: soft, moderate distention, fundus firm, appropriately tender. Abdominal bandage clean dry and intact Weight / BMI Weight Weight: 92 kg Body Mass Index (BMI) 31.7 ABG / Lab / Microbiology Data 01/06/25 06:05 D/C Instructions May resume sexual activity in: 4-6 weeks Lifting Restrictions: 20 pounds Additional Activity Instructions: Nothing in the vagina for 4-6 weeks. You may return to work/school in 6 weeks. Call your doctor if your incision/area has: Continuous Slow Oozing, Sudden Increased Bleeding, Increased Pain/ Swelling, Increased Redness and Foul Smelling Discharge Call your doctor if you observe: Fever of 101 or Higher and Using more than 1 pad per hour (for 2 hours) Suture Line Care: Avoid Pulling/Pushing and Avoid Pinching/Bending Cleanse incision/area with: Keep Dressing Clean & Dry DC O2, CPAP, BIPAP Needs Home O2 Discharge instructions: No Please Follow Up With: Madisyn Walter MD When: Call to make an appointment for an incision check in 1-2 [phone]. You will need a post check in 6 weeks. Meaningful Use Info Meaningful Use Meaningful Use Diagnoses (Choose all that apply): None applicable Discharge Plan Admission Admit Date/Time: 01/05/25 09:30 Primary Reason for Your Visit: Attending Provider: Cesar Armas Primary Care Provider: Ephraim Dubon Discharge Orders/Prescriptions Prescriptions: New oxycodone 5 mg Tablet 5 mg PO Q6H PRN (Reason: pain) 5 Days Qty: 20 0RF Continued levothyroxine 50 mcg tablet 50 mcg PO DAILY PNV cmb#95-ferrous fumarate-FA [] 28 mg iron- 800 mcg tablet 1 tab PO DAILY Discontinued diphenhydramine HCl [Allergy (diphenhydramine)] 25 mg capsule 25 mg PO QHS PRN (Reason: insomnia) ondansetron HCl 4 mg tablet 4 mg PO 4X/DAY Referrals / Follow Up: Ephraim Dubon DO [Primary Care Provider] - Disposition Disposition (needs filled in before D/C Order can be placed): Home, Self Care
[2025-01-07 09:00] VITALS: BP 112/74; PULSE 97; RESP 16; TEMP 37; O2SAT 98
[2025-01-07] MEDS: Senna/Docusate Sodium 1 Tablet PO (10:19)
--- NOTE | 2025-01-13 15:39 | NURSING ---
Follow up phone call made, no answer, left voicemail
== END 2025-01-07 11:00 | disposition home or self-care (01) | DRG 785 ==
PROVIDERS: Obstetrics & Gynecology; Admitting Provider Obstetrics & Gynecology; PCP Family Medicine; Referring Provider Obstetrics & Gynecology; Visit Provider Obstetrics & Gynecology
PROC: 10D00Z1 Extraction of Products of Conception, Low, Open Approach (ICD-10-PCS; CPT 59514; principal; 2025-01-05 11:45)
DX: O32.1XX0 Maternal care for breech presentation, not applicable or unspecified (principal); E06.3 Autoimmune thyroiditis; E28.2 Polycystic ovarian syndrome; Z30.2 Encounter for sterilization; Z37.0 Single live birth; Z79.890 Hormone replacement therapy; Z90.49 Acquired absence of other specified parts of digestive tract; O99.284 Endocrine, nutritional and metabolic diseases complicating childbirth; Z3A.39 39 weeks gestation of pregnancy; O34.219 Maternal care for unspecified type scar from previous cesarean delivery
CPT/HCPCS: 59025; 59050; 76815; 85025; 85027; 86780; 86850; 86900; 86901; 88302; 99221; A4216; G0378; J2405